=== PATIENT | female | born 1935 | race African-American/Black ===

== ENCOUNTER 2016-09-22 18:23 | Inpatient (IN) | payer MEDICARE, OTHER ==
[~2016-09-22] VITALS: Ht 165.1 cm; Wt 104.8 kg
[~2016-09-22 18:23] MED LIST: ADVAIR 500-501 EACH INH; ALLOPURINOL100 M1 PO; AMLODIPINE BESY10 MG PO; AZELASTINE137 MCG/0. INH; BYSTOLIC20 MG PO; DIGOXIN125 MCG PO; DIOVAN320 MG PO; FUROSEMIDE20 M1 PO; LETAIRIS5 MG PO; MONTELUKAST SOD10 MG PO; OXYBUTYNIN CHLOR5 M2 PO; PRADAXA150 MG PO; SILDENAFIL20 MG PO; TRAMADOL HCL50 MG ORAL; VENTOLIN HFA18 GM PO; VITAMIN D35000 UNI2 PO
[2016-09-22 18:40] VITALS: BP 151/57
[2016-09-22] MEDS ORDERED: Ipratropium 0.02% Inh Soln 2.5ml UD HHN ONE (19:00)
[2016-09-22] MEDS ORDERED: Albuterol ud Inhalation HHN ONE (19:00)
--- NOTE | 2016-09-22 19:49 | Emergency Room Report ---
History of Present Illness General Chief Complaint: Dyspnea/Respdistress Source: Patient, Medical Record Present Illness HPI 81-year-old female presents ED for evaluation. States that her last several month she's been feeling short of breath with persistent coughing and wheezing. O2 saturation 86% percent on room air in triage. Denies any chest pain. Denies any fevers or chills. Notes productive cough. Notes history of asthma. No other aggravating or relieving factors. Denies any other associated symptoms Allergies: Coded Allergies: PENICILLINS (Verified Allergy, Mild, 10/05/09) Cashew (Verified Allergy, 12/25/13) Dust (Verified Allergy, 12/25/13) FISH CONTAINING PRODUCTS (Verified Allergy, 12/25/13) seafood TOMATO (Verified Allergy, 12/25/13) Patient History Past Medical History: HTN, AFib, asthma, CVA/TIA Past Surgical History: none Pertinent Family History: none Social History: Denies: alcohol use, drug use, smoking Now: No Immunizations: UTD Reviewed Nursing Documentation: PMH: Agreed, PSxH: Agreed Nursing Documentation-PMH Past Medical History: No History, Except For Hx Cardiac Problems: Yes - ATRIAL FIB Hx Hypertension: Yes Hx Asthma: Yes Hx Cancer: No - HISTORY OF COLON TUMOR Hx Gastrointestinal Problems: Yes Hx Neurological Problems: Yes Hx Transient Ischemic Attacks: Yes Review of Systems All Other Systems: negative except mentioned in HPI Physical Exam Vital Signs Date Time Temp Pulse Resp B/P Pulse Ox O2 Delivery O2 Flow Rate FiO2 09/22/16 18:35 98.1 70 18 151/57 86 Room Air 09/22/16 19:18 97 Sp02 EP Interpretation: reviewed, normal General Appearance: no apparent distress, alert, GCS 15, non-toxic Head: normocephalic Eyes: bilateral eye PERRL, bilateral eye normal inspection ENT: normal ENT inspection Neck: normal inspection Respiratory: decreased breath sounds, crackles Cardiovascular #1: regular rate, rhythm, no edema Gastrointestinal: normal inspection Rectal: deferred Genitourinary: no CVA tenderness Musculoskeletal: normal inspection Neurologic: alert, oriented x3, responsive, motor strength/tone normal, sensory intact, speech normal Psychiatric: judgement/insight normal Skin: normal inspection Lymphatic: normal inspection Medical Decision Making Diagnostic Impression: Primary Impression: CHF exacerbation Qualified Codes: I50.9 - Heart failure, unspecified Additional Impressions: Hypoxia Dyspnea Qualified Codes: R06.00 - Dyspnea, unspecified ER Course Hospital Course 81-year-old female presents ED complaining of shortness of breath, productive cough, leg swelling, hypoxic on room air Differential diagnoses include: KS/unstable angina, contusion, muscle strain, PTX, rib fracture Clinical course Patient placed on stretcher. on rehabilitation manager. After initial history and physical I ordered nebs, labs, EKG, chest x-ray labs reviewed- no leukocytosis, hemoglobin/hematocrit stable, electrolytes ok, troponins negative, BNP elevated Chest x-ray- pulmonary congestion, bibasilar atelectasis O2 saturation improved on nasal cannula. Antibiotics given. Lasix given. Case discussed with Dr. Pace and he agreed to accept the patient to his service for further care and support I. I feel this is a highly complex case requiring extensive working including EKG/Rhythm strip, Xray/CT/US, Blood/urine lab work, repeat exams while in ED, and administration of strong opiates/narcotics for pain control, admission to hospital or close patient follow up. Diagnosis - CHF exacerbation, hypoxia, dyspnea admitted to telemetry in serious condition Labs Test 09/22/16 19:56 09/22/16 21:30 White Blood Count 5.4 K/UL (4.8-10.8) Red Blood Count 4.10 M/UL (4.20-5.40) Hemoglobin 12.2 G/DL (12.0-16.0) Hematocrit 42.1 % (37.0-47.0) Mean Corpuscular Volume 103 FL (80-99) Mean Corpuscular Hemoglobin 29.8 PG (27.0-31.0) Mean Corpuscular Hemoglobin Concent 29.0 G/DL (32.0-36.0) Red Cell Distribution Width 14.6 % (11.6-14.8) Platelet Count 147 K/UL (150-450) Mean Platelet Volume 7.0 FL (6.5-10.1) Neutrophils (%) (Auto) 56.5 % (45.0-75.0) Lymphocytes (%) (Auto) 32.9 % (20.0-45.0) Monocytes (%) (Auto) 7.6 % (1.0-10.0) Eosinophils (%) (Auto) 1.1 % (0.0-3.0) Basophils (%) (Auto) 2.0 % (0.0-2.0) Sodium Level 144 mEQ/L (135-145) Potassium Level 5.4 mEQ/L (3.4-4.9) 4.4 mEQ/L (3.4-4.9) Chloride Level 99 mEQ/L (98-107) Carbon Dioxide Level 36 mEQ/L (20-30) Anion Gap 9 (5-15) Blood Urea Nitrogen 16 mg/dL (7-23) Creatinine 0.6 mg/dL (0.5-0.9) Estimat Glomerular Filtration Rate mL/min (>60) Glucose Level 108 mg/dL (74-106) Lactic Acid Level 0.90 mmol/L (0.66-2.22) Calcium Level 9.1 mg/dL (8.6-10.2) Total Bilirubin 0.3 mg/dL (0.0-1.2) Aspartate Amino Transf (AST/SGOT) 32 U/L (5-40) Alanine Aminotransferase (ALT/SGPT) 24 U/L (3-33) Alkaline Phosphatase 63 U/L (35-104) Total Creatine Kinase 246 U/L (26-140) Creatine Kinase MB 4.0 ng/mL (< 3.8) Creatine Kinase MB Relative Index 1.6 Troponin I < 0.30 ng/mL (<=0.30) Pro-B-Type Natriuretic Peptide 986 pg/mL (0-450) Total Protein 7.4 g/dL (6.6-8.7) Albumin 3.6 g/dL (3.5-5.2) Globulin 3.8 g/dL Albumin/Globulin Ratio 0.9 (1.0-2.7) EKG Diagnostic Results Rate: normal Rhythm: other - afib ST Segments: no acute changes ASA given to the pt in ED: No Rhythm Strip Diag. Results EP Interpretation: yes Rhythm: no PVC's, no ectopy Chest X-Ray Diagnostic Results EP Interpretation: Yes Findings: no pneumothorax, no acute cardiopulmonary disease, other - bilateral atelectasis Number of Views: 1 Last Vital Signs Date Time Temp Pulse Resp B/P Pulse Ox O2 Delivery O2 Flow Rate FiO2 09/22/16 19:18 74 23 97 Room Air 97 1/13/17 18:35 98.1 151/57 Status: improved Disposition: ADMITTED INPATIENT Condition: Serious Referrals: ISAIAS PACE (PCP) JACKIE DENISE M.D. Sep 22, 2016 19:49
[2016-09-22 20:10] VITALS: BP 156/71
[2016-09-22] MEDS ORDERED: BYSTOLIC10 MG ORAL (20:33)
[2016-09-22] MEDS ORDERED: LINZESS145 MCG PO (20:33)
[2016-09-22 20:41] LABS: ALANINE AMINOTRANSFERASE 24 U/L (3-33); ALBUMIN/GLOBULIN RATIO 0.9 (1.0-2.7); ANION GAP 9 (5-15); ASPARTATE AMINO TRANSFERASE 32 U/L (5-40); CALCIUM 9.1 mg/dL (8.6-10.2); CARBON DIOXIDE 36 mEQ/L (20-30); CHLORIDE 99 mEQ/L (98-107); CREATININE 0.6 mg/dL (0.5-0.9); HEMOLYSIS 158; POTASSIUM 5.4 mEQ/L (3.4-4.9); SODIUM 144 mEQ/L (135-145); TOTAL PROTEIN 7.4 g/dL (6.6-8.7)
[2016-09-22 20:54] LABS: EOSINOPHILS % (AUTO) 1.1 % (0.0-3.0); LYMPHOCYTES % (AUTO) 32.9 % (20.0-45.0); MEAN CORPUSCULAR HEMOGLOBIN 29.8 PG (27.0-31.0); MEAN CORPUSCULAR VOLUME 103 FL (80-99); MONOCYTES % (AUTO) 7.6 % (1.0-10.0); NEUTROPHILS % (AUTO) 56.5 % (45.0-75.0); PLATELET COUNT 147 K/UL (150-450); RED CELL DISTRIBUTION WIDTH 14.6 % (11.6-14.8); WHITE BLOOD COUNT 5.4 K/UL (4.8-10.8)
[2016-09-22 21:22] LABS: TROPONIN I < 0.30 ng/mL (<=0.30)
[2016-09-22 22:28] VITALS: BP 127/65
[2016-09-22] MEDS ORDERED: Albuterol ud Inhalation HHN PRN (22:30)
[2016-09-22 22:33] LABS: APPEARANCE,URINE CLEAR; KETONES,URINE NEGATIVE (NEGATIVE); LEUKOCYTE ESTERASE ,URINE 1+ (NEGATIVE); NITRITE,URINE NEGATIVE (NEGATIVE); PH,URINE 6 (4.5-8.0); PROTEIN,URINE 2+ (NEGATIVE); UROBILINOGEN,URINE NORMAL MG/DL (0.0-1.0)
[2016-09-22 23:02] LABS: BACTERIA,URINE OCCASIONAL /HPF; SQUAMOUS EPITHELIAL CELL,UR FEW /LPF (NONE/OCC)
[2016-09-22] MEDS ORDERED: traMADol 50mg tab ORAL PRN (23:45)
[2016-09-23] VITALS: BP 139/71
[2016-09-23] MEDS: Solu-MEDROL 125mg Inj IVP SCH ×3 (00:34→21:56)
[2016-09-23] MEDS: Albuterol ud Inhalation HHN SCH ×3 (02:28→22:35)
[2016-09-23 04:00] VITALS: BP 131/72
[2016-09-23 07:42] VITALS: BP 133/81
[2016-09-23 08:39] LABS: CALCIUM 8.9 mg/dL (8.6-10.2); CHLORIDE 99 mEQ/L (98-107); CREATININE 0.6 mg/dL (0.5-0.9); HEMOLYSIS 2; POTASSIUM 4.7 mEQ/L (3.4-4.9); SODIUM 145 mEQ/L (135-145)
[2016-09-23] MEDS: Allopurinol 100mg Tab ORAL SCH ×2 (08:44→18:14)
[2016-09-23] MEDS: Irbesartan 150mg tablet ORAL SCH (08:44)
[2016-09-23 08:45] LABS: BASOPHILS % (AUTO) 0.5 % (0.0-2.0); MEAN CORPUSCULAR HEMOGLOBIN 30.3 PG (27.0-31.0); MEAN CORPUSCULAR HGB CONC 29.8 G/DL (32.0-36.0); MEAN CORPUSCULAR VOLUME 102 FL (80-99); MEAN PLATELET VOLUME 8.1 FL (6.5-10.1); MONOCYTES % (AUTO) 1.2 % (1.0-10.0); NEUTROPHILS % (AUTO) 79.3 % (45.0-75.0); PLATELET COUNT 144 K/UL (150-450); RED BLOOD COUNT 3.81 M/UL (4.20-5.40); RED CELL DISTRIBUTION WIDTH 14.2 % (11.6-14.8)
[2016-09-23] MEDS: Vitamin D 1000 IU Tab ORAL SCH (08:45)
[2016-09-23 08:56] LABS: ANION GAP 6 (5-15); CARBON DIOXIDE 40 mEQ/L (20-30)
[2016-09-23] MEDS: Revatio 20mg tab ORAL SCH ×3 (08:59→18:14)
[2016-09-23] MEDS ORDERED: Dabigatran 150mg cap ORAL SCH (09:00)
[2016-09-23] MEDS ORDERED: Digoxin 0.125mg tab ORAL SCH (09:00)
[2016-09-23] MEDS ORDERED: Heparin 5000 units/ml inj SUBQ SCH (09:00)
[2016-09-23] MEDS ORDERED: Montelukast 10mg tablet ORAL SCH (09:00)
[2016-09-23 11:36] VITALS: BP 148/68
--- NOTE | 2016-09-23 11:54 | Diagnostic Imaging Report ---
Indications: Shortness of breath Technique: Portable AP chest Findings: Comparison: 01/09/2014 Linear densities persist in both lung bases, decreased. Retro-pulmonary vasculature remains prominent. Heart size, referral pulmonary vasculature remain within normal limits. No pleural abnormalities demonstrated. Calcified granuloma right upper lobe, calcification and elongation of thoracic aorta unchanged. IMPRESSION: No current evidence of acute cardiopulmonary disease Persistent subsegmental atelectasis in both lung bases, decreased Other stable chronic changes as described
[2016-09-23] MEDS: cefTRIAXone 1 GM in D5W 55 ML IVPB SCH (14:23)
[2016-09-23] MEDS: Digoxin 0.125mg tab ORAL SCH (14:25)
[2016-09-23 16:00] VITALS: BP 139/63
[2016-09-23 20:00] VITALS: BP 135/87
--- NOTE | 2016-09-23 20:57 | Consultation ---
DATE OF CONSULTATION: PULMONARY CONSULTATION CONSULTING PHYSICIAN: Stevan Pace M.D. REASON FOR CONSULTATION: Shortness of breath and respiratory insufficiency. HISTORY OF PRESENT ILLNESS: The patient is an 81-year-old female known to me. The patient is noted to have increased shortness of breath, increase in cough, wheezing, and worsening hypoxemia. The patient does have home oxygen. The patient has had prior history of respiratory failure. The patient also has multiple medical problems including atrial fibrillation. The patient is now admitted for further care and management and further intervention and further optimization. The patient admits to some cough and congestion. The patient has noted worsening symptoms over the past 3 to 4 days. Care was discussed and reviewed in detail with the patient as well as with the emergency room physician. PAST MEDICAL HISTORY: The patient's past medical history is notable for hypertension, atrial fibrillation, asthma, CVA, transient ischemic attack, respiratory failure, and chronic hypoxemia. MEDICATIONS: Reviewed. ALLERGIES: Reviewed. SOCIAL HISTORY: Nonsmoker and nondrinker. The patient is still ambulatory using a walker. REVIEW OF SYSTEMS: Otherwise negative with the exception of the above. The patient, however, does have history of colon cancer and paroxysmal atrial fibrillation as well as prior history of transient ischemic attack and neurological issues. PHYSICAL EXAMINATION: GENERAL: This is a well-developed female. She is comfortable, but in mild distress, coughing and wheezing. VITAL SIGNS: Blood pressure 133/81, pulse 71, respiratory rate 22, oxygen saturation 95% on two liters, and temperature 97.7 degrees. HEENT: Overall negative. Extraocular movements are grossly intact. The oropharynx is injected. NECK: Supple. LUNGS: With scattered wheezes and rhonchi with decreased air entry. CARDIAC: Normal S1 and S2. Irregularly irregular without murmurs, rubs, or gallops. ABDOMEN: Overall soft, nontender, obese. EXTREMITIES: No cyanosis, no clubbing. Mild edema. NEUROLOGICAL: Grossly nonfocal, but weak. LABORATORY DATA: Reviewed. Other laboratory data, white count is 5, hematocrit is 38.7, and platelets of 144,000. Chemistry, sodium 145, potassium 4.7, BUN 14, and creatinine 0.6. The BNP is 986. DIAGNOSTIC DATA: Chest x-ray with atelectasis only. IMPRESSION: Respiratory insufficiency, asthma exacerbation, resting hypoxemia, history of atrial fibrillation, paroxysmal, hypertension, pulmonary edema, and hypertensive heart disease. RECOMMENDATIONS: Resume medications from home. The patient is on anticoagulation, intravenous antibiotics empirically, intravenous steroids, respiratory care, monitor rhythm, monitor oxygen needs, stabilize, and proceed with discharge planning once improved. Stevan Pace M.D. DR: BRIANA JOB#: [id number] CC:
[2016-09-23] MEDS: Oxybutynin 5mg tab ORAL SCH (21:56)
--- NOTE | 2016-09-23 22:47 | History and Physical Report ---
DATE OF ADMISSION: 09/22/2016 CHIEF COMPLAINT: Chronic obstructive pulmonary disease exacerbation and pneumonia. HISTORY OF PRESENT ILLNESS: The patient is a very pleasant female. She has a history of chronic lung disease and hypertension. She has a history of a single kidney. She presented from home with complaints of progressive shortness of breath. According to the patient, she has chronic shortness of breath for the last week. She has had worsening congestion and dyspnea on exertion. On evaluation in the emergency room, the patient was diagnosed with pneumonia. She has been started on broad-spectrum IV antibiotics and is now admitted for further evaluation and care. PAST MEDICAL HISTORY: Significant for history of hypertension, hypertensive heart disease, history of kidney stones, single kidney. CURRENT MEDICATIONS: Reconciled and reviewed. ALLERGIES: Include fish, penicillin, and tomatoes. SOCIAL HISTORY: Negative for tobacco, ethanol, or drugs. REVIEW OF SYSTEMS: General: Positive malaise and weakness. HEENT: No headaches or visual changes. Cardiopulmonary: No chest pain. Positive shortness of breath. Gastrointestinal: No nausea or vomiting. Genitourinary: No urgency or frequency. Musculoskeletal: No dependent swelling. Neurologic: No history of seizures. PHYSICAL EXAMINATION: VITAL SIGNS: Temperature 98 degrees, blood pressure 133/81, pulse 71, and respirations 22. GENERAL: The patient is a well-developed female, in no apparent distress. She is able to speak in full sentences. HEENT: Her pupils are equal, round, and reactive to light. Sclerae are anicteric . Oropharynx is clear. NECK: Supple. LUNGS: Significant for scattered rhonchi and wheezes. ABDOMEN: Soft, nontender, and nondistended. EXTREMITIES: Without clubbing, cyanosis, or edema. LABORATORY AND DIAGNOSTIC DATA: Chest x-ray showed pneumonia. White count 4, hemoglobin 12, hematocrit 42, and platelets 147,000. Sodium 144 and potassium 5.4. UA was clear. ASSESSMENT: This is a pleasant female with a history of asthma/chronic obstructive pulmonary disease, hypertension, admitted with positive pneumonia, asthma/chronic obstructive pulmonary disease exacerbation. PLAN: IV antibiotics, respiratory treatments, and steroids, supplemental oxygen as needed. DVT and stress ulcer prophylaxis. Olivier Blanco M.D. DR: HERMAN JOB#: [id number] CC:
[2016-09-24 00:13] VITALS: BP 137/68
[2016-09-24] MEDS: Albuterol ud Inhalation HHN SCH ×6 (03:04→22:38)
[2016-09-24 04:22] VITALS: BP 133/61
[2016-09-24] MEDS: Oxybutynin 5mg tab ORAL SCH ×3 (06:02→22:23)
[2016-09-24 07:54] VITALS: BP 128/68
--- NOTE | 2016-09-24 08:38 | General Progress Note ---
Assessment/Plan Problem List: (1) Respiratory distress ICD Codes: R06.00 - Dyspnea, unspecified SNOMED: 132182742 (2) Hypoxia ICD Codes: R09.02 - Hypoxemia SNOMED: 828305003, 21906998 (3) CHF exacerbation ICD Codes: I50.9 - Heart failure, unspecified SNOMED: 01339508, [id number] Qualifiers: Qualified Codes: I50.9 - Heart failure, unspecified (4) Dyspnea ICD Codes: R06.00 - Dyspnea, unspecified SNOMED: 728567039 Qualifiers: Qualified Codes: R06.00 - Dyspnea, unspecified Status: stable, progressing Assessment/Plan iv steroids iv abx resp rx monitor cxr follow up cultures po lasix monitor cxr dvt/stress ulcer prophyalxis Subjective ROS Limited/Unobtainable: No Constitutional: Reports: malaise, weakness HEENT: Reports: no symptoms Cardiovascular: Reports: edema Respiratory: Reports: cough, shortness of breath Gastrointestinal/Abdominal: Reports: no symptoms Genitourinary: Reports: no symptoms Neurologic/Psychiatric: Reports: no symptoms Endocrine: Reports: no symptoms Allergies: Coded Allergies: PENICILLINS (Verified Allergy, Mild, 10/05/09) Cashew (Verified Allergy, 12/25/13) Dust (Verified Allergy, 12/25/13) FISH CONTAINING PRODUCTS (Verified Allergy, 12/25/13) seafood TOMATO (Verified Allergy, 12/25/13) All Systems: reviewed and negative except above Subjective no events. less sob and congested. denies chest pain no fever or chills. No headahes. on IV abx and o2/resp rx Objective Last 24 Hour Vital Signs Date Time Temp Pulse Resp B/P Pulse Ox O2 Delivery O2 Flow Rate FiO2 09/24/16 07:54 97.0 78 20 128/68 95 Nasal Cannula 2.0 09/24/16 06:42 66 16 99 Nasal Cannula 2.0 28 09/24/16 06:42 28 09/24/16 06:42 66 18 99 Nasal Cannula 2.0 28 09/24/16 05:01 67 09/24/16 04:22 97.5 77 20 133/61 99 Room Air 09/24/16 03:12 67 18 99 Nasal Cannula 2.0 28 09/24/16 03:04 28 09/24/16 03:04 66 16 96 Nasal Cannula 2.0 28 09/24/16 00:13 97.5 65 20 137/68 Room Air 09/24/16 00:00 59 09/23/16 22:43 68 18 99 Nasal Cannula 2.0 28 09/23/16 22:35 28 09/23/16 22:35 65 16 95 Nasal Cannula 2.0 28 09/23/16 20:00 65 09/23/16 20:00 98.2 90 18 135/87 95 Nasal Cannula 2.0 09/23/16 19:43 65 18 98 Nasal Cannula 2.0 28 09/23/16 19:35 62 18 95 Nasal Cannula 2.0 28 09/23/16 19:35 28 09/23/16 16:00 97.9 67 19 139/63 94 Room Air 09/23/16 16:00 73 09/23/16 14:51 71 18 97 Nasal Cannula 2.0 28 09/23/16 14:41 73 18 94 Nasal Cannula 2.0 28 09/23/16 14:41 28 09/23/16 14:25 77 09/23/16 11:36 97.0 77 20 148/68 95 Nasal Cannula 2.0 09/23/16 10:43 70 17 97 Nasal Cannula 2.0 28 09/23/16 10:43 70 17 93 Nasal Cannula 2.0 28 09/23/16 08:45 71 133/81 09/23/16 08:44 133/81 Intake and Output 09/23/16 09/24/16 19:00 07:00 Intake Total 360 ml 300 ml Balance 360 ml 300 ml Intake Oral 360 ml 300 ml # Voids 4 3 Laboratory Tests 09/24/16 06:10: Digoxin Level 0.7 Height (Feet): 5 Height (Inches): 5.00 Weight (Pounds): 231 General Appearance: WD/WN, alert Neck: supple, normal inspection Cardiovascular: normal rate, regular rhythm Respiratory/Chest: rhonchi - bilaterally Abdomen: normal bowel sounds, non tender, soft Extremities: non-tender Edema: mild edema Neurologic: track announcer II-XII grossly normal, no motor/sensory deficits, abnormal gait , alert SONNY GREER Sep 24, 2016 08:38
--- NOTE | 2016-09-24 08:43 | Pulmonology Progress Note ---
Assessment/Plan Assessment/Plan IMPRESSION: Respiratory insufficiency, asthma exacerbation, resting hypoxemia, history of atrial fibrillation, paroxysmal, hypertension, pulmonary edema, and hypertensive heart disease. PLAN care noted no change monitor fluid status maintain steroids respiratory care oxygen has chronic hypoxemia PT evaluation impression, plan, and exam edited and reviewed in detail care discussed with RN Subjective Allergies: Coded Allergies: PENICILLINS (Verified Allergy, Mild, 10/05/09) Cashew (Verified Allergy, 12/25/13) Dust (Verified Allergy, 12/25/13) FISH CONTAINING PRODUCTS (Verified Allergy, 12/25/13) seafood TOMATO (Verified Allergy, 12/25/13) Subjective slightly improved minimal congestion no pain Objective Last 24 Hour Vital Signs Date Time Temp Pulse Resp B/P Pulse Ox O2 Delivery O2 Flow Rate FiO2 09/24/16 07:54 97.0 78 20 128/68 95 Nasal Cannula 2.0 09/24/16 06:42 66 16 99 Nasal Cannula 2.0 28 09/24/16 06:42 28 09/24/16 06:42 66 18 99 Nasal Cannula 2.0 28 09/24/16 05:01 67 09/24/16 04:22 97.5 77 20 133/61 99 Room Air 09/24/16 03:12 67 18 99 Nasal Cannula 2.0 28 09/24/16 03:04 28 09/24/16 03:04 66 16 96 Nasal Cannula 2.0 28 09/24/16 00:13 97.5 65 20 137/68 Room Air 09/24/16 00:00 59 09/23/16 22:43 68 18 99 Nasal Cannula 2.0 28 09/23/16 22:35 28 09/23/16 22:35 65 16 95 Nasal Cannula 2.0 28 09/23/16 20:00 65 09/23/16 20:00 98.2 90 18 135/87 95 Nasal Cannula 2.0 09/23/16 19:43 65 18 98 Nasal Cannula 2.0 28 09/23/16 19:35 62 18 95 Nasal Cannula 2.0 28 09/23/16 19:35 28 09/23/16 16:00 97.9 67 19 139/63 94 Room Air 09/23/16 16:00 73 09/23/16 14:51 71 18 97 Nasal Cannula 2.0 28 09/23/16 14:41 73 18 94 Nasal Cannula 2.0 28 09/23/16 14:41 28 09/23/16 14:25 77 09/23/16 11:36 97.0 77 20 148/68 95 Nasal Cannula 2.0 09/23/16 10:43 70 17 97 Nasal Cannula 2.0 28 09/23/16 10:43 70 17 93 Nasal Cannula 2.0 28 09/23/16 08:45 71 133/81 09/23/16 08:44 133/81 Intake and Output 09/23/16 09/24/16 19:00 07:00 Intake Total 360 ml 300 ml Balance 360 ml 300 ml Intake Oral 360 ml 300 ml # Voids 4 3 Objective GENERAL: This is a well-developed female. remains comfortable, HEENT: Overall negative. Extraocular movements are grossly intact. The oropharynx is injected. NECK: Supple. LUNGS: scattered wheezes and rhonchi with decreased air entry. slightly improved CARDIAC: Normal S1 and S2. Irregularly irregular without murmurs, rubs, or gallops. ABDOMEN: Overall soft, nontender, obese. EXTREMITIES: No cyanosis, no clubbing. Mild edema. NEUROLOGICAL: Grossly nonfocal, but weak. Microbiology Date/Time Source Procedure Growth Status 09/22/16 19:30 Blood Blood Culture - Preliminary NO GROWTH AFTER 24 HOURS Resulted 09/22/16 19:30 Blood Blood Culture - Preliminary NO GROWTH AFTER 24 HOURS Resulted 09/22/16 19:58 Nasal Nares Influenza Types A,B Antigen (JIM) - Final Complete Laboratory Tests 09/24/16 06:10: Digoxin Level 0.7 Current Medications Medications (Trade) Dose Ordered Sig/Rocío Route PRN Reason Start Time Stop Time Status Last Admin Dose Admin Albuterol Sulfate (Proventil) 2.5 mg Q4H PRN HHN Shortness of Breath 09/22/16 22:30 09/27/16 22:29 Albuterol Sulfate (Proventil) 2.5 mg Q4HRT HHN 09/23/16 23:00 09/28/16 22:59 09/24/16 06:44 Allopurinol (Zyloprim) 100 mg BID ORAL 09/23/16 09:00 10/23/16 08:59 09/23/16 18:14 Amlodipine Besylate (Norvasc) 10 mg DAILY ORAL 09/23/16 09:00 10/23/16 08:59 09/23/16 08:45 Budesonide/ Formoterol Fumarate (Symbicort 160/ 4.5) 2 puff TWICE A DAY INH 09/23/16 18:00 10/23/16 17:59 09/23/16 19:37 Ceftriaxone Sodium/Dextrose (Rocephin/D5W 50ml) 55 ml @ 110 mls/hr Q24H IVPB 09/23/16 14:00 09/30/16 13:59 09/23/16 14:23 Dabigatran (Pradaxa) 150 mg EVERY 12 HOURS ORAL 09/23/16 10:00 10/23/16 09:59 09/23/16 18:14 Digoxin (Lanoxin) 0.125 mg DAILY ORAL 09/23/16 14:00 10/23/16 13:59 09/23/16 14:25 Furosemide (Lasix) 20 mg DAILY ORAL 09/23/16 09:00 10/23/16 08:59 09/23/16 08:43 Irbesartan (Avapro) 300 mg DAILY ORAL 09/23/16 09:00 10/23/16 08:59 09/23/16 08:44 Methylprednisolone Sodium Succinate 60 mg 60 mg EVERY 12 HOURS IVP 09/23/16 00:00 10/23/16 00:00 09/23/16 21:56 Nebivolol (Bystolic) 10 mg DAILY ORAL 09/23/16 10:00 10/23/16 09:59 09/23/16 10:19 Non-Formulary Medication (Non-Formulary Med) 1 ea DAILY ORAL 09/23/16 09:00 10/23/16 08:59 UNV Non-Formulary Medication (Non-Formulary Med) 1 ea DAILY ORAL 09/23/16 09:00 10/23/16 08:59 UNV Oxybutynin Chloride (Ditropan) 5 mg Q8HR ORAL 09/23/16 22:00 10/23/16 21:59 09/24/16 06:02 Patient Own Medication (Patient's Own Med) 1 ea DAILY ORAL 09/24/16 09:00 10/24/16 08:59 Sildenafil Citrate (Revatio) 20 mg TID ORAL 09/23/16 09:00 10/23/16 08:59 09/23/16 18:14 Tramadol HCl (Ultram) 50 mg Q6H PRN ORAL For Pain 09/22/16 23:45 09/29/16 23:44 Vitamin D (Vitamin D) 5,000 intlu DAILY ORAL 09/23/16 09:00 10/23/16 08:59 09/23/16 08:45 ISAIAS BECKFORD Sep 24, 2016 08:43
[2016-09-24] MEDS: Solu-MEDROL 125mg Inj IVP SCH (09:01)
[2016-09-24] MEDS: Allopurinol 100mg Tab ORAL SCH ×2 (09:02→21:01)
[2016-09-24] MEDS: Vitamin D 1000 IU Tab ORAL SCH (09:02)
[2016-09-24] MEDS: Digoxin 0.125mg tab ORAL SCH (09:03)
[2016-09-24] MEDS: Irbesartan 150mg tablet ORAL SCH (09:05)
[2016-09-24] MEDS: Revatio 20mg tab ORAL SCH ×3 (09:05→21:01)
[2016-09-24 12:18] VITALS: BP 121/50
[2016-09-24] MEDS: cefTRIAXone 1 GM in D5W 55 ML IVPB SCH (13:35)
[2016-09-24 16:00] VITALS: BP 142/62
[2016-09-24 20:00] VITALS: BP 126/53
[2016-09-25] VITALS: BP 130/75
[2016-09-25] MEDS: Solu-MEDROL 125mg Inj IVP SCH ×3 (01:47→21:16)
[2016-09-25] MEDS: Albuterol ud Inhalation HHN SCH ×6 (03:29→23:00)
[2016-09-25 04:16] VITALS: BP 135/58
--- NOTE | 2016-09-25 05:47 | Progress Note ---
DATE: 09/24/2016 CARDIOLOGY PROGRESS NOTE: SUBJECTIVE: The patient has congestion and shortness of breath. She remains hypoxic. She is slightly better from yesterday. Sinus arrhythmia with frequent atrial ectopics. OBJECTIVE: VITAL SIGNS: Blood pressure is 128/68, pulse 78, and respiratory rate 20. She is afebrile. CHEST: Breath sounds are diminished air, expiratory wheezes, and few rhonchi. HEART: Regular rhythm and rate with frequent ectopic beats. No new murmur. ABDOMEN: Soft and nontender. EXTREMITIES: Trace edema. LABORATORY DATA: White count is 5 and hemoglobin 11.5. Potassium is 4.7, BUN 14, and creatinine 0.6. IMPRESSION: 1. Chronic obstructive pulmonary disease exacerbation. 2. Chronic diastolic congestive heart failure. 3. Hypoxia. 4. Paroxysmal atrial fibrillation. 5. Premature atrial contractions. 6. Sinus arrhythmia. 7. Hypertensive heart disease. PLAN: 1. Taper steroids when condition improves and continue inhaled bronchodilators. 2. Maintain anti-arrhythmic regimen with cautious use of beta-millicent. 3. Maintenance diuretic dosing. 4. Deep venous thrombosis prophylaxis. Gerardo Calix M.D. DR: He JOB#: [id number] CC:
[2016-09-25] MEDS: Oxybutynin 5mg tab ORAL SCH ×3 (06:26→21:42)
--- NOTE | 2016-09-25 06:28 | Consultation ---
DATE OF CONSULTATION: 09/23/2016 CARDIOLOGY CONSULTATION CONSULTING PHYSICIAN: Gerardo Calix M.D. REQUESTING PHYSICIAN: Olivier Blanco M.D. REASON FOR CONSULTATION: Shortness of breath in the setting of elevated natriuretic peptide assay and atrial arrhythmia. HISTORY OF PRESENT ILLNESS: This is an 81-year-old female, who has been increasingly short of breath. She notes cough and congestion. She has been wheezing. She was noted to have hypoxia in the emergency room and is on home O2. The patient does have a prior history of respiratory failure with ventilator dependency. Of concern is the elevated natriuretic peptide assay and abnormal EKG, prompting this cardiac consultation. PAST MEDICAL HISTORY: 1. Hypertension. 2. Paroxysmal atrial fibrillation. 3. History of cerebrovascular accident. 4. COPD. 5. History of respiratory failure. 6. Chronic hypoxia. 7. History of colon cancer. MEDICATIONS: Reviewed and reconciled. ALLERGIES: Include penicillin, fish, and tomato as well as cashew. SOCIAL HISTORY: Nonsmoker. Ambulates with a walker. No alcohol use. REVIEW OF SYSTEMS: No fevers. No history of blood clotting. No complaints of chest pain. No history of heart attack. She has not had palpitations. There is no history of seizures. She has not had any change in bowel habits. There is no history of recurrent colon cancer. PHYSICAL EXAMINATION: VITAL SIGNS: Afebrile, blood pressure is 133/81, pulse 71, and respirations 22. GENERAL: No acute respiratory distress. HEENT: Oropharynx is clear. NECK: Supple. Jugular venous pressure is normal. No accessory muscle use. LUNGS: Scattered rhonchi and expiratory wheezes. CARDIAC: Regular rhythm and rate. Normal S1 and S2 with frequent ectopic beats. ABDOMEN: Soft. EXTREMITIES: With no edema. DIAGNOSTIC AND LABORATORY DATA: Chest x-ray reveals atelectasis. Pro-natriuretic peptide is 986. BUN is 14 and creatinine 0.6. White count is 5 and hematocrit 38.7. EKG, sinus arrhythmia with PACs. No acute abnormality. IMPRESSION: 1. Acute respiratory insufficiency. 2. Acute bronchospasm. 3. Hypoxia. 4. Chronic obstructive pulmonary disease exacerbation. 5. Paroxysmal atrial ectopy. 6. Paroxysmal atrial fibrillation. 7. Hypertensive heart disease. 8. Chronic diastolic congestive heart failure with no signs of acute component clinically at this time. PLAN: 1. Intravenous steroids. 2. Empiric antibiotics. 3. Inhaled bronchodilators. 4. Oxygen supplementation. 5. No role for diuresis presently. 6. Cardiac monitoring. 7. Continue digoxin and cautious use of beta-millicent therapy in this clinical setting. Gerardo Calix M.D. DR: He JOB#: [id number] CC:
[2016-09-25 08:00] VITALS: BP 123/98
[2016-09-25] MEDS: Digoxin 0.125mg tab ORAL SCH (08:30)
[2016-09-25] MEDS: Vitamin D 1000 IU Tab ORAL SCH (08:32)
[2016-09-25] MEDS: Allopurinol 100mg Tab ORAL SCH ×2 (08:33→18:16)
[2016-09-25] MEDS: Revatio 20mg tab ORAL SCH ×3 (08:34→18:16)
[2016-09-25] MEDS: Irbesartan 150mg tablet ORAL SCH (08:34)
--- NOTE | 2016-09-25 08:55 | Pulmonology Progress Note ---
Assessment/Plan Assessment/Plan IMPRESSION: Respiratory insufficiency, asthma exacerbation, resting hypoxemia, history of atrial fibrillation, paroxysmal, hypertension, pulmonary edema, and hypertensive heart disease. PLAN care noted no change monitor fluid status for change maintain steroids and taper respiratory care oxygen has chronic hypoxemia at home and has home oxygen PT evaluation ordered impression, plan, and exam edited and reviewed in detail care discussed with RN Subjective Allergies: Coded Allergies: PENICILLINS (Verified Allergy, Mild, 10/05/09) Cashew (Verified Allergy, 12/25/13) Dust (Verified Allergy, 12/25/13) FISH CONTAINING PRODUCTS (Verified Allergy, 12/25/13) seafood TOMATO (Verified Allergy, 12/25/13) Subjective slowly improving minimal congestion no pain Objective Last 24 Hour Vital Signs Date Time Temp Pulse Resp B/P Pulse Ox O2 Delivery O2 Flow Rate FiO2 09/25/16 08:34 128/68 09/25/16 08:30 74 09/25/16 08:30 74 128/68 09/25/16 04:16 97.0 65 20 135/58 94 Room Air 09/25/16 04:00 70 09/25/16 03:43 67 18 100 Nasal Cannula 2.0 28 09/25/16 03:29 28 09/25/16 03:29 64 16 94 Nasal Cannula 2.0 28 09/25/16 00:00 74 09/25/16 00:00 97.0 69 20 130/75 94 Nasal Cannula 2.0 09/24/16 22:43 89 18 100 Nasal Cannula 2.0 28 09/24/16 22:38 65 16 100 Nasal Cannula 2.0 28 09/24/16 22:38 28 09/24/16 20:16 85 18 100 Nasal Cannula 2.0 28 09/24/16 20:05 87 16 99 Nasal Cannula 2.0 28 09/24/16 20:05 28 09/24/16 20:00 98.1 64 18 126/53 Nasal Cannula 2.0 93 09/24/16 20:00 69 09/24/16 16:00 69 09/24/16 16:00 97.2 65 18 142/62 97 Room Air 09/24/16 15:29 28 09/24/16 15:29 70 16 84 Nasal Cannula 2.0 28 09/24/16 15:29 74 18 98 Nasal Cannula 2.0 28 09/24/16 12:18 98.1 78 20 121/50 95 Nasal Cannula 2.0 09/24/16 12:00 96 09/24/16 10:41 76 18 97 Nasal Cannula 2.0 28 09/24/16 10:40 28 09/24/16 10:39 83 16 88 Nasal Cannula 2.0 28 09/24/16 09:05 128/68 09/24/16 09:05 78 128/68 09/24/16 09:03 78 Intake and Output 09/24/16 09/25/16 19:00 07:00 Intake Total 1235 ml 240 ml Balance 1235 ml 240 ml Intake Oral 1180 ml 240 ml IV Total 55 ml # Voids 3 5 Objective GENERAL: This is a well-developed female. remains comfortable, HEENT: Overall negative. Extraocular movements are grossly intact. The oropharynx is injected. NECK: Supple. LUNGS: some persistent wheezes and rhonchi with decreased air entry. slightly improved CARDIAC: Normal S1 and S2. Irregularly irregular without murmurs, rubs, or gallops. ABDOMEN: Overall soft, nontender, obese. EXTREMITIES: No cyanosis, no clubbing. Mild edema. NEUROLOGICAL: Grossly nonfocal, but weak. Microbiology Date/Time Source Procedure Growth Status 09/22/16 19:30 Blood Blood Culture - Preliminary NO GROWTH AFTER 48 HOURS Resulted 09/22/16 19:30 Blood Blood Culture - Preliminary NO GROWTH AFTER 48 HOURS Resulted 09/22/16 19:58 Nasal Nares Influenza Types A,B Antigen (JIM) - Final Complete Current Medications Medications (Trade) Dose Ordered Sig/Rocío Route PRN Reason Start Time Stop Time Status Last Admin Dose Admin Albuterol Sulfate (Proventil) 2.5 mg Q4H PRN HHN Shortness of Breath 09/22/16 22:30 09/27/16 22:29 Albuterol Sulfate (Proventil) 2.5 mg Q4HRT HHN 09/23/16 23:00 09/28/16 22:59 09/25/16 03:29 Allopurinol (Zyloprim) 100 mg BID ORAL 09/23/16 09:00 10/23/16 08:59 09/25/16 08:33 Amlodipine Besylate (Norvasc) 10 mg DAILY ORAL 09/23/16 09:00 10/23/16 08:59 09/25/16 08:30 Budesonide/ Formoterol Fumarate (Symbicort 160/ 4.5) 2 puff TWICE A DAY INH 09/23/16 18:00 10/23/16 17:59 09/24/16 18:00 Ceftriaxone Sodium/Dextrose (Rocephin/D5W 50ml) 55 ml @ 110 mls/hr Q24H IVPB 09/23/16 14:00 09/30/16 13:59 09/24/16 13:35 Dabigatran (Pradaxa) 150 mg EVERY 12 HOURS ORAL 09/23/16 10:00 10/23/16 09:59 09/25/16 08:32 Digoxin (Lanoxin) 0.125 mg DAILY ORAL 09/23/16 14:00 10/23/16 13:59 09/25/16 08:30 Furosemide (Lasix) 20 mg DAILY ORAL 09/23/16 09:00 10/23/16 08:59 09/25/16 08:30 Irbesartan (Avapro) 300 mg DAILY ORAL 09/23/16 09:00 10/23/16 08:59 09/24/16 09:05 Methylprednisolone Sodium Succinate 60 mg 60 mg EVERY 12 HOURS IVP 09/23/16 00:00 10/23/16 00:00 09/25/16 08:29 Nebivolol (Bystolic) 10 mg DAILY ORAL 09/23/16 10:00 10/23/16 09:59 09/25/16 08:29 Non-Formulary Medication (Non-Formulary Med) 1 ea DAILY ORAL 09/23/16 09:00 10/23/16 08:59 UNV Non-Formulary Medication (Non-Formulary Med) 1 ea DAILY ORAL 09/23/16 09:00 10/23/16 08:59 UNV Oxybutynin Chloride (Ditropan) 5 mg Q8HR ORAL 09/23/16 22:00 10/23/16 21:59 09/25/16 06:26 Patient Own Medication (Patient's Own Med) 1 ea DAILY ORAL 09/24/16 09:00 10/24/16 08:59 09/24/16 09:03 Sildenafil Citrate (Revatio) 20 mg TID ORAL 09/23/16 09:00 10/23/16 08:59 09/25/16 08:34 Tramadol HCl (Ultram) 50 mg Q6H PRN ORAL For Pain 09/22/16 23:45 09/29/16 23:44 Vitamin D (Vitamin D) 5,000 intlu DAILY ORAL 09/23/16 09:00 10/23/16 08:59 09/25/16 08:32 ISAIAS BECKFORD Sep 25, 2016 08:55
[2016-09-25 12:00] VITALS: BP 127/52
--- NOTE | 2016-09-25 12:12 | General Progress Note ---
Assessment/Plan Problem List: (1) Respiratory distress ICD Codes: R06.00 - Dyspnea, unspecified SNOMED: 367980834 (2) Hypoxia ICD Codes: R09.02 - Hypoxemia SNOMED: 032825906, 72905824 (3) CHF exacerbation ICD Codes: I50.9 - Heart failure, unspecified SNOMED: 31287007, 75284796 Qualifiers: Qualified Codes: I50.9 - Heart failure, unspecified (4) Dyspnea ICD Codes: R06.00 - Dyspnea, unspecified SNOMED: 971027231 Qualifiers: Qualified Codes: R06.00 - Dyspnea, unspecified Status: stable, progressing Assessment/Plan iv steroids iv abx resp rx monitor cxr follow up cultures po lasix monitor cxr dvt/stress ulcer prophyalxis pulm and cards follow up ?dc planning tomorrow Subjective ROS Limited/Unobtainable: No Constitutional: Reports: malaise, weakness HEENT: Reports: no symptoms Cardiovascular: Reports: no symptoms Respiratory: Reports: cough, shortness of breath, wheezing Gastrointestinal/Abdominal: Reports: no symptoms Genitourinary: Reports: no symptoms Neurologic/Psychiatric: Reports: no symptoms Endocrine: Reports: no symptoms Hematologic/Lymphatic: Reports: no symptoms Allergies: Coded Allergies: PENICILLINS (Verified Allergy, Mild, 10/05/09) Cashew (Verified Allergy, 12/25/13) Dust (Verified Allergy, 12/25/13) FISH CONTAINING PRODUCTS (Verified Allergy, 12/25/13) seafood TOMATO (Verified Allergy, 12/25/13) All Systems: reviewed and negative except above Subjective no events. less sob and congested. denies chest pain overall feeling better Objective Last 24 Hour Vital Signs Date Time Temp Pulse Resp B/P Pulse Ox O2 Delivery O2 Flow Rate FiO2 09/25/16 08:34 128/68 09/25/16 08:30 74 09/25/16 08:30 74 128/68 09/25/16 08:00 97.7 74 17 123/98 95 Room Air 09/25/16 08:00 69 09/25/16 07:13 67 16 97 Nasal Cannula 2.0 28 09/25/16 04:16 97.0 65 20 135/58 94 Room Air 09/25/16 04:00 70 09/25/16 03:43 67 18 100 Nasal Cannula 2.0 28 09/25/16 03:29 28 09/25/16 03:29 64 16 94 Nasal Cannula 2.0 28 09/25/16 00:00 74 09/25/16 00:00 97.0 69 20 130/75 94 Nasal Cannula 2.0 09/24/16 22:43 89 18 100 Nasal Cannula 2.0 28 09/24/16 22:38 65 16 100 Nasal Cannula 2.0 28 09/24/16 22:38 28 09/24/16 20:16 85 18 100 Nasal Cannula 2.0 28 09/24/16 20:05 87 16 99 Nasal Cannula 2.0 28 09/24/16 20:05 28 09/24/16 20:00 98.1 64 18 126/53 Nasal Cannula 2.0 93 09/24/16 20:00 69 09/24/16 16:00 69 09/24/16 16:00 97.2 65 18 142/62 97 Room Air 09/24/16 15:29 28 09/24/16 15:29 70 16 84 Nasal Cannula 2.0 28 09/24/16 15:29 74 18 98 Nasal Cannula 2.0 28 09/24/16 12:18 98.1 78 20 121/50 95 Nasal Cannula 2.0 Intake and Output 09/24/16 09/25/16 19:00 07:00 Intake Total 1235 ml 240 ml Balance 1235 ml 240 ml Intake Oral 1180 ml 240 ml IV Total 55 ml # Voids 3 5 Height (Feet): 5 Height (Inches): 5.00 Weight (Pounds): 231 Objective General Appearance: WD/WN, alert Neck: supple, normal inspection Cardiovascular: normal rate, regular rhythm Respiratory/Chest: rhonchi - bilaterally Abdomen: normal bowel sounds, non tender, soft Extremities: non-tender Edema: mild edema Neurologic: skirt trimmer II-XII grossly normal, no motor/sensory deficits, abnormal gait , alert SONNY GREER Sep 25, 2016 12:12
[2016-09-25] MEDS: cefTRIAXone 1 GM in D5W 55 ML IVPB SCH (14:15)
[2016-09-25 16:00] VITALS: BP 120/70
[2016-09-25 20:00] VITALS: BP 152/54
[2016-09-26] VITALS: BP 145/83
--- NOTE | 2016-09-26 00:37 | Progress Note ---
DATE: 09/25/2016 CARDIOLOGY PROGRESS NOTE: SUBJECTIVE: The patient remains on IV steroids, antibiotics, and maintenance diuretics. OBJECTIVE: VITAL SIGNS: Blood pressure 128/68, pulse 74, respiratory rate 17, and monitored rhythm sinus. LUNGS: Bilateral breath sounds. No wheezing. A few rhonchi. HEART: Regular rhythm and rate. Normal S1, S2 with a fourth heart sound. ABDOMEN: Soft. EXTREMITIES: With trace dependent edema. LABORATORY DATA: Cultures are negative. IMPRESSION: 1. Hypertension. 2. Paroxysmal atrial fibrillation. 3. Chronic obstructive pulmonary disease exacerbation. 4. Hypoxia. 5. Premature atrial contraction. 6. Hypertensive heart disease. 7. Chronic diastolic congestive heart failure. PLAN: Steroid taper. Continue antibiotics per primary care physician. P.r.n. bronchodilators by inhalation. Likely need to oxygen chronically and continue digoxin and beta-millicent therapy without change. eGrardo Calix M.D. DR: Rachael JOB#: [id number] CC:
[2016-09-26] MEDS: Albuterol ud Inhalation HHN SCH ×3 (03:09→11:14)
[2016-09-26 04:00] VITALS: BP 141/78
[2016-09-26] MEDS: Oxybutynin 5mg tab ORAL SCH (05:58)
[2016-09-26 08:00] VITALS: BP 137/76
[2016-09-26] MEDS: Revatio 20mg tab ORAL SCH (08:44)
[2016-09-26] MEDS: Solu-MEDROL 125mg Inj IVP SCH (08:44)
[2016-09-26] MEDS: Irbesartan 150mg tablet ORAL SCH (08:45)
[2016-09-26] MEDS: Digoxin 0.125mg tab ORAL SCH (08:46)
[2016-09-26 08:47] VITALS: BP 137/76
[2016-09-26] MEDS: Allopurinol 100mg Tab ORAL SCH (08:47)
[2016-09-26] MEDS: Vitamin D 1000 IU Tab ORAL SCH (08:47)
--- NOTE | 2016-09-26 08:52 | Pulmonology Progress Note ---
Assessment/Plan Assessment/Plan IMPRESSION: Respiratory insufficiency, asthma exacerbation, resting hypoxemia, history of atrial fibrillation, paroxysmal, hypertension, pulmonary edema, and hypertensive heart disease. PLAN dc home medrol rylee oxygen resume meds home health monitor clinically impression, plan, and exam edited and reviewed in detail care discussed with RN Subjective Allergies: Coded Allergies: PENICILLINS (Verified Allergy, Mild, 10/05/09) Cashew (Verified Allergy, 12/25/13) Dust (Verified Allergy, 12/25/13) FISH CONTAINING PRODUCTS (Verified Allergy, 12/25/13) seafood TOMATO (Verified Allergy, 12/25/13) Subjective doing better anxious to go home d/w daughter Objective Last 24 Hour Vital Signs Date Time Temp Pulse Resp B/P Pulse Ox O2 Delivery O2 Flow Rate FiO2 09/26/16 08:47 63 137/76 09/26/16 08:46 63 09/26/16 08:45 137/76 09/26/16 08:00 96.7 63 17 137/76 94 Nasal Cannula 2.0 09/26/16 07:58 Nasal Cannula 2.0 28 09/26/16 07:57 63 20 99 Nasal Cannula 2.0 28 09/26/16 07:45 59 20 94 Nasal Cannula 2.0 28 09/26/16 07:43 94 Nasal Cannula 2.0 28 09/26/16 04:48 79 09/26/16 04:00 97.3 58 20 141/78 93 Room Air 09/26/16 03:10 66 20 99 Nasal Cannula 2.0 28 09/26/16 03:00 63 20 93 Nasal Cannula 2.0 28 09/26/16 00:12 Nasal Cannula 2.0 28 09/26/16 00:12 Nasal Cannula 2.0 28 09/26/16 00:00 97.9 56 16 145/83 93 Room Air 09/25/16 23:37 71 09/25/16 20:00 68 09/25/16 20:00 98.1 56 21 152/54 98 Nasal Cannula 2.0 09/25/16 19:41 Nasal Cannula 2.0 28 09/25/16 19:40 94 Nasal Cannula 2.0 28 09/25/16 19:39 60 16 98 Nasal Cannula 2.0 28 09/25/16 19:30 57 16 94 Nasal Cannula 2.0 28 1/16/17 16:00 80 09/25/16 16:00 97.4 60 20 120/70 94 Nasal Cannula 2.0 09/25/16 15:42 63 16 100 Nasal Cannula 2.0 28 09/25/16 15:34 28 09/25/16 15:34 59 16 95 Nasal Cannula 2.0 28 09/25/16 12:00 97.5 61 17 127/52 97 Room Air 09/25/16 12:00 82 09/25/16 11:25 64 18 97 Nasal Cannula 2.0 28 Intake and Output 09/25/16 09/26/16 19:00 07:00 Intake Total 775 ml 240 ml Balance 775 ml 240 ml Intake Oral 720 ml 240 ml IV Total 55 ml # Voids 3 2 Objective GENERAL: This is a well-developed female. NAD HEENT: Overall negative. Extraocular movements are grossly intact. The oropharynx is injected. NECK: Supple. LUNGS: resolved wheezes and rhonchi with decreased air entry. back to baseline CARDIAC: Normal S1 and S2. Irregularly irregular without murmurs, rubs, or gallops. ABDOMEN: Overall soft, nontender, obese.no HSM EXTREMITIES: No cyanosis, no clubbing. Mild edema. NEUROLOGICAL: Grossly nonfocal, but weak. Current Medications Medications (Trade) Dose Ordered Sig/Rocío Route PRN Reason Start Time Stop Time Status Last Admin Dose Admin Albuterol Sulfate (Proventil) 2.5 mg Q4H PRN HHN Shortness of Breath 09/22/16 22:30 09/27/16 22:29 Albuterol Sulfate (Proventil) 2.5 mg Q4HRT HHN 09/23/16 23:00 09/28/16 22:59 09/26/16 08:27 Allopurinol (Zyloprim) 100 mg BID ORAL 09/23/16 09:00 10/23/16 08:59 09/26/16 08:47 Amlodipine Besylate (Norvasc) 10 mg DAILY ORAL 09/23/16 09:00 10/23/16 08:59 09/26/16 08:47 Budesonide/ Formoterol Fumarate (Symbicort 160/ 4.5) 2 puff TWICE A DAY INH 09/23/16 18:00 10/23/16 17:59 09/26/16 08:26 Ceftriaxone Sodium/Dextrose (Rocephin/D5W 50ml) 55 ml @ 110 mls/hr Q24H IVPB 09/23/16 14:00 09/30/16 13:59 09/25/16 14:15 Dabigatran (Pradaxa) 150 mg EVERY 12 HOURS ORAL 09/23/16 10:00 10/23/16 09:59 09/26/16 08:45 Digoxin (Lanoxin) 0.125 mg DAILY ORAL 09/23/16 14:00 10/23/16 13:59 09/26/16 08:46 Furosemide (Lasix) 20 mg DAILY ORAL 09/23/16 09:00 10/23/16 08:59 09/26/16 08:46 Irbesartan (Avapro) 300 mg DAILY ORAL 09/23/16 09:00 10/23/16 08:59 09/26/16 08:45 Methylprednisolone Sodium Succinate 60 mg 60 mg EVERY 12 HOURS IVP 09/23/16 00:00 10/23/16 00:00 09/26/16 08:44 Nebivolol (Bystolic) 10 mg DAILY ORAL 09/23/16 10:00 10/23/16 09:59 09/26/16 08:46 Oxybutynin Chloride (Ditropan) 5 mg Q8HR ORAL 09/23/16 22:00 10/23/16 21:59 09/26/16 05:58 Patient Own Medication (Patient's Own Med) 1 ea DAILY ORAL 09/24/16 09:00 10/24/16 08:59 09/26/16 08:45 Sildenafil Citrate (Revatio) 20 mg TID ORAL 09/23/16 09:00 10/23/16 08:59 09/26/16 08:44 Tramadol HCl (Ultram) 50 mg Q6H PRN ORAL For Pain 09/22/16 23:45 09/29/16 23:44 Vitamin D (Vitamin D) 5,000 intlu DAILY ORAL 09/23/16 09:00 10/23/16 08:59 09/26/16 08:47 ISAIAS BECKFORD Sep 26, 2016 08:52
[2016-09-26] MEDS ORDERED: Tubing IV Secondary IV ONE (11:49)
[2016-09-26] MEDS ORDERED: NS 275ml ONE (11:49)
--- NOTE | 2016-09-26 15:50 | Diagnostic Imaging Report ---
Indications: DYSPNEA Technique: Portable AP chest Findings: Comparison: 09/22/16 Cardiomegaly, bilateral interstitial prominence, bibasal subsegmental atelectasis unchanged. Right lung apex calcified granuloma, aortic arch calcification and elongation, bilateral glenohumeral degenerative arthropathy again noted. No new abnormality demonstrated. IMPRESSION: No change from one day prior
--- NOTE | 2016-09-26 15:53 | Cardiology Report ---
APPROVED REPORT EKG Measurement Heart [id number] W[place] [id number] Sinus rhythm with premature supraventricular complexes Septal infarct, age undetermined Abnormal ECG
--- NOTE | 2016-09-26 16:28 | General Progress Note ---
Assessment/Plan Problem List: (1) Respiratory distress ICD Codes: R06.00 - Dyspnea, unspecified SNOMED: 046008021 (2) Hypoxia ICD Codes: R09.02 - Hypoxemia SNOMED: 219943163, 27854368 (3) CHF exacerbation ICD Codes: I50.9 - Heart failure, unspecified SNOMED: 61864568, 06310007 Qualifiers: Qualified Codes: I50.9 - Heart failure, unspecified (4) Dyspnea ICD Codes: R06.00 - Dyspnea, unspecified SNOMED: 035498145 Qualifiers: Qualified Codes: R06.00 - Dyspnea, unspecified Assessment/Plan steroids iv abx resp rx monitor cxr follow up cultures po lasix monitor cxr dvt/stress ulcer prophyalxis dc planning Subjective Time patient seen: 05:59 ROS Limited/Unobtainable: No Constitutional: Reports: no symptoms HEENT: Reports: no symptoms Cardiovascular: Reports: no symptoms Respiratory: Reports: cough, shortness of breath, wheezing Gastrointestinal/Abdominal: Reports: no symptoms Genitourinary: Reports: no symptoms Neurologic/Psychiatric: Reports: no symptoms Endocrine: Reports: no symptoms Hematologic/Lymphatic: Reports: no symptoms Allergies: Coded Allergies: PENICILLINS (Verified Allergy, Mild, 10/05/09) Cashew (Verified Allergy, 12/25/13) Dust (Verified Allergy, 12/25/13) FISH CONTAINING PRODUCTS (Verified Allergy, 12/25/13) seafood TOMATO (Verified Allergy, 12/25/13) All Systems: reviewed and negative except above Subjective no events. much less sob. denies chest pain overall feeling better Objective Last 24 Hour Vital Signs Date Time Temp Pulse Resp B/P Pulse Ox O2 Delivery O2 Flow Rate FiO2 09/26/16 11:23 60 18 99 Nasal Cannula 2.0 28 09/26/16 11:08 60 18 Nasal Cannula 2.0 28 09/26/16 08:47 63 137/76 09/26/16 08:46 63 09/26/16 08:45 137/76 09/26/16 08:00 96.7 63 17 137/76 94 Nasal Cannula 2.0 09/26/16 08:00 74 09/26/16 07:58 Nasal Cannula 2.0 28 09/26/16 07:57 63 20 99 Nasal Cannula 2.0 28 09/26/16 07:45 59 20 94 Nasal Cannula 2.0 28 09/26/16 07:43 94 Nasal Cannula 2.0 28 09/26/16 04:48 79 09/26/16 04:00 97.3 58 20 141/78 93 Room Air 09/26/16 03:10 66 20 99 Nasal Cannula 2.0 28 09/26/16 03:00 63 20 93 Nasal Cannula 2.0 28 09/26/16 00:12 Nasal Cannula 2.0 28 09/26/16 00:12 Nasal Cannula 2.0 28 09/26/16 00:00 97.9 56 16 145/83 93 Room Air 09/25/16 23:37 71 09/25/16 20:00 68 09/25/16 20:00 98.1 56 21 152/54 98 Nasal Cannula 2.0 09/25/16 19:41 Nasal Cannula 2.0 28 09/25/16 19:40 94 Nasal Cannula 2.0 28 09/25/16 19:39 60 16 98 Nasal Cannula 2.0 28 09/25/16 19:30 57 16 94 Nasal Cannula 2.0 Intake and Output 09/25/16 09/26/16 19:00 07:00 Intake Total 775 ml 240 ml Balance 775 ml 240 ml Intake Oral 720 ml 240 ml IV Total 55 ml # Voids 3 2 Height (Feet): 5 Height (Inches): 5.00 Weight (Pounds): 231 Objective General Appearance: WD/WN, alert Neck: supple, normal inspection Cardiovascular: normal rate, regular rhythm Respiratory/Chest: rhonchi - bilaterally Abdomen: normal bowel sounds, non tender, soft Extremities: non-tender Edema: mild edema Neurologic: family engagement specialist II-XII grossly normal, no motor/sensory deficits, abnormal gait , alert SONNY GREER Sep 26, 2016 16:28
--- NOTE | 2016-09-27 01:57 | Progress Note ---
DATE: 09/26/2016 CARDIOLOGY PROGRESS NOTE: SUBJECTIVE: The patient has much improvement in her shortness of breath. She is ambulatory without distress. OBJECTIVE: VITAL SIGNS: Afebrile, blood pressure 137/76, pulse 63, respiratory rate 18, and oxygen saturation 94% to 99% on two liters nasal cannula. NECK: Supple. LUNGS: With coarse breath sounds. No wheezing. CARDIAC: Regular rhythm and rate. Normal S1, S2. ABDOMEN: Soft. EXTREMITIES: No edema. LABORATORY DATA: Noted from yesterday. IMPRESSION: 1. Chronic obstructive pulmonary disease exacerbation with resolved bronchospasm and improved clinical parameters. 2. Paroxysmal atrial fibrillation remaining in sinus rhythm. 3. Hypertensive heart disease with controlled blood pressure. 4. Hypoxia on supplemental oxygen. 5. Atrial ectopics of no clinical significance at this time. 6. Diastolic dysfunction with no signs of acute congestive heart failure. PLAN: Complete antibiotics and steroid taper at home. O2 at home. Reassess continue digitalis therapy once pulmonary parameters are recovered to baseline. Gerardo Calix M.D. DR: Rachael JOB#: [id number] CC:
[2016-09-27] MEDS ORDERED: MEDROL4 MG ORAL (10:22)
[2016-09-27] MEDS ORDERED: LEVAQUIN500 MG ORAL (10:24)
--- NOTE | 2016-09-27 10:25 | Discharge Summary ---
Discharge Summary Hospital Course Date of Admission Sep 22, 2016 at 19:26 Date of Discharge Sep 26, 2016 at 11:50 Admitting Diagnosis SOB HPI Johnna Courtney is a 81 year old female who was admitted on Sep 22, 2016 at 19: 26 for Shortness Of Breath Hospital Course dc summary dictated # [id number] Discharge Medications New Medications: Levofloxacin* (Levaquin*) 500 Mg Tablet 500 MG ORAL DAILY, #3 TAB Methylprednisolone* (Medrol*) 4 Mg Tablet 4 MG ORAL DAILY, #10 TAB 0 Refills Continued Medications: Albuterol Sulfate (Ventolin Hfa) 18 Gm Hfa.aer.ad Unknown Dose PO, #18 Allopurinol* (Allopurinol*) 100 Mg Tablet 100 MG PO BID Ambrisentan (Letairis) 5 Mg Tablet 5 MG PO DAILY, TAB Amlodipine Besylate* (Amlodipine Besylate*) 10 Mg Tablet 10 MG PO DAILY Azelastine Hcl (Azelastine Hcl) 137 Mcg/0.137 Ml [place].pump 2 PUFFS INH DAILY Cholecalciferol (Vitamin D3) (Vitamin D3) 5,000 Unit Tablet 5000 UNIT PO DAILY Dabigatran Etexilate Mesylate* (Pradaxa*) 150 Mg Capsule 150 MG PO BID Digoxin* (Digoxin*) 125 Mcg Tablet 0.25 MG PO, #30 Fluticasone/Salmeterol (Advair 500-50 Diskus) 1 Each Disk.w.dev Unknown Dose INH, #60 Furosemide* (Lasix*) 20 Mg Tablet 20 MG PO DAILY Linaclotide (Linzess) 145 Mcg Capsule 145 MCG PO, CAP Montelukast Sodium* (Montelukast Sodium*) 10 Mg Tablet 10 MG PO, #30 Nebivolol Hcl (Bystolic) 20 Mg Tablet 20 MG PO DAILY Nebivolol Hcl (Bystolic*) 10 Mg Tablet 10 MG ORAL DAILY, TAB Oxybutynin Chloride (Oxybutynin Chloride Er) 5 Mg Tab.er.24 5 MG PO DAILY Sildenafil Citrate (Sildenafil) 20 Mg Tablet 20 MG PO TID Tramadol Hcl* (Ultram*) 50 Mg Tablet 50 MG ORAL Q6H PRN for For Pain, TAB 0 Refills Valsartan (Diovan) 320 Mg Tablet 320 MG PO DAILY Discharge Condition Upon Discharge: improving, stable Discharge Disposition Patient was discharged to Home with Home Health Discharge Diagnoses: Discharge Instructions Discharge Instructions Special Instructions I have been assigned to complete a D/C Summary on this account. I was not involved in the patient management Paulina Frias NP (Vanchtein) Sep 27, 2016 10:25
--- NOTE | 2016-09-28 01:07 | Discharge Summary 2 SIG ---
DATE OF ADMISSION: 09/22/2016 DATE OF DISCHARGE: 09/26/2016 The patient was admitted under Dr. Pace. REASON FOR ADMISSION: 81-year-old female, presented with increased shortness of breath, increased cough, wheezing, and worsening hypoxemia. The patient is chronically oxygen dependent and has oxygen at home. She had a prior history of respiratory failure as well as multiple other chronic medical problems including paroxysmal atrial fibrillation, hypertension, and hypertensive heart disease. The patient noted worsening symptoms over the past three to four days and came to ED for evaluation. The patient admitted to telemetry floor for further management. ADMITTING DIAGNOSES: 1. Acute asthma exacerbation. 2. Resting hypoxemia. 3. Paroxysmal atrial fibrillation. 4. Hypertension. 5. Hypertensive heart disease. 6. Congestive heart failure. 7. Respiratory insufficiency. 8. Chronic diastolic heart failure. HOSPITAL STAY: Supplemental oxygen and pulmonary toilet provided as needed. The patient started on IV steroids, which were gradually tapered and changed to oral Medrol Dosepak upon discharge. Empiric antibiotic provided, antitussive given as needed. Blood culture were negative. Influenza screen test was negative. Chest x-ray revealed no evidence of acute cardiopulmonary disease. The patient has oxygen at home and will be continued on oral Dosepak and empiric antibiotics for a few days. Again, to reiterate chest x-ray initial and followup revealed no evidence of acute cardiopulmonary disease. Education Counselor followed the patient. Troponin was negative. ProBNP 986. No evidence of CHF acute exacerbation. Patient was on digoxin and diuretic ( digoxin level stable). Renal parameters, I&O and electrolytes were closely monitored and were stable. Blood pressure was managed with the current regimen of ARB blockers, beta millicent and calcium channel millicent, and was stable. Sinus rhythm on telemetry, no evidence of atrial fibrillation at this time. On Pradaxa for anticoagulation due to PAF Echocardiogram done as outpatient . The patient has evidence of severe pulmonary hypertension. At home, on Revatio and Letairis, continue. The patient was cleared for discharge home with home health with close monitor of cardiopulmonary status. The patient declined SNF placement. The patient has at home oxygen. DISCHARGE DIAGNOSES: : 1. Acute asthma exacerbation. 2. Resting hypoxemia. 3. Pulmonary hypertension. 4. Chronic diastolic congestive heart failure. 5. Hypertensive heart disease. 6. Paroxysmal atrial fibrillation. 7. Hypertension. DISCHARGE MEDICATIONS: See medication reconciliation list. POST DISCHARGE INSTRUCTIONS: The patient to follow up with the primary medical doctor and firebreak cutter as outpatient. The patient will have home health for close monitoring of her cardiopulmonary status. Continue all current medications as outlined in medication reconciliation . Stevan Pace M.D. I have been assigned to dictate discharge summary on this account and I was not involved in the patient's management. Paulina Frias (Vanchtein) N.PLashawn DR: LOLA JOB#: [id number] CC: [email or web address]
== END 2016-09-26 11:50 | disposition home health service (06) | DRG 202 ==
LOC: EMR 19:02 → 2E 19:26 → EDBEDREQ 20:15 → 2E 21:29
DX: J45.901 Unspecified asthma with (acute) exacerbation (principal); I50.32 Chronic diastolic (congestive) heart failure; R06.00 Dyspnea, unspecified; I11.0 Hypertensive heart disease with heart failure; J44.1 Chronic obstructive pulmonary disease with (acute) exacerbation; R09.02 Hypoxemia; I48.0 Paroxysmal atrial fibrillation; Z88.0 Allergy status to penicillin; Z86.73 Personal history of transient ischemic attack (TIA), and cerebral infarction without residual deficits; Z85.038 Personal history of other malignant neoplasm of large intestine
CPT/HCPCS: 36415; 71010; 80048; 80053; 80162; 81003; 82550; 82553; 82962; 83605; 83880; 84132; 84484; 85025; 86710; 87040; 93005; 94640; 94664; 94760

== ENCOUNTER 2016-12-09 17:21 | Inpatient (IN) | payer MEDICARE, OTHER ==
[~2016-12-09] VITALS: Ht 177.8 cm; Wt 97.5 kg
[~2016-12-09 17:21] MED LIST changes: +BYSTOLIC10 MG ORAL; +LEVAQUIN500 MG ORAL; +LINZESS145 MCG PO; +MEDROL4 MG ORAL
[2016-12-09] MEDS ORDERED: Ipratropium 0.02% Inh Soln 2.5ml UD HHN ONE (18:00)
[2016-12-09] MEDS ORDERED: Albuterol ud Inhalation HHN ONE (18:00)
[2016-12-09] MEDS ORDERED: Aspirin Baby 81mg ORAL ONE (18:00)
--- NOTE | 2016-12-09 18:30 | Emergency Room Report ---
History of Present Illness General Chief Complaint: Dyspnea/Respdistress Source: Patient Present Illness HPI Patient is 81-year-old female who presented after increased difficulty breathing the patient was noted to have a gradual onset of symptoms. Patient had prior history of COPD. The patient was noted to have markedly increased shortness of breath. Patient noted have increased leg swelling. Patient states that she normally uses oxygen at night. She had nonproductive cough. Patient had no recent fever. Patient prior history of congestive heart failure as well. Allergies: Coded Allergies: PENICILLINS (Verified Allergy, Mild, 10/05/09) Cashew (Verified Allergy, 12/25/13) Dust (Verified Allergy, 12/25/13) FISH CONTAINING PRODUCTS (Verified Allergy, 12/25/13) seafood TOMATO (Verified Allergy, 12/25/13) Patient History Past Medical History: see triage record, CHF, COPD Now: No Reviewed Nursing Documentation: PMH: Agreed, PSxH: Agreed Nursing Documentation-PMH Past Medical History: No History, Except For Hx Cardiac Problems: Yes - ATRIAL FIB, CHF, R nephronectomy Hx Hypertension: Yes Hx Asthma: Yes Hx Cancer: No - HISTORY OF COLON TUMOR Hx Gastrointestinal Problems: Yes Hx Neurological Problems: Yes Hx Transient Ischemic Attacks: Yes Review of Systems All Other Systems: negative except mentioned in HPI Physical Exam Vital Signs Date Time Temp Pulse Resp B/P Pulse Ox O2 Delivery O2 Flow Rate FiO2 12/09/16 17:39 99.0 128/56 12/09/16 18:07 75 18 94 Nasal Cannula 2.0 28 General Appearance: alert, GCS 15, moderate distress ENT: hearing grossly normal, normal pharynx, no angioedema Neck: supple Respiratory: no accessory muscle use, crackles, rales Cardiovascular #1: edema - 3+ Gastrointestinal: normal bowel sounds, non tender, soft Musculoskeletal: normal inspection, normal range of motion Neurologic: normal inspection, alert, oriented x3, visual c developer III-XII nml as tested, motor strength/tone normal Skin: normal inspection Medical Decision Making Diagnostic Impression: Primary Impression: Congestive heart failure ER Course Patient presented for shortness of breath. Differential included but was not limited to anemia, pneumonia, pneumothorax, myocardial infarction, pericardial effusion, congestive heart failure, acidosis. Because of complexity of patient' s case laboratory testing and imaging studies were ordered. The patient was noted to be short of breath. This is consistent with congestive heart failure. Patient started on IV Lasix.The patient started on supplemental oxygen. She was given breathing treatments. Dr. Isaias Pace was contacted for inpatient management. Labs Test 12/09/16 18:20 12/09/16 19:50 White Blood Count 5.5 K/UL (4.8-10.8) Red Blood Count 4.06 M/UL (4.20-5.40) Hemoglobin 11.5 G/DL (12.0-16.0) Hematocrit 40.0 % (37.0-47.0) Mean Corpuscular Volume 98 FL (80-99) Mean Corpuscular Hemoglobin 28.3 PG (27.0-31.0) Mean Corpuscular Hemoglobin Concent 28.7 G/DL (32.0-36.0) Red Cell Distribution Width 15.3 % (11.6-14.8) Platelet Count 139 K/UL (150-450) Mean Platelet Volume 7.3 FL (6.5-10.1) Neutrophils (%) (Auto) 54.4 % (45.0-75.0) Lymphocytes (%) (Auto) 32.3 % (20.0-45.0) Monocytes (%) (Auto) 10.9 % (1.0-10.0) Eosinophils (%) (Auto) 0.8 % (0.0-3.0) Basophils (%) (Auto) 1.6 % (0.0-2.0) Troponin I < 0.30 ng/mL (<=0.30) Anion Gap 11 (5-15) Total Creatine Kinase 96 U/L (26-140) Creatine Kinase MB 2.9 ng/mL (< 3.8) Creatine Kinase MB Relative Index 3.0 Pro-B-Type Natriuretic Peptide 1262 pg/mL (0-450) Albumin/Globulin Ratio 1.0 (1.0-2.7) EKG Diagnostic Results Rate: normal Rhythm: NSR ST Segments: no acute changes Rhythm Strip Diag. Results EP Interpretation: yes Rhythm: NSR, no PVC's, other - occ pacs Chest X-Ray Diagnostic Results EP Interpretation: Yes Findings: no effusion, no pneumothorax, no acute cardiopulmonary disease, other - cardiomegaly Number of Views: 1 Last Vital Signs Date Time Temp Pulse Resp B/P Pulse Ox O2 Delivery O2 Flow Rate FiO2 12/09/16 18:07 28 12/09/16 18:07 92 18 Nasal Cannula 2.0 12/09/16 18:07 94 12/09/16 17:39 99.0 128/56 Status: unchanged Disposition: ADMITTED INPATIENT Condition: Serious Referrals: ISAIAS PACE (PCP) Jonathon Romero Dec 09, 2016 18:30
[2016-12-09 18:40] VITALS: BP 128/56
[2016-12-09 18:40] LABS: BASOPHILS % (AUTO) 1.6 % (0.0-2.0); EOSINOPHILS % (AUTO) 0.8 % (0.0-3.0); LYMPHOCYTES % (AUTO) 32.3 % (20.0-45.0); MEAN CORPUSCULAR HEMOGLOBIN 28.3 PG (27.0-31.0); MEAN CORPUSCULAR HGB CONC 28.7 G/DL (32.0-36.0); MEAN CORPUSCULAR VOLUME 98 FL (80-99); MEAN PLATELET VOLUME 7.3 FL (6.5-10.1); MONOCYTES % (AUTO) 10.9 % (1.0-10.0); NEUTROPHILS % (AUTO) 54.4 % (45.0-75.0); PLATELET COUNT 139 K/UL (150-450); RED BLOOD COUNT 4.06 M/UL (4.20-5.40); RED CELL DISTRIBUTION WIDTH 15.3 % (11.6-14.8); WHITE BLOOD COUNT 5.5 K/UL (4.8-10.8)
[2016-12-09 19:01] LABS: TROPONIN I < 0.30 ng/mL (<=0.30)
[2016-12-09 19:02] VITALS: BP 147/69
[2016-12-09 20:00] VITALS: BP 137/71
[2016-12-09 20:19] LABS: ALANINE AMINOTRANSFERASE 23 U/L (3-33); ANION GAP 11 (5-15); ASPARTATE AMINO TRANSFERASE 20 U/L (5-40); CALCIUM 9.1 mg/dL (8.6-10.2); CARBON DIOXIDE 37 mEQ/L (20-30); CHLORIDE 94 mEQ/L (98-107); CREATININE 0.7 mg/dL (0.5-0.9); HEMOLYSIS 3; POTASSIUM 4.2 mEQ/L (3.4-4.9); SODIUM 142 mEQ/L (135-145); TOTAL PROTEIN 7.1 g/dL (6.6-8.7)
[2016-12-09 20:29] LABS: CKMB 2.9 ng/mL (< 3.8)
[2016-12-09 20:59] VITALS: BP 145/64
[2016-12-10] VITALS: BP 155/78
[2016-12-10] MEDS ORDERED: Albuterol ud Inhalation HHN PRN (02:15)
[2016-12-10] MEDS: Albuterol ud Inhalation HHN SCH ×6 (02:44→22:51)
[2016-12-10] MEDS ORDERED: traMADol 50mg tab ORAL PRN (02:45)
[2016-12-10 04:00] VITALS: BP 145/73
[2016-12-10 05:45] LABS: BASOPHILS % (AUTO) 0.8 % (0.0-2.0); EOSINOPHILS % (AUTO) 1.3 % (0.0-3.0); LYMPHOCYTES % (AUTO) 32.6 % (20.0-45.0); MEAN CORPUSCULAR HEMOGLOBIN 28.1 PG (27.0-31.0); MEAN CORPUSCULAR HGB CONC 28.3 G/DL (32.0-36.0); MEAN CORPUSCULAR VOLUME 99 FL (80-99); MEAN PLATELET VOLUME 6.2 FL (6.5-10.1); NEUTROPHILS % (AUTO) 54.4 % (45.0-75.0); PLATELET COUNT 133 K/UL (150-450); RED BLOOD COUNT 3.95 M/UL (4.20-5.40); RED CELL DISTRIBUTION WIDTH 15.7 % (11.6-14.8); WHITE BLOOD COUNT 4.6 K/UL (4.8-10.8)
[2016-12-10 06:00] LABS: CALCIUM 8.8 mg/dL (8.6-10.2); CHLORIDE 99 mEQ/L (98-107); CREATININE 0.6 mg/dL (0.5-0.9); HEMOLYSIS 5; POTASSIUM 4.1 mEQ/L (3.4-4.9); SODIUM 146 mEQ/L (135-145)
[2016-12-10 06:11] LABS: ANION GAP 7 (5-15); CARBON DIOXIDE 40 mEQ/L (20-30)
[2016-12-10 08:00] VITALS: BP 143/87
[2016-12-10] MEDS: Vitamin D 1000 IU Tab ORAL SCH (08:49)
[2016-12-10] MEDS: Allopurinol 100mg Tab ORAL SCH ×2 (08:49→17:51)
[2016-12-10] MEDS: Revatio 20mg tab ORAL SCH ×3 (08:49→17:51)
[2016-12-10] MEDS: Oxybutynin 5mg tab ORAL SCH (08:49)
[2016-12-10] MEDS: Dabigatran 150mg cap ORAL SCH ×2 (08:49→20:11)
--- NOTE | 2016-12-10 10:21 | Diagnostic Imaging Report ---
Clinical history: Shortness of breath Technique: Portable AP chest radiograph was obtained. Comparison: 12/09/16. Findings: Increasing linear and patchy densities in the mid and lower lungs, right greater than left, are suspicious for worsening pulmonary edema or multifocal pneumonia. There is otherwise no significant interval change in the interval, allowing for differences in technique and positioning. Impression: Cardiomegaly with suspected moderate pulmonary edema or multifocal pneumonia and trace effusions. Overall pulmonary aeration appears slightly worse.
--- NOTE | 2016-12-10 11:06 | Consultation ---
Consult Note Consult Note 81-year-old female who presented with increased shortness of breath over the past 2 weeks with increasing distress per discussion with the daughter. Patient had prior history of COPD. The patient was noted to have markedly increased shortness of breath and noted to have pulmonary edema on chest XR. Patient noted have increased leg edema. Patient states that she normally uses oxygen at night. She had nonproductive cough. Patient had no recent fever. Patient prior history of congestive heart failure and COPD Allergies: PENICILLINS (Verified Allergy, Mild, 10/05/09) Cashew (Verified Allergy, 12/25/13) Dust (Verified Allergy, 12/25/13) FISH CONTAINING PRODUCTS (Verified Allergy, 12/25/13) seafood TOMATO (Verified Allergy, 12/25/13) Past Medical History: sleep apnea, atrial fib, right nephrectomy, CHF, COPD, hypertension, colon cancer, TIA, prior respiratory failure MEDS: noted ALLERGIES: Noted SOCIAL HISTORY; lives with daughter; on oxygen; does not smoke or drink ROS: weakness, uses walker, chronically dyspneic, no gi symptoms, maintaining weight PHYSICAL EXAM WDWN NAD reduced breath sounds bilaterally with some crackles and reduced at bases [id number] without MRG NABS nontender no HSM no CC; noted edema nonfocal Labs Test 12/09/16 18:20 12/09/16 19:50 12/10/16 05:25 White Blood Count 5.5 K/UL (4.8-10.8) 4.6 K/UL (4.8-10.8) Red Blood Count 4.06 M/UL (4.20-5.40) 3.95 M/UL (4.20-5.40) Hemoglobin 11.5 G/DL (12.0-16.0) 11.1 G/DL (12.0-16.0) Hematocrit 40.0 % (37.0-47.0) 39.1 % (37.0-47.0) Mean Corpuscular Volume 98 FL (80-99) 99 FL (80-99) Mean Corpuscular Hemoglobin 28.3 PG (27.0-31.0) 28.1 PG (27.0-31.0) Mean Corpuscular Hemoglobin Concent 28.7 G/DL (32.0-36.0) 28.3 G/DL (32.0-36.0) Red Cell Distribution Width 15.3 % (11.6-14.8) 15.7 % (11.6-14.8) Platelet Count 139 K/UL (150-450) 133 K/UL (150-450) Mean Platelet Volume 7.3 FL (6.5-10.1) 6.2 FL (6.5-10.1) Neutrophils (%) (Auto) 54.4 % (45.0-75.0) 54.4 % (45.0-75.0) Lymphocytes (%) (Auto) 32.3 % (20.0-45.0) 32.6 % (20.0-45.0) Monocytes (%) (Auto) 10.9 % (1.0-10.0) 11.0 % (1.0-10.0) Eosinophils (%) (Auto) 0.8 % (0.0-3.0) 1.3 % (0.0-3.0) Basophils (%) (Auto) 1.6 % (0.0-2.0) 0.8 % (0.0-2.0) Troponin I < 0.30 ng/mL (<=0.30) Sodium Level 142 mEQ/L (135-145) 146 mEQ/L (135-145) Potassium Level 4.2 mEQ/L (3.4-4.9) 4.1 mEQ/L (3.4-4.9) Chloride Level 94 mEQ/L (98-107) 99 mEQ/L (98-107) Carbon Dioxide Level 37 mEQ/L (20-30) 40 mEQ/L (20-30) Anion Gap 11 (5-15) 7 (5-15) Blood Urea Nitrogen 18 mg/dL (7-23) 14 mg/dL (7-23) Creatinine 0.7 mg/dL (0.5-0.9) 0.6 mg/dL (0.5-0.9) Estimat Glomerular Filtration Rate mL/min (>60) mL/min (>60) Glucose Level 118 mg/dL (74-106) 109 mg/dL (74-106) Calcium Level 9.1 mg/dL (8.6-10.2) 8.8 mg/dL (8.6-10.2) Total Bilirubin 0.2 mg/dL (0.0-1.2) Aspartate Amino Transf (AST/SGOT) 20 U/L (5-40) Alanine Aminotransferase (ALT/SGPT) 23 U/L (3-33) Alkaline Phosphatase 79 U/L (35-104) Total Creatine Kinase 96 U/L (26-140) Creatine Kinase MB 2.9 ng/mL (< 3.8) Creatine Kinase MB Relative Index 3.0 Pro-B-Type Natriuretic Peptide 1262 pg/mL (0-450) 1182 pg/mL (0-450) Total Protein 7.1 g/dL (6.6-8.7) Albumin 3.6 g/dL (3.5-5.2) Globulin 3.5 g/dL Albumin/Globulin Ratio 1.0 (1.0-2.7) IMPRESSION CHF shortness of breath Asthma hypoxemia weakness leg edema hypertension PLAN respiratory care diurese oxygen BIPAP if needed monitor labs home meds neb therapy impression, plan, and exam edited and reviewed in detail care discussed with ISAIAS DSOUZA Dec 10, 2016 11:06
[2016-12-10 12:00] VITALS: BP 113/58
[2016-12-10] MEDS: Digoxin 0.125mg tab ORAL SCH (14:00)
[2016-12-10 16:00] VITALS: BP 123/59
[2016-12-10] MEDS: Montelukast 10mg tablet ORAL SCH (17:51)
[2016-12-10 20:00] VITALS: BP 126/58
--- NOTE | 2016-12-10 20:59 | History and Physical Report ---
DATE OF ADMISSION: 12/09/2016 CHIEF COMPLAINT: Shortness of breath, CHF and COPD exacerbation. HISTORY OF PRESENT ILLNESS: The patient is a very pleasant 81-year-old female. She has a history of hypertension, hypertensive heart disease, kidney stones, single kidney, COPD/asthma and she has a history of congestive heart failure. She presented from home with complaints of one month of shortness of breath. According to the patient, she was well until this last week when she developed some type of cold. She had worsening shortness of breath. Her symptoms did not improve and she therefore came to the emergency room for further evaluation. On evaluation there, the patient was noted to be congested, but she had no wheezing. She had diminished breath sounds. She had x-ray evidence of congestive heart failure as well as elevated PA. She has been started on IV diuretic therapy and is admitted to a monitored bed. PAST MEDICAL HISTORY: As above. PAST SURGICAL HISTORY: Some type of bladder surgery. MEDICATIONS: Current medications reconciled and reviewed. ALLERGIES: Cashew, fish, penicillin, and tomato. SOCIAL HISTORY: The patient denies any tobacco, ethanol, or drugs. FAMILY HISTORY: Noncontributory. REVIEW OF SYSTEMS: General: No fever or chills. HEENT: No headaches or visual changes. Cardiopulmonary: Positive shortness of breath. No chest pain. Gastrointestinal: No nausea or vomiting. Genitourinary: No urgency or frequency. Musculoskeletal: No joint pain or swelling. Neurologic: No evidence of seizures. PHYSICAL EXAMINATION: GENERAL: The patient is no apparent distress. VITAL SIGNS: Temperature 98 degrees, blood pressure 143/87, pulse of 91, and respirations 20. HEART: Regular rate and rhythm. LUNGS: Diminished breath sounds with rales, but no wheezes. ABDOMEN: Soft, nontender, and nondistended. EXTREMITIES: Without clubbing or cyanosis. LABORATORY AND DIAGNOSTIC DATA: White count 5, hemoglobin 11, hematocrit 40 and platelets of 139,000. Sodium is 142 and creatinine was 0.7. Natriuretic peptide level was 1200. Chest x-ray showed CHF. ASSESSMENT: This is a pleasant female admitted with shortness of breath secondary to congestive heart failure exacerbation. 1. Congestive heart failure exacerbation. 2. Chronic obstructive pulmonary disease. 3. Hypertension. 4. History of single kidney. PLAN: IV diuretic therapy. Supplemental oxygen. Monitor electrolytes and volume status closely. Continue Pradaxa. Cardiology and Pulmonary consultations. PRN respiratory treatments. Monitor chest x-ray and a BNP level. Olivier Blanco M.D. DR: GRETCHEN JOB#: [id number] CC:
[2016-12-11] VITALS: BP 138/63
[2016-12-11] MEDS: Albuterol ud Inhalation HHN SCH ×6 (02:36→23:34)
[2016-12-11 04:00] VITALS: BP 147/72
[2016-12-11 08:00] VITALS: BP 144/67
--- NOTE | 2016-12-11 08:42 | Diagnostic Imaging Report ---
Clinical history: Shortness of breath Technique: Portable AP chest radiograph was obtained. Comparison: 09/23/16. Findings: There is cardiomegaly with mild interstitial edema. There is otherwise no significant interval change in the interval, allowing for differences in technique and positioning. Impression: Cardiomegaly with mild interstitial edema and scattered changes of chronic lung disease. Atherosclerotic vascular disease with probable age-related elongation of the thoracic aorta.
[2016-12-11] MEDS: Allopurinol 100mg Tab ORAL SCH ×3 (09:01→18:00)
[2016-12-11] MEDS: Irbesartan 150mg tablet ORAL SCH (09:02)
[2016-12-11] MEDS: Oxybutynin 5mg tab ORAL SCH (09:02)
[2016-12-11] MEDS: Revatio 20mg tab ORAL SCH ×4 (09:02→18:00)
[2016-12-11] MEDS: Dabigatran 150mg cap ORAL SCH ×2 (09:02→20:29)
[2016-12-11] MEDS: Digoxin 0.125mg tab ORAL SCH (09:02)
[2016-12-11] MEDS: Vitamin D 1000 IU Tab ORAL SCH (09:03)
--- NOTE | 2016-12-11 09:08 | Pulmonology Progress Note ---
Assessment/Plan Assessment/Plan IMPRESSION CHF shortness of breath Asthma hypoxemia weakness leg edema hypertension possible pneumonia PLAN respiratory care diurese oxygen add antibiotics BIPAP if needed monitor labs follow up BNP cards evaluation home meds neb therapy impression, plan, and exam edited and reviewed in detail care discussed with RN Subjective Allergies: Coded Allergies: PENICILLINS (Verified Allergy, Mild, 10/05/09) Cashew (Verified Allergy, 12/25/13) Dust (Verified Allergy, 12/25/13) FISH CONTAINING PRODUCTS (Verified Allergy, 12/25/13) seafood TOMATO (Verified Allergy, 12/25/13) Subjective care d/w daughter now more alert less sob Objective Last 24 Hour Vital Signs Date Time Temp Pulse Resp B/P Pulse Ox O2 Delivery O2 Flow Rate FiO2 12/11/16 09:02 144/12/11/16 09:02 73 12/11/16 09:01 73 14412/11/16 08:00 97.5 74 20 144/67 96 Nasal Cannula 4.0 12/11/16 06:35 96 Nasal Cannula 4.0 36 12/11/16 06:35 76 18 Nasal Cannula 4.0 36 12/11/16 06:35 36 12/11/16 06:35 Nasal Cannula 4.0 36 12/11/16 06:35 79 18 97 Nasal Cannula 4.0 36 12/11/16 06:35 76 18 96 Nasal Cannula 3.0 12/11/16 04:00 68 12/11/16 04:00 97.7 75 20 147/72 90 Nasal Cannula 3.5 12/11/16 02:37 Nasal Cannula 3.0 12/11/16 02:37 68 18 94 Nasal Cannula 3.0 12/11/16 00:00 71 12/11/16 00:00 98.1 76 18 138/63 90 Nasal Cannula 3.5 12/10/16 22:58 67 18 97 Nasal Cannula 4.0 36 12/10/16 22:53 36 12/10/16 22:50 71 18 95 Nasal Cannula 4.0 36 12/10/16 20:00 70 12/10/16 20:00 97.9 70 18 126/58 93 Nasal Cannula 4.0 12/10/16 19:15 36 12/10/16 19:15 65 18 97 Nasal Cannula 4.0 36 12/10/16 19:04 65 18 90 Nasal Cannula 4.0 36 12/10/16 19:04 Nasal Cannula 4.0 36 12/10/16 19:04 90 Nasal Cannula 4.0 36 12/10/16 19:03 69 18 Nasal Cannula 4.0 36 12/10/16 16:00 66 12/10/16 16:00 97.0 66 20 123/59 93 Nasal Cannula 2.0 12/10/16 15:04 66 18 96 Nasal Cannula 2.0 28 12/10/16 14:54 28 12/10/16 14:54 65 18 92 Nasal Cannula 2.0 28 12/10/16 14:00 58 12/10/16 12:00 58 12/10/16 12:00 96.1 62 20 113/58 90 Nasal Cannula 2.0 12/10/16 11:17 63 18 93 Nasal Cannula 2.0 28 12/10/16 11:09 62 16 86 Nasal Cannula 2.0 28 12/10/16 11:09 28 Intake and Output 12/10/16 12/11/16 19:00 07:00 Intake Total 600 ml Output Total 1400 ml 875 ml Balance -800 ml -875 ml Intake Oral 600 ml Output Urine Total 1400 ml 875 ml Objective WDWN female NAD reduced breath sounds bilaterally without rhonchi or wheeze [id number] without MRG NABS nontender no HSM no CC; some edema nonfocal; more alert Current Medications Medications (Trade) Dose Ordered Sig/Rocío Route PRN Reason Start Time Stop Time Status Last Admin Dose Admin Acetaminophen (Tylenol) 650 mg Q6H PRN ORAL Mild Pain/Temp > 100.5 12/10/16 02:45 01/09/17 02:44 Albuterol Sulfate (Proventil) 2.5 mg Q4HRT HHN 12/10/16 03:00 12/15/16 02:59 12/11/16 06:59 Albuterol Sulfate (Proventil) 2.5 mg Q4HRT PRN HHN Shortness of breath 12/10/16 02:15 12/15/16 02:14 Allopurinol (Zyloprim) 100 mg BID ORAL 12/10/16 09:00 01/09/17 08:59 12/11/16 09:01 Amlodipine Besylate (Norvasc) 10 mg DAILY ORAL 12/10/16 09:00 01/09/17 08:59 12/11/16 09:01 Budesonide/ Formoterol Fumarate (Symbicort 160/ 4.5) 2 puff TWICE A DAY INH 12/10/16 18:00 01/09/17 17:59 12/10/16 19:01 Dabigatran (Pradaxa) 150 mg EVERY 12 HOURS ORAL 12/10/16 09:00 01/09/17 08:59 12/11/16 09:02 Dextrose (Dextrose 50%) STAT PRN IV Hypoglycemia 12/10/16 02:15 01/09/17 02:14 Digoxin (Lanoxin) 0.125 mg DAILY ORAL 12/10/16 14:00 01/09/17 13:59 12/11/16 09:02 Furosemide (Lasix) 40 mg DAILY IV 12/10/16 09:00 01/09/17 08:59 12/11/16 09:01 Irbesartan (Avapro) 300 mg DAILY ORAL 12/11/16 09:00 01/10/17 08:59 12/11/16 09:02 Montelukast Sodium (Singulair) 10 mg QPM ORAL 12/10/16 16:30 01/09/17 16:29 12/10/16 17:51 Nebivolol (Bystolic) 20 mg DAILY ORAL 12/10/16 09:00 01/09/17 08:59 12/11/16 09:02 Non-Formulary Medication (Non-Formulary Med) 1 ea DAILY ORAL 12/10/16 09:00 01/09/17 08:59 UNV Non-Formulary Medication (Non-Formulary Med) 1 ea DAILY ORAL 12/10/16 09:00 01/09/17 08:59 UNV Non-Formulary Medication (Non-Formulary Med) 1 ea DAILY ORAL 12/10/16 09:00 01/09/17 08:59 UNV Oxybutynin Chloride (Ditropan) 5 mg DAILY ORAL 12/10/16 09:00 01/09/17 08:59 12/11/16 09:02 Sildenafil Citrate (Revatio) 20 mg THREE TIMES A DAY ORAL 12/10/16 09:00 01/09/17 08:59 12/11/16 09:02 Tramadol HCl (Ultram) 50 mg Q6H PRN ORAL For Pain 12/10/16 02:45 12/17/16 02:44 Vitamin D (Vitamin D) 5,000 intlu DAILY ORAL 12/10/16 09:00 01/09/17 08:59 12/11/16 09:03 ISAIAS BECKFORD Dec 11, 2016 09:08
[2016-12-11 09:34] LABS: ALANINE AMINOTRANSFERASE 18 U/L (3-33); ALBUMIN/GLOBULIN RATIO 1.1 (1.0-2.7); ASPARTATE AMINO TRANSFERASE 15 U/L (5-40); CALCIUM 8.9 mg/dL (8.6-10.2); CHLORIDE 97 mEQ/L (98-107); CREATININE 0.7 mg/dL (0.5-0.9); HEMOLYSIS 1; POTASSIUM 4.2 mEQ/L (3.4-4.9); SODIUM 145 mEQ/L (135-145); TOTAL PROTEIN 6.1 g/dL (6.6-8.7)
[2016-12-11 09:53] LABS: ANION GAP 4 (5-15)
[2016-12-11 09:54] LABS: CARBON DIOXIDE 44 mEQ/L (20-30)
[2016-12-11 11:56] VITALS: BP 121/72
[2016-12-11] MEDS ORDERED: cefTRIAXone 1gm/D5W 55ml IVPB SCH ×2 (13:00)
--- NOTE | 2016-12-11 13:14 | Diagnostic Imaging Report ---
Indication: COUGH Technique: One view of the chest Comparison: 12/10/2016 Findings: Cardiomegaly, bilateral mixed mostly interstitial parenchymal disease, probable small right pleural effusion persists, unchanged. Degenerative changes of both shoulders persists Impression: Unchanged, over one day, findings as above.
[2016-12-11] MEDS: Diltiazem CD 180mg cap ORAL SCH (13:20)
[2016-12-11] MEDS: cefTRIAXone 1 GM in NS 55 ML IVPB SCH (13:25)
--- NOTE | 2016-12-11 14:05 | General Progress Note ---
Assessment/Plan Problem List: (1) Atrial fibrillation with RVR ICD Codes: I48.91 - Unspecified atrial fibrillation SNOMED: 437890496638026 (2) Dyspnea ICD Codes: R06.00 - Dyspnea, unspecified SNOMED: 896838098 (3) Respiratory distress ICD Codes: R06.00 - Dyspnea, unspecified SNOMED: 579468257 (4) Congestive heart failure ICD Codes: I50.9 - Heart failure, unspecified SNOMED: 38925240 Status: stable Assessment/Plan resp rx diuresis rate control with cardizem o2 monitor lytes check tfts Subjective ROS Limited/Unobtainable: No Constitutional: Reports: malaise, weakness HEENT: Reports: no symptoms Cardiovascular: Reports: no symptoms Respiratory: Reports: cough Gastrointestinal/Abdominal: Reports: no symptoms Genitourinary: Reports: no symptoms Neurologic/Psychiatric: Reports: no symptoms Endocrine: Reports: no symptoms Hematologic/Lymphatic: Reports: no symptoms Allergies: Coded Allergies: PENICILLINS (Verified Allergy, Mild, 10/05/09) Cashew (Verified Allergy, 12/25/13) Dust (Verified Allergy, 12/25/13) FISH CONTAINING PRODUCTS (Verified Allergy, 12/25/13) seafood TOMATO (Verified Allergy, 12/25/13) All Systems: reviewed and negative except above Subjective still with sob. afib with rvr. no chest pain. Objective Last 24 Hour Vital Signs Date Time Temp Pulse Resp B/P Pulse Ox O2 Delivery O2 Flow Rate FiO2 12/11/16 13:20 114 121/72 12/11/16 11:56 97.3 65 19 121/72 94 Nasal Cannula 4.0 12/11/16 11:20 76 18 96 Nasal Cannula 3.0 12/11/16 11:20 78 18 97 Nasal Cannula 4.0 36 12/11/16 11:20 36 12/11/16 09:02 144/12/11/16 09:02 73 12/11/16 09:01 73 14412/11/16 08:02 75 12/11/16 08:00 97.5 74 20 144/ 96 Nasal Cannula 4.0 12/11/16 06:35 96 Nasal Cannula 4.0 36 12/11/16 06:35 76 18 Nasal Cannula 4.0 36 12/11/16 06:35 36 12/11/16 06:35 Nasal Cannula 4.0 36 12/11/16 06:35 79 18 97 Nasal Cannula 4.0 36 12/11/16 06:35 76 18 96 Nasal Cannula 3.0 12/11/16 04:00 68 12/11/16 04:00 97.7 75 20 147/72 90 Nasal Cannula 3.5 12/11/16 02:37 Nasal Cannula 3.0 12/11/16 02:37 68 18 94 Nasal Cannula 3.0 12/11/16 00:00 71 12/11/16 00:00 98.1 76 18 138/63 90 Nasal Cannula 3.5 12/10/16 22:58 67 18 97 Nasal Cannula 4.0 36 12/10/16 22:53 36 12/10/16 22:50 71 18 95 Nasal Cannula 4.0 36 12/10/16 20:00 70 12/10/16 20:00 97.9 70 18 126/58 93 Nasal Cannula 4.0 12/10/16 19:15 36 12/10/16 19:15 65 18 97 Nasal Cannula 4.0 36 12/10/16 19:04 65 18 90 Nasal Cannula 4.0 36 12/10/16 19:04 Nasal Cannula 4.0 36 12/10/16 19:04 90 Nasal Cannula 4.0 36 12/10/16 19:03 69 18 Nasal Cannula 4.0 36 12/10/16 16:00 66 12/10/16 16:00 97.0 66 20 123/59 93 Nasal Cannula 2.0 12/10/16 15:04 66 18 96 Nasal Cannula 2.0 28 12/10/16 14:54 28 12/10/16 14:54 65 18 92 Nasal Cannula 2.0 28 12/10/16 14:00 58 Intake and Output 12/10/16 12/11/16 19:00 07:00 Intake Total 600 ml Output Total 1400 ml 875 ml Balance -800 ml -875 ml Intake Oral 600 ml Output Urine Total 1400 ml 875 ml Laboratory Tests 12/11/16 08:40: Sodium Level 145, Potassium Level 4.2, Chloride Level 97L, Carbon Dioxide Level 44*H, Anion Gap 4L, Blood Urea Nitrogen 13, Creatinine 0.7, Estimat Glomerular Filtration Rate , Glucose Level 108H, Calcium Level 8.9, Total Bilirubin 0.2, Aspartate Amino Transf (AST/SGOT) 15, Alanine Aminotransferase (ALT/SGPT) 18, Alkaline Phosphatase 59, Pro-B-Type Natriuretic Peptide 816H, Total Protein 6.1L , Albumin 3.3L, Globulin 2.8, Albumin/Globulin Ratio 1.1, Digoxin Level < 0.3L Height (Feet): 5 Height (Inches): 10.00 Weight (Pounds): 224 General Appearance: WD/WN, alert Neck: supple Cardiovascular: irregularly irregular Respiratory/Chest: crackles/rales, rhonchi - bilaterally Abdomen: normal bowel sounds, non tender, soft, no organomegaly Edema: trace edema Neurologic: lead loader II-XII grossly normal, alert, oriented x 3, responsive Lymphatic: normal anterior cervical (L), normal anterior cervical (R), normal axillary (L), normal axillary (R), normal inguinal (L), normal inguinal (R), normal other, normal posterior cervical (L), normal posterior cervical (R), normal submandibular (L), normal submandibular (R), normal supraclavicular (L), normal supraclavicular (R) SONNY GREER Dec 11, 2016 14:05
[2016-12-11 16:00] VITALS: BP 110/70
[2016-12-11] MEDS: Montelukast 10mg tablet ORAL SCH ×2 (16:30→16:58)
[2016-12-11 20:00] VITALS: BP 121/70
--- NOTE | 2016-12-11 20:48 | Progress Note ---
DATE: 12/11/2016 CARDIOLOGY PROGRESS NOTE SUBJECTIVE: The patient has less shortness of breath but it is still swollen and not at her usual level of function. She feels congested. She did note some palpitations earlier. The monitoring specialist has been reviewed. She has had rare episodes of rapid SVT and atrial fibrillation that have been self limited. OBJECTIVE: VITAL SIGNS: Blood pressure 144/67, pulse 73, respirations 18, and afebrile. NECK: Supple. LUNGS: With coarse breath sounds. Few rhonchi. CARDIAC: Irregularly irregular. Normal S1 and S2. A 1/6 systolic murmur at apex. ABDOMEN: Soft and nontender. EXTREMITIES: With 1+ bilateral pretibial pitting edema. LABORATORY DATA: Sodium 145, potassium 4.2, bicarbonate 44, BUN 13, and creatinine 0.7. Albumin is 3.3. Pro-natriuretic peptide is decreased to 816. IMPRESSION: 1. Acute on chronic diastolic congestive heart failure. 2. Mild protein-calorie malnutrition. 3. Compensatory metabolic alkalosis. 4. Paroxysmal atrial fibrillation. 5. Paroxysmal supraventricular tachycardia. 6. Paroxysmal atrial ectopy. 7. Pulmonary hypertension. 8. Chronic obstructive pulmonary disease exacerbation. PLAN: 1. Discontinue amlodipine and replace with diltiazem for better arrhythmia suppression. 2. Add Diamox to help to correct alkalosis. 3. Continue cardioembolic prophylaxis with Pradaxa. 4. Reassess continued use of beta-millicent therapy. 5. Echocardiogram to evaluate pulmonary artery systolic pressure. Gerardo Calix M.D. DR: SAFIA JOB#: [id number] CC:
--- NOTE | 2016-12-12 00:05 | Cardiology Report ---
APPROVED REPORT EKG Measurement Heart [id number] [place] 158P68 [id number] Sinus rhythm with premature supraventricular complexes Otherwise normal ECG
[2016-12-12] MEDS: Albuterol ud Inhalation HHN SCH ×6 (03:28→23:00)
[2016-12-12 04:13] VITALS: BP 143/73
[2016-12-12 08:15] VITALS: BP 122/67
--- NOTE | 2016-12-12 08:20 | Consultation ---
DATE OF CONSULTATION: 12/10/2016 CARDIOLOGY CONSULTATION CONSULTING PHYSICIAN: Gerardo Calix M.D. REFERRING PHYSICIAN: Olivier Blanco M.D. REASON FOR CONSULTATION: Acute congestive heart failure. HISTORY OF PRESENT ILLNESS: This is an 81-year-old female with a longstanding history of hypertensive cardiomyopathy, paroxysmal atrial arrhythmias, and COPD. She presented to the emergency room yesterday evening with increasing shortness of breath over the past few weeks. She noted this initially started following a cold, where developed worsening shortness of breath followed by cough, congestion and leg swelling. She has been compliant with medications and dietary restrictions at home. PAST MEDICAL HISTORY: COPD, hypertensive heart disease, congestive heart failure, nephrolithiasis, single kidney, history of bladder surgery, sleep apnea and history of colon cancer. MEDICATIONS: Medications prior to admission, reviewed and reconciled. ALLERGIES: Include penicillin. SOCIAL HISTORY: No current history of smoking or alcohol use. She is on home oxygen. FAMILY HISTORY: Noncontributory. REVIEW OF SYSTEMS: She is on home oxygen. She uses a walker for mobility. There is no prior history of stroke. There is no history of thyroid disorder. She does have a history of atrial arrhythmias. She has not had any melena or bright red blood per rectum. She does not have dysuria or frequency. PHYSICAL EXAMINATION: VITAL SIGNS: Blood pressure 126/58, pulse 70, pulse 18, afebrile, and oxygen saturation 93% on four liters. HEENT: Conjunctivae are pink. Sclerae are anicteric. Arcus senilis. Oropharynx clear. Mucous membranes moist. NECK: Supple. Jugular venous pressure elevated. Accessory muscle use is noted. LUNGS: With coarse breath sounds. Rhonchi diminished at the bases. CARDIAC: Regular rhythm and rate. Normal S1 and S2 with a fourth heart sound and a 1/6 systolic murmur at apex. ABDOMEN: Soft and nontender. EXTREMITIES: Good pulses and 1+ bilateral pretibial edema. LABORATORY AND DIAGNOSTIC DATA: EKG sinus rhythm with premature supraventricular complexes. White count 4.6 and hemoglobin 11.1. Sodium 146, potassium 4.1, bicarbonate 40, BUN 14, and creatinine 0.6. Pro-natriuretic peptide 1182. Chest x-ray reveals cardiomegaly with pulmonary edema and possible pneumonia. IMPRESSION: 1. Community-acquired pneumonia. 2. Chronic obstructive pulmonary disease exacerbation. 3. Acute on chronic diastolic congestive heart failure failure. 4. Paroxysmally atrial fibrillation. 5. Paroxysmal supraventricular tachycardia. 6. Premature atrial contractions. 7. Chronic hypoxia. 8. 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 9. Hypertensive cardiomyopathy. PLAN: Diuresis. Reassess beta-millicent therapy. Oxygen replacement. Antimicrobials. Inhaled bronchodilators. Cardioembolic prophylaxis with Pradaxa. We will follow and may need to add acetazolamide in view of compensatory metabolic alkalosis. Gerardo Calix M.D. DR: Shanae JOB#: [id number] CC:
[2016-12-12] MEDS: Vitamin D 1000 IU Tab ORAL SCH (08:30)
[2016-12-12] MEDS: Digoxin 0.125mg tab ORAL SCH (08:31)
[2016-12-12] MEDS: Dabigatran 150mg cap ORAL SCH ×2 (08:32→21:00)
[2016-12-12] MEDS: Revatio 20mg tab ORAL SCH ×3 (08:32→18:00)
[2016-12-12] MEDS: Irbesartan 150mg tablet ORAL SCH (08:32)
[2016-12-12] MEDS: Oxybutynin 5mg tab ORAL SCH (08:32)
[2016-12-12] MEDS: Diltiazem CD 180mg cap ORAL SCH ×3 (08:32→21:16)
[2016-12-12] MEDS: Allopurinol 100mg Tab ORAL SCH ×3 (08:32→18:51)
--- NOTE | 2016-12-12 08:54 | General Progress Note ---
Assessment/Plan Problem List: (1) Atrial fibrillation with RVR ICD Codes: I48.91 - Unspecified atrial fibrillation SNOMED: 465501780344417 (2) Dyspnea ICD Codes: R06.00 - Dyspnea, unspecified SNOMED: 030771427 (3) Respiratory distress ICD Codes: R06.00 - Dyspnea, unspecified SNOMED: 362932657 (4) Congestive heart failure ICD Codes: I50.9 - Heart failure, unspecified SNOMED: 17733282 (5) Toxic metabolic encephalopathy ICD Codes: G92 - Toxic encephalopathy SNOMED: 566976589 Status: stable, progressing Assessment/Plan resp rx diuresis rate control with cardizem o2 monitor lytes check tfts check urine studies check abg. consider head ct anxiolytics Subjective ROS Limited/Unobtainable: No Constitutional: Reports: malaise, weakness HEENT: Reports: no symptoms Cardiovascular: Reports: no symptoms Respiratory: Reports: cough, shortness of breath Gastrointestinal/Abdominal: Reports: no symptoms Genitourinary: Reports: no symptoms Neurologic/Psychiatric: Reports: anxiety Endocrine: Reports: no symptoms Hematologic/Lymphatic: Reports: no symptoms Allergies: Coded Allergies: PENICILLINS (Verified Allergy, Mild, 10/05/09) Cashew (Verified Allergy, 12/25/13) Dust (Verified Allergy, 12/25/13) FISH CONTAINING PRODUCTS (Verified Allergy, 12/25/13) seafood TOMATO (Verified Allergy, 12/25/13) All Systems: reviewed and negative except above Subjective still with sob. afib- rate controlled. agitated and uncooperative. family at the bedside. Objective Last 24 Hour Vital Signs Date Time Temp Pulse Resp B/P Pulse Ox O2 Delivery O2 Flow Rate FiO2 12/12/16 08:32 109 122/67 12/12/16 08:32 122/67 12/12/16 08:31 109 12/12/16 08:15 98.2 106 20 122/67 93 Nasal Cannula 4.0 12/12/16 07:10 107 20 95 Nasal Cannula 3.0 32 12/12/16 07:00 94 Nasal Cannula 3.0 32 12/12/16 07:00 Nasal Cannula 3.0 32 12/12/16 07:00 101 18 Nasal Cannula 3.0 32 12/12/16 07:00 104 18 97 Nasal Cannula 3.0 32 12/12/16 04:13 97.7 100 20 143/73 94 Nasal Cannula 2.0 12/12/16 04:00 104 12/12/16 03:29 113 18 95 Nasal Cannula 4.0 36 12/12/16 03:29 106 18 93 Nasal Cannula 4.0 12/12/16 00:09 97.0 100 20 95 Nasal Cannula 2.0 12/12/16 00:00 106 12/11/16 23:38 112 18 96 Nasal Cannula 4.0 36 12/11/16 23:37 102 18 94 Nasal Cannula 4.0 12/11/16 20:00 98 12/11/16 20:00 97.7 104 21 121/70 99 12/11/16 19:07 78 18 97 Non-Rebreather 12/11/16 19:07 102 18 96 Non-Rebreather 100 12/11/16 19:06 Non-Rebreather 100 12/11/16 19:06 96 Non-Rebreather 100 12/11/16 19:04 101 18 Non-Rebreather 100 12/11/16 16:00 97.9 103 20 110/70 90 Nasal Cannula 3.0 12/11/16 16:00 109 12/11/16 14:30 80 18 97 Nasal Cannula 4.0 36 12/11/16 14:30 36 12/11/16 14:30 77 18 96 Nasal Cannula 3.0 12/11/16 13:20 114 121/72 12/11/16 12:10 75 12/11/16 11:56 97.3 65 19 121/72 94 Nasal Cannula 4.0 12/11/16 11:20 76 18 96 Nasal Cannula 3.0 12/11/16 11:20 78 18 97 Nasal Cannula 4.0 36 12/11/16 11:20 36 12/11/16 09:02 144/67 12/11/16 09:02 73 12/11/16 09:01 73 144/67 Intake and Output 12/11/16 12/12/16 19:00 07:00 Intake Total 395 ml Output Total 2200 ml 650 ml Balance -1805 ml -650 ml Intake Oral 340 ml IV Total 55 ml Output Urine Total 2200 ml 650 ml Height (Feet): 5 Height (Inches): 10.00 Weight (Pounds): 219 General Appearance: WD/WN, alert, confused Neck: supple Cardiovascular: irregularly irregular Respiratory/Chest: rhonchi - bilaterally Abdomen: normal bowel sounds, non tender, soft, no organomegaly Edema: moderate edema Neurologic: start up specialist II-XII grossly normal, alert, responsive, disoriented SONNY GREER Dec 12, 2016 08:54
[2016-12-12] MEDS ORDERED: Haloperidol 5mg/ml Inj IM PRN (09:00)
[2016-12-12 09:10] LABS: BASOPHILS % (AUTO) 0.7 % (0.0-2.0); EOSINOPHILS % (AUTO) 1.3 % (0.0-3.0); MEAN CORPUSCULAR HEMOGLOBIN 27.7 PG (27.0-31.0); MEAN CORPUSCULAR HGB CONC 28.3 G/DL (32.0-36.0); MEAN CORPUSCULAR VOLUME 98 FL (80-99); MEAN PLATELET VOLUME 6.5 FL (6.5-10.1); MONOCYTES % (AUTO) 10.3 % (1.0-10.0); NEUTROPHILS % (AUTO) 63.8 % (45.0-75.0); PLATELET COUNT 153 K/UL (150-450); RED BLOOD COUNT 4.16 M/UL (4.20-5.40); RED CELL DISTRIBUTION WIDTH 15.5 % (11.6-14.8)
[2016-12-12 09:25] LABS: ALANINE AMINOTRANSFERASE 14 U/L (3-33); ALBUMIN/GLOBULIN RATIO 0.9 (1.0-2.7); ASPARTATE AMINO TRANSFERASE 15 U/L (5-40); CALCIUM 9.2 mg/dL (8.6-10.2); CHLORIDE 95 mEQ/L (98-107); CREATININE 0.7 mg/dL (0.5-0.9); HEMOLYSIS 0; MAGNESIUM 1.7 mg/dL (1.7-2.5); POTASSIUM 3.8 mEQ/L (3.4-4.9); SODIUM 144 mEQ/L (135-145); TOTAL PROTEIN 6.5 g/dL (6.6-8.7)
[2016-12-12 09:41] LABS: ANION GAP 4 (5-15)
[2016-12-12 09:44] LABS: CARBON DIOXIDE 45 mEQ/L (20-30)
[2016-12-12 10:03] LABS: APPEARANCE,URINE CLOUDY; KETONES,URINE NEGATIVE (NEGATIVE); LEUKOCYTE ESTERASE ,URINE 2+ (NEGATIVE); NITRITE,URINE NEGATIVE (NEGATIVE); PH,URINE 6.5 (4.5-8.0); PROTEIN,URINE 4+ (NEGATIVE); UROBILINOGEN,URINE 4 MG/DL (0.0-1.0)
[2016-12-12 10:05] LABS: BACTERIA,URINE FEW /HPF; RBC,URINE TNTC /HPF (0 - 2); SQUAMOUS EPITHELIAL CELL,UR FEW /LPF (NONE/OCC)
[2016-12-12] MEDS: Furosemide 40mg tab ORAL SCH ×2 (10:07→21:00)
[2016-12-12 10:29] LABS: ABG ALLEN TEST POSITIVE; ABG BASE EXCESS 23.4
[2016-12-12 11:18] VITALS: BP 109/67
--- NOTE | 2016-12-12 11:38 | Cardiology Report ---
APPROVED REPORT EXAM: Two-dimensional and M-mode echocardiogram with Doppler and color Doppler. INDICATION Arrhythmia M-Mode DIMENSIONS IVSd1.6 (0.7-1.1cm)Left Atrium (MM)5.2 (1.6-4.0cm) LVDd4.2 (3.5-5.6cm)Aortic Root3.0 (2.0-3.7cm) PWd1.8 (0.7-1.1cm)Aortic Cusp Exc.2.0 (1.5-2.0cm) LVDs2.4 (2.5-4.0cm) PWs2.4 cm Normal left ventricular chamber size, systolic function and wall motion. Left ventricular ejection fraction estimated to be 55-60 %. Mild left ventricular hypertrophy. No evidence of pericardial fat or effusion. Mild bi-atrial enlargement. Mild right ventricular enlargement. Mild focal aortic valve sclerosis with adequate cusp excursion. Mildly thickened mitral valve leaflets with normal excursion. Mild mitral annulus and aortic root calcification. Pulmonic valve not well visualized. Normal tricuspid valve structure. IVC dilated at 3.0 cm with minimal physiologic collapse, estiamted RAP is 20 mmHg. A color flow and spectral Doppler study was performed and revealed: No aortic regurgitation. Mild mitral regurgitation. Left Ventricular diastolic fuction cannot be determined due to A-Fib. Moderate tricuspid regurgitation. Tricuspid systolic velocities suggests peak right ventricular systolic pressure of 59 mmHg, consistent with moderate pulmonary hypertension.
--- NOTE | 2016-12-12 11:45 | Pulmonology Progress Note ---
Assessment/Plan Assessment/Plan IMPRESSION CHF shortness of breath Asthma hypoxemia weakness leg edema hypertension possible pneumonia acute encephalopathy Delirium acute on chronic co2 retention chronic respiratory failure PLAN respiratory care diurese oxygen add antibiotics BIPAP if needed monitor labs follow up BNP cards evaluation home meds neb therapy head ct antipsychotics with caution trial of diamox dc planning impression, plan, and exam edited and reviewed in detail care discussed with RN Subjective Allergies: Coded Allergies: PENICILLINS (Verified Allergy, Mild, 10/05/09) Cashew (Verified Allergy, 12/25/13) Dust (Verified Allergy, 12/25/13) FISH CONTAINING PRODUCTS (Verified Allergy, 12/25/13) seafood TOMATO (Verified Allergy, 12/25/13) Subjective care d/w daughter still confused fluid status better Objective Last 24 Hour Vital Signs Date Time Temp Pulse Resp B/P Pulse Ox O2 Delivery O2 Flow Rate FiO2 12/12/16 11:18 97.7 81 19 109/67 97 Nasal Cannula 2.0 12/12/16 10:55 107 20 95 Nasal Cannula 3.0 32 12/12/16 10:45 104 18 97 Nasal Cannula 3.0 32 12/12/16 08:32 109 122/67 12/12/16 08:32 122/67 12/12/16 08:31 109 12/12/16 08:15 98.2 106 20 122/67 93 Nasal Cannula 4.0 12/12/16 07:10 107 20 95 Nasal Cannula 3.0 32 12/12/16 07:00 94 Nasal Cannula 3.0 32 12/12/16 07:00 Nasal Cannula 3.0 32 12/12/16 07:00 101 18 Nasal Cannula 3.0 32 12/12/16 07:00 104 18 97 Nasal Cannula 3.0 32 12/12/16 04:13 97.7 100 20 143/73 94 Nasal Cannula 2.0 12/12/16 04:00 104 12/12/16 03:29 113 18 95 Nasal Cannula 4.0 36 12/12/16 03:29 106 18 93 Nasal Cannula 4.0 12/12/16 00:09 97.0 100 20 95 Nasal Cannula 2.0 12/12/16 00:00 106 12/11/16 23:38 112 18 96 Nasal Cannula 4.0 36 12/11/16 23:37 102 18 94 Nasal Cannula 4.0 12/11/16 20:00 98 12/11/16 20:00 97.7 104 21 121/70 99 12/11/16 19:07 78 18 97 Non-Rebreather 12/11/16 19:07 102 18 96 Non-Rebreather 100 12/11/16 19:06 Non-Rebreather 100 12/11/16 19:06 96 Non-Rebreather 100 12/11/16 19:04 101 18 Non-Rebreather 100 12/11/16 16:00 97.9 103 20 110/70 90 Nasal Cannula 3.0 12/11/16 16:00 109 12/11/16 14:30 80 18 97 Nasal Cannula 4.0 36 12/11/16 14:30 36 12/11/16 14:30 77 18 96 Nasal Cannula 3.0 12/11/16 13:20 114 121/72 12/11/16 12:10 75 12/11/16 11:56 97.3 65 19 121/72 94 Nasal Cannula 4.0 Intake and Output 12/11/16 12/12/16 19:00 07:00 Intake Total 395 ml Output Total 2200 ml 650 ml Balance -1805 ml -650 ml Intake Oral 340 ml IV Total 55 ml Output Urine Total 2200 ml 650 ml Objective WDWN female NAD reduced breath sounds bilaterally without rhonchi or wheeze S1S2 iRRR without MRG NABS nontender no HSM no CC; some edema better nonfocal; confused ?delirium Laboratory Tests 12/12/16 08:35: White Blood Count 5.0, Red Blood Count 4.16L, Hemoglobin 11.5L, Hematocrit 40.7 , Mean Corpuscular Volume 98, Mean Corpuscular Hemoglobin 27.7, Mean Corpuscular Hemoglobin Concent 28.3L, Red Cell Distribution Width 15.5H, Platelet Count 153, Mean Platelet Volume 6.5, Neutrophils (%) (Auto) 63.8, Lymphocytes (%) (Auto) 24.0, Monocytes (%) (Auto) 10.3H, Eosinophils (%) (Auto) 1.3, Basophils (%) (Auto) 0.7, Sodium Level 144, Potassium Level 3.8, Chloride Level 95L, Carbon Dioxide Level 45*H, Anion Gap 4L, Blood Urea Nitrogen 14, Creatinine 0.7, Estimat Glomerular Filtration Rate , Glucose Level 145H, Calcium Level 9.2, Magnesium Level 1.7, Total Bilirubin 0.3, Aspartate Amino Transf (AST/SGOT) 15, Alanine Aminotransferase (ALT/SGPT) 14, Alkaline Phosphatase 53, Total Protein 6.5L, Albumin 3.2L, Globulin 3.3, Albumin/ Globulin Ratio 0.9L, Thyroid Stimulating Hormone (TSH) 1.060 12/12/16 09:30: Urine Color Red, Urine Appearance Cloudy, Urine pH 6.5, Urine Specific [place] 1.010, Urine Protein 4+H, Urine Glucose (UA) Negative, Urine Ketones Negative, Urine Occult Blood 5+H, Urine Nitrite Negative, Urine Bilirubin Negative, Urine Urobilinogen 4H, Urine Leukocyte Esterase 2+H, Urine RBC TntcH, Urine WBC 5-10H , Urine Squamous Epithelial Cells Few, Urine Bacteria Few 12/12/16 10:14: Arterial Blood pH 7.400, Arterial Blood Partial Pressure CO2 87.0*H, Arterial Blood Partial Pressure O2 67.0L, Arterial Blood HCO3 52.8H, Arterial Blood Oxygen Saturation 92.0, Arterial Blood Base Excess 23.4, Roger Test Positive Current Medications Medications (Trade) Dose Ordered Sig/Rocío Route PRN Reason Start Time Stop Time Status Last Admin Dose Admin Acetaminophen (Tylenol) 650 mg Q6H PRN ORAL Mild Pain/Temp > 100.5 12/10/16 02:45 01/09/17 02:44 Acetazolamide (Diamox) 500 mg BID ORAL 12/12/16 12:00 01/11/17 11:59 Albuterol Sulfate (Proventil) 2.5 mg Q4HRT HHN 12/10/16 03:00 12/15/16 02:59 12/12/16 10:45 Albuterol Sulfate (Proventil) 2.5 mg Q4HRT PRN HHN Shortness of breath 12/10/16 02:15 12/15/16 02:14 Allopurinol (Zyloprim) 100 mg BID ORAL 12/10/16 09:00 01/09/17 08:59 12/12/16 08:32 Budesonide/ Formoterol Fumarate (Symbicort 160/ 4.5) 2 puff TWICE A DAY INH 12/10/16 18:00 01/09/17 17:59 12/11/16 09:00 Ceftriaxone Sodium/Sodium Chloride (Rocephin/Sodium Chloride) 55 ml @ 110 mls/hr Q24H IVPB 12/11/16 13:00 12/18/16 12:59 12/11/16 13:25 Dabigatran (Pradaxa) 150 mg EVERY 12 HOURS ORAL 12/10/16 09:00 01/09/17 08:59 12/12/16 08:32 Dextrose (Dextrose 50%) STAT PRN IV Hypoglycemia 12/10/16 02:15 01/09/17 02:14 Digoxin (Lanoxin) 0.125 mg DAILY ORAL 12/10/16 14:00 01/09/17 13:59 12/12/16 08:31 Diltiazem HCl (Cardizem CD) 180 mg BID ORAL 12/11/16 14:00 01/10/17 13:59 12/12/16 08:32 Furosemide (Lasix) 40 mg DAILY IV 12/10/16 09:00 01/09/17 08:59 12/11/16 09:01 Furosemide (Lasix) 40 mg EVERY 12 HOURS ORAL 12/12/16 10:00 01/11/17 09:59 12/12/16 10:07 Haloperidol Lactate (Haldol) 1 mg Q6H PRN IM Agitation 12/12/16 09:00 01/11/17 08:59 12/12/16 10:07 Irbesartan 300 mg 300 mg DAILY ORAL 12/11/16 09:00 01/10/17 08:59 12/12/16 08:32 Levofloxacin (Levaquin) 500 mg Q24H ORAL 12/12/16 13:00 12/19/16 12:59 Montelukast Sodium (Singulair) 10 mg QPM ORAL 12/10/16 16:30 01/09/17 16:29 12/10/16 17:51 Nebivolol (Bystolic) 20 mg DAILY ORAL 12/10/16 09:00 01/09/17 08:59 12/12/16 08:31 Non-Formulary Medication (Non-Formulary Med) 1 ea DAILY ORAL 12/10/16 09:00 01/09/17 08:59 UNV Non-Formulary Medication (Non-Formulary Med) 1 ea DAILY ORAL 12/10/16 09:00 01/09/17 08:59 UNV Non-Formulary Medication (Non-Formulary Med) 1 ea DAILY ORAL 12/10/16 09:00 01/09/17 08:59 UNV Oxybutynin Chloride (Ditropan) 5 mg DAILY ORAL 12/10/16 09:00 01/09/17 08:59 12/12/16 08:32 Quetiapine Fumarate (SEROquel) 50 mg Q12HR ORAL 12/12/16 10:00 01/11/17 09:59 12/12/16 10:07 Sildenafil Citrate (Revatio) 20 mg THREE TIMES A DAY ORAL 12/10/16 09:00 01/09/17 08:59 12/12/16 08:32 Tramadol HCl (Ultram) 50 mg Q6H PRN ORAL For Pain 12/10/16 02:45 12/17/16 02:44 Vitamin D (Vitamin D) 5,000 intlu DAILY ORAL 12/10/16 09:00 01/09/17 08:59 12/12/16 08:30 ISAIAS BECKFORD Dec 12, 2016 11:45
--- NOTE | 2016-12-12 11:58 | Diagnostic Imaging Report ---
Indication: SOB Technique: One view of the chest Comparison: 12/11/2016 Findings: There are degenerative changes of both shoulders. The heart is borderline enlarged. There is interim slight improvement of previously demonstrated interstitial and alveolar parenchymal disease, although disease persists. Band of atelectasis is left lateral lung base. Impression: Improved but persistent bilateral interstitial and alveolar infiltrates versus edema Other stable findings as noted
[2016-12-12] MEDS: cefTRIAXone 1 GM in NS 55 ML IVPB SCH (12:22)
[2016-12-12] MEDS ORDERED: Levofloxacin 500mg tab ORAL SCH (13:00)
--- NOTE | 2016-12-12 14:39 | Diagnostic Imaging Report ---
Indication: Altered level of consciousness Technique: spiral acquisitions obtained through the brain. Angled axial and coronal 5 x 5 mm slices were reconstructed. No IV contrast utilized. Radiation dose was minimized using automated exposure control Total dose length product 1291 mGycm. CTDIvol(s) 70 mGy Comparison: none FINDINGS: No acute hemorrhage or edema. No mass effect or midline shift. There is age-related enlargement of the ventricles and extra axial CSF spaces. There is periventricular deep white matter ischemic change. Normal bryant-white differentiation. Visualized orbits are unremarkable. Visualized sinuses are unremarkable. Intact calvarium. There is patent cavum septum pellucidum-normal anatomic variant. There is sinus disease. Mastoids are clear. The included orbits are unremarkable IMPRESSION: Chronic and age-related changes. Negative for acute intracranial bleed or mass effect Incidental finding of sinus disease The CT scanner at [facility] is accredited by the [employer] and the scans are performed using protocols designed to limit radiation exposure to as low as reasonably achievable to attain images of sufficient resolution adequate for diagnostic evaluation
[2016-12-12 16:00] VITALS: BP 120/78
[2016-12-12] MEDS: Montelukast 10mg tablet ORAL SCH (16:40)
[2016-12-12 18:49] VITALS: BP 115/86
[2016-12-12 20:00] VITALS: BP 129/76
[2016-12-13 00:01] VITALS: BP 110/53
--- NOTE | 2016-12-13 01:48 | Progress Note ---
DATE: 12/12/2016 CARDIOLOGY PROGRESS NOTE SUBJECTIVE: The patient is increasingly confused and agitated. She still has shortness of breath. Monitored rhythm revealed sinus with episodes of atrial fibrillation, rate controlled. OBJECTIVE: VITAL SIGNS: Blood pressure 122/67, pulse 106, respirations 20, and afebrile. LUNGS: Coarse rhonchi. Few expiratory wheezes. HEART: Irregularly irregular rhythm. Normal S1 and S2. A 1/6 early systolic apical murmur. ABDOMEN: Soft and nontender. EXTREMITIES: With 1+ to 2+ bilateral pitting edema. LABORATORY DATA: White count 5 and hemoglobin 11. Sodium 144, potassium 3.8, bicarb 45, BUN 14, creatinine 0.7, and glucose 145. Albumin 3.2. TSH 1.06. ABG, pH 7.40, pCO2 87, and pO2 67. IMPRESSION: 1. Pneumonia. 2. Sepsis. 3. Atrial fibrillation, paroxysmal. 4. Chronic respiratory acidosis with hypercarbia. 5. Compensatory metabolic alkalosis. 6. Cerebrovascular disease with dementia. 7. Acute on chronic diastolic congestive heart failure. PLAN: 1. Diuresis. 2. Respiratory therapy. 3. Antimicrobials. 4. Full anticoagulation. 5. Continue anti-failure regimen. 6. Continue Diamox for correction of metabolic alkalosis. Gerardo Calix M.D. DR: ERNIE JOB#: [id number] CC:
[2016-12-13] MEDS: Albuterol ud Inhalation HHN SCH ×2 (02:58→07:35)
[2016-12-13 04:03] VITALS: BP 104/53
--- NOTE | 2016-12-13 04:38 | Consultation ---
DATE OF CONSULTATION: 12/12/2016 CARDIOLOGY PROGRESS NOTE REQUESTING PHYSICIAN: Olivier Blanco M.D. HISTORY OF PRESENT ILLNESS: This is an 81-year-old female with a longstanding history of hypertensive heart disease and congestive heart failure. She has had a one month history of progressive shortness of breath. She had cough and congestion several days ago and did not improve. She noted associated wheezing. She was seen in the emergency room and admitted for further evaluation. Today, the patient has less congestion and less shortness of breath. Dictation abruptly ended. Gerardo Calix M.D. DR: SAFIA JOB#: [id number] CC:
[2016-12-13 08:00] VITALS: BP 129/59
--- NOTE | 2016-12-13 11:34 | Pulmonology Progress Note ---
Assessment/Plan Assessment/Plan IMPRESSION Chronic respiratory failure with COPD CHF shortness of breath hypoxemia weakness leg edema hypertension possible pneumonia acute encephalopathy Delirium acute on chronic co2 retention PLAN respiratory care at home diurese to continue by po oxygen add antibiotics considered BIPAP but will order trilogy for AVAPS and mouth piece ventilation support monitor labs follow up BNP after dc cards evaluation noted home meds to resume neb therapy trial of diamox ? at home; will discuss dc today seen earlier impression, plan, and exam edited and reviewed in detail care discussed with RN Subjective Allergies: Coded Allergies: PENICILLINS (Verified Allergy, Mild, 10/05/09) Cashew (Verified Allergy, 12/25/13) Dust (Verified Allergy, 12/25/13) FISH CONTAINING PRODUCTS (Verified Allergy, 12/25/13) seafood TOMATO (Verified Allergy, 12/25/13) Subjective care d/w daughter less confused fluid status better wants to go home Objective Last 24 Hour Vital Signs Date Time Temp Pulse Resp B/P Pulse Ox O2 Delivery O2 Flow Rate FiO2 12/13/16 08:00 97.9 73 16 129/59 94 Nasal Cannula 4.0 12/13/16 07:40 93 18 96 Nasal Cannula 4.0 12/13/16 07:36 95 Nasal Cannula 3.0 12/13/16 07:35 87 18 95 Nasal Cannula 3.0 12/13/16 07:35 Nasal Cannula 3.0 12/13/16 04:03 97.0 65 20 104/53 95 Nasal Cannula 2.0 12/13/16 04:00 75 12/13/16 02:58 Nasal Cannula 4.0 36 12/13/16 02:58 Nasal Cannula 4.0 36 12/13/16 00:01 97.0 65 20 110/53 94 Nasal Cannula 2.0 12/13/16 00:00 75 12/12/16 22:57 Nasal Cannula 4.0 36 12/12/16 22:57 Nasal Cannula 4.0 36 12/12/16 20:00 97.0 73 20 129/76 12/12/16 20:00 86 12/12/16 19:40 102 20 95 Nasal Cannula 3.0 32 12/12/16 19:35 94 Nasal Cannula 3.0 32 12/12/16 19:35 82 18 94 Nasal Cannula 3.0 32 12/12/16 19:35 Nasal Cannula 3.0 32 12/12/16 18:50 93 115/86 12/12/16 18:49 93 20 115/86 12/12/16 16:00 98.2 78 18 120/78 94 Nasal Cannula 3.0 12/12/16 16:00 88 12/12/16 15:00 107 20 95 Nasal Cannula 3.0 32 12/12/16 14:50 104 18 97 Nasal Cannula 3.0 32 12/12/16 11:49 81 Intake and Output 12/12/16 12/13/16 19:00 07:00 Intake Total 200 ml 200 ml Output Total 400 ml 1400 ml Balance -200 ml -1200 ml Intake Oral 200 ml 200 ml Output Urine Total 400 ml 1400 ml Objective WDWN female NAD reduced breath sounds bilaterally without rhonchi or wheeze S1S2 iRRR without MRG NABS nontender no HSM no CC; some edema better nonfocal; confusion improved on oxygen Microbiology Date/Time Source Procedure Growth Status 12/12/16 09:30 Indwelling Cath Urine Culture - Preliminary NO GROWTH Resulted Labs Test 12/11/16 08:40 12/12/16 08:35 12/12/16 09:30 12/12/16 10:14 Sodium Level 145 mEQ/L (135-145) 144 mEQ/L (135-145) Potassium Level 4.2 mEQ/L (3.4-4.9) 3.8 mEQ/L (3.4-4.9) Chloride Level 97 mEQ/L (98-107) 95 mEQ/L (98-107) Carbon Dioxide Level 44 mEQ/L (20-30) 45 mEQ/L (20-30) Anion Gap 4 (5-15) 4 (5-15) Blood Urea Nitrogen 13 mg/dL (7-23) 14 mg/dL (7-23) Creatinine 0.7 mg/dL (0.5-0.9) 0.7 mg/dL (0.5-0.9) Estimat Glomerular Filtration Rate mL/min (>60) mL/min (>60) Glucose Level 108 mg/dL (74-106) 145 mg/dL (74-106) Calcium Level 8.9 mg/dL (8.6-10.2) 9.2 mg/dL (8.6-10.2) Total Bilirubin 0.2 mg/dL (0.0-1.2) 0.3 mg/dL (0.0-1.2) Aspartate Amino Transf (AST/SGOT) 15 U/L (5-40) 15 U/L (5-40) Alanine Aminotransferase (ALT/SGPT) 18 U/L (3-33) 14 U/L (3-33) Alkaline Phosphatase 59 U/L (35-104) 53 U/L (35-104) Pro-B-Type Natriuretic Peptide 816 pg/mL (0-450) Total Protein 6.1 g/dL (6.6-8.7) 6.5 g/dL (6.6-8.7) Albumin 3.3 g/dL (3.5-5.2) 3.2 g/dL (3.5-5.2) Globulin 2.8 g/dL 3.3 g/dL Albumin/Globulin Ratio 1.1 (1.0-2.7) 0.9 (1.0-2.7) Digoxin Level < 0.3 ng/mL (0.5-2.0) White Blood Count 5.0 K/UL (4.8-10.8) Red Blood Count 4.16 M/UL (4.20-5.40) Hemoglobin 11.5 G/DL (12.0-16.0) Hematocrit 40.7 % (37.0-47.0) Mean Corpuscular Volume 98 FL (80-99) Mean Corpuscular Hemoglobin 27.7 PG (27.0-31.0) Mean Corpuscular Hemoglobin Concent 28.3 G/DL (32.0-36.0) Red Cell Distribution Width 15.5 % (11.6-14.8) Platelet Count 153 K/UL (150-450) Mean Platelet Volume 6.5 FL (6.5-10.1) Neutrophils (%) (Auto) 63.8 % (45.0-75.0) Lymphocytes (%) (Auto) 24.0 % (20.0-45.0) Monocytes (%) (Auto) 10.3 % (1.0-10.0) Eosinophils (%) (Auto) 1.3 % (0.0-3.0) Basophils (%) (Auto) 0.7 % (0.0-2.0) Magnesium Level 1.7 mg/dL (1.7-2.5) Thyroid Stimulating Hormone (TSH) 1.060 uIU/mL (0.300-4.500) Urine Color Red Urine Appearance Cloudy Urine pH 6.5 (4.5-8.0) Urine Specific [place] 1.010 (1.005-1.035) Urine Protein 4+ (NEGATIVE) Urine Glucose (UA) Negative (NEGATIVE) Urine Ketones Negative (NEGATIVE) Urine Occult Blood 5+ (NEGATIVE) Urine Nitrite Negative (NEGATIVE) Urine Bilirubin Negative (NEGATIVE) Urine Urobilinogen 4 MG/DL (0.0-1.0) Urine Leukocyte Esterase 2+ (NEGATIVE) Urine RBC Tntc /HPF (0 - 2) Urine WBC 5-10 /HPF (0 - 2) Urine Squamous Epithelial Cells Few /LPF (NONE/OCC) Urine Bacteria Few /HPF (NONE) Arterial Blood pH 7.400 (7.350-7.450) Arterial Blood Partial Pressure CO2 87.0 mmHg (35.0-45.0) Arterial Blood Partial Pressure O2 67.0 mmHg (75.0-100.0) Arterial Blood HCO3 52.8 mmol/L (22.0-26.0) Arterial Blood Oxygen Saturation 92.0 % (92.0-98.0) Arterial Blood Base Excess 23.4 Roger Test Positive Test 12/13/16 04:00 ISAIAS BECKFORD Dec 13, 2016 11:34
--- NOTE | 2016-12-14 00:57 | Progress Note ---
DATE: 12/13/2016 CARDIOLOGY PROGRESS NOTE SUBJECTIVE: The patient with less congestion and no shortness of breath. The patient has home oxygen and BiPAP support. Monitored rhythm sinus. Paroxysms of atrial fibrillation. OBJECTIVE: VITAL SIGNS: Blood pressure 129/59, heart rate 73, respiratory rate 16, and afebrile. LUNGS: Bilateral breath sounds. Scattered rhonchi. HEART: Irregularly irregular. Normal S1 and S2. ABDOMEN: Soft. EXTREMITIES: Trace edema. LABORATORY DATA: ABG was refused by patient. IMPRESSION: 1. Acute bronchospasm. 2. Chronic obstructive pulmonary disease exacerbation. 3. Chronic hypoxia. 4. Compensatory metabolic alkalosis. 5. Acute on chronic diastolic congestive heart failure. 6. Paroxysmal atrial fibrillation. 7. Pneumonia with sepsis, improving. PLAN: 1. Transition from IV to oral diuretics. 2. Continue full anticoagulation for cardioembolic prophylaxis. 3. Monitor acid-base parameters and chemistry panel as outpatient with titration of diuretic regimen including Diamox based on these findings and current cardiovascular regimen reviewed and renewed for discharge. Gerardo Calix M.D. DR: SAFIA JOB#: [id number] CC:
--- NOTE | 2016-12-14 13:44 | Discharge Summary ---
Discharge Summary Hospital Course Date of Admission Dec 09, 2016 at 19:04 Date of Discharge Dec 13, 2016 at 10:29 Admitting Diagnosis chf exacerbation HPI Johnna Courtney is a 81 year old female who was admitted on Dec 09, 2016 at 19: 04 for Congestive Heart Failure Exacerbation Hospital Course [id number] Discharge Discharge Disposition Patient was discharged to Home with Home Health(06) Discharge Diagnoses: Shy Bhatti NP Dec 14, 2016 13:44
--- NOTE | 2016-12-14 20:27 | Cardiology Report ---
APPROVED REPORT EKG Measurement Heart [id number] Atrial fibrillation Nonspecific T wave abnormality Abnormal ECG
--- NOTE | 2016-12-15 01:38 | Discharge Summary 2 SIG ---
DATE OF ADMISSION: 12/09/2016 DATE OF DISCHARGE: 12/13/2016 CONSULTANTS: 1. Olivier Blanco M.D. 2. Gerardo Calix M.D. BRIEF HOSPITAL COURSE: The patient is an 81-year-old female with history of hypertension, hypertensive heart disease, kidney stones, single kidney, COPD/asthma and congestive heart failure. She presented from home with complaints of shortness of breath. This has been ongoing for the past month. Shortness of breath has worsened after she developed cold. Symptoms did not improve and she came to emergency room for evaluation. At ED, the patient was noted to be congested but no wheezing. She had diminished breath sounds. X-ray showed evidence of congestive heart failure as well as elevated BNP of 1200. She was admitted for CHF exacerbation, COPD, and hypertension and was given IV diuretic therapy and supplemental O2 with BiPAP as needed. She was continued on cardioembolic prophylaxis with Pradaxa and acetazolamide was added in view of compensatory metabolic alkalosis. Echocardiogram was done showed normal left ventricular size, function, and wall motion with ejection fraction of 55% to 60% with moderate pulmonary hypertension, moderate tricuspid regurgitation and mild mitral regurgitation. Chest x-rays were done, which showed improved but persistent bilateral interstitial and alveolar infiltrates. She was given ceftriaxone. She was discharged home to continue respiratory care at home with a trial of Diamox. To follow BNP after DC. The patient was discharged home. FINAL DIAGNOSES: 1. Acute on chronic carbon dioxide retention with chronic obstructive pulmonary disease. 2. Chronic respiratory failure with chronic obstructive pulmonary disease. 3. Chronic obstructive pulmonary disease exacerbation. 4. Acute bronchospasms. 5. Acute on chronic diastolic congestive heart failure. 6. Compensatory metabolic alkalosis. 7. Paroxysmal atrial fibrillation. 8. Pneumonia with sepsis improving. 9. Delirium. 10. Acute toxic metabolic encephalopathy. 11. Possible pneumonia. 12. Hypertension. Stevan Pace M.D. I have been assigned to dictate discharge summary on this account and I was not involved in the patient's management. Shy Bhatti N.P. DR: GENE JOB#: [id number] CC:
== END 2016-12-13 10:29 | disposition home health service (06) | DRG 291 ==
LOC: ENRESERVDT → ENRESERVTM → EMR 17:50 → 2E 19:04 → EDBEDREQ 20:29 → 2E 21:54
DX: I13.0 Hypertensive heart and chronic kidney disease with heart failure and stage 1 through stage 4 chronic kidney disease, or unspecified chronic kidney disease (principal); J18.9 Pneumonia, unspecified organism; G93.49 Other encephalopathy; G92 Toxic encephalopathy; J96.11 Chronic respiratory failure with hypoxia; E87.2 Acidosis; J44.1 Chronic obstructive pulmonary disease with (acute) exacerbation; I48.0 Paroxysmal atrial fibrillation; I47.1 Supraventricular tachycardia; I50.33 Acute on chronic diastolic (congestive) heart failure; E44.1 Mild protein-calorie malnutrition; J45.909 Unspecified asthma, uncomplicated; I10 Essential (primary) hypertension; R09.02 Hypoxemia; N18.9 Chronic kidney disease, unspecified; I49.1 Atrial premature depolarization; R41.0 Disorientation, unspecified; Z88.0 Allergy status to penicillin; G47.30 Sleep apnea, unspecified; Z90.5 Acquired absence of kidney; Z85.038 Personal history of other malignant neoplasm of large intestine; Z86.73 Personal history of transient ischemic attack (TIA), and cerebral infarction without residual deficits; I08.1 Rheumatic disorders of both mitral and tricuspid valves
CPT/HCPCS: 36415; 36600; 70450; 71010; 71020; 80048; 80053; 80162; 81003; 82550; 82553; 82803; 83735; 83880; 84443; 84484; 85025; 87086; 93005; 93306; 94640; 94664; 94760

== ENCOUNTER 2017-01-18 10:51 | Inpatient (IN) | payer MEDICARE, OTHER ==
[~2017-01-18] VITALS: Ht 172.7 cm; Wt 97.5 kg
[2017-01-18 11:13] VITALS: BP 146/79
[2017-01-18 12:05] LABS: BASOPHILS % (AUTO) 0.5 % (0.0-2.0); EOSINOPHILS % (AUTO) 0.9 % (0.0-3.0); LYMPHOCYTES % (AUTO) 23.8 % (20.0-45.0); MEAN CORPUSCULAR HEMOGLOBIN 27.7 PG (27.0-31.0); MEAN CORPUSCULAR HGB CONC 28.7 G/DL (32.0-36.0); MEAN CORPUSCULAR VOLUME 97 FL (80-99); MEAN PLATELET VOLUME 7.8 FL (6.5-10.1); MONOCYTES % (AUTO) 7.6 % (1.0-10.0); NEUTROPHILS % (AUTO) 67.3 % (45.0-75.0); PLATELET COUNT 149 K/UL (150-450); RED BLOOD COUNT 3.89 M/UL (4.20-5.40); RED CELL DISTRIBUTION WIDTH 16.4 % (11.6-14.8); WHITE BLOOD COUNT 5.3 K/UL (4.8-10.8)
[2017-01-18 12:11] LABS: APPEARANCE,URINE CLEAR; KETONES,URINE NEGATIVE (NEGATIVE); LEUKOCYTE ESTERASE ,URINE 1+ (NEGATIVE); NITRITE,URINE NEGATIVE (NEGATIVE); PH,URINE 6 (4.5-8.0); PROTEIN,URINE 3+ (NEGATIVE); UROBILINOGEN,URINE NORMAL MG/DL (0.0-1.0)
[2017-01-18 12:18] LABS: INR 1.1 (0.9-1.1); PROTHROMBIN TIME 11.5 SEC (9.30-11.50)
[2017-01-18 12:20] LABS: AMORPHOUS SEDIMENT,UR FEW /LPF; BACTERIA,URINE FEW /HPF; RBC,URINE 0-2 /HPF (0 - 2); SQUAMOUS EPITHELIAL CELL,UR FEW /LPF (NONE/OCC); WBC,URINE 0-2 /HPF (0 - 2)
[2017-01-18 12:23] LABS: ALANINE AMINOTRANSFERASE 31 U/L (3-33); ALBUMIN/GLOBULIN RATIO 0.9 (1.0-2.7); ANION GAP 5 (5-15); ASPARTATE AMINO TRANSFERASE 28 U/L (5-40); CALCIUM 9.1 mg/dL (8.6-10.2); CARBON DIOXIDE 39 mEQ/L (20-30); CHLORIDE 97 mEQ/L (98-107); CREATININE 0.7 mg/dL (0.5-0.9); HEMOLYSIS 0; POTASSIUM 4.7 mEQ/L (3.4-4.9); SODIUM 141 mEQ/L (135-145); TOTAL PROTEIN 6.9 g/dL (6.6-8.7); TROPONIN I < 0.30 ng/mL (<=0.30)
--- NOTE | 2017-01-18 12:37 | Emergency Room Report ---
History of Present Illness General Chief Complaint: Dyspnea/Respdistress Source: Patient Present Illness HPI Patient has a history of COPD and congestive heart failure. She states that she has had shortness of breath and decreased oxygen saturations in the morning. She went and saw her primary care physician and he sent her here for a low oxygen saturation. She denies fever or chills. She states that she has a chronic cough her daughter is also concerned because she has had rapid weight gain in the past month. She denies chest pain. She denies abdominal pain. She has no other complaints. Allergies: Coded Allergies: PENICILLINS (Verified Allergy, Mild, 10/05/09) Cashew (Verified Allergy, 12/25/13) Dust (Verified Allergy, 12/25/13) FISH CONTAINING PRODUCTS (Verified Allergy, 12/25/13) seafood TOMATO (Verified Allergy, 12/25/13) Patient History Past Medical History: see triage record, HTN, DE, CAD, CHF, AFib, arrhyth, asthma, COPD, GERD, renal disease Past Surgical History: hysterectomy, other - nephrectomy, colectomy Social History: Denies: alcohol use, drug use, smoking Reviewed Nursing Documentation: PMH: Agreed, PSxH: Agreed Nursing Documentation-PMH Past Medical History: No History, Except For Hx Cardiac Problems: Yes - A-fib, DE Hx Hypertension: Yes Hx Asthma: Yes Hx COPD: Yes Hx Diabetes: No Hx Cancer: Yes - HISTORY OF COLON TUMOR Hx Gastrointestinal Problems: No Hx Neurological Problems: Yes Hx Transient Ischemic Attacks: Yes Review of Systems All Other Systems: negative except mentioned in HPI Physical Exam Vital Signs Date Time Temp Pulse Resp B/P Pulse Ox O2 Delivery O2 Flow Rate FiO2 01/18/17 10:58 97.3 95 20 128/76 66 Nasal Cannula 2.0 Sp02 EP Interpretation: reviewed, abnormal General Appearance: no apparent distress, alert, GCS 15, non-toxic Head: normocephalic, atraumatic Eyes: bilateral eye PERRL, bilateral eye normal inspection ENT: hearing grossly normal, normal pharynx, no angioedema, normal voice Neck: full range of motion, supple/symm/no masses Respiratory: chest non-tender, no respiratory distress, no retraction, no accessory muscle use, rales, speaking full sentences Cardiovascular #1: no edema, irregularly irregular Gastrointestinal: normal bowel sounds, non tender, soft, non-distended, no guarding, no rebound Rectal: deferred Musculoskeletal: back normal, gait/station normal, normal range of motion, non- tender Neurologic: alert, oriented x3, responsive, motor strength/tone normal, sensory intact, speech normal Psychiatric: judgement/insight normal, memory normal, mood/affect normal, no suicidal/homicidal ideation Skin: normal color, no rash, warm/dry, well hydrated Medical Decision Making Diagnostic Impression: Primary Impression: CHF exacerbation ER Course This patient presents a CHF exacerbation. She has low SpO2 and is requiring additional oxygen. Likely this is the etiology of the patient's weight gain and she has fluid retention. Patient was given nitroglycerin chest wall and Lasix IV. She will be admitted for further diuresis, further evaluation and treatment. Labs Test 01/18/17 11:47 01/18/17 11:55 Urine Color Pale yellow Urine Appearance Clear Urine pH 6 (4.5-8.0) Urine Specific [place] 1.020 (1.005-1.035) Urine Protein 3+ (NEGATIVE) Urine Glucose (UA) Negative (NEGATIVE) Urine Ketones Negative (NEGATIVE) Urine Occult Blood Negative (NEGATIVE) Urine Nitrite Negative (NEGATIVE) Urine Bilirubin Negative (NEGATIVE) Urine Urobilinogen Normal MG/DL (0.0-1.0) Urine Leukocyte Esterase 1+ (NEGATIVE) Urine RBC 0-2 /HPF (0 - 2) Urine WBC 0-2 /HPF (0 - 2) Urine Squamous Epithelial Cells Few /LPF (NONE/OCC) Urine Amorphous Sediment Few /LPF (NONE) Urine Bacteria Few /HPF (NONE) White Blood Count 5.3 K/UL (4.8-10.8) Red Blood Count 3.89 M/UL (4.20-5.40) Hemoglobin 10.8 G/DL (12.0-16.0) Hematocrit 37.6 % (37.0-47.0) Mean Corpuscular Volume 97 FL (80-99) Mean Corpuscular Hemoglobin 27.7 PG (27.0-31.0) Mean Corpuscular Hemoglobin Concent 28.7 G/DL (32.0-36.0) Red Cell Distribution Width 16.4 % (11.6-14.8) Platelet Count 149 K/UL (150-450) Mean Platelet Volume 7.8 FL (6.5-10.1) Neutrophils (%) (Auto) 67.3 % (45.0-75.0) Lymphocytes (%) (Auto) 23.8 % (20.0-45.0) Monocytes (%) (Auto) 7.6 % (1.0-10.0) Eosinophils (%) (Auto) 0.9 % (0.0-3.0) Basophils (%) (Auto) 0.5 % (0.0-2.0) Prothrombin Time 11.5 SEC (9.30-11.50) Prothromb Time International Ratio 1.1 (0.9-1.1) Activated Partial Thromboplast Time 30 SEC (23-33) Sodium Level 141 mEQ/L (135-145) Potassium Level 4.7 mEQ/L (3.4-4.9) Chloride Level 97 mEQ/L (98-107) Carbon Dioxide Level 39 mEQ/L (20-30) Anion Gap 5 (5-15) Blood Urea Nitrogen 16 mg/dL (7-23) Creatinine 0.7 mg/dL (0.5-0.9) Estimat Glomerular Filtration Rate mL/min (>60) Glucose Level 101 mg/dL (74-106) Calcium Level 9.1 mg/dL (8.6-10.2) Total Bilirubin 0.4 mg/dL (0.0-1.2) Aspartate Amino Transf (AST/SGOT) 28 U/L (5-40) Alanine Aminotransferase (ALT/SGPT) 31 U/L (3-33) Alkaline Phosphatase 71 U/L (35-104) Total Creatine Kinase 65 U/L (26-140) Troponin I < 0.30 ng/mL (<=0.30) Total Protein 6.9 g/dL (6.6-8.7) Albumin 3.4 g/dL (3.5-5.2) Globulin 3.5 g/dL Albumin/Globulin Ratio 0.9 (1.0-2.7) EKG Diagnostic Results Rate: normal Rhythm: other ST Segments: no acute changes Other Impression A.fib. NSST findings. Rhythm Strip Diag. Results EP Interpretation: yes Rate: 90's Rhythm: no PVC's, no ectopy Other Impression Irregular. Chest X-Ray Diagnostic Results EP Interpretation: Yes Findings: no effusion, no pneumothorax Number of Views: 1 Other Impression Diffuse patchy opacities bilateral lung louie. Last Vital Signs Date Time Temp Pulse Resp B/P Pulse Ox O2 Delivery O2 Flow Rate FiO2 01/18/17 12:05 99 20 Nasal Cannula 3.0 01/18/17 11:13 97.3 146/79 93 Disposition: ADMITTED INPATIENT Condition: Serious Referrals: ISAIAS BECKFORD (PCP) TYRONE THACKER D.O. January 18, 2017 12:37
[2017-01-18] MEDS ORDERED: Nitroglycerin 2% oint pkt TOPIC ONE (12:45)
[2017-01-18 12:50] VITALS: BP 146/70
[2017-01-18 14:05] VITALS: BP 123/70
--- NOTE | 2017-01-18 15:15 | Diagnostic Imaging Report ---
Indication: Dyspnea Comparison: 12/12/16 A single view chest radiograph was obtained. Findings: Worsening pulmonary edema demonstrated, currently mild to moderate with interstitial edema noted. Cardiomegaly again demonstrated. Impression: Mild to moderate CHF
[2017-01-18 16:00] VITALS: BP 140/78
[2017-01-18 17:05] LABS: ABG ALLEN TEST POSITIVE; ABG BASE EXCESS 14.2
--- NOTE | 2017-01-18 17:12 | Consultation ---
Consult Note Consult Note Vital Signs -Extended Height: 66 inches Weight: 233.5 pounds Temperature: 98.6 degrees F (oral) Pulse rate: 99 /min Pulse rhythm: regular Respirations: 12 /min O2 Sat: 61% Blood Pressure: 134/75 mm Hg Calculations Body Mass Index: 37.82 Body Surface Area (m2): 2.14 History of Present Illness Hx. Source: patient Primary complaint: FOLLOW UP Duration: several days Trend of sx: worsening Fever: none Treatment: see med list Trend of Tx: worsens Additional HPI: 81 year old female patient presents today for follow up appointment for her COPD. Patient reports that her oxygen level was at 51%. and her daughters are afraid her Co2 levels have gone up due to her hallucinating. She also reports a significant amount of weight gain, with a loss of appetite. She also has edema of both of her ankles. Patient is taking her prescribed medications as directed and is compliant. daughter notes she is using the trilogy nightly. patient is on oxygen continously. she is using sleep aid to be able to maintain sleep with Remeron. Active Medications (reviewed today): REMERON 15 MG TAB (MIRTAZAPINE) 1 by mouth nightly at bedtime NAMENDA XR TITRATION PACK 7 & 14 & 21 &28 MG [id number] (MEMANTINE HCL) DIRECTED LINZESS 290 MCG ORAL CAPS (LINACLOTIDE) 1 PO DAILY MONTELUKAST SODIUM 10 MG ORAL TABS (MONTELUKAST SODIUM) Take 1 tablet by mouth daily OXYBUTYNIN CHLORIDE 5 MG ORAL TABS (OXYBUTYNIN CHLORIDE) Take 1 tablet daily by mouth prn AZELASTINE HCL 0.1 % NASAL SOLN (AZELASTINE HCL) Instill 2 sprays into each nostril once daily BYSTOLIC 10 MG TABS (NEBIVOLOL HCL) 1 tab bid LETAIRIS 5 MG TABS (AMBRISENTAN) Take 1 Tablet by mouth once a day IPRATROPIUM BROMIDE 0.02 % INH SOLN (IPRATROPIUM BROMIDE) inhaile via hhn bid DIOVAN 320 MG TABS (VALSARTAN) 1 tab qd ALLOPURINOL 100 MG TABS (ALLOPURINOL) 1 tab bid ADVAIR DISKUS 500-50 MCG/DOSE MISC (FLUTICASONE-SALMETEROL) 1 PUFF BID ALBUTEROL SULFATE 0.083 % NEBU (ALBUTEROL SULFATE) 1 vial in HHN every 4 hours as needed DIGOXIN 0.125 MG TABS (DIGOXIN) 1 by mouth every day VENTOLIN HFA 108 (90 BASE) MCG/ACT AERS (ALBUTEROL SULFATE) 2puff q4hr prn LOTRISONE 0.05-1 % CREAM (CLOTRIMAZOLE-BETAMETHASONE) apply to affected area twice a day PRADAXA 150 MG CAPS (DABIGATRAN ETEXILATE MESYLATE) 1 tab bid VITAMIN D3 5000 UNIT TABS (CHOLECALCIFEROL) 1 TAB QD AMLODIPINE BESYLATE 10 MG TABS (AMLODIPINE BESYLATE) 1 tab qd LASIX 20 MG TABS (FUROSEMIDE) 1 by mouth every other day Current Allergies (reviewed today): * SEAFOOD (Critical) PENICILLIN (PENICILLIN V POTASSIUM) (Moderate) * DUST (Moderate) * TOMATOES (Moderate) * CASHEWS (Moderate) * HAZELNUTS (Moderate) Past History Past Medical History (reviewed - no changes required): Patient indicates medical history of colon tumor, hypertension, endocrine disease, kidney disease , asthma, respiratory disease, arthritis. Atrial fibrillation, shoulder pain, Arthritis, 2012 hospitalized-pulmonary hypertension,TIA- was on life support. Back pain, 12/2013 ER; CHF, GOUT 09/2016 ER- fall 12/2016 Hospital admit CHF and COPD, respiratory failure Surgical History (reviewed - no changes required): Patient reports surgical history to include: both eyes cataract surgery, eye surgery, hysterectomy- complete-no cancer, right kidney removal Family History (reviewed - no changes required): Father is . He of natural causes at the age of 79. Mother is . She of natural causes. The patient indicates family history of colon cancer (mother), heart disease (father), stroke (father). Other family history includes: uterine cancer. Social History (reviewed - no changes required): MARCK is a retired person. MARCK lives with her daughter. She lives at home in [place]. She is with 4 children. MARCK's advent is Buddhist. Risk Factors: Smoked Tobacco Use: Never smoker Passive smoke exposure: no Drug use: no HIV high-risk behavior: no Caffeine use: <1 drinks per day Alcohol use: yes Type: supriya once a year Drinks per day: <1 Seatbelt use: 100 % Sun Exposure: occasionally Review of Systems General: reduced appetite Ear/Nose/Throat: rhinitis;nasal congestion reduced hearing Cardiovascular: hypertension leg swelling-waxes and wanes Respiratory: cough-comes and goes Shortness of breath- on oxygen wheezing asthma Gastrointestinal: constipation Genitourinary: reduced urine output Musculoskeletal: back pain; difficulty walking; ambulates with walker or cane- not walking as much; chronic swelling of lower legs; left shoulder pain Skin: denies rash, itching, dryness, suspicious lesions Neurologic: memory loss and confusion, hallucinations Physical Exam General Appearance: well nourished, well hydrated, no acute distress Respiratory Respiratory Effort: no intercostal retractions or use of accessory muscles Percussion: no dullness Palpation: normal fremitus Auscultation: no rales, rhonchi; some wheezes; reduced air entry as prior Cardiovascular Peripheral Circulation: 2+ edema ankles bilaterally same Musculoskeletal Gait and Station: Uses Walker some confusion [Lab Results Review] Assessment Status of Existing Problems: Assessed COPD as comment only - Merced Barragan Assessed Leg edema, bilateral as comment only - Merced Barragan Assessed CHF as comment only - Merced Barragan Assessed ALLERGIC RHINITIS as comment only - Merced Barragan Assessed OBSTRUCTIVE SLEEP APNEA as comment only - Merced Barragan New Problems: Dx of Hallucinations (ICD-780.1) Onset: 01/18/2017 Plan New medications: LINZESS 290 MCG ORAL CAPS -- 1 PO DAILY Start date: 01/10/2016 Additional Plan Comments: ADMIT CHECK LABS AND BNP AND ABG; ASSESS NEED FOR INCREASE IN LASIX TRILOGY NIGHTLY AND DURING THE DAY PRN OR BIPAP CONTINUE WITH INHALERS IS COMPLIANCE URGED FOLLOW UP CARE IS WILL MONITOR FOR CHANGE MONITOR ACID BASE EXCHANGE RESUME INHALERS LONG D/W ISAIAS SHAY January 18, 2017 17:12
[2017-01-18] MEDS: Dabigatran 150mg cap ORAL SCH (18:43)
[2017-01-18] MEDS: Allopurinol 100mg Tab ORAL SCH (18:43)
[2017-01-18] MEDS: Albuterol ud Inhalation HHN SCH ×2 (19:37→23:26)
[2017-01-18 20:05] VITALS: BP 126/79
[2017-01-18] MEDS ORDERED: DIGOXIN0.125 MG/2 ORAL (20:44)
[2017-01-18] MEDS ORDERED: VITAMIN D400 INTLU ORAL (20:44)
[2017-01-18] MEDS ORDERED: AZELASTINE137 MCG/0. NS (20:44)
[2017-01-18] MEDS ORDERED: VITAMIN C500 M1 ORAL (20:44)
[2017-01-18] MEDS ORDERED: MIRTAZAPINE15 M1 ORAL (20:44)
[2017-01-18] MEDS ORDERED: VENTOLIN HFA18 GM INH (20:44)
[2017-01-18] MEDS ORDERED: BYSTOLIC5 MG ORAL (20:44)
[2017-01-18] MEDS ORDERED: ADVAIR 500-501 EACH INH (20:44)
[2017-01-18] MEDS ORDERED: NAMENDA 14 MG ORAL ONE (23:30)
[2017-01-18 23:49] VITALS: BP 111/62
[2017-01-19] MEDS: Albuterol ud Inhalation HHN SCH ×6 (03:35→23:08)
[2017-01-19 03:47] VITALS: BP 132/89
[2017-01-19 08:00] VITALS: BP 125/68
--- NOTE | 2017-01-19 08:14 | Pulmonology Progress Note ---
Assessment/Plan Assessment/Plan Assessment Status of Existing Problems: COPD CHF RESPIRATORY FAILURE LULÚ HYPERTENSION HYPOXEMIA HYPERCAPNIA Plan ADMIT FOLLOW UP LABS AND BNP AND ABG; IV LASIX TRILOGY NIGHTLY AND DURING THE DAY PRN OR BIPAP CONTINUE WITH INHALERS IS COMPLIANCE URGED FOLLOW UP CARE IS WILL MONITOR FOR CHANGE MONITOR ACID BASE EXCHANGE OPTIMIZE AND DC HOME Subjective ROS Limited/Unobtainable: Yes Allergies: Coded Allergies: PENICILLINS (Verified Allergy, Mild, 10/05/09) Cashew (Verified Allergy, 12/25/13) Dust (Verified Allergy, 12/25/13) FISH CONTAINING PRODUCTS (Verified Allergy, 12/25/13) seafood TOMATO (Verified Allergy, 12/25/13) Subjective overall better Objective Last 24 Hour Vital Signs Date Time Temp Pulse Resp B/P Pulse Ox O2 Delivery O2 Flow Rate FiO2 01/19/17 05:24 71 14 94 Facial 50 01/19/17 04:00 75 01/19/17 03:47 98.3 86 19 132/89 93 Bi-pap 01/19/17 03:44 71 14 95 Bi-pap 50 01/19/17 03:37 50 01/19/17 03:37 77 15 93 Bi-pap 50 01/19/17 03:25 77 15 93 Facial 50 01/19/17 01:27 76 14 93 Facial 50 01/19/17 00:00 75 01/18/17 23:49 98.6 70 18 111/62 98 Bi-pap 01/18/17 23:32 74 14 96 Bi-pap 50 01/18/17 23:26 50 01/18/17 23:25 72 16 94 Bi-pap 50 01/18/17 23:24 72 16 94 Facial 50 01/18/17 20:48 88 16 98 Facial 50 01/18/17 20:05 98.1 73 19 126/79 100 Bi-pap 01/18/17 20:00 85 01/18/17 19:50 88 16 99 Bi-pap 50 01/18/17 19:41 86 15 Bi-pap 50 01/18/17 19:36 50 01/18/17 19:36 86 15 97 Bi-pap 50 01/18/17 19:34 86 15 97 Facial 50 01/18/17 16:00 96.9 63 18 140/78 94 Bi-pap 15.8 01/18/17 16:00 91 01/18/17 14:59 97.3 86 21 123/70 92 Nasal Cannula 3.0 01/18/17 14:05 97.3 86 21 123/70 92 Nasal Cannula 3.0 01/18/17 12:50 97.3 93 21 146/70 92 Nasal Cannula 3.0 01/18/17 12:46 146/70 01/18/17 12:05 99 20 Nasal Cannula 3.0 01/18/17 11:13 97.3 99 20 146/79 93 Nasal Cannula 3.0 01/18/17 10:58 97.3 95 20 128/76 66 Nasal Cannula 2.0 Objective WDWN NAD reduced breath sounds bilaterally with some basilar crackles S1S2 iRRR without MRG NABS nontender no HSM no CC noted edema nonfocal Laboratory Tests 01/18/17 11:47: Urine Color Pale yellow, Urine Appearance Clear, Urine pH 6, Urine Specific [place] 1.020, Urine Protein 3+H, Urine Glucose (UA) Negative, Urine Ketones Negative, Urine Occult Blood Negative, Urine Nitrite Negative, Urine Bilirubin Negative, Urine Urobilinogen Normal, Urine Leukocyte Esterase 1+H, Urine RBC 0-2 , Urine WBC 0-2, Urine Squamous Epithelial Cells Few, Urine Amorphous Sediment FewH, Urine Bacteria Few 01/18/17 11:55: White Blood Count 5.3, Red Blood Count 3.89L, Hemoglobin 10.8L, Hematocrit 37.6 , Mean Corpuscular Volume 97, Mean Corpuscular Hemoglobin 27.7, Mean Corpuscular Hemoglobin Concent 28.7L, Red Cell Distribution Width 16.4H, Platelet Count 149L, Mean Platelet Volume 7.8, Neutrophils (%) (Auto) 67.3, Lymphocytes (%) (Auto) 23.8, Monocytes (%) (Auto) 7.6, Eosinophils (%) (Auto) 0.9, Basophils (%) (Auto) 0.5, Prothrombin Time 11.5, Prothromb Time International Ratio 1.1, Activated Partial Thromboplast Time 30, Sodium Level 141, Potassium Level 4.7, Chloride Level 97L, Carbon Dioxide Level 39H, Anion Gap 5, Blood Urea Nitrogen 16, Creatinine 0.7, Estimat Glomerular Filtration Rate , Glucose Level 101, Calcium Level 9.1, Total Bilirubin 0.4, Aspartate Amino Transf (AST/SGOT) 28, Alanine Aminotransferase (ALT/SGPT) 31, Alkaline Phosphatase 71, Total Creatine Kinase 65, Creatine Kinase MB 2.0, Creatine Kinase MB Relative Index 3.0, Troponin I < 0.30, Pro-B-Type Natriuretic Peptide 2519H, Total Protein 6.9, Albumin 3.4L, Globulin 3.5, Albumin/Globulin Ratio 0.9L 01/18/17 16:49: Arterial Blood pH 7.330L, Arterial Blood Partial Pressure CO2 84.0*H, Arterial Blood Partial Pressure O2 61.0L, Arterial Blood HCO3 43.5H, Arterial Blood Oxygen Saturation 87.0L, Arterial Blood Base Excess 14.2, Roger Test Positive 01/19/17 06:25: Digoxin Level 0.4L Current Medications Medications (Trade) Dose Ordered Sig/Rocío Route PRN Reason Start Time Stop Time Status Last Admin Dose Admin Albuterol Sulfate (Proventil) 2.5 mg Q4HRT HHN 01/18/17 15:00 01/23/17 14:59 01/19/17 08:07 Allopurinol (Zyloprim) 100 mg BID ORAL 01/18/17 18:00 02/17/17 17:59 01/18/17 18:43 Amlodipine Besylate (Norvasc) 10 mg DAILY ORAL 01/19/17 09:00 02/18/17 08:59 Ascorbic Acid (Vitamin C) 500 mg TWICE A DAY ORAL 01/19/17 09:00 02/18/17 08:59 Budesonide/ Formoterol Fumarate (Symbicort 160/ 4.5) 2 puff TWICE A DAY INH 01/19/17 09:00 02/18/17 08:59 Dabigatran (Pradaxa) 150 mg BID ORAL 01/18/17 18:00 02/17/17 17:59 01/18/17 18:43 Digoxin (Lanoxin) 0.125 mg DAILY ORAL 01/19/17 09:00 02/18/17 08:59 Furosemide (Lasix) 40 mg DAILY IV 01/19/17 09:00 02/18/17 08:59 Irbesartan (Avapro) 300 mg DAILY ORAL 01/19/17 09:00 02/18/17 08:59 Mirtazapine (Remeron) 15 mg BEDTIME ORAL 01/18/17 23:00 02/17/17 22:59 01/18/17 23:06 Montelukast Sodium (Singulair) 10 mg QHS ORAL 01/19/17 21:00 02/18/17 20:59 Nebivolol (Bystolic) 10 mg BID ORAL 01/19/17 09:00 02/18/17 08:59 Nebivolol (Bystolic) 10 mg DAILY ORAL 01/19/17 09:00 02/18/17 08:59 Patient Own Medication (Patient's Own Med) 1 ea DAILY ORAL 01/19/17 09:00 02/18/17 08:59 UNV Patient Own Medication (Patient's Own Med) 1 ea DAILY ORAL 01/19/17 10:00 02/18/17 09:59 Patient Own Medication (Patient's Own Med) 1 ea QHS ORAL 01/19/17 21:00 01/25/17 21:01 Patient Own Medication (Patient's Own Med) 1 ea QHS ORAL 01/26/17 21:00 02/01/17 21:01 Vitamin D (Vitamin D) 6,000 intlu DAILY ORAL 01/19/17 09:00 02/18/17 08:59 ISAIAS BECKFORD January 19, 2017 08:14
[2017-01-19] MEDS: Dabigatran 150mg cap ORAL SCH ×2 (08:48→17:27)
[2017-01-19] MEDS: Allopurinol 100mg Tab ORAL SCH ×2 (08:48→17:27)
[2017-01-19] MEDS: Irbesartan 150mg tablet ORAL SCH (08:49)
[2017-01-19] MEDS: Ascorbic Acid 500mg tab ORAL SCH ×2 (08:49→17:27)
[2017-01-19] MEDS: Vitamin D 1000 IU Tab ORAL SCH (08:50)
[2017-01-19] MEDS: Digoxin Elixir 0.125mg ORAL SCH (08:51)
[2017-01-19 08:55] LABS: ABG ALLEN TEST POSITIVE; ABG BASE EXCESS 16.4; ABG PCO2 75.8 mmHg (35.0-45.0)
[2017-01-19] MEDS ORDERED: Albuterol 90mcg Inhaler 8gm INH SCH (09:00)
[2017-01-19] MEDS ORDERED: Bystolic 2.5mg Tab ORAL SCH (09:00)
[2017-01-19 12:08] VITALS: BP 126/76
[2017-01-19 16:00] VITALS: BP 125/75
[2017-01-19 20:00] VITALS: BP 104/59
[2017-01-19] MEDS: Montelukast 10mg tablet ORAL SCH (21:15)
[2017-01-19] MEDS: NAMENDA 21 MG ORAL SCH (21:15)
[2017-01-20] VITALS: BP 104/72
[2017-01-20] MEDS: Albuterol ud Inhalation HHN SCH ×6 (03:05→22:59)
[2017-01-20 04:00] VITALS: BP 130/61
[2017-01-20 08:00] VITALS: BP 103/53
[2017-01-20] MEDS: Ascorbic Acid 500mg tab ORAL SCH ×2 (08:50→17:56)
[2017-01-20] MEDS: Vitamin D 1000 IU Tab ORAL SCH (08:50)
[2017-01-20] MEDS: Dabigatran 150mg cap ORAL SCH ×2 (08:50→17:56)
[2017-01-20] MEDS: Digoxin Elixir 0.125mg ORAL SCH (08:50)
[2017-01-20] MEDS: Allopurinol 100mg Tab ORAL SCH ×2 (08:51→17:57)
[2017-01-20] MEDS: Irbesartan 150mg tablet ORAL SCH (08:51)
--- NOTE | 2017-01-20 11:45 | Pulmonology Progress Note ---
Assessment/Plan Assessment/Plan Assessment Status of Existing Problems: COPD CHF RESPIRATORY FAILURE LULÚ HYPERTENSION HYPOXEMIA HYPERCAPNIA Plan ADMIT FOLLOW UP FOR CHANGE IV LASIX TRILOGY NIGHTLY AND DURING THE DAY PRN OR BIPAP CONTINUE WITH INHALERS IS COMPLIANCE URGED FOLLOW UP CARE IS WILL MONITOR FOR CHANGE MONITOR ACID BASE EXCHANGE OPTIMIZE AND DC HOME BY 01/22 Subjective Allergies: Coded Allergies: PENICILLINS (Verified Allergy, Mild, 10/05/09) Cashew (Verified Allergy, 12/25/13) Dust (Verified Allergy, 12/25/13) FISH CONTAINING PRODUCTS (Verified Allergy, 12/25/13) seafood TOMATO (Verified Allergy, 12/25/13) Subjective improving Objective Last 24 Hour Vital Signs Date Time Temp Pulse Resp B/P Pulse Ox O2 Delivery O2 Flow Rate FiO2 01/20/17 09:27 67 17 99 Nasal 50 01/20/17 08:51 103/53 01/20/17 08:51 63 103/53 01/20/17 08:50 63 01/20/17 08:00 96.5 63 19 103/53 99 Bi-pap 50 01/20/17 08:00 50.0 01/20/17 08:00 72 01/20/17 07:22 76 14 100 Facial 50 01/20/17 05:08 76 16 98 Facial 50 01/20/17 04:00 50.0 01/20/17 04:00 70 01/20/17 04:00 97.0 83 20 130/61 100 Bi-pap 50 01/20/17 03:30 74 15 99 Bi-pap 50 01/20/17 03:05 74 15 98 Bi-pap 50 01/20/17 03:04 74 15 98 Facial 50 01/20/17 01:00 77 16 98 Facial 50 01/20/17 00:00 74 01/20/17 00:00 97.3 81 20 104/72 100 Bi-pap 50 01/20/17 00:00 50.0 01/19/17 23:30 78 20 99 Bi-pap 50 01/19/17 23:09 78 24 98 Facial 50 01/19/17 23:09 78 24 98 Bi-pap 50 01/19/17 21:33 77 20 98 Nasal 50 01/19/17 20:00 50.0 01/19/17 20:00 73 01/19/17 20:00 97.9 83 20 104/59 99 Bi-pap 50 01/19/17 19:07 77 18 99 Bi-pap 50 01/19/17 18:56 74 18 98 Bi-pap 50 01/19/17 18:55 74 18 98 Nasal 50 01/19/17 17:00 76 16 99 Facial 50 01/19/17 16:00 97.1 83 20 125/75 99 Room Air 01/19/17 16:00 72 01/19/17 14:54 76 15 99 Bi-pap 50 01/19/17 14:52 78 15 98 Bi-pap 50 01/19/17 14:50 77 15 99 Facial 50 01/19/17 13:00 78 15 99 Facial 50 01/19/17 12:08 97.3 86 20 126/76 99 Room Air 01/19/17 12:00 80 Intake and Output 01/19/17 01/20/17 19:00 07:00 Intake Total 360 ml Balance 360 ml Intake Oral 360 ml # Voids 5 Objective WDWN NAD improved breath sounds bilaterally with some basilar crackles S1S2 iRRR without MRG NABS nontender no HSM no CC noted edema; improved nonfocal Current Medications Medications (Trade) Dose Ordered Sig/Rocío Route PRN Reason Start Time Stop Time Status Last Admin Dose Admin Albuterol Sulfate (Proventil) 2.5 mg Q4HRT HHN 01/18/17 15:00 01/23/17 14:59 01/20/17 08:11 Allopurinol (Zyloprim) 100 mg BID ORAL 01/18/17 18:00 02/17/17 17:59 01/20/17 08:51 Amlodipine Besylate (Norvasc) 10 mg DAILY ORAL 01/19/17 09:00 02/18/17 08:59 01/20/17 08:51 Ascorbic Acid (Vitamin C) 500 mg TWICE A DAY ORAL 01/19/17 09:00 02/18/17 08:59 01/20/17 08:50 Budesonide/ Formoterol Fumarate (Symbicort 160/ 4.5) 2 puff TWICE A DAY INH 01/19/17 09:00 02/18/17 08:59 01/20/17 09:50 Dabigatran (Pradaxa) 150 mg BID ORAL 01/18/17 18:00 02/17/17 17:59 01/20/17 08:50 Digoxin (Lanoxin) 0.125 mg DAILY ORAL 01/19/17 09:00 02/18/17 08:59 01/20/17 08:50 Furosemide (Lasix) 40 mg DAILY IV 01/19/17 09:00 02/18/17 08:59 01/20/17 08:52 Irbesartan (Avapro) 300 mg DAILY ORAL 01/19/17 09:00 02/18/17 08:59 01/20/17 08:51 Mirtazapine (Remeron) 15 mg BEDTIME ORAL 01/18/17 23:00 02/17/17 22:59 01/19/17 21:15 Montelukast Sodium (Singulair) 10 mg QHS ORAL 01/19/17 21:00 02/18/17 20:59 01/19/17 21:15 Nebivolol (Bystolic) 10 mg BID ORAL 01/19/17 18:00 02/18/17 08:59 01/20/17 08:50 Patient Own Medication (Patient's Own Med) 1 ea DAILY ORAL 01/19/17 10:00 02/18/17 09:59 01/20/17 08:49 Patient Own Medication (Patient's Own Med) 1 ea QHS ORAL 01/19/17 21:00 01/25/17 21:01 01/19/17 21:15 Patient Own Medication (Patient's Own Med) 1 ea QHS ORAL 01/26/17 21:00 02/01/17 21:01 Vitamin D (Vitamin D) 6,000 intlu DAILY ORAL 01/19/17 09:00 02/18/17 08:59 01/20/17 08:50 ISAIAS BECKFORD January 20, 2017 11:45
[2017-01-20 12:00] VITALS: BP 106/55
[2017-01-20 16:00] VITALS: BP 120/60
[2017-01-20 20:00] VITALS: BP 126/71
[2017-01-20] MEDS: Montelukast 10mg tablet ORAL SCH (20:36)
[2017-01-20] MEDS: NAMENDA 21 MG ORAL SCH (20:36)
[2017-01-21] VITALS: BP 109/63
[2017-01-21] MEDS: Albuterol ud Inhalation HHN SCH ×6 (02:59→22:38)
[2017-01-21 04:00] VITALS: BP 122/74
[2017-01-21 08:00] VITALS: BP 126/76
[2017-01-21] MEDS: Dabigatran 150mg cap ORAL SCH ×2 (08:23→17:06)
[2017-01-21] MEDS: Digoxin Elixir 0.125mg ORAL SCH (08:23)
[2017-01-21] MEDS: Vitamin D 1000 IU Tab ORAL SCH (08:24)
[2017-01-21] MEDS: Irbesartan 150mg tablet ORAL SCH (08:24)
[2017-01-21] MEDS: Ascorbic Acid 500mg tab ORAL SCH ×2 (08:24→17:06)
[2017-01-21] MEDS: Allopurinol 100mg Tab ORAL SCH ×2 (08:24→17:06)
[2017-01-21 08:25] LABS: CALCIUM 9.1 mg/dL (8.6-10.2); CHLORIDE 96 mEQ/L (98-107); CREATININE 0.6 mg/dL (0.5-0.9); HEMOLYSIS 1; POTASSIUM 4.2 mEQ/L (3.4-4.9); SODIUM 144 mEQ/L (135-145)
--- NOTE | 2017-01-21 08:33 | Pulmonology Progress Note ---
Assessment/Plan Assessment/Plan Assessment Status of Existing Problems: COPD CHF RESPIRATORY FAILURE LULÚ HYPERTENSION HYPOXEMIA HYPERCAPNIA Plan ADMIT FOLLOW UP LABS FOR CHANGE IV LASIX TRILOGY NIGHTLY AND DURING THE DAY PRN OR BIPAP CONTINUE WITH INHALERS IS COMPLIANCE URGED FOLLOW UP CARE IS WILL MONITOR FOR CHANGE MONITOR ACID BASE EXCHANGE ABG IN AM AND MONITOR FOR CO2 RETENTION OPTIMIZE AND DC HOME BY 01/22 Subjective Allergies: Coded Allergies: PENICILLINS (Verified Allergy, Mild, 10/05/09) Cashew (Verified Allergy, 12/25/13) Dust (Verified Allergy, 12/25/13) FISH CONTAINING PRODUCTS (Verified Allergy, 12/25/13) seafood TOMATO (Verified Allergy, 12/25/13) Subjective improving but still with sob Objective Last 24 Hour Vital Signs Date Time Temp Pulse Resp B/P Pulse Ox O2 Delivery O2 Flow Rate FiO2 01/21/17 08:25 90 124/76 01/21/17 08:24 124/76 01/21/17 08:23 90 01/21/17 08:00 97.7 99 18 126/76 Nasal Cannula 2.0 90 01/21/17 07:59 4.0 36 01/21/17 07:28 80 18 94 Nasal Cannula 4.0 36 01/21/17 07:19 80 16 91 Nasal Cannula 50 01/21/17 05:19 95 01/21/17 04:00 97.3 77 20 122/74 96 Bi-pap 2.0 01/21/17 04:00 87 01/21/17 03:07 82 20 97 Nasal Cannula 4.0 36 01/21/17 02:59 82 18 90 Nasal Cannula 50 01/21/17 00:00 97.2 79 20 109/63 99 Bi-pap 2.0 01/21/17 00:00 50.0 01/21/17 00:00 84 01/20/17 23:20 78 22 97 Bi-pap 50 01/20/17 23:19 77 24 97 Facial 50 01/20/17 22:59 78 24 96 Bi-pap 50 01/20/17 21:24 78 24 96 Facial 50 01/20/17 20:00 97.8 87 21 126/71 94 Room Air 01/20/17 20:00 50.0 01/20/17 20:00 81 01/20/17 19:35 82 20 Nasal Cannula 4.0 36 01/20/17 19:34 82 20 97 Nasal Cannula 4.0 36 01/20/17 19:24 82 20 97 Nasal Cannula 4.0 01/20/17 19:16 85 20 94 Nasal Cannula 4.0 01/20/17 16:00 97.0 92 18 120/60 97 Room Air 01/20/17 16:00 86 01/20/17 15:30 72 18 100 Nasal Cannula 4.0 01/20/17 15:30 56 18 96 Nasal Cannula 4.0 01/20/17 12:26 76 15 99 Bi-pap 50 01/20/17 12:18 75 18 100 Bi-pap 50 01/20/17 12:00 95.9 77 18 106/55 96 Bi-pap 50 01/20/17 12:00 75 01/20/17 09:27 67 17 99 Nasal 50 01/20/17 08:51 103/53 01/20/17 08:51 63 103/53 01/20/17 08:50 63 Intake and Output 01/20/17 01/21/17 19:00 07:00 Intake Total 740 ml Balance 740 ml Intake Oral 740 ml # Voids 5 2 # Bowel Movements 1 Objective WDWN NAD stable breath sounds bilaterally with some residual basilar crackles S1S2 iRRR without MRG NABS nontender no HSM no CC noted edema; mild nonfocal Laboratory Tests 01/21/17 06:46: Sodium Level [Pending], Potassium Level [Pending], Chloride Level [Pending], Carbon Dioxide Level [Pending], Blood Urea Nitrogen [Pending], Creatinine [ Pending], Estimat Glomerular Filtration Rate [Pending], Glucose Level [Pending] , Calcium Level [Pending], Pro-B-Type Natriuretic Peptide [Pending] Current Medications Medications (Trade) Dose Ordered Sig/Rocío Route PRN Reason Start Time Stop Time Status Last Admin Dose Admin Albuterol Sulfate (Proventil) 2.5 mg Q4HRT HHN 01/18/17 15:00 01/23/17 14:59 01/21/17 07:17 Allopurinol (Zyloprim) 100 mg BID ORAL 01/18/17 18:00 02/17/17 17:59 01/21/17 08:24 Amlodipine Besylate (Norvasc) 10 mg DAILY ORAL 01/19/17 09:00 02/18/17 08:59 01/21/17 08:25 Ascorbic Acid (Vitamin C) 500 mg TWICE A DAY ORAL 01/19/17 09:00 02/18/17 08:59 01/21/17 08:24 Budesonide/ Formoterol Fumarate (Symbicort 160/ 4.5) 2 puff TWICE A DAY INH 01/19/17 09:00 02/18/17 08:59 01/20/17 19:30 Dabigatran (Pradaxa) 150 mg BID ORAL 01/18/17 18:00 02/17/17 17:59 01/21/17 08:23 Digoxin (Lanoxin) 0.125 mg DAILY ORAL 01/19/17 09:00 02/18/17 08:59 01/21/17 08:23 Furosemide (Lasix) 40 mg DAILY IV 01/19/17 09:00 02/18/17 08:59 01/21/17 08:25 Irbesartan (Avapro) 300 mg DAILY ORAL 01/19/17 09:00 02/18/17 08:59 01/21/17 08:24 Mirtazapine (Remeron) 15 mg BEDTIME ORAL 01/18/17 23:00 02/17/17 22:59 01/20/17 20:36 Montelukast Sodium (Singulair) 10 mg QHS ORAL 01/19/17 21:00 02/18/17 20:59 01/20/17 20:36 Nebivolol (Bystolic) 10 mg BID ORAL 01/19/17 18:00 02/18/17 08:59 01/21/17 08:24 Patient Own Medication (Patient's Own Med) 1 ea DAILY ORAL 01/19/17 10:00 02/18/17 09:59 01/21/17 08:20 Patient Own Medication (Patient's Own Med) 1 ea QHS ORAL 01/19/17 21:00 01/25/17 21:01 01/20/17 20:36 Patient Own Medication (Patient's Own Med) 1 ea QHS ORAL 01/26/17 21:00 02/01/17 21:01 Vitamin D (Vitamin D) 6,000 intlu DAILY ORAL 01/19/17 09:00 02/18/17 08:59 01/21/17 08:24 ISAIAS BECKFORD January 21, 2017 08:33
[2017-01-21 08:41] LABS: ANION GAP 5 (5-15)
[2017-01-21 08:50] LABS: CARBON DIOXIDE 43 mEQ/L (20-30)
--- NOTE | 2017-01-21 09:07 | General Progress Note ---
Assessment/Plan Problem List: (1) Dyspnea ICD Codes: R06.00 - Dyspnea, unspecified SNOMED: 357307806 (2) Respiratory distress ICD Codes: R06.00 - Dyspnea, unspecified SNOMED: 064310493 (3) Atrial fibrillation with RVR ICD Codes: I48.91 - Unspecified atrial fibrillation SNOMED: 260394472931953 (4) Toxic metabolic encephalopathy ICD Codes: G92 - Toxic encephalopathy SNOMED: 914170973 (5) CHF exacerbation ICD Codes: I50.9 - Heart failure, unspecified SNOMED: 47534124 Status: stable, progressing Assessment/Plan steroids resp rx diuresis abx monitor labs Subjective ROS Limited/Unobtainable: No Constitutional: Reports: no symptoms HEENT: Reports: no symptoms Cardiovascular: Reports: no symptoms Respiratory: Reports: cough, shortness of breath, wheezing Gastrointestinal/Abdominal: Reports: no symptoms Genitourinary: Reports: no symptoms Neurologic/Psychiatric: Reports: pre-existing deficit Endocrine: Reports: no symptoms Hematologic/Lymphatic: Reports: no symptoms Allergies: Coded Allergies: PENICILLINS (Verified Allergy, Mild, 10/05/09) Cashew (Verified Allergy, 12/25/13) Dust (Verified Allergy, 12/25/13) FISH CONTAINING PRODUCTS (Verified Allergy, 12/25/13) seafood TOMATO (Verified Allergy, 12/25/13) Subjective better today. less sob. no chest pain off bipap currently. on bipap over night. Objective Last 24 Hour Vital Signs Date Time Temp Pulse Resp B/P Pulse Ox O2 Delivery O2 Flow Rate FiO2 01/21/17 08:25 90 124/76 01/21/17 08:24 124/76 01/21/17 08:23 90 01/21/17 08:00 97.7 99 18 126/76 Nasal Cannula 2.0 90 01/21/17 07:59 4.0 36 01/21/17 07:28 80 18 94 Nasal Cannula 4.0 36 01/21/17 07:19 80 16 91 Nasal Cannula 50 01/21/17 05:19 95 01/21/17 04:00 97.3 77 20 122/74 96 Bi-pap 2.0 01/21/17 04:00 87 01/21/17 03:07 82 20 97 Nasal Cannula 4.0 36 01/21/17 02:59 82 18 90 Nasal Cannula 50 01/21/17 00:00 97.2 79 20 109/63 99 Bi-pap 2.0 01/21/17 00:00 50.0 01/21/17 00:00 84 01/20/17 23:20 78 22 97 Bi-pap 50 01/20/17 23:19 77 24 97 Facial 50 01/20/17 22:59 78 24 96 Bi-pap 50 01/20/17 21:24 78 24 96 Facial 50 01/20/17 20:00 97.8 87 21 126/71 94 Room Air 01/20/17 20:00 50.0 01/20/17 20:00 81 01/20/17 19:35 82 20 Nasal Cannula 4.0 36 01/20/17 19:34 82 20 97 Nasal Cannula 4.0 36 01/20/17 19:24 82 20 97 Nasal Cannula 4.0 01/20/17 19:16 85 20 94 Nasal Cannula 4.0 01/20/17 16:00 97.0 92 18 120/60 97 Room Air 01/20/17 16:00 86 01/20/17 15:30 72 18 100 Nasal Cannula 4.0 01/20/17 15:30 56 18 96 Nasal Cannula 4.0 01/20/17 12:26 76 15 99 Bi-pap 50 01/20/17 12:18 75 18 100 Bi-pap 50 01/20/17 12:00 95.9 77 18 106/55 96 Bi-pap 50 01/20/17 12:00 75 01/20/17 09:27 67 17 99 Nasal 50 Intake and Output 01/20/17 01/21/17 19:00 07:00 Intake Total 740 ml Balance 740 ml Intake Oral 740 ml # Voids 5 2 # Bowel Movements 1 Laboratory Tests 01/21/17 06:46: Sodium Level 144, Potassium Level 4.2, Chloride Level 96L, Carbon Dioxide Level 43*H, Anion Gap 5, Blood Urea Nitrogen 14, Creatinine 0.6, Estimat Glomerular Filtration Rate , Glucose Level 90, Calcium Level 9.1, Pro-B-Type Natriuretic Peptide 1167H Height (Feet): 5 Height (Inches): 8.00 Weight (Pounds): 215 General Appearance: WD/WN, alert Neck: supple Cardiovascular: normal rate Respiratory/Chest: crackles/rales, expiratory wheezing Abdomen: normal bowel sounds, non tender, soft, no organomegaly 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
[2017-01-21 12:00] VITALS: BP 132/69
[2017-01-21 16:00] VITALS: BP 130/74
[2017-01-21 20:00] VITALS: BP 115/54
--- NOTE | 2017-01-21 20:17 | Cardiology Report ---
APPROVED REPORT EKG Measurement Heart [id number] Atrial fibrillation Nonspecific T wave abnormality Abnormal ECG
[2017-01-21] MEDS: NAMENDA 21 MG ORAL SCH (20:49)
[2017-01-21] MEDS: Montelukast 10mg tablet ORAL SCH (20:49)
[2017-01-22] VITALS: BP 134/66
[2017-01-22] MEDS: Albuterol ud Inhalation HHN SCH ×2 (03:00→07:23)
[2017-01-22 04:00] VITALS: BP 112/69
[2017-01-22 07:34] LABS: ALANINE AMINOTRANSFERASE 17 U/L (3-33); ANION GAP 14 (5-15); ASPARTATE AMINO TRANSFERASE 18 U/L (5-40); CALCIUM 8.8 mg/dL (8.6-10.2); CARBON DIOXIDE 36 mEQ/L (20-30); CHLORIDE 94 mEQ/L (98-107); CREATININE 0.6 mg/dL (0.5-0.9); HEMOLYSIS 45; POTASSIUM 4.7 mEQ/L (3.4-4.9); SODIUM 144 mEQ/L (135-145)
[2017-01-22 08:00] VITALS: BP 124/66
--- NOTE | 2017-01-22 08:09 | General Progress Note ---
Assessment/Plan Problem List: (1) Dyspnea ICD Codes: R06.00 - Dyspnea, unspecified SNOMED: 281574549 (2) Respiratory distress ICD Codes: R06.00 - Dyspnea, unspecified SNOMED: 990328561 (3) Atrial fibrillation with RVR ICD Codes: I48.91 - Unspecified atrial fibrillation SNOMED: 358022538969580 (4) Toxic metabolic encephalopathy ICD Codes: G92 - Toxic encephalopathy SNOMED: 744079190 (5) CHF exacerbation ICD Codes: I50.9 - Heart failure, unspecified SNOMED: 11931263 Status: stable Assessment/Plan steroids- wean resp rx diuresis abx monitor labs follow up abg. pt/ot Subjective ROS Limited/Unobtainable: No Constitutional: Reports: malaise, weakness HEENT: Reports: no symptoms Cardiovascular: Reports: no symptoms Respiratory: Reports: cough, shortness of breath Gastrointestinal/Abdominal: Reports: no symptoms Neurologic/Psychiatric: Reports: anxiety Endocrine: Reports: no symptoms Hematologic/Lymphatic: Reports: no symptoms Allergies: Coded Allergies: PENICILLINS (Verified Allergy, Mild, 10/05/09) Cashew (Verified Allergy, 12/25/13) Dust (Verified Allergy, 12/25/13) FISH CONTAINING PRODUCTS (Verified Allergy, 12/25/13) seafood TOMATO (Verified Allergy, 12/25/13) All Systems: reviewed and negative except above Subjective no complaints. confused. did not use bipap last night. Objective Last 24 Hour Vital Signs Date Time Temp Pulse Resp B/P Pulse Ox O2 Delivery O2 Flow Rate FiO2 01/22/17 07:29 79 16 96 Nasal Cannula 3.0 32 01/22/17 07:23 78 14 96 Nasal Cannula 3.0 32 01/22/17 04:00 97.3 85 18 112/69 95 Nasal Cannula 2.0 28 01/22/17 04:00 77 01/22/17 03:39 Nasal Cannula 01/22/17 00:00 88 01/22/17 00:00 97.3 88 18 134/66 95 Nasal Cannula 2.0 28 01/21/17 22:46 80 20 95 Nasal Cannula 2.0 28 01/21/17 22:38 83 18 96 Nasal Cannula 2.0 28 01/21/17 20:00 97.0 20 115/54 94 Nasal Cannula 4.0 36 01/21/17 20:00 84 5/14/17 19:59 82 20 96 Nasal Cannula 4.0 36 01/21/17 19:49 82 18 98 Nasal Cannula 4.0 36 01/21/17 19:49 80 20 98 Nasal Cannula 4.0 36 01/21/17 19:45 82 18 98 Nasal Cannula 4.0 36 01/21/17 16:00 97.0 80 18 130/74 94 Nasal Cannula 2.0 01/21/17 16:00 99 01/21/17 15:00 80 17 93 Nasal Cannula 4.0 36 01/21/17 14:48 80 16 90 Nasal Cannula 50 01/21/17 12:00 88 01/21/17 12:00 96.0 79 18 132/69 Nasal Cannula 2.0 99 01/21/17 11:56 82 16 92 Nasal Cannula 4.0 36 01/21/17 11:48 84 16 90 Nasal Cannula 50 01/21/17 10:34 79 20 98 Nasal Cannula 4.0 36 01/21/17 08:25 90 124/76 01/21/17 08:24 124/76 01/21/17 08:23 90 Intake and Output 01/21/17 01/22/17 19:00 07:00 Output Total 800 ml Balance -800 ml Output Urine Total 800 ml Laboratory Tests 01/22/17 06:15: Sodium Level 144, Potassium Level 4.7, Chloride Level 94L, Carbon Dioxide Level 36H, Anion Gap 14, Blood Urea Nitrogen 14, Creatinine 0.6, Estimat Glomerular Filtration Rate , Glucose Level 96, Calcium Level 8.8, Total Bilirubin 0.3, Aspartate Amino Transf (AST/SGOT) 18, Alanine Aminotransferase (ALT/SGPT) 17, Alkaline Phosphatase 56, Total Protein 6.0L, Albumin 3.1L, Globulin 2.9, Albumin /Globulin Ratio 1.0 Height (Feet): 5 Height (Inches): 8.00 Weight (Pounds): 215 Objective General Appearance: WD/WN, alert Neck: supple Cardiovascular: normal rate Respiratory/Chest: crackles/rales, expiratory wheezing Abdomen: normal bowel sounds, non tender, soft, no organomegaly 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
[2017-01-22] MEDS: Dabigatran 150mg cap ORAL SCH (08:33)
[2017-01-22] MEDS: Allopurinol 100mg Tab ORAL SCH (08:33)
[2017-01-22] MEDS: Ascorbic Acid 500mg tab ORAL SCH (08:33)
[2017-01-22 08:34] VITALS: BP 124/66
[2017-01-22] MEDS: Vitamin D 1000 IU Tab ORAL SCH (08:34)
[2017-01-22] MEDS: Irbesartan 150mg tablet ORAL SCH (08:34)
[2017-01-22] MEDS: Digoxin Elixir 0.125mg ORAL SCH (08:34)
--- NOTE | 2017-01-22 08:49 | History and Physical Report ---
DATE OF ADMISSION: 01/18/2017 CHIEF COMPLAINT: COPD exacerbation. HISTORY OF PRESENT ILLNESS: The patient is a very pleasant 81-year-old female. She has a history of COPD. She presented to her floral associate's office, was noted to be severely hypoxic. The patient had been more confused and forgetful. She admits to having worsening shortness of breath for the last several days. She has had a productive cough, but no fevers or chills. Her floral associate recommended admission because of the patient's significant hypoxemia and altered mentation. She is now admitted for further evaluation and care. She has been on BiPAP all night. She seemed less confused. PAST MEDICAL HISTORY: As above. She has a history of hypertensive heart disease, congestive heart failure, and paroxysmal atrial fibrillation. PAST SURGICAL HISTORY: None. CURRENT MEDICATIONS: Reconciled and reviewed. ALLERGIES: Include seafood, penicillin, dust, tomato, cashews, and giovanny nuts. FAMILY HISTORY: Noncontributory. SOCIAL HISTORY: The patient is a prior smoker. No alcohol. No drugs. REVIEW OF SYSTEMS: General: No fever or chills, but positive malaise and weakness. HEENT: No headaches or visual changes. Cardiopulmonary: Positive shortness of breath, but no chest pain. Gastrointestinal: No nausea or vomiting. Genitourinary: No urgency or frequency. Musculoskeletal: No joint pain or swelling. Neurologic: No evidence of seizures. PHYSICAL EXAMINATION: GENERAL: The patient is in no apparent distress. VITAL SIGNS: Temperature 98 degrees, blood pressure 146/72, pulse of 80, respirations 20. HEART: Regular rate and rhythm. LUNGS: Diminished breath sounds with wheezes, right greater than left. ABDOMEN: Soft, nontender, and nondistended. EXTREMITIES: Without clubbing, cyanosis, or edema. LABORATORY DATA: White count was 5, hemoglobin 10, hematocrit 37, platelets of 149. ABG showed pH of 7.33, pCO2 of 84, pO2 61, bicarbonate 45, O2 saturation of 87%. Urine was clear. Chest x-ray showed [id number] CHF. ASSESSMENT: This is a pleasant female with a history of chronic obstructive pulmonary disease, congestive heart failure, paroxysmal atrial fibrillation, admitted with complaints of hypercapnic respiratory failure secondary to chronic obstructive pulmonary disease exacerbation, cannot rule out underlying pneumonia, cannot rule out congestive heart failure. PLAN: Intravenous steroids, respiratory treatments, BiPAP, empiric antibiotic therapy. Consider diuresis trial. Monitor chest x-ray. Check an . Monitor blood gases. Plan of care was discussed with the patient's consulting floral associate. Olivier Blanco M.D. DR: Karie JOB#: [id number] CC:
--- NOTE | 2017-01-22 08:58 | Pulmonology Progress Note ---
Assessment/Plan Assessment/Plan Assessment Status of Existing Problems: COPD CHF RESPIRATORY FAILURE LULÚ HYPERTENSION HYPOXEMIA HYPERCAPNIA Plan ADMIT LABS NOTED IV LASIX TRILOGY NIGHTLY AND DURING THE DAY PRN OR BIPAP CONTINUE WITH INHALERS IS COMPLIANCE URGED FOLLOW UP CARE IS WILL MONITOR FOR CHANGE MONITOR ACID BASE EXCHANGE ABG PENDING DC HOME TODAY WITH HH Subjective Allergies: Coded Allergies: PENICILLINS (Verified Allergy, Mild, 10/05/09) Cashew (Verified Allergy, 12/25/13) Dust (Verified Allergy, 12/25/13) FISH CONTAINING PRODUCTS (Verified Allergy, 12/25/13) seafood TOMATO (Verified Allergy, 12/25/13) Subjective improving and back to baseline alert without sob Objective Last 24 Hour Vital Signs Date Time Temp Pulse Resp B/P Pulse Ox O2 Delivery O2 Flow Rate FiO2 01/22/17 08:34 124/66 01/22/17 08:34 91 01/22/17 08:33 91 124/66 01/22/17 07:29 79 16 96 Nasal Cannula 3.0 32 01/22/17 07:23 78 14 96 Nasal Cannula 3.0 32 01/22/17 04:00 97.3 85 18 112/69 95 Nasal Cannula 2.0 28 01/22/17 04:00 77 01/22/17 03:39 Nasal Cannula 01/22/17 00:00 88 01/22/17 00:00 97.3 88 18 134/66 95 Nasal Cannula 2.0 28 01/21/17 22:46 80 20 95 Nasal Cannula 2.0 28 01/21/17 22:38 83 18 96 Nasal Cannula 2.0 28 01/21/17 20:00 97.0 20 115/54 94 Nasal Cannula 4.0 36 01/21/17 20:00 84 01/21/17 19:59 82 20 96 Nasal Cannula 4.0 36 01/21/17 19:49 82 18 98 Nasal Cannula 4.0 36 01/21/17 19:49 80 20 98 Nasal Cannula 4.0 36 01/21/17 19:45 82 18 98 Nasal Cannula 4.0 36 01/21/17 16:00 97.0 80 18 130/74 94 Nasal Cannula 2.0 01/21/17 16:00 99 01/21/17 15:00 80 17 93 Nasal Cannula 4.0 36 5/14/17 14:48 80 16 90 Nasal Cannula 50 01/21/17 12:00 88 01/21/17 12:00 96.0 79 18 132/69 Nasal Cannula 2.0 99 01/21/17 11:56 82 16 92 Nasal Cannula 4.0 36 01/21/17 11:48 84 16 90 Nasal Cannula 50 01/21/17 10:34 79 20 98 Nasal Cannula 4.0 36 Intake and Output 01/21/17 01/22/17 19:00 07:00 Output Total 800 ml Balance -800 ml Output Urine Total 800 ml Objective WDWN NAD stable breath sounds bilaterally with minimal basilar crackles S1S2 iRRR without MRG NABS nontender no HSM no CC noted edema; mild nonfocal Laboratory Tests 01/22/17 06:15: Sodium Level 144, Potassium Level 4.7, Chloride Level 94L, Carbon Dioxide Level 36H, Anion Gap 14, Blood Urea Nitrogen 14, Creatinine 0.6, Estimat Glomerular Filtration Rate , Glucose Level 96, Calcium Level 8.8, Total Bilirubin 0.3, Aspartate Amino Transf (AST/SGOT) 18, Alanine Aminotransferase (ALT/SGPT) 17, Alkaline Phosphatase 56, Total Protein 6.0L, Albumin 3.1L, Globulin 2.9, Albumin /Globulin Ratio 1.0 Current Medications Medications (Trade) Dose Ordered Sig/Rocío Route PRN Reason Start Time Stop Time Status Last Admin Dose Admin Albuterol Sulfate (Proventil) 2.5 mg Q4HRT HHN 01/18/17 15:00 01/23/17 14:59 01/22/17 07:23 Allopurinol (Zyloprim) 100 mg BID ORAL 01/18/17 18:00 02/17/17 17:59 01/22/17 08:33 Amlodipine Besylate (Norvasc) 10 mg DAILY ORAL 01/19/17 09:00 02/18/17 08:59 01/22/17 08:33 Ascorbic Acid (Vitamin C) 500 mg TWICE A DAY ORAL 01/19/17 09:00 02/18/17 08:59 01/22/17 08:33 Budesonide/ Formoterol Fumarate (Symbicort 160/ 4.5) 2 puff TWICE A DAY INH 01/19/17 09:00 02/18/17 08:59 01/21/17 10:34 Dabigatran (Pradaxa) 150 mg BID ORAL 01/18/17 18:00 02/17/17 17:59 01/22/17 08:33 Digoxin (Lanoxin) 0.125 mg DAILY ORAL 01/19/17 09:00 02/18/17 08:59 01/22/17 08:34 Furosemide (Lasix) 40 mg DAILY IV 01/19/17 09:00 02/18/17 08:59 01/22/17 08:33 Irbesartan (Avapro) 300 mg DAILY ORAL 01/19/17 09:00 02/18/17 08:59 01/22/17 08:34 Mirtazapine (Remeron) 15 mg BEDTIME ORAL 01/18/17 23:00 02/17/17 22:59 01/21/17 20:49 Montelukast Sodium (Singulair) 10 mg QHS ORAL 01/19/17 21:00 02/18/17 20:59 01/21/17 20:49 Nebivolol (Bystolic) 10 mg BID ORAL 01/19/17 18:00 02/18/17 08:59 01/22/17 08:34 Patient Own Medication (Patient's Own Med) 1 ea DAILY ORAL 01/19/17 10:00 02/18/17 09:59 01/22/17 08:36 Patient Own Medication (Patient's Own Med) 1 ea QHS ORAL 01/19/17 21:00 01/25/17 21:01 01/21/17 20:49 Patient Own Medication (Patient's Own Med) 1 ea QHS ORAL 01/26/17 21:00 02/01/17 21:01 Vitamin D (Vitamin D) 6,000 intlu DAILY ORAL 01/19/17 09:00 02/18/17 08:59 01/22/17 08:34 ISAIAS BECKFORD January 22, 2017 08:58
[2017-01-22 09:15] LABS: ABG ALLEN TEST POSITIVE; ABG BASE EXCESS 18.5; ABG PCO2 70.2 mmHg (35.0-45.0)
--- NOTE | 2017-01-23 09:44 | Discharge Summary ---
Discharge Summary Hospital Course Date of Admission January 18, 2017 at 13:02 Date of Discharge January 22, 2017 at 12:07 Admitting Diagnosis CHF EXACEBRATION HPI Johnna Courtney is a 81 year old female who was admitted on January 18, 2017 at 13: 02 for [facility] dc summary # [id number] Discharge Medications Continued Medications: Albuterol Sulfate (Ventolin Hfa) 18 Gm Hfa.aer.ad 2 PUFFS INH EVERY 6 HOURS PRN for Shortness of Breath, #18 GM 0 Refills Allopurinol* (Allopurinol*) 100 Mg Tablet 100 MG PO BID Ambrisentan (Letairis) 5 Mg Tablet 5 MG PO DAILY, TAB Amlodipine Besylate* (Amlodipine Besylate*) 10 Mg Tablet 10 MG PO DAILY Ascorbic Acid* (Vitamin C*) 500 Mg Tablet 500 MG ORAL TWICE A DAY, TAB Azelastine Hcl (Azelastine Hcl) 137 Mcg/0.137 Ml [place].pump 2 PUFFS INH DAILY Cholecalciferol (Vitamin D3) (Vitamin D3) 5,000 Unit Tablet 5000 UNIT PO DAILY Dabigatran Etexilate Mesylate* (Pradaxa*) 150 Mg Capsule 150 MG PO BID Digoxin* (Digoxin*) 0.125 Mg/2.5 Ml Solution 0.125 MG ORAL DAILY, ML 0 Refills Fluticasone/Salmeterol (Advair 500-50 Diskus) 1 Each Blst.w.dev 1 PUFF INH EVERY 12 HOURS, EA Furosemide* (Lasix*) 20 Mg Tablet 20 MG PO DAILY Levofloxacin* (Levaquin*) 500 Mg Tablet 500 MG ORAL DAILY, #3 TAB Linaclotide (Linzess) 145 Mcg Capsule 145 MCG PO, CAP Methylprednisolone* (Medrol*) 4 Mg Tablet 4 MG ORAL DAILY, #10 TAB 0 Refills Mirtazapine (Mirtazapine) 15 Mg Tab.rapdis 15 MG ORAL BEDTIME, TAB Montelukast Sodium* (Montelukast Sodium*) 10 Mg Tablet 10 MG PO, #30 Nebivolol Hcl (Bystolic) 5 Mg Tablet 10 MG ORAL BID, TAB Oxybutynin Chloride (Oxybutynin Chloride Er) 5 Mg Tab.er.24 5 MG PO DAILY Sildenafil Citrate (Sildenafil) 20 Mg Tablet 20 MG PO TID Tramadol Hcl* (Ultram*) 50 Mg Tablet 50 MG ORAL Q6H PRN for For Pain, TAB 0 Refills Valsartan (Diovan) 320 Mg Tablet 320 MG PO DAILY Vitamin D (Vitamin D3) 400 Unit Tablet 6000 UNITS ORAL DAILY, TAB Discontinued Medications: Albuterol Sulfate (Ventolin Hfa) 18 Gm Hfa.aer.ad Unknown Dose PO, #18 Azelastine Hcl (Azelastine Hcl) 137 Mcg/0.137 Ml [place].pump 137 MCG NS DAILY Digoxin* (Digoxin*) 125 Mcg Tablet 0.25 MG PO, #30 Fluticasone/Salmeterol (Advair 500-50 Diskus) 1 Each Disk.w.dev Unknown Dose INH, #60 Nebivolol Hcl (Bystolic) 20 Mg Tablet 20 MG PO DAILY Nebivolol Hcl (Bystolic*) 10 Mg Tablet 10 MG ORAL DAILY, TAB Discharge Condition Upon Discharge: stable Discharge Disposition Patient was discharged to Home (01) Discharge Diagnoses: Discharge Instructions Discharge Instructions Special Instructions I have been assigned to complete a D/C Summary on this account. I was not involved in the patient management Paulina Frias NP (Vanchtein) January 23, 2017 09:44
--- NOTE | 2017-01-24 05:21 | Discharge Summary 2 SIG ---
DATE OF ADMISSION: 01/18/2017 DATE OF DISCHARGE: 01/22/2017 REASON FOR ADMISSION: 81 years old female presented to emergency room with shortness of breath, hypoxia. The patient with underlying history of COPD and congestive heart failure. She denied fever and chills. She has a chronic cough as well as evidence of obstructive sleep apnea, using CPAP at home at night. She denied chest pain. Denied abdominal pain. She saw her primary care physician, who sent her to ED for evaluation for hypoxemia. Workup in the emergency room revealed no fever. The patient placed on supplemental oxygen. Pulse oximetry on two liters was only 66%. The patient required placement on the BiPAP. The patient noted to have swollen legs. A chest x-ray with evidence of [id number] congestive heart failure and cardiomegaly. The patient was diuresed with Lasix intravenously. Urinalysis was negative. No leukocytosis. CO2 - 39 and pro BNP - 2519. Mild anemia. Hemoglobin- 10.8 and hematocrit -37.6. Electrolytes stable. Troponin negative. EKG revealed atrial fibrillation, no acute changes. The patient admitted for further management. ADMITTING DIAGNOSES: 1. Acute hypercapnic respiratory failure secondary to acute chronic obstructive pulmonary disease and congestive heart failure exacerbation. 2. Chronic obstructive pulmonary disease exacerbation. 3. Congestive heart failure exacerbation. 4. Paroxysmal atrial fibrillation. HOSPITAL COURSE: The patient admitted to telemetry floor. The patient was initially on the BiPAP. Pulmonary toilet provided. The patient started on the IV steroids, which were tapered as permitted. The patient started on empiric antibiotics. Diuresis initiated. Fluid volume and cardiorenal parameters were closely monitored. Intake and output were monitored. Renal parameters remained stable. ProBNP trending down. The patient was working with physical and occupational therapists. One episode of atrial fibrillation with rapid ventricular response. Rate controlled with digoxin and beta-millicent. Anticoagulation continued. Blood pressure was managed with beta-millicent and ARB and was stable. The patient was able to be weaned from the BiPAP to nasal cannula initially, four liters and then prior to discharge, two liters on nasal cannula. Pulse oximetry was stable. Leg edema decreased. ProBNP trending down. Respiratory status improved. The patient was stable for discharge. DISCHARGE DIAGNOSES: I 1. Acute hypercapnic respiratory failure secondary to acute chronic obstructive pulmonary disease and congestive heart failure exacerbation. 2. Congestive heart failure exacerbation. 3. Chronic obstructive pulmonary disease exacerbation. 4. Paroxysmal atrial fibrillation. 5. Atrial fibrillation with rapid ventricular response. 6. Toxic metabolic encephalopathy likely related to disease process,- resolved. 7. Obstructive sleep apnea. 8. Hypertension. DISCHARGE MEDICATIONS: See medication reconciliation list. Continue Medrol pack as directed. DISCHARGE INSTRUCTIONS: The patient discharged home with home health services. FOLLOWUP: Follow up with the primary medical doctor. Stevan Pace M.D. I have been assigned to dictate discharge summary on this account and I was not involved in the patient's management. Paulina MarieCatskill [facility] Medical CenterLaurel N[facility] DR: Bobo JOB#: [id number] CC: [email or web address]
== END 2017-01-22 12:07 | disposition home or self-care (01) | DRG 189 ==
LOC: EMR 11:46 → EDBEDREQ 12:44 → 2E 13:02 → EDBEDREQ 13:42 → 2E 16:48
PROC: 5A0945Z Assistance with Respiratory Ventilation, 24-96 Consecutive Hours (ICD-10-PCS; principal; 2017-01-18)
DX: J96.01 Acute respiratory failure with hypoxia (principal); G92 Toxic encephalopathy; J44.1 Chronic obstructive pulmonary disease with (acute) exacerbation; I50.9 Heart failure, unspecified; I48.0 Paroxysmal atrial fibrillation; J96.02 Acute respiratory failure with hypercapnia; G47.33 Obstructive sleep apnea (adult) (pediatric); I10 Essential (primary) hypertension; Z88.0 Allergy status to penicillin
CPT/HCPCS: 36415; 36600; 71010; 80048; 80053; 80162; 81003; 82550; 82553; 82803; 83880; 84484; 85025; 85610; 85730; 93005; 94640; 94660; 94664

== ENCOUNTER 2017-04-03 09:16 | Outpatient (CLI) | payer MEDICARE, OTHER ==
[~2017-04-03 09:16] MED LIST changes: +AZELASTINE137 MCG/0. NS; +BYSTOLIC5 MG ORAL; +DIGOXIN0.125 MG/2 ORAL; +MIRTAZAPINE15 M1 ORAL; +VENTOLIN HFA18 GM INH; +VITAMIN C500 M1 ORAL; +VITAMIN D400 INTLU ORAL
[2017-04-03 09:34] VITALS: BP 120/64
--- NOTE | 2017-04-03 11:04 | GI Initial Consult Note ---
History of Present Illness General Date patient seen: Apr 03, 2017 Time patient seen: 10:58 Referring physician: SHAKEEL Reason for Consultation: ANEMIA Present Illness HPI 81 year old female patient referred by Dr. Pace for evaluation of anemia. Last colonoscopy per patient "long ago." She presents today with hx of constipation in which she takes Linzess 290mcg. Noted patient is on [place] 4L O2. Denies any unintentional weight loss or changes in dietary habits at this time. Home Meds Active Scripts Levofloxacin* (LEVAQUIN*) 500 Mg Tablet, 500 MG ORAL DAILY, #3 TAB Prov:Rodriguez (Fritz)Paulina [employer] FINISHER 09/27/16 Methylprednisolone* (MEDROL*) 4 Mg Tablet, 4 MG ORAL DAILY, #10 TAB 0 Refills Prov:Rodriguez (Vanchtein)Paulina [employer] FIN[employer]ER 09/27/16 Reported Medications Albuterol Sulfate (VENTOLIN HFA) 18 Gm Hfa.aer.ad, 2 PUFFS INH EVERY 6 HOURS Y for Shortness of Breath, #18 GM 0 Refills 01/18/17 Fluticasone/Salmeterol (Advair 500-50 Diskus) 1 Each Blst.w.dev, 1 PUFF INH EVERY 12 HOURS, EA 01/18/17 Digoxin* (DIGOXIN*) 0.125 Mg/2.5 Ml Solution, 0.125 MG ORAL DAILY, ML 0 Refills 01/18/17 Nebivolol Hcl (BYSTOLIC) 5 Mg Tablet, 10 MG ORAL BID, TAB 01/18/17 Mirtazapine (MIRTAZAPINE) 15 Mg Tab.rapdis, 15 MG ORAL BEDTIME, TAB 01/18/17 Vitamin D (Vitamin D3) 400 Unit Tablet, 6000 UNITS ORAL DAILY, TAB 01/18/17 Ascorbic Acid* (VITAMIN C*) 500 Mg Tablet, 500 MG ORAL TWICE A DAY, TAB 01/18/17 Linaclotide (LINZESS) 145 Mcg Capsule, 145 MCG PO, CAP 09/22/16 Tramadol Hcl* (ULTRAM*) 50 Mg Tablet, 50 MG ORAL Q6H Y for For Pain, TAB 0 Refills 12/25/13 Ambrisentan (LETAIRIS) 5 Mg Tablet, 5 MG PO DAILY, TAB 12/25/13 Montelukast Sodium* (MONTELUKAST SODIUM*) 10 Mg Tablet, 10 MG PO, #30 12/25/13 Valsartan (DIOVAN) 320 Mg Tablet, 320 MG PO DAILY 12/25/13 Allopurinol* (ALLOPURINOL*) 100 Mg Tablet, 100 MG PO BID 12/25/13 Sildenafil Citrate (SILDENAFIL) 20 Mg Tablet, 20 MG PO TID 12/25/13 Azelastine Hcl (AZELASTINE HCL) 137 Mcg/0.[address]pump, 2 PUFFS INH DAILY 12/25/13 Furosemide* (LASIX*) 20 Mg Tablet, 20 MG PO DAILY 12/25/13 Amlodipine Besylate* (AMLODIPINE BESYLATE*) 10 Mg Tablet, 10 MG PO DAILY 12/25/13 Oxybutynin Chloride (OXYBUTYNIN CHLORIDE ER) 5 Mg Tab.er.24, 5 MG PO DAILY 12/25/13 Cholecalciferol (Vitamin D3) (VITAMIN D3) 5,000 Unit Tablet, 5000 UNIT PO DAILY 12/25/13 Dabigatran Etexilate Mesylate* (PRADAXA*) 150 Mg Capsule, 150 MG PO BID 12/25/13 Med list reviewed/reconciled: Yes Allergies: Coded Allergies: PENICILLINS (Verified Allergy, Mild, 10/05/09) Cashew (Verified Allergy, 12/25/13) Dust (Verified Allergy, 12/25/13) FISH CONTAINING PRODUCTS (Verified Allergy, 12/25/13) seafood TOMATO (Verified Allergy, 12/25/13) Patient History History Provided By: Patient, Medical Record 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 PAST SURGICAL HISTORY: Cataract Rt Kidney removed partial colectomy appendectomy cholecystectomy Social History: Reports: alcohol use - rare, once a year Review of Systems All Other Systems: limited Physical Exam Vital Signs Date Time Temp Pulse Resp B/P Pulse Ox O2 Delivery O2 Flow Rate FiO2 04/03/17 09:34 97.7 95 18 120/64 Sp02 EP Interpretation: reviewed General Appearance: well appearing, no apparent distress, alert Head: normocephalic EENT: PERRL/EOMI, normal ENT inspection Neck: full range of motion, supple Respiratory: normal inspection, chest non-tender, lungs clear, normal breath sounds, no rhonchi, no respiratory distress Cardiovascular: normal rate Gastrointestinal: normal inspection, non tender, soft, normal bowel sounds Rectal: deferred Neurologic: normal inspection, alert, oriented x3, responsive Psychiatric: normal inspection, judgement/insight normal, memory normal Skin: normal inspection, normal color, no rash, warm/dry Lymphatic: normal inspection, no adenopathy GI: Plan Problems: (1) Anemia (2) Constipated (3) Supplemental oxygen dependent Plan anemia work up labs to be drawn via [facility]; CBC, CMP, Iron Panel, Stool OB, B12, Folic Acid, Retic Count, CEA, CA19-9 RTC after labs have resulted, will contact patient. will consider colonoscopy then Seen with Dr. Sam. Thank you for referring this patient. Davida Pryor N.P. Apr 03, 2017 11:04
[2017-04-03] MEDS ORDERED: ENSURE LIQUID237 ML PO (14:20)
[2017-04-03] MEDS ORDERED: LINZESS290 MCG PO (14:20)
[2017-04-03] MEDS ORDERED: NAMENDA XR PO (14:20)
[2017-04-03] MEDS ORDERED: MEGACE ES625 MG/5 M PO (14:20)
== END 2017-04-03 10:15 | disposition home or self-care (01) ==
LOC: PAN 09:16
DX: D64.9 Anemia, unspecified (principal); K59.00 Constipation, unspecified; Z99.81 Dependence on supplemental oxygen; Z88.0 Allergy status to penicillin; Z91.018 Allergy to other foods; Z91.013 Allergy to seafood; Z87.442 Personal history of urinary calculi; Z90.5 Acquired absence of kidney; Z90.89 Acquired absence of other organs; Z90.49 Acquired absence of other specified parts of digestive tract; I11.0 Hypertensive heart disease with heart failure; I50.9 Heart failure, unspecified; J44.9 Chronic obstructive pulmonary disease, unspecified
CPT/HCPCS: 99202

== ENCOUNTER 2017-04-07 21:51 | Emergency (ER) | payer MEDICARE, OTHER ==
[~2017-04-07] VITALS: Ht 165.1 cm; Wt 100.2 kg
[~2017-04-07 21:51] MED LIST changes: +ENSURE LIQUID237 ML PO; +LINZESS290 MCG PO; +MEGACE ES625 MG/5 M PO; +NAMENDA XR PO
--- NOTE | 2017-04-07 22:22 | Emergency Room Report ---
History of Present Illness General Chief Complaint: Lower Extremity Injury Source: Patient Present Illness HPI This is an 81-year-old female with multiple medical problem. She has a history of asthma/COPD. She slipped and fell last night and hurt her right ankle. Able to walk on it. Pain with movement. Denies any hip pain or back pain. No nausea no vomiting. He was mechanical fall. Pain is a 7/10. Does not want any medication. No loss of consciousness. No head injury. Is taking Pradaxa. Allergies: Coded Allergies: PENICILLINS (Verified Allergy, Mild, 10/05/09) Cashew (Verified Allergy, 12/25/13) Dust (Verified Allergy, 12/25/13) FISH CONTAINING PRODUCTS (Verified Allergy, 12/25/13) seafood TOMATO (Verified Allergy, 12/25/13) Patient History Past Medical History: see triage record, old chart reviewed, HTN, CAD, CHF, COPD Past Surgical History: other Pertinent Family History: none Social History: Denies: smoking Last Menstrual Period: N/A Now: No Immunizations: other Reviewed Nursing Documentation: PMH: Agreed, PSxH: Agreed Nursing Documentation-PMH Hx Cardiac Problems: Yes Hx Hypertension: Yes Hx Asthma: Yes Hx COPD: Yes - require Oxygen and CPAP Hx Diabetes: No Hx Cancer: No Hx Gastrointestinal Problems: Yes Hx Neurological Problems: Yes Hx Transient Ischemic Attacks: Yes Review of Systems Eye: Denies: blurred vision, eye pain ENT: Denies: ear pain, nose congestion, throat swelling Respiratory: Denies: cough, shortness of breath Cardiovascular: Denies: chest pain, palpitations Gastrointestinal: Denies: abdominal pain, diarrhea, nausea, vomiting Musculoskeletal: Reports: joint pain, Denies: back pain Skin: Denies: rash Neurological: Denies: headache, numbness Endocrine: Denies: increased thirst, increased urine Hematologic/Lymphatic: Denies: easy bruising All Other Systems: negative except mentioned in HPI Physical Exam Vital Signs Date Time Temp Pulse Resp B/P Pulse Ox O2 Delivery O2 Flow Rate FiO2 04/07/17 22:13 98.2 84 25 114/70 6 Nasal Cannula 5.0 Sp02 EP Interpretation: reviewed, normal General Appearance: obese Head: normocephalic, atraumatic Eyes: bilateral eye EOMI, bilateral eye PERRL ENT: hearing grossly normal, normal pharynx Neck: full range of motion, supple, no meningismus Respiratory: chest non-tender, normal breath sounds, decreased breath sounds, other - On oxygen Cardiovascular #1: regular rate, rhythm, no murmur Gastrointestinal: normal bowel sounds, non tender, no mass, no organomegaly, no bruit, non-distended Musculoskeletal: back normal, normal range of motion, other - Tenderness to the lateral malleolus. Full range of motion. Dorsalis pedis pulse 2+. Psychiatric: mood/affect normal Skin: warm/dry Procedures Splinting Splinting : Consent: Verbal Location: Right ankle Pre-Made Type: DENNIS wrap Pre-Proc Neuro Vasc Exam: normal Post-Proc Neuro Vasc Exam: normal Patient Tolerated: Well Complications: None Medical Decision Making Diagnostic Impression: Primary Impression: Right ankle sprain Qualified Codes: S93.401A - Sprain of unspecified ligament of right ankle, initial encounter ER Course Patient was with a right ankle sprain. Ambulating without any difficulty at her baseline. Will discharge home. Other X-Ray Diagnostic Results Other X-Ray Diagnostic Results : X-Ray ordered: Right ankle # of Views/Limited Vs Complete: 3 View Indication: Pain EP Interpretation: Yes Interpretation: no dislocation, no soft tissue swelling, no fractures Impression: No acute disease Interpreting ER Provider: Electronically signed by Gian Pryor MD Last Vital Signs Date Time Temp Pulse Resp B/P Pulse Ox O2 Delivery O2 Flow Rate FiO2 04/07/17 22:13 98.2 84 25 114/70 6 Nasal Cannula 5.0 Status: improved Disposition: HOME, SELF-CARE Condition: Stable Patient Instructions: Ankle Sprain Additional Instructions: Elevate leg. Ice pack to the area. Return if symptom worsen. Followup your in 7 days. GIAN PRYOR M.D. Apr 07, 2017 22:22
[2017-04-07 23:45] VITALS: BP 112/66
== END 2017-04-07 23:45 | disposition home or self-care (01) ==
LOC: EMR 22:50
DX: S93.401A Sprain of unspecified ligament of right ankle, initial encounter (principal); I10 Essential (primary) hypertension; J45.909 Unspecified asthma, uncomplicated; J44.9 Chronic obstructive pulmonary disease, unspecified; Z86.73 Personal history of transient ischemic attack (TIA), and cerebral infarction without residual deficits; Z99.81 Dependence on supplemental oxygen; I25.10 Atherosclerotic heart disease of native coronary artery without angina pectoris; I50.9 Heart failure, unspecified; Z88.0 Allergy status to penicillin; Z91.013 Allergy to seafood; Z91.018 Allergy to other foods; Z91.048 Other nonmedicinal substance allergy status; W18.30XA Fall on same level, unspecified, initial encounter; Y92.002 Bathroom of unspecified non-institutional (private) residence as the place of occurrence of the external cause
CPT/HCPCS: 29540; 99283

== ENCOUNTER 2017-05-14 07:14 | Emergency (ER) | payer MEDICARE, OTHER ==
[~2017-05-14] VITALS: Ht 167.6 cm; Wt 99.8 kg
[2017-05-14 07:31] VITALS: BP 107/44
--- NOTE | 2017-05-14 07:39 | Emergency Room Report ---
History of Present Illness General Chief Complaint: Multiple Trauma/Fall Source: Patient, Medical Record Present Illness HPI 81YOF walk-in with left ankle swelling s/p accidental "fall out" from moving from bedside commode to bed last night Denies any focal pain. Just states that left ankle looks swollen Denies twist of ankle Denies hitting head, other trauma Previous visits for ankle twist/fall as well On AC Allergies: Coded Allergies: PENICILLINS (Verified Allergy, Mild, 10/05/09) Cashew (Verified Allergy, 12/25/13) Dust (Verified Allergy, 12/25/13) FISH CONTAINING PRODUCTS (Verified Allergy, 12/25/13) seafood TOMATO (Verified Allergy, 12/25/13) Patient History Past Medical History: COPD Past Surgical History: none Pertinent Family History: none Social History: Denies: smoking, alcohol use, drug use Now: No Immunizations: UTD Reviewed Nursing Documentation: PMH: Agreed, PSxH: Agreed Nursing Documentation-PMH Past Medical History: No History, Except For Hx Cardiac Problems: Yes Hx Hypertension: Yes Hx Asthma: Yes Hx COPD: Yes - require Oxygen and CPAP Hx Diabetes: No Hx Cancer: No Hx Gastrointestinal Problems: Yes Hx Neurological Problems: Yes Hx Transient Ischemic Attacks: Yes Review of Systems All Other Systems: negative except mentioned in HPI Physical Exam Vital Signs Date Time Temp Pulse Resp B/P (MAP) Pulse Ox O2 Delivery O2 Flow Rate FiO2 05/14/17 07:18 97.7 99 28 107/44 94 Nasal Cannula 3.0 Sp02 EP Interpretation: reviewed, normal General Appearance: normal inspection, well appearing, no apparent distress, alert, other - On home o2 Head: normocephalic, atraumatic Eyes: bilateral eye PERRL, bilateral eye EOMI ENT: normal ENT inspection, hearing grossly normal, normal voice Neck: normal inspection, full range of motion, supple, no bony tend Respiratory: normal inspection, lungs clear, normal breath sounds, no respiratory distress, no retraction, no wheezing Cardiovascular #1: regular rate, rhythm, no edema Gastrointestinal: normal inspection, normal bowel sounds, non tender, soft, no guarding, no hernia Genitourinary: no CVA tenderness Musculoskeletal: other - Bilateral lower extremities: 1+ pitting edema, chronic venous stasis dermatitis. No obvious focal swelling or trauma to left ankle. No deformity Neurologic: normal inspection, alert, oriented x3, responsive, remote mortgage underwriter III-XII nml as tested, motor strength/tone normal, speech normal Psychiatric: normal inspection, judgement/insight normal, mood/affect normal Medical Decision Making Diagnostic Impression: Primary Impression: Left ankle sprain Qualified Codes: S93.402A - Sprain of unspecified ligament of left ankle, initial encounter Additional Impression: Fall Qualified Codes: W19.XXXA - Unspecified fall, initial encounter ER Course Left ankle ED review 3views No acute fx or dislocation. + soft tissue swelling significant bone disease Dr Brent Nash MD Left tib-fib ED review 2 views No acute fx, dislocation, soft tissue swelling Dr Brent Nash MD DENNIS wrap, ice applied to left ankle Adivsed RICE PMD followup as needed Non-weight bearing in the meantime DC home Last Vital Signs Date Time Temp Pulse Resp B/P (MAP) Pulse Ox O2 Delivery O2 Flow Rate FiO2 05/14/17 07:18 97.7 99 28 107/44 94 Nasal Cannula 3.0 Status: improved Disposition: HOME, SELF-CARE BRENT NASH M.D. May 14, 2017 07:39
[2017-05-14] MEDS ORDERED: VITAMIN B122500 MCG PO (07:56)
[2017-05-14] MEDS ORDERED: MIRTAZAPINE15 M3 ORAL (07:56)
[2017-05-14] MEDS ORDERED: VITAMIN C500 M1 ORAL (07:56)
[2017-05-14 08:31] VITALS: BP 110/59
[2017-05-14 08:47] VITALS: BP 110/59
--- NOTE | 2017-05-14 09:30 | Diagnostic Imaging Report ---
Indication: PAIN Technique: 3 views of the left ankle Comparison: none Findings: Bones are osteoporotic. There is soft tissue swelling medially and laterally. No acute fracture. No dislocation. There is severe degenerative narrowing of the ankle joint. There is a plantar spur. There is is planus deformity. There are arterial calcifications Impression: No acute bony trauma Soft tissue swelling Osteoporosis Severe degenerative changes, as described
--- NOTE | 2017-05-14 09:31 | Diagnostic Imaging Report ---
Indication: PAIN Technique: 2 views of the left tibia and fibula Comparison: none Findings: There are degenerative changes of the ankle and knee joints. No acute fractures. No dislocations. There are vascular calcifications. No radiopaque foreign body. The bones are demineralized Impression: Osteoporosis and degenerative changes as described No acute bony trauma
== END 2017-05-14 09:06 | disposition home or self-care (01) ==
LOC: EMR 07:29
DX: S93.402A Sprain of unspecified ligament of left ankle, initial encounter (principal); W19.XXXA Unspecified fall, initial encounter; Y93.9 Activity, unspecified; Y92.9 Unspecified place or not applicable; Z88.0 Allergy status to penicillin; Z91.018 Allergy to other foods; Z91.013 Allergy to seafood; Z91.048 Other nonmedicinal substance allergy status; I10 Essential (primary) hypertension; J44.9 Chronic obstructive pulmonary disease, unspecified; Z99.81 Dependence on supplemental oxygen; Z86.73 Personal history of transient ischemic attack (TIA), and cerebral infarction without residual deficits; M81.0 Age-related osteoporosis without current pathological fracture; M77.9 Enthesopathy, unspecified
CPT/HCPCS: 99284

== ENCOUNTER 2017-10-18 13:21 | Outpatient (CLI) | payer MEDICARE, OTHER ==
[~2017-10-18 13:21] MED LIST changes: +MIRTAZAPINE15 M3 ORAL; +VITAMIN B122500 MCG PO
[2017-10-18 13:38] VITALS: BP 142/69
--- NOTE | 2017-10-18 13:54 | GI Progress Note ---
Assessment/Plan Problems: (1) CHF (congestive heart failure) ICD Codes: I50.9 - Heart failure, unspecified SNOMED: 00245262 (2) Supplemental oxygen dependent ICD Codes: Z99.81 - Dependence on supplemental oxygen SNOMED: 655467827026 (3) Constipated ICD Codes: K59.00 - Constipation, unspecified SNOMED: 81627563 (4) Anemia ICD Codes: D64.9 - Anemia, unspecified SNOMED: 295799322 Status: stable Status Narrative Seen with Dr. Sam. Assessment/Plan given history of COPD/home oxygen, will hold off any GI procedures unless emergent ordered [place] CT labs ordered >> CBC, BMP, Iron panel, B12/folate, CEA, CA19-9 rx Linzess 145mcg RTC after imaging studies/lab draws Subjective Subjective anemia constipation, uses MOM prn weight loss last visit was 03/2017 recent hospitalization at [facility] for CHF. Objective Last 24 Hour Vital Signs Date Time Temp Pulse Resp B/P (MAP) Pulse Ox O2 Delivery O2 Flow Rate FiO2 10/18/17 13:38 97.9 77 18 142/69 93 General Appearance: WD/WN, no apparent distress, alert Cardiovascular: normal rate Respiratory/Chest: no respiratory distress, other - CPAP/CPOD intubation in may Abdominal Exam: normal bowel sounds, non tender, soft Extremities: normal range of motion, non-tender Davida Pryor N.P. Oct 18, 2017 13:54
== END 2017-10-18 13:55 | disposition home or self-care (01) ==
LOC: PAN 13:21
DX: K59.00 Constipation, unspecified (principal); D64.9 Anemia, unspecified; Z99.81 Dependence on supplemental oxygen; I50.9 Heart failure, unspecified; R63.4 Abnormal weight loss
CPT/HCPCS: 99212

== ENCOUNTER → 2017-11-05 | Outpatient (CLI) | payer MEDICARE, OTHER ==
--- NOTE | 2017-11-05 11:15 | Diagnostic Imaging Report ---
Indication: Chest pain Technique: Continuous helical transaxial imaging of the chest was obtained from the thoracic inlet to the upper abdomen after intravenous nonionic contrast administration. Coronal 2-D reformats were also obtained. Automatic Exposure Control was utilized. Total Dose length Product (DLP): 1885.[address] Dose Index Volume (CTDIvol): 21.04,18.6 21.04, 154.11, 8.11 mGy Comparison: none Findings: CT CHEST: Calcified granuloma noted within the right lung. Heart is enlarged. Pulmonary artery is prominent in size. The aorta is moderately calcified and there are coronary calcifications as well. There is no consolidation within the lungs identified. No pleural effusion, lymphadenopathy identified. There are mild groundglass opacities and linear opacities at both lung bases probably atelectasis or scarring. CT abdomen and pelvis: The right kidney is absent. The left kidney shows dilatation of the renal pelvis without hydroureter. The ureter is not seen well but is not not likely dilated. There is a cystic focus lateral to the left kidney probably an exophytic cyst measuring about 4 cm. The spleen is unremarkable. The liver is unremarkable. There is some image degradation due to body habitus issues. The gallbladder shows stones within the lumen. There is feces distending the rectum and colon portions of the colon. There is a suture line in the low sigmoid region indicative of previous partial resection. The appendix is not definitely seen but there are no secondary signs of appendicitis. Uterus is not seen. The bladder is nondistended. There is no bowel obstruction or free air or free fluid seen. Moderate narrowing of both hip joints and osteophyte formation demonstrated. The bones are slightly osteopenic. IMPRESSION: No evidence of malignancy on the basis of this examination. Calcified granuloma right lung base. Enlarged pulmonary artery. Pulmonary artery hypertension not excluded. Please correlate clinically. Basilar atelectasis and/or scarring. Absent right kidney Prominence of the left renal pelvis probably a normal variant. 4 cm left renal cyst Cholelithiasis. Partial low sigmoid resection. Status post hysterectomy. Moderate arthrosis of both hips Generalized osteopenia. Atherosclerotic vascular disease Some limitation on this examination due to body habitus The CT scanner at [facility] is accredited by the [employer] and the scans are performed using dose optimization techniques as appropriate to a performed exam including Automatic Exposure control.
== END | disposition home or self-care (01) ==
LOC: CAT 07:22
DX: R63.4 Abnormal weight loss (principal); J98.11 Atelectasis; R07.9 Chest pain, unspecified; I51.7 Cardiomegaly; I25.10 Atherosclerotic heart disease of native coronary artery without angina pectoris; M85.88 Other specified disorders of bone density and structure, other site; Z90.710 Acquired absence of both cervix and uterus; M16.0 Bilateral primary osteoarthritis of hip; K80.20 Calculus of gallbladder without cholecystitis without obstruction; N20.0 Calculus of kidney; Z90.5 Acquired absence of kidney; I27.21 Secondary pulmonary arterial hypertension
CPT/HCPCS: 71260; 74177; Q9967

== ENCOUNTER 2017-12-04 09:25 | Outpatient (CLI) | payer MEDICARE, OTHER ==
[2017-12-04 09:45] VITALS: BP 144/79
--- NOTE | 2017-12-04 10:24 | GI Progress Note ---
Assessment/Plan Problems: (1) Weight loss ICD Codes: R63.4 - Abnormal weight loss SNOMED: 45557432, 143070111 (2) Anemia ICD Codes: D64.9 - Anemia, unspecified SNOMED: 941320526 (3) Constipated ICD Codes: K59.00 - Constipation, unspecified SNOMED: 81443451 Status: stable Status Narrative Discussed with Dr. Sam. Assessment/Plan weight loss, now with 11 lbs weight gain anemia pt on oxygen, not stable for anesthesia partial colectomy greater than 20 years ago plan for virtual colonoscopy will consider capsule endoscopy RTC after study Subjective Gastrointestinal/Abdominal: Reports: no symptoms Subjective weight loss >> but has had 11 lbs weight gain in the past month Objective Last 24 Hour Vital Signs Date Time Temp Pulse Resp B/P (MAP) Pulse Ox O2 Delivery O2 Flow Rate FiO2 12/04/17 09:45 97.8 87 20 144/79 92 97.8 General Appearance: WD/WN, no apparent distress, alert Cardiovascular: normal rate Respiratory/Chest: normal breath sounds, no respiratory distress Abdominal Exam: normal bowel sounds, non tender, soft Extremities: normal range of motion, non-tender Davida Pryor N.P. Dec 04, 2017 10:24
== END 2017-12-04 10:00 | disposition home or self-care (01) ==
LOC: PAN 09:25
DX: R63.4 Abnormal weight loss (principal); D64.9 Anemia, unspecified; K59.00 Constipation, unspecified
CPT/HCPCS: 99212

== ENCOUNTER 2018-07-09 20:40 | Emergency (ER) | payer MEDICARE, OTHER ==
[~2018-07-09] VITALS: Ht 172.7 cm; Wt 99.8 kg
[2018-07-09 20:53] VITALS: BP 134/75
--- NOTE | 2018-07-09 21:03 | Emergency Room Report ---
History of Present Illness General Chief Complaint: General Complaint Source: Patient, Family Member, Medical Record Present Illness HPI Patient presents with complaints of pain to the left lower leg after a fall on Sunday patient reports that she tripped using her walker and hit the left lower leg to the walker Also reports hitting the left side of her head Denies any lapse of consciousness however she's had off-and-on headache some nausea Denies any chest pain or shortness of breath Patient was getting IV diuretics secondary to CHF Denies any lapse of consciousness denies any lightheadedness or dizziness pain is localized mainly to the left lower leg distal tibial region laterally Allergies: Coded Allergies: PENICILLINS (Verified Allergy, Mild, 07/09/18) Cashew (Verified Allergy, Unknown, 07/09/18) Dust (Verified Allergy, Unknown, 07/09/18) FISH CONTAINING PRODUCTS (Verified Allergy, Unknown, 07/09/18) seafood TOMATO (Verified Allergy, Unknown, 07/09/18) Patient History Past Medical History: see triage record Pertinent Family History: none Reviewed Nursing Documentation: PMH: Agreed; PSxH: Agreed Nursing Documentation-PMH Past Medical History: No History, Except For Hx Cardiac Problems: Yes - CHF Hx Hypertension: Yes Hx Asthma: Yes Hx COPD: Yes - require Oxygen and CPAP Hx Diabetes: No Hx Cancer: No Hx Gastrointestinal Problems: Yes Hx Neurological Problems: Yes Hx Transient Ischemic Attacks: Yes Review of Systems All Other Systems: negative except mentioned in HPI Physical Exam Vital Signs Date Time Temp Pulse Resp B/P (MAP) Pulse Ox O2 Delivery O2 Flow Rate FiO2 07/09/18 20:46 97.9 80 16 133/79 94 Nasal Cannula 3.0 Sp02 EP Interpretation: reviewed, normal General Appearance: well appearing, no apparent distress Head: normocephalic, atraumatic Eyes: bilateral eye PERRL, bilateral eye EOMI ENT: hearing grossly normal, normal pharynx Neck: full range of motion, supple Respiratory: lungs clear Cardiovascular #1: regular rate, rhythm Gastrointestinal: non tender, soft Musculoskeletal: other - Dependent edema is noted bilaterally however there is , a new left lower leg hematoma, there is also some redness to the ankle and the foot itself, pulses are intact distally, sensory is intact Neurologic: alert, oriented x3, responsive Skin: other - As above Lymphatic: no adenopathy Medical Decision Making Diagnostic Impression: Primary Impression: Contusion Additional Impression: Hematoma ER Course Given the patient's presentation and history presents to be essentially mechanical injury and fall Patient had CT head obtained did not show any acute pathology X-ray imaging of the lower extremity is somewhat limited as I am not able to review this on the PACS, however reviewing it on the x-ray machine I do not see any obvious acute fractures And the patient will have close outpatient follow-up, Patient already uses a walker And will have decreased weight-bearing on that side until follow-up Other X-Ray Diagnostic Results Other X-Ray Diagnostic Results #1: X-Ray ordered: Left tib-fib # of Views/Limited Vs Complete: 2 View Indication: Pain EP Interpretation: Yes Interpretation: no dislocation, no fractures, other - Soft tissue swelling Impression: Other - Soft tissue swelling Electronically Signed by: Mary Reed DO Other X-Ray Diagnostic Results #2: X-Ray ordered: Left ankle # of Views/Limited Vs Complete: 4 View Indication: Pain EP Interpretation: Yes Interpretation: no dislocation, no fractures, other - Soft tissue swelling Impression: Other - Soft tissue swelling Electronically Signed by: Mary Reed DO CT/MRI/US Diagnostic Results CT/MRI/US Diagnostic Results : Impression CT head no acute disease Last Vital Signs Date Time Temp Pulse Resp B/P (MAP) Pulse Ox O2 Delivery O2 Flow Rate FiO2 07/09/18 20:46 97.9 80 16 133/79 94 Nasal Cannula 3.0 Status: improved Disposition: HOME, SELF-CARE Condition: Improved Additional Instructions: Patient is provided with the discharge instructions notified to follow up with primary doctor in the next 2-3 days otherwise return to the er with any worsening symptoms. Please note that this report is being documented using [employer] technology. This can lead to erroneous entry secondary to incorrect interpretation by the dictating instrument. Mary Reed DO Jul 09, 2018 21:03
[2018-07-09 22:20] VITALS: BP 134/75
--- NOTE | 2018-07-10 10:03 | Diagnostic Imaging Report ---
Indications: Head trauma, status post trip and fall Technique: Spiral acquisitions obtained through the brain. Angled axial and coronal 5 x 5 mm slices were reconstructed. Total dose length product 1274.04 mGycm. CTDI vol(s) 70.38 mGy. Dose reduction achieved using automated exposure control Comparison: 12/12/2016 Findings: Again demonstrated is age-related enlargement of the ventricles and extra-axial CSF spaces. Vela-white differentiation is normal. No acute intercranial hemorrhage nor edema. No mass effect nor midline shift. There is patent cavum septum pellucidum and cavum vergae. The sinuses demonstrate minimal mucosal thickening. Possible empty sella noted. On the lowest cuts, there is suggestion of a hyperattenuating mass in the left parotid gland, in retrospect evident previously, size comparison impossible given incomplete inclusion in the imaging volume. No significant interim change otherwise Impression: Negative for acute intracranial bleed or mass effect Chronic and age-related changes, as described Possible left parotid mass. Further evaluation with ultrasound or neck CT should be considered This agrees with the preliminary interpretation provided overnight by [facility] service. The CT scanner at [facility] is accredited by the [employer] and the scans are performed using protocols designed to limit radiation exposure to as low as reasonably achievable to attain images of sufficient resolution adequate for diagnostic evaluation.
--- NOTE | 2018-07-11 16:25 | Diagnostic Imaging Report ---
Indication: Trauma, pain Technique: 2 views of the left tibia and fibula Comparison: none Findings: No acute fractures. No dislocations. There are extensive degenerative changes of the knee joint. There are also extensive degenerative changes of the ankle joint. Bones are osteoporotic. There is pes planus deformity. There is a plantar spur. Impression: No acute process Degenerative changes, as described
== END 2018-07-09 22:20 | disposition home or self-care (01) ==
LOC: EMR 20:54
DX: S80.12XA Contusion of left lower leg, initial encounter (principal); S09.90XA Unspecified injury of head, initial encounter; W01.0XXA Fall on same level from slipping, tripping and stumbling without subsequent striking against object, initial encounter; Y92.9 Unspecified place or not applicable; Z88.0 Allergy status to penicillin; Z91.018 Allergy to other foods; I11.0 Hypertensive heart disease with heart failure; I50.9 Heart failure, unspecified; Z86.73 Personal history of transient ischemic attack (TIA), and cerebral infarction without residual deficits
CPT/HCPCS: 70450; 99284

== ENCOUNTER 2018-08-16 20:37 | Inpatient (IN) | payer MEDICARE, OTHER ==
[~2018-08-16] VITALS: Ht 165.1 cm; Wt 106.1 kg
[2018-08-16] MEDS ORDERED: Cefepime HCl 1 GM in D5W 55 ML IVPB ONE (21:15)
[2018-08-16] MEDS ORDERED: Tetanus/Diptheria/Pertussis Vaccine 0.5ml Syr IM ONE (21:15)
--- NOTE | 2018-08-16 21:20 | Emergency Room Report ---
History of Present Illness General Chief Complaint: Edema Source: Patient, Family Member Present Illness HPI The patient fell of 4 weeks ago and hit the left side of her lower leg. Apparently x-rays were done that were negative at that time. For several days she's had heat in the leg and also swelling in the lateral side. She denies fevers or chills. The pain is 5/10 when somebody pushes on it but routinely there is no pain there. She's on Pradaxa. She has a history of congestive heart failure and A fib. There is usually edema in the legs. She also complains about pain in her left shoulder. This is more chronic. It' s when she moves about. She's been taking pain medication for that. The pain medication has been causing constipation. She's been treating that with applesauce and apple juice. The daughter reports that prune juice doesn't help. She denies chest pain, abdominal pain, dysuria. There is no hemoptysis or pleuritic chest pain or dyspnea. The daughter is uncertain when her last tetanus shot was. Allergies: Coded Allergies: PENICILLINS (Verified Allergy, Mild, 07/09/18) Cashew (Verified Allergy, Unknown, 07/09/18) Dust (Verified Allergy, Unknown, 07/09/18) FISH CONTAINING PRODUCTS (Verified Allergy, Unknown, 07/09/18) seafood TOMATO (Verified Allergy, Unknown, 07/09/18) Patient History Past Medical History: see triage record Social History: Denies: smoking, alcohol use, drug use Social History Narrative with daughter Last Menstrual Period: 4 decades Now: No Reviewed Nursing Documentation: PMH: Agreed; PSxH: Agreed Nursing Documentation-PMH Hx Cardiac Problems: Yes - CHF Hx Hypertension: Yes Hx Asthma: Yes Hx COPD: Yes - require Oxygen and CPAP Hx Diabetes: No Hx Cancer: No Hx Gastrointestinal Problems: Yes Hx Neurological Problems: Yes Hx Transient Ischemic Attacks: Yes Review of Systems All Other Systems: negative except mentioned in HPI Physical Exam Vital Signs Date Time Temp Pulse Resp B/P (MAP) Pulse Ox O2 Delivery O2 Flow Rate FiO2 08/16/18 20:46 98.1 85 16 143/76 91 Nasal Cannula 3.0 Sp02 EP Interpretation: reviewed, normal General Appearance: well appearing, no apparent distress, GCS 15 Head: normocephalic Eyes: bilateral eye normal inspection, bilateral eye PERRL ENT: moist mucus membranes Neck: supple Respiratory: lungs clear, normal breath sounds Cardiovascular #1: regular rate, rhythm, edema - 2-3+ bilat LE Cardiovascular #2: 2+ radial (R) Gastrointestinal: normal inspection, normal bowel sounds, non tender, no mass, non-distended, overweight Genitourinary: no CVA tenderness Musculoskeletal: back normal, normal range of motion, no calf tenderness, pelvis stable, Ni's Sign negative, swelling - laterally L side of lower leg, other - clubbing Neurologic: alert, oriented x3, grossly normal Psychiatric: mood/affect normal Skin: warm/dry, other - erythema L lower leg laterally. Chronic venous stasis disease Medical Decision Making Diagnostic Impression: Primary Impression: Cellulitis Qualified Codes: L03.116 - Cellulitis of left lower limb Additional Impressions: Hematoma CHF (congestive heart failure) Qualified Codes: I50.9 - Heart failure, unspecified ER Course Patient presents with left lower leg swelling and pain after trauma 4 weeks ago. I differential includes hematoma, abscess, cellulitis, unrecognized fracture amongst others. He is there warmth in the area infection is highly suspected. Blood cultures, EKG, chest x-ray, x-ray of the area and labs will be performed. In addition the patient will receive antibiotics. Suspicion for DVT is low because the patient's on anticoagulation and based on physical exam. The patient declines pain medication at this time. EKG with a fib. CXR with CHF. Labs with normal WBC and low H/H. INR slightly prolonged (not sure why). CO2 increased. Antibiotics begun. Clinically, looks like a hematoma with overlying cellulitis. Other possibility is underlying abscess, however, clinically more like hematoma. May need CT or MRI. Patient improved with treatment. Admit med Dr. Pace. Laboratory Tests Test 08/16/18 21:50 White Blood Count 6.4 K/UL (4.8-10.8) Red Blood Count 3.79 M/UL (4.20-5.40) L Hemoglobin 10.8 G/DL (12.0-16.0) L Hematocrit 35.4 % (37.0-47.0) L Mean Corpuscular Volume 94 FL (80-99) Mean Corpuscular Hemoglobin 28.6 PG (27.0-31.0) Mean Corpuscular Hemoglobin Concent 30.6 G/DL (32.0-36.0) L Red Cell Distribution Width 12.8 % (11.6-14.8) Platelet Count 160 K/UL (150-450) Mean Platelet Volume 7.3 FL (6.5-10.1) Neutrophils (%) (Auto) 65.1 % (45.0-75.0) Lymphocytes (%) (Auto) 24.9 % (20.0-45.0) Monocytes (%) (Auto) 6.9 % (1.0-10.0) Eosinophils (%) (Auto) 1.8 % (0.0-3.0) Basophils (%) (Auto) 1.3 % (0.0-2.0) Prothrombin Time 12.5 SEC (9.30-11.50) H Prothrombin Time INR 1.2 (0.9-1.1) H PTT 32 SEC (23-33) Sodium Level 141 MMOL/L (136-145) Potassium Level 5.2 MMOL/L (3.5-5.1) H Chloride Level 102 MMOL/L (98-107) Carbon Dioxide Level 38 MMOL/L (21-32) H Anion Gap 1 mmol/L (5-15) L Blood Urea Nitrogen 17 mg/dL (7-18) Creatinine 1.1 MG/DL (0.55-1.30) Estimate Glomerular Filtration Rate mL/min (>60) Glucose Level 100 MG/DL (74-106) Lactic Acid Level 1.60 mmol/L (0.4-2.0) Calcium Level 9.1 MG/DL (8.5-10.1) Magnesium Level 1.9 MG/DL (1.8-2.4) Total Bilirubin 0.3 MG/DL (0.2-1.0) Aspartate Amino Transferase (AST) 35 U/L (15-37) Alanine Aminotransferase (ALT) 21 U/L (12-78) Alkaline Phosphatase 88 U/L (46-116) Total Creatine Kinase 191 U/L (26-308) Troponin I 0.000 ng/mL (0.000-0.056) Pro-B-Type Natriuretic Peptide 2882 pg/mL (0-125) H Total Protein 9.5 G/DL (6.4-8.2) H Albumin 3.3 G/DL (3.4-5.0) L Globulin 6.2 g/dL Albumin/Globulin Ratio 0.5 (1.0-2.7) L EKG Diagnostic Results Rate: normal Rhythm: other - a fib ST Segments: no acute changes - NSSTTW changes Rhythm Strip Diag. Results EP Interpretation: yes Rhythm: no PVC's, no ectopy, other - a fib Chest X-Ray Diagnostic Results Chest X-Ray Diagnostic Results : Chest X-Ray Ordered: Yes # of Views/Limited/Complete: 1 View Indication: Other EP Interpretation: Yes Interpretation: no effusion, no pneumothorax, other - chf Impression: Other Electronically Signed by: Gerardo Akers MD Other X-Ray Diagnostic Results Other X-Ray Diagnostic Results : X-Ray ordered: L tib fib # of Views/Limited Vs Complete: 4 View Indication: Other EP Interpretation: Yes Interpretation: no dislocation, no fractures, other - STS laterally Impression: Other Electronically Signed by: Gerardo Akers MD Last Vital Signs Date Time Temp Pulse Resp B/P (MAP) Pulse Ox O2 Delivery O2 Flow Rate FiO2 08/17/18 04:42 97.9 81 20 140/76 (97) 96 08/17/18 01:42 Nasal Cannula 3.0 Status: improved Disposition: ADMITTED INPATIENT Condition: Serious Gerardo Akers MD Aug 16, 2018 21:20
--- NOTE | 2018-08-16 21:50 | Diagnostic Imaging Report ---
EXAM: XR Chest, 1 View CLINICAL HISTORY: PAIN TECHNIQUE: Frontal view of the chest. COMPARISON: No relevant prior studies available. FINDINGS: Lungs: No consolidation. Pleural space: Unremarkable. No pneumothorax. Heart: Large cardiomediastinal silhouette and vascular congestion. Mediastinum: Fullness of the brenna Bones/joints: Degenerative changes of the shoulders. IMPRESSION: Large cardiomediastinal silhouette and vascular congestion.
--- NOTE | 2018-08-16 21:51 | Diagnostic Imaging Report ---
EXAM: XR Left Tibia and Fibula, 2 Views CLINICAL HISTORY: PAIN TECHNIQUE: Frontal and lateral views of the left tibia and fibula. COMPARISON: No relevant prior studies available. FINDINGS: Bones/joints: Plantar calcaneal spur. Degenerative changes of the knee and ankle. Soft tissues: Soft tissue swelling. IMPRESSION: No acute fracture.
[2018-08-16 22:00] VITALS: BP 136/81
[2018-08-16 22:28] LABS: BASOPHILS % (AUTO) 1.3 % (0.0-2.0); EOSINOPHILS % (AUTO) 1.8 % (0.0-3.0); HEMATOCRIT 35.4 % (37.0-47.0); HEMOGLOBIN 10.8 G/DL (12.0-16.0); LYMPHOCYTES % (AUTO) 24.9 % (20.0-45.0); MEAN CORPUSCULAR VOLUME 94 FL (80-99); MONOCYTES % (AUTO) 6.9 % (1.0-10.0); NEUTROPHILS % (AUTO) 65.1 % (45.0-75.0); PLATELET COUNT 160 K/UL (150-450); RED BLOOD COUNT 3.79 M/UL (4.20-5.40); RED CELL DISTRIBUTION WIDTH 12.8 % (11.6-14.8); WHITE BLOOD COUNT 6.4 K/UL (4.8-10.8)
[2018-08-16 22:38] LABS: INR 1.2 (0.9-1.1)
[2018-08-16 22:39] LABS: ANION GAP 1 mmol/L (5-15); BLOOD UREA NITROGEN 17 mg/dL (7-18); CALCIUM 9.1 MG/DL (8.5-10.1); CARBON DIOXIDE 38 MMOL/L (21-32); CHLORIDE 102 MMOL/L (98-107); CREATININE 1.1 MG/DL (0.55-1.30); POTASSIUM 5.2 MMOL/L (3.5-5.1); SODIUM 141 MMOL/L (136-145)
[2018-08-16 22:51] LABS: ALANINE AMINOTRANSFERASE 21 U/L (12-78); ALBUMIN 3.3 G/DL (3.4-5.0); ALBUMIN/GLOBULIN RATIO 0.5 (1.0-2.7); ALKALINE PHOSPHATASE 88 U/L (46-116); ASPARTATE AMINO TRANSFERASE 35 U/L (15-37); BILIRUBIN,TOTAL 0.3 MG/DL (0.2-1.0); CREATINE KINASE 191 U/L (26-308)
[2018-08-16] MEDS ORDERED: Cefepime 1gm vial ONE (23:54)
[2018-08-17] VITALS (7 sets, daily range): BP systolic 105–160; BP diastolic 67–90
[2018-08-17] MEDS ORDERED: Digoxin Elixir 0.125mg ORAL SCH (09:00)
[2018-08-17] MEDS ORDERED: Montelukast 10mg tablet ORAL SCH (09:00)
[2018-08-17] MEDS ORDERED: Albuterol/Ipratropium 3ml neb ONE (09:34)
[2018-08-17] MEDS ORDERED: Albuterol/Ipratropium 3ml neb HHN SCH ×2 (10:00→11:00)
--- NOTE | 2018-08-17 10:45 | History and Physical Report ---
DATE OF ADMISSION: 08/16/2018 REASON FOR ADMISSION: Cellulitis. HISTORY OF PRESENT ILLNESS: This is an 83-year-old female, well known to me. The patient fell approximately 4 weeks ago and injured the left side of her left lower leg. The patient had x-rays done and were negative. The patient has been using local care without improvement. She denies fevers or chills. The patient has pain with walking. She does have chronic leg edema, but not worse. She is on Pradaxa on a regular basis. The patient's care discussed and reviewed. The patient is otherwise alert and awake. She is taking all of her medication. The patient has noted mild fluid overload in the past and had been given some IV Lasix with significant improvement. The patient's care discussed and reviewed. The patient without any hemoptysis, chest pain, or dyspnea. She is chronically taking anticoagulation. PAST MEDICAL HISTORY: Notable for chronic atrial fibrillation, COPD, CHF, chronic lower extremity edema, sleep apnea, debility, chronic hypoxemia. The patient has history of hypertension, history of TIAs, history of respiratory failure in the past. MEDICATIONS: Reviewed. ALLERGIES: Reviewed. SOCIAL HISTORY: She lives with her daughter who is her primary caregiver. Full Code. PHYSICAL EXAMINATION: GENERAL: A well-developed female, chronically ill. VITAL SIGNS: Blood pressure 105/68, pulse 72, respiratory rate 18, saturations 100%, temperature 97.7. HEENT: Negative. NECK: Supple. EXTREMITIES: Grossly intact. LUNGS: With moderate air entry. Some crackles. CARDIAC: S1, S2. Somewhat regular. Systolic murmur noted. No gallops or rubs. ABDOMEN: Soft, nontender. EXTREMITIES: No significant edema. Some possibility of left-sided hematoma noted on examination of the left leg. LABORATORY AND DIAGNOSTIC DATA: Otherwise reviewed. Chest x-ray with widened cardiac silhouette. Hemoglobin 10.8, hematocrit 35. Chemistries noted. Potassium 5.2. BNP 282. Albumin 3.3. INR 1.2. IMPRESSION: Evidence of left lower extremity cellulitis, consider hematoma, history of CHF, history of COPD, history of fluid overload, history of chronic lower extremity edema. RECOMMENDATION: IV Ancef for now. We will obtain venous ultrasound of the lower extremities to confirm that there is no hematoma. Consider CT if needed. X-ray noted and reviewed. Resume home medications and monitor need for further diuresis. We will follow clinically for further changes in intervention and discharge once improved. Provide BiPAP for nighttime use for history of obstructive sleep apnea. Stevan Pace M.D. DR: Kolton JOB#: [id number] CC: JEREMIAH
[2018-08-17] MEDS ORDERED: Furosemide 40mg tab ORAL SCH (11:00)
[2018-08-17] MEDS ORDERED: Allopurinol 100mg Tab ORAL SCH (11:00)
[2018-08-17] MEDS ORDERED: Vitamin B-12 500mcg tab ORAL SCH (11:00)
[2018-08-17] MEDS ORDERED: Dabigatran 150mg cap ORAL SCH (11:00)
[2018-08-17] MEDS ORDERED: Vitamin D 1000 IU Tab ORAL SCH (11:00)
[2018-08-17] MEDS: Ascorbic Acid 500mg tab ORAL SCH (11:18)
[2018-08-17] MEDS: ceFAZolin sod 1 GM in D5W 55 ML IVPB SCH ×2 (11:29→17:49)
[2018-08-17] MEDS ORDERED: Digoxin 0.125mg tab ORAL SCH (11:30)
[2018-08-17 13:07] LABS: APPEARANCE,URINE CLEAR; BILIRUBIN, URINE NEGATIVE (NEGATIVE); COLOR,URINE PALE YELLOW; GLUCOSE, URINE (UA) NEGATIVE (NEGATIVE); KETONES,URINE NEGATIVE (NEGATIVE); LEUKOCYTE ESTERASE ,URINE NEGATIVE (NEGATIVE); NITRITE,URINE NEGATIVE (NEGATIVE); PH,URINE 8 (4.5-8.0); PROTEIN,URINE NEGATIVE (NEGATIVE); UROBILINOGEN,URINE NORMAL MG/DL (0.0-1.0)
[2018-08-17] MEDS ORDERED: ceFAZolin 1gm/50ml Premix 50 ML IV ONE (14:00)
[2018-08-17] MEDS: Montelukast 10mg tablet ORAL SCH (17:01)
[2018-08-17] MEDS: Albuterol/Ipratropium 3ml neb HHN SCH ×3 (17:04→23:18)
[2018-08-17] MEDS ORDERED: NS 275ml ONE (17:34)
[2018-08-17] MEDS ORDERED: Tubing IV Secondary IV ONE (17:34)
[2018-08-17] MEDS: Dabigatran 150mg cap ORAL SCH (17:48)
[2018-08-17] MEDS: Allopurinol 100mg Tab ORAL SCH (17:49)
[2018-08-18] VITALS: BP 131/73
[2018-08-18] MEDS: ceFAZolin sod 1 GM in D5W 55 ML IVPB SCH ×3 (02:15→17:56)
[2018-08-18] MEDS: Albuterol/Ipratropium 3ml neb HHN SCH ×6 (03:13→22:55)
[2018-08-18 04:00] VITALS: BP 128/80
[2018-08-18 08:00] VITALS: BP 140/76
--- NOTE | 2018-08-18 08:43 | General Progress Note ---
Assessment/Plan Assessment/Plan IMPRESSION: Evidence of left lower extremity cellulitis, consider hematoma, history of CHF, history of COPD, history of fluid overload, history of chronic lower extremity edema. PLAN BIPAP at HS oxygen nebs maintain meds IV antibiotics dc once stable check venous US impression, plan, and exam edited and reviewed in detail care discussed with RN Subjective Allergies: Coded Allergies: PENICILLINS (Verified Allergy, Mild, 07/09/18) Cashew (Verified Allergy, Unknown, 07/09/18) Dust (Verified Allergy, Unknown, 07/09/18) FISH CONTAINING PRODUCTS (Verified Allergy, Unknown, 07/09/18) seafood TOMATO (Verified Allergy, Unknown, 07/09/18) Subjective comfortable care noted legs overall same NAD Objective Last 24 Hour Vital Signs Date Time Temp Pulse Resp B/P (MAP) Pulse Ox O2 Delivery O2 Flow Rate FiO2 08/18/18 08:00 98.2 66 19 140/76 (97) 100 08/18/18 07:53 64 18 97 Nasal Cannula 2.0 08/18/18 07:41 77 18 92 Nasal Cannula 2.0 08/18/18 05:12 64 24 97 Facial 30 08/18/18 04:00 98.6 72 18 128/80 (96) 97 08/18/18 03:22 69 24 97 Bi-pap 30 08/18/18 03:20 65 26 96 Facial 30 08/18/18 03:13 67 24 98 Bi-pap 30 08/18/18 01:00 67 24 97 Facial 30 08/18/18 00:00 98.5 68 18 131/73 (92) 97 08/17/18 23:38 80 22 98 Bi-pap 30 08/17/18 23:28 65 22 97 Bi-pap 30 08/17/18 23:19 65 23 97 Facial 30 08/17/18 21:00 Nasal Cannula 2.0 08/17/18 20:00 97.7 73 18 128/69 (88) 97 08/17/18 19:35 74 18 99 Nasal Cannula 2.0 28 08/17/18 19:21 75 20 Nasal Cannula 2.0 28 08/17/18 19:20 75 20 98 Nasal Cannula 2.0 28 08/17/18 17:13 72 20 99 Nasal Cannula 2.0 28 08/17/18 17:05 71 20 99 Nasal Cannula 2.0 28 08/17/18 16:47 97.6 73 18 132/67 (88) 97 08/17/18 12:15 73 20 99 Nasal Cannula 2.0 28 08/17/18 12:14 73 20 99 Nasal Cannula 2.0 28 08/17/18 12:06 97.9 69 20 148/78 (101) 100 08/17/18 11:19 72 08/17/18 11:01 72 105/68 08/17/18 09:00 Nasal Cannula 3.0 Intake and Output 08/17/18 08/18/18 19:00 07:00 Intake Total 1430 ml 120 ml Output Total 200 ml 600 ml Balance 1230 ml -480 ml Intake Oral 1320 ml 120 ml IV Total 110 ml Output Urine Total 200 ml 600 ml Laboratory Tests 08/17/18 08:57: Digoxin Level 0.4L 08/17/18 12:50: Urine Color Pale yellow, Urine Appearance Clear, Urine pH 8, Urine Specific [place] 1.010, Urine Protein Negative, Urine Glucose (UA) Negative, Urine Ketones Negative, Urine Blood Negative, Urine Nitrite Negative, Urine Bilirubin Negative, Urine Urobilinogen Normal, Urine Leukocyte Esterase Negative Height (Feet): 5 Height (Inches): 5.00 Weight (Pounds): 234 Objective GENERAL: A well-developed female, chronically ill. HEENT: Negative. NECK: Supple. EXTREMITIES: Grossly intact. EOMI LUNGS: With moderate air entry. Some crackles. no wheeze CARDIAC: S1, S2. Somewhat regular. Systolic murmur noted. No gallops or rubs. ABDOMEN: Soft, nontender. obese EXTREMITIES: noted edema. Some possibility of left-sided hematoma noted on examination of the left leg. nonfocal Stevan Pace MD Aug 18, 2018 08:43
[2018-08-18] MEDS: Vitamin B-12 500mcg tab ORAL SCH (08:55)
[2018-08-18] MEDS: Vitamin D 1000 IU Tab ORAL SCH (08:56)
[2018-08-18] MEDS: Dabigatran 150mg cap ORAL SCH ×2 (08:56→17:56)
[2018-08-18] MEDS: Digoxin 0.125mg tab ORAL SCH (08:57)
[2018-08-18] MEDS: Ascorbic Acid 500mg tab ORAL SCH (08:57)
[2018-08-18] MEDS: Allopurinol 100mg Tab ORAL SCH ×2 (08:58→17:56)
[2018-08-18] MEDS: Furosemide 40mg tab ORAL SCH (08:58)
[2018-08-18 12:00] VITALS: BP 129/69
[2018-08-18 16:00] VITALS: BP 117/63
[2018-08-18] MEDS: Montelukast 10mg tablet ORAL SCH (16:38)
[2018-08-18] MEDS ORDERED: Albuterol/Ipratropium 3ml neb ONE (19:21)
[2018-08-18 20:00] VITALS: BP 125/64
[2018-08-19] VITALS: BP 121/75
[2018-08-19] MEDS: ceFAZolin sod 1 GM in D5W 55 ML IVPB SCH ×2 (02:38→09:28)
[2018-08-19] MEDS: Albuterol/Ipratropium 3ml neb HHN SCH ×4 (03:13→15:15)
[2018-08-19 04:00] VITALS: BP 140/74
[2018-08-19 08:00] VITALS: BP 126/84
[2018-08-19] MEDS: Dabigatran 150mg cap ORAL SCH (08:32)
[2018-08-19] MEDS: Vitamin B-12 500mcg tab ORAL SCH (08:33)
[2018-08-19] MEDS: Vitamin D 1000 IU Tab ORAL SCH (08:34)
[2018-08-19] MEDS: Digoxin 0.125mg tab ORAL SCH (08:34)
[2018-08-19] MEDS: Furosemide 40mg tab ORAL SCH (08:34)
[2018-08-19] MEDS: Ascorbic Acid 500mg tab ORAL SCH (08:35)
[2018-08-19] MEDS: Allopurinol 100mg Tab ORAL SCH (08:35)
--- NOTE | 2018-08-19 08:35 | General Progress Note ---
Assessment/Plan Assessment/Plan IMPRESSION: Evidence of left lower extremity cellulitis, consider hematoma, history of CHF, history of COPD, history of fluid overload, history of chronic lower extremity edema. PLAN BIPAP at HS oxygen nebs maintain meds PO antibiotics dc once stable negative venous US impression, plan, and exam edited and reviewed in detail care discussed with RN Subjective Allergies: Coded Allergies: PENICILLINS (Verified Allergy, Mild, 07/09/18) Cashew (Verified Allergy, Unknown, 07/09/18) Dust (Verified Allergy, Unknown, 07/09/18) FISH CONTAINING PRODUCTS (Verified Allergy, Unknown, 07/09/18) seafood TOMATO (Verified Allergy, Unknown, 07/09/18) Subjective comfortable care noted NAD Objective Last 24 Hour Vital Signs Date Time Temp Pulse Resp B/P (MAP) Pulse Ox O2 Delivery O2 Flow Rate FiO2 08/19/18 08:04 Nasal Cannula 2.0 08/19/18 08:00 99.3 82 18 126/84 (98) 82 08/19/18 07:18 71 20 98 Nasal Cannula 2.0 28 08/19/18 07:07 Nasal Cannula 2.0 28 08/19/18 07:07 97 Nasal Cannula 2.0 28 08/19/18 07:07 69 18 97 Nasal Cannula 2.0 28 08/19/18 04:56 70 26 93 Facial 30 08/19/18 04:00 98.2 70 18 140/74 (96) 95 08/19/18 03:21 65 25 97 Bi-pap 30 08/19/18 03:13 72 23 94 Bi-pap 30 08/19/18 03:13 72 23 94 Facial 30 08/19/18 01:15 70 16 95 Facial 30 08/19/18 00:00 98.8 83 18 121/75 (90) 98 08/18/18 23:05 80 16 97 Nasal Cannula 2.0 28 08/18/18 23:05 75 25 94 Facial 30 08/18/18 22:55 75 18 95 Nasal Cannula 2.0 28 08/18/18 21:00 Nasal Cannula 2.0 08/18/18 20:00 98.6 75 20 125/64 (84) 98 08/18/18 19:48 75 16 98 Nasal Cannula 2.0 28 08/18/18 19:38 Nasal Cannula 2.0 28 08/18/18 19:38 92 Nasal Cannula 2.0 28 08/18/18 19:38 71 16 92 Nasal Cannula 2.0 28 08/18/18 16:00 98.2 75 16 117/63 (81) 95 08/18/18 15:45 74 18 97 Nasal Cannula 2.0 08/18/18 15:34 79 18 93 Nasal Cannula 2.0 28 08/18/18 12:00 98.3 65 17 129/69 (89) 96 08/18/18 11:52 67 18 97 Nasal Cannula 2.0 08/18/18 11:39 56 20 93 Nasal Cannula 2.0 28 08/18/18 09:00 Nasal Cannula 2.0 08/18/18 08:57 66 08/18/18 08:56 66 140/76 Intake and Output 08/18/18 08/19/18 19:00 07:00 Intake Total 1000 ml 295 ml Output Total 1600 ml 1000 ml Balance -600 ml -705 ml Intake Oral 1000 ml 240 ml IV Total 55 ml Output Urine Total 1600 ml 1000 ml Height (Feet): 5 Height (Inches): 5.00 Weight (Pounds): 234 Objective GENERAL: A well-developed female, chronically ill. HEENT: Negative. NECK: Supple. EXTREMITIES: Grossly intact. EOMI LUNGS: With moderate air entry. Some crackles. no wheeze CARDIAC: S1, S2. Somewhat regular. Systolic murmur noted. No gallops or rubs. ABDOMEN: Soft, nontender. obese EXTREMITIES: noted edema. Some possibility of left-sided hematoma noted on examination of the left leg. nonfocal Stevan Pace MD Aug 19, 2018 08:35
[2018-08-19 12:00] VITALS: BP 125/70
[2018-08-19 16:00] VITALS: BP 133/66
--- NOTE | 2018-08-20 10:39 | Discharge Summary ---
Discharge Summary Discharge Summary _ DATE OF ADMISSION: 08/16/2018 DATE OF DISCHARGE: 08/19/2018 REASON FOR ADMISSION: 83years old female with past medical history of chronic atrial fibrillation, COPD, congestive heart failure, chronic lower extremity edema, chronic hypoxemia , obstructive sleep apnea, hypertension, history of TIA, history of respiratory failure in the past, presented to emergency room for evaluation. Patient fell about 4 weeks ago and injured the left side of her left lower leg. At that time x-ray was done and was negative. Patient reported pain with walking. Patient has a chronic leg edema but is was getting worse. Patient used local wound care without any significant improvement. She denied fever and chills. Patient on anticoagulation/Pradaxa on a regular basis. Patient denied chest pain ,shortness of breath ,dyspnea ,cough, hemoptysis . Laboratory workup revealed no leukocytosis, stable hemoglobin hematocrit. Stable renal parameters . Lactic acid 1.6. Troponin negative. Pro BNP 282. Urinalysis no evidence of UTI. X ray of left tibia/fibula reveal no evidence of acute fracture. CXR revealed large cardiomediastinal silhouette and vascular congestion. Patient admitted with diagnoses of left lower extremity cellulitis , COPD ,CHF , chronic lower extremity edema, obstructive sleep apnea. HOSPITAL COURSE: Patient admitted to medical surgical floor and started on empiric IV Ancef. Blood cultures were negative. Venous duplex revealed no evidence of acute DVT. No evidence of hematoma. Home medications are resumed. Volumes were closely monitor . Maintenance dose of Lasix provided with close monitoring of cardiorenal parameters. BiPAP provided at nighttime due to history of obstructive sleep apnea. Supplemental oxygen provided as needed to keep pulse oximetry above 92%. Pulmonary toilet was on standby as needed. Symbicort inhaler and Singulair continued for routine maintenance of COPD. No evidence of COPD exacerbation. Fall precautions were maintained. Patient subsequently transitioned to oral antibiotics to complete the course upon discharge. Patient stabilized and was ready for discharge home with home health services to follow. FINAL DIAGNOSES: Left lower extremity cellulitis COPD CHF Chronic lower extremity edema Obstructive sleep apnea DISCHARGE MEDICATIONS: See Medication Reconciliation list. DISCHARGE INSTRUCTIONS: Patient was discharged home with home health services. Follow up with primary care provider in one week. I have been assigned to dictate discharge summary for this account. I was not involved in the patient's management. Paulina Frias NP Aug 20, 2018 10:38
== END 2018-08-19 16:34 | disposition home health service (06) | DRG 603 ==
LOC: EMR 21:11 → 3E 22:05 → EDBEDREQ 22:18
PROC: 5A09457 Assistance with Respiratory Ventilation, 24-96 Consecutive Hours, Continuous Positive Airway Pressure (ICD-10-PCS; principal; 2018-08-17)
DX: L03.116 Cellulitis of left lower limb (principal); J44.9 Chronic obstructive pulmonary disease, unspecified; I11.0 Hypertensive heart disease with heart failure; I50.9 Heart failure, unspecified; R60.0 Localized edema; G47.33 Obstructive sleep apnea (adult) (pediatric); Z91.018 Allergy to other foods; Z88.0 Allergy status to penicillin; Z91.81 History of falling; I48.2 Chronic atrial fibrillation; Z79.01 Long term (current) use of anticoagulants; Z86.73 Personal history of transient ischemic attack (TIA), and cerebral infarction without residual deficits
CPT/HCPCS: 36415; 71045; 80053; 80162; 81003; 82550; 83605; 83735; 83880; 84484; 85025; 85610; 85730; 87040; 90471; 90715; 93005; 93970; 94640; 94660; 94664; 94760; 96365; 96367; 99285; J7620

== ENCOUNTER 2018-10-07 20:45 | Inpatient (IN) | payer MEDICARE, OTHER ==
[~2018-10-07] VITALS: Ht 172.7 cm; Wt 109.9 kg
[2018-10-07 22:30] VITALS: BP 141/69
--- NOTE | 2018-10-07 22:30 | NUR ---
ER Nurse Note: Pt came from home c/o cellulitis in the left leg and lower extrmity edema due to PMH of CHF. Pt stated it made it hard for her to breath. Pt on NC 3L.; O2 99%. Pt a&ox4, VSS, no signs of distress. Cellulitis in left leg has gauze over; dressing clean dry intact. ERMD at pt side; will continue to montior.
[2018-10-07 22:40] LABS: APPEARANCE,URINE CLEAR; BILIRUBIN, URINE NEGATIVE (NEGATIVE); COLOR,URINE PALE YELLOW; GLUCOSE, URINE (UA) NEGATIVE (NEGATIVE); KETONES,URINE NEGATIVE (NEGATIVE); LEUKOCYTE ESTERASE ,URINE 1+ (NEGATIVE); NITRITE,URINE NEGATIVE (NEGATIVE); PH,URINE 7 (4.5-8.0); PROTEIN,URINE 1+ (NEGATIVE); UROBILINOGEN,URINE NORMAL MG/DL (0.0-1.0)
[2018-10-07 23:15] LABS: BASOPHILS % (AUTO) 1.6 % (0.0-2.0); HEMATOCRIT 30.6 % (37.0-47.0); HEMOGLOBIN 9.4 G/DL (12.0-16.0); LYMPHOCYTES % (AUTO) 25.5 % (20.0-45.0); MEAN CORPUSCULAR VOLUME 99 FL (80-99); MONOCYTES % (AUTO) 6.9 % (1.0-10.0); NEUTROPHILS % (AUTO) 62.9 % (45.0-75.0); PLATELET COUNT 122 K/UL (150-450); WHITE BLOOD COUNT 6.8 K/UL (4.8-10.8)
--- NOTE | 2018-10-07 23:21 | NUR ---
ED Nurse Note: pt c/o sob, ermd notified, breathing tx order obtained, RT notified
[2018-10-07] MEDS ORDERED: Albuterol ud Inhalation HHN ONE (23:30)
[2018-10-07 23:48] LABS: INR 1.3 (0.9-1.1)
[2018-10-08 00:21] LABS: ANION GAP 5 mmol/L (5-15); BLOOD UREA NITROGEN 18 mg/dL (7-18); CALCIUM 9.2 MG/DL (8.5-10.1); CARBON DIOXIDE 34 MMOL/L (21-32); CHLORIDE 104 MMOL/L (98-107); CREATININE 0.8 MG/DL (0.55-1.30); POTASSIUM 4.4 MMOL/L (3.5-5.1); SODIUM 142 MMOL/L (136-145)
[2018-10-08 00:34] LABS: ALANINE AMINOTRANSFERASE 29 U/L (12-78); ALBUMIN 3.1 G/DL (3.4-5.0); ALBUMIN/GLOBULIN RATIO 0.8 (1.0-2.7); ALKALINE PHOSPHATASE 82 U/L (46-116); ASPARTATE AMINO TRANSFERASE 26 U/L (15-37); BILIRUBIN,TOTAL 0.2 MG/DL (0.2-1.0); CKMB 1.9 NG/ML (0.0-3.6); CREATINE KINASE 159 U/L (26-308)
--- NOTE | 2018-10-08 00:48 | Emergency Room Report ---
History of Present Illness General Chief Complaint: Dyspnea/Respdistress Source: Patient, Medical Record Present Illness HPI Is an 83-year-old female who has history of A. fib, CHF, oxygen dependent COPD. She presents with chief complaint of increasing swelling and drainage from her left leg. Also with increasing shortness of breath. Worse with exertion. Better with rest. Denies any chest pain. Denies any fever or chills. Allergies: Coded Allergies: PENICILLINS (Verified Allergy, Mild, 07/09/18) Cashew (Verified Allergy, Unknown, 07/09/18) Dust (Verified Allergy, Unknown, 07/09/18) FISH CONTAINING PRODUCTS (Verified Allergy, Unknown, 07/09/18) seafood TOMATO (Verified Allergy, Unknown, 07/09/18) Patient History Past Medical History: see triage record, old chart reviewed, HTN, CAD, CHF, AFib, COPD Past Surgical History: other Pertinent Family History: none Social History: Denies: smoking Last Menstrual Period: NA : 4 Para: 4 Immunizations: other Reviewed Nursing Documentation: PMH: Agreed; PSxH: Agreed Nursing Documentation-PMH Hx Cardiac Problems: Yes Hx Hypertension: Yes Hx Pacemaker: No Hx Asthma: Yes Hx COPD: Yes Hx Diabetes: No Hx Cancer: No Hx Gastrointestinal Problems: No Hx Dialysis: No Hx Neurological Problems: No Hx Cerebrovascular Accident: No Hx Transient Ischemic Attacks: Yes Hx Seizures: No Review of Systems Eye: Denies: eye pain, blurred vision ENT: Denies: ear pain, nose congestion, throat swelling Respiratory: Reports: shortness of breath; Denies: cough Cardiovascular: Denies: chest pain, palpitations Gastrointestinal: Denies: abdominal pain, diarrhea, nausea, vomiting Musculoskeletal: Reports: muscle pain; Denies: back pain, joint pain Skin: Denies: rash Neurological: Denies: headache, numbness Endocrine: Denies: increased thirst, increased urine Hematologic/Lymphatic: Denies: easy bruising All Other Systems: negative except mentioned in HPI Physical Exam Vital Signs Date Time Temp Pulse Resp B/P (MAP) Pulse Ox O2 Delivery O2 Flow Rate FiO2 10/07/18 20:59 84 16 141/69 82 Nasal Cannula 3.0 10/07/18 23:34 28 vitals with hypoxia Sp02 EP Interpretation: abnormal General Appearance: mild distress Head: normocephalic, atraumatic Eyes: bilateral eye PERRL, bilateral eye EOMI ENT: hearing grossly normal, normal pharynx Neck: full range of motion, supple, no meningismus Respiratory: chest non-tender, decreased breath sounds, rales Cardiovascular #1: regular rate, rhythm, no murmur Gastrointestinal: normal bowel sounds, non tender, no mass, no organomegaly, no bruit, non-distended Musculoskeletal: back normal, gait/station normal, normal range of motion, swelling - 2+ pitting edema. Mild erythema to the tibial area. Psychiatric: mood/affect normal Skin: warm/dry Medical Decision Making Diagnostic Impression: Primary Impression: Acute exacerbation of CHF (congestive heart failure) Qualified Codes: I50.9 - Heart failure, unspecified Additional Impressions: COPD with exacerbation Cellulitis of left anterior lower leg Anemia Qualified Codes: D64.9 - Anemia, unspecified ER Course Patient with COPD and CHF exacerbation. She diuresed well with Lasix. Denies any chest pain. First set of troponin negative. Her lower extremity edema secondary to her CHF. She may have underlying component of cellulitis from previous ulceration. Antibiotics given here. Because of her condition, will admit. I contacted Dr. Pace for admission. Lab Results Impression labs with elevated BNP EKG Diagnostic Results Rate: normal Rhythm: other - A. fib ST Segments: no acute changes Rhythm Strip Diag. Results Rhythm Strip Time: 00:50 EP Interpretation: yes Rate: 80 Rhythm: no PVC's, no ectopy, other - A. fib Chest X-Ray Diagnostic Results Chest X-Ray Diagnostic Results : Chest X-Ray Ordered: Yes # of Views/Limited/Complete: 1 View Indication: Shortness of Breath EP Interpretation: Yes Interpretation: no consolidation, no effusion, no pneumothorax, other - Cardiomegaly with vascucular congestion Impression: Other - CHF Electronically Signed by: Gian Pryor MD Last Vital Signs Date Time Temp Pulse Resp B/P (MAP) Pulse Ox O2 Delivery O2 Flow Rate FiO2 10/07/18 23:48 78 20 99 Nasal Cannula 2.0 28 10/07/18 20:59 141/69 Status: improved Disposition: ADMITTED INPATIENT Condition: Serious Gian Pryor MD Oct 08, 2018 00:48
[2018-10-08] MEDS ORDERED: cefTRIAXone 1 GM in NS 55 ML IVPB ONE (01:00)
[2018-10-08 02:20] VITALS: BP 118/68
--- NOTE | 2018-10-08 02:28 | NUR ---
ER Nurse Note: Pt lower extremities swelling decreasing from Lasix. Dressing clean, dry, intact. Pt asleep, VSS, no signs of distress. Lion inserted; pt tolerated well; no signs of infection. Urine output was over 1700ml,Will continue to montior.
[2018-10-08 03:30] VITALS: BP 112/63
--- NOTE | 2018-10-08 03:40 | NUR ---
ER Nurse Note: Report given to Molly. TONEY in tele for continuity of care. Pt a&ox4, VSS; no signs of distress. Pt O2 sat 99% on 2L NC. IV patent. All belongings take with pt.
[2018-10-08 04:00] VITALS: BP 140/80
--- NOTE | 2018-10-08 04:00 | NUR ---
NURSE NOTES: Bedside report received from DAWNA Lugo. Pt is AOx4, able to make needs known. air sampling and monitoring showing AFIB controlled. Pt is on 2L NC, sating in low 90's awaiting a call back from MD for orders. Lion was inserted down in ER for retention. Pt skin is intact, verbalizes she has left lower leg cellulitis from a previous fall that got infected. Dressing is dry and intact, no pain reported. RH 24g SL; asymtptomatic. Awaiting orders from MD. Will continue to monitor and follow plan of care.
--- NOTE | 2018-10-08 04:13 | NUR ---
NURSE NOTES: Paged Dr. Pace regarding admit orders. Awaiting a call back.
--- NOTE | 2018-10-08 05:01 | NUR ---
NURSE NOTES: Called and left message with Dr. Katelynn ervin. Awaiting a call back, will continue to monitor and follow plan of care.
[2018-10-08] MEDS ORDERED: Albuterol ud Inhalation HHN PRN (06:00)
[2018-10-08] MEDS ORDERED: Albuterol 90mcg Inhaler 8gm INH SCH (07:00)
--- NOTE | 2018-10-08 07:00 | History and Physical Report ---
DATE OF ADMISSION: 10/08/2018 CHIEF COMPLAINT: Shortness of breath and congestive heart failure exacerbation. HISTORY OF PRESENT ILLNESS: The patient is a pleasant 83-year-old female. She has a history of hypertension, asthma, and congestive heart failure, presented with complaints of several days of progressive worsening shortness of breath, orthopnea, and PND. According to the patient, she was well until several days prior to admission. She has noted increasing shortness of breath, dyspnea on exertion, and orthopnea. According to the patient, she has been compliant with her oral diuretic therapy and her low-salt diet. On evaluation in the emergency room, her vital signs were stable. She had elevated natriuretic peptide level of 4000 and x-ray evidence of congestive heart failure. She was given a breathing treatment, a dose of Lasix and is now admitted for further evaluation and care. PAST MEDICAL HISTORY: As above. PAST SURGICAL HISTORY: Includes hysterectomy. CURRENT MEDICATIONS: Reconciled and reviewed. ALLERGIES: Include cashews, penicillin, tomato, fish, and dust. FAMILY HISTORY: Noncontributory. SOCIAL HISTORY: Negative for tobacco, ethanol, or drugs. REVIEW OF SYSTEMS: GENERAL: No fevers or chills. HEENT: No headaches or visual changes. CARDIOPULMONARY: No chest pain. Positive shortness of breath. GASTROINTESTINAL: No nausea or vomiting. GENITOURINARY: No urgency or frequency. MUSCULOSKELETAL: Positive left lower extremity pain and swelling. No evidence of seizures. PHYSICAL EXAMINATION: VITAL SIGNS: Temperature is 98.6, pulse 70, respirations 19, and blood pressure 128/65. GENERAL: The patient is well developed, in no apparent distress. HEART: Regular rate and rhythm. LUNGS: Significantly diminished breath sounds. ABDOMEN: Soft, nontender, and nondistended. EXTREMITIES: Significant for 2+ pitting edema. There is a small abrasion on the left lima. LABORATORY DATA: Sodium 142, potassium 4.4, creatinine was 0.8, and glucose 128. Natriuretic peptide level was 4000. White count 6, hemoglobin 9, hematocrit 30, and platelets 122,000. Urine was clear. X-ray results are pending. ASSESSMENT: This is a pleasant female with complaints of shortness of breath secondary to congestive heart failure exacerbation. PROBLEM LISTS: 1. CHF exacerbation. 2. Possible asthma exacerbation. 3. Bronchitis versus pneumonia. 4. Venous insufficiency. 5. Possible lower extremity cellulitis. 6. History of hypertension and asthma. PLAN: 1. Supplemental oxygen. 2. Breathing treatments. 3. Intravenous Lasix. 4. Wound care. 5. DVT and stress ulcer prophylaxis. Olivier Blanco M.D. DR: BALAJI JOB#: [id number] CC:
[2018-10-08] MEDS: Albuterol/Ipratropium 3ml neb HHN SCH ×5 (07:05→22:58)
--- NOTE | 2018-10-08 07:10 | NUR ---
NURSE NOTES:RECEIVED REPORT FROM FROM [employer] VICE PRESIDENT OF NOC SHIFT.RECEIVED PT RESTING IN BED COMFORTABLY ,AWAKE AND ALERT ORIENTED X4,DENIES CP OR SOB AT THIS TIME.FULL BODY AM ASSESSMENT DONE.PT H.L ON RT HAND G# 20 PATENT AND INTACT.NO ACUTE DISTRESS NOTED AT THIS TIME.WILL CONT TO MONITOR.
--- NOTE | 2018-10-08 07:12 | NUR ---
NURSE NOTES: Report given to DAWNA MAIER. VSS, NO S/S OF DISTRESS.
[2018-10-08 08:00] VITALS: BP 116/67
--- NOTE | 2018-10-08 08:27 | Consultation ---
Consult Note Consult Note 83-year-old female who is well-known to me presents with worsening leg edema worsening shortness of breath. The patient has no known history of COPD and congestive heart failure as well as paroxysmal atrial fibrillation. The patient has been receiving IV Lasix at home without significant improvement the patient notes worsening shortness of breath dyspnea on exertion orthopnea. The patient is using oxygen at home. Patient was noted to have evidence of pulmonary edema by elevated natruretic peptide of over 4000. The patient x-ray as well suggested pulmonary edema. The patient was given Lasix in the emergency room also was felt to have COPD exacerbation. The patient notes worsening debility worsening shortness of breath worsening immobility. The patient care discussed and reviewed with a daughter over the past several days the patient has also had some blistering of the lower extremities. Patient without any recent fevers or chills or sputum production Past medical history notable for: Hypertension asthma congestive heart failure paroxysmal atrial fibrillation failure to thrive sleep apnea history cellulitis chronic constipation atrial fibrillation with rapid ventricular response history of cellulitis history of gout history of dementia Medications reviewed and reconciled Allergies reviewed and reconciled Review of systems All 10 points reviewed and are otherwise negative. The patient does use a walker for walking. She uses oxygen chronically. She has been less active and more edematous She has had some sundowning in the past Physical examination Well-developed female in no acute distress Vital signs 120/65 oxygen saturation 9 2 views Temperature 96 heart rate 70 respiratory rate 20 HDP negative except all extremities are grossly intact oropharynx is moist Neck is supple carotids are 2+ Lungs with reduced breath sounds bilaterally occasional rhonchi wheezes Cardiac exam normal S1-S2 with overall irregularly irregular rhythm but rate controlled No murmurs rubs gallops Abdomen is soft nontender nondistended Extremities with significant complete pitting edema with chronic changes and blistering of the lower extremities Neurologically grossly nonfocal slightly confused Labs Test 10/07/18 21:56 10/07/18 23:05 10/07/18 23:23 Urine Color Pale yellow Urine Appearance Clear Urine pH 7 (4.5-8.0) Urine Specific [place] 1.010 (1.005-1.035) Urine Protein 1+ (NEGATIVE) Urine Glucose (UA) Negative (NEGATIVE) Urine Ketones Negative (NEGATIVE) Urine Blood Negative (NEGATIVE) Urine Nitrite Negative (NEGATIVE) Urine Bilirubin Negative (NEGATIVE) Urine Urobilinogen Normal MG/DL (0.0-1.0) Urine Leukocyte Esterase 1+ (NEGATIVE) Urine RBC 0-2 /HPF (0 - 2) Urine WBC 0-2 /HPF (0 - 2) Urine Squamous Epithelial Cells Occasional /LPF Urine Bacteria None /HPF (NONE) White Blood Count 6.8 K/UL (4.8-10.8) Red Blood Count 3.10 M/UL (4.20-5.40) Hemoglobin 9.4 G/DL (12.0-16.0) Hematocrit 30.6 % (37.0-47.0) Mean Corpuscular Volume 99 FL (80-99) Mean Corpuscular Hemoglobin 30.3 PG (27.0-31.0) Mean Corpuscular Hemoglobin Concent 30.7 G/DL (32.0-36.0) Red Cell Distribution Width 15.0 % (11.6-14.8) Platelet Count 122 K/UL (150-450) Mean Platelet Volume 7.0 FL (6.5-10.1) Neutrophils (%) (Auto) 62.9 % (45.0-75.0) Lymphocytes (%) (Auto) 25.5 % (20.0-45.0) Monocytes (%) (Auto) 6.9 % (1.0-10.0) Eosinophils (%) (Auto) 3.0 % (0.0-3.0) Basophils (%) (Auto) 1.6 % (0.0-2.0) Troponin I 0.018 ng/mL (0.000-0.056) Prothrombin Time 13.8 SEC (9.30-11.50) Prothromb Time International Ratio 1.3 (0.9-1.1) Activated Partial Thromboplast Time 37 SEC (23-33) Sodium Level 142 MMOL/L (136-145) Potassium Level 4.4 MMOL/L (3.5-5.1) Chloride Level 104 MMOL/L (98-107) Carbon Dioxide Level 34 MMOL/L (21-32) Anion Gap 5 mmol/L (5-15) Blood Urea Nitrogen 18 mg/dL (7-18) Creatinine 0.8 MG/DL (0.55-1.30) Estimat Glomerular Filtration Rate mL/min (>60) Glucose Level 128 MG/DL (74-106) Calcium Level 9.2 MG/DL (8.5-10.1) Total Bilirubin 0.2 MG/DL (0.2-1.0) Aspartate Amino Transf (AST/SGOT) 26 U/L (15-37) Alanine Aminotransferase (ALT/SGPT) 29 U/L (12-78) Alkaline Phosphatase 82 U/L (46-116) Total Creatine Kinase 159 U/L (26-308) Creatine Kinase MB 1.9 NG/ML (0.0-3.6) Creatine Kinase MB Relative Index 1.1 Pro-B-Type Natriuretic Peptide 4041 pg/mL (0-125) Total Protein 7.1 G/DL (6.4-8.2) Albumin 3.1 G/DL (3.4-5.0) Globulin 4.0 g/dL Albumin/Globulin Ratio 0.8 (1.0-2.7) Impression CHF with acute exacerbation COPD with acute exacerbation Anemia Thrombocytopenia Atrial fibrillation Hyperglycemia Dementia Toxic metabolic encephalopathy Mild protein calorie malnutrition sleep apnea Plan IV Lasix IV Solu-Medrol Albuterol nebulized therapy Oxygen therapy BiPAP management at night for sleep apnea Resume home medication Monitor leg edema Cardiology evaluation Stabilizing discharge when patient improves Stevan Pace MD Oct 08, 2018 08:27
[2018-10-08] MEDS: Solu-MEDROL 40mg Inj IVP SCH ×2 (09:40→21:17)
[2018-10-08] MEDS: Digoxin 0.125mg tab ORAL SCH (09:41)
[2018-10-08] MEDS: Ascorbic Acid 500mg tab ORAL SCH (09:42)
[2018-10-08] MEDS: Vitamin B-12 500mcg tab ORAL SCH (09:42)
[2018-10-08] MEDS: Memantine 10mg tab ORAL SCH ×2 (09:43→21:18)
[2018-10-08] MEDS: Allopurinol 100mg Tab ORAL SCH ×2 (09:43→16:51)
[2018-10-08] MEDS: Dabigatran 150mg cap ORAL SCH ×2 (09:43→16:51)
--- NOTE | 2018-10-08 09:44 | Diagnostic Imaging Report ---
Indication: Shortness of breath Technique: One view of the chest Comparison: 08/16/2018 Findings: Mild generalized interstitial prominence is similar to the previous study. Pulmonary arterial enlargement is similar to the previous exam. There is some scarring or atelectasis at the left lung base. Atelectasis is seen in the right perihilar region. The heart is borderline enlarged. The pleural spaces are clear. Degenerative changes of both shoulders again noted Impression: Borderline cardiomegaly with mild interstitial congestion Other findings as noted
[2018-10-08] MEDS: Advair 250/50 Inhaler - 14 dose INH SCH ×2 (12:23→19:32)
[2018-10-08] MEDS: Oxybutynin 5mg tab ORAL SCH ×2 (13:58→16:51)
[2018-10-08 14:23] VITALS: BP 143/68
[2018-10-08] MEDS: Montelukast 10mg tablet ORAL SCH (16:52)
--- NOTE | 2018-10-08 19:11 | NUR ---
CASE MANAGEMENT: REVIEW 83/F BIBA FROM HOME CC: RESP DISTRESS SI: CHF EXACERBATION . LOWER EXTREMITY CELLULITIS T 98.6 HR 84 RR 16 BP 141/69 SAT 82% NC/3L CO2 34 PT 13.8 INR 1.3 PTT 37 IS: CEFTRIAXONE IV X1 ALBUTEROL HHN X1 LASIX IV X1 INTERQUAL CRITERIA MET: PATIENT ADMITTED TO STEP DOWN UNIT 10/08/2018' DCP: PATIENT IS FROM HOME
--- NOTE | 2018-10-08 19:27 | NUR ---
HAND-OFF: Report given to .YADI TONEY.
--- NOTE | 2018-10-08 19:28 | NUR ---
HAND-OFF: Report given to .YADI TONEY.
--- NOTE | 2018-10-08 20:23 | NUR ---
NURSE NOTES: Recvd pt. Pt is awake and AOX4, resting in bed comfortably. Pt is on NC @ 3L with no sign of resp distress or sob. Pt is Afib controlled on ekg monitor. Pt has vásquez cath draining to gravity, initially placed for urinary retention. Pt has right hand 24g saline locked. Pt has left leg cellulitis and swollen bilateral lower extremities, both extremities are raised on pillows. Pt is on fall precautions due to recent fall at home, bed alarm is on. Advised pt to call if she needs to have a bm, pt verbalized understanding. Bed in lowest position, will continue with plan of care.
[2018-10-08 20:57] VITALS: BP 117/65
[2018-10-09] VITALS: BP 130/63
[2018-10-09] MEDS: Albuterol/Ipratropium 3ml neb HHN SCH ×6 (02:54→23:05)
[2018-10-09] MEDS: Oxybutynin 5mg tab ORAL SCH ×3 (06:11→22:54)
[2018-10-09 06:32] LABS: ANION GAP 3 mmol/L (5-15); BLOOD UREA NITROGEN 19 mg/dL (7-18); CALCIUM 9.1 MG/DL (8.5-10.1); CARBON DIOXIDE 37 MMOL/L (21-32); CHLORIDE 102 MMOL/L (98-107); CREATININE 0.9 MG/DL (0.55-1.30); POTASSIUM 4.3 MMOL/L (3.5-5.1); SODIUM 141 MMOL/L (136-145)
[2018-10-09 06:37] LABS: BASOPHILS % (AUTO) 0.4 % (0.0-2.0); HEMATOCRIT 31.5 % (37.0-47.0); HEMOGLOBIN 9.4 G/DL (12.0-16.0); LYMPHOCYTES % (AUTO) 19.9 % (20.0-45.0); MEAN CORPUSCULAR VOLUME 97 FL (80-99); MONOCYTES % (AUTO) 1.7 % (1.0-10.0); PLATELET COUNT 124 K/UL (150-450); RED BLOOD COUNT 3.23 M/UL (4.20-5.40); RED CELL DISTRIBUTION WIDTH 14.8 % (11.6-14.8); WHITE BLOOD COUNT 4.6 K/UL (4.8-10.8)
--- NOTE | 2018-10-09 07:15 | NUR ---
NURSE NOTES: Report received from Marina Torres RN.Pt resting in bed awake,alert oriented in no resp dsitress denies any c/o chest pain or discomfort SR on the monitor.Skin warm and dry ,call [place] within reach at bedside, SR up x2 ,HOB elevated ,bed lock in lowest position ,will continue with plan of care.
[2018-10-09 08:00] VITALS: BP 104/71
--- NOTE | 2018-10-09 09:01 | General Progress Note ---
Assessment/Plan Problem List: (1) Dyspnea ICD Codes: R06.00 - Dyspnea, unspecified SNOMED: 874457570 (2) Respiratory distress ICD Codes: R06.00 - Dyspnea, unspecified SNOMED: 208783158 (3) Atrial fibrillation with RVR ICD Codes: I48.91 - Unspecified atrial fibrillation SNOMED: 860283570085050 (4) Toxic metabolic encephalopathy ICD Codes: G92 - Toxic encephalopathy SNOMED: 022710423 (5) Supplemental oxygen dependent ICD Codes: Z99.81 - Dependence on supplemental oxygen SNOMED: 918689172350 (6) Anemia ICD Codes: D64.9 - Anemia, unspecified SNOMED: 405503367 Qualifiers: Qualified Codes: D64.9 - Anemia, unspecified (7) Acute exacerbation of CHF (congestive heart failure) ICD Codes: I50.9 - Heart failure, unspecified SNOMED: 56509964 Qualifiers: Qualified Codes: I50.9 - Heart failure, unspecified (8) COPD with exacerbation ICD Codes: J44.1 - Chronic obstructive pulmonary disease with (acute) exacerbation SNOMED: 484923266 Status: stable, progressing Assessment/Plan bipap resp rx o2 steroids Subjective ROS Limited/Unobtainable: No Constitutional: Reports: malaise, weakness HEENT: Reports: no symptoms Cardiovascular: Reports: no symptoms Respiratory: Reports: cough, shortness of breath Gastrointestinal/Abdominal: Reports: no symptoms Genitourinary: Reports: no symptoms Neurologic/Psychiatric: Reports: no symptoms Endocrine: Reports: no symptoms Hematologic/Lymphatic: Reports: no symptoms Allergies: Coded Allergies: PENICILLINS (Verified Allergy, Mild, 07/09/18) Cashew (Verified Allergy, Unknown, 07/09/18) Dust (Verified Allergy, Unknown, 07/09/18) FISH CONTAINING PRODUCTS (Verified Allergy, Unknown, 07/09/18) seafood TOMATO (Verified Allergy, Unknown, 07/09/18) All Systems: reviewed and negative except above Subjective off bipap. eating breakfast. feels "better." no chest pain . Objective Last 24 Hour Vital Signs Date Time Temp Pulse Resp B/P (MAP) Pulse Ox O2 Delivery O2 Flow Rate FiO2 10/09/18 07:16 71 15 99 Nasal Cannula 2.0 28 10/09/18 07:04 70 14 96 Nasal Cannula 2.0 28 10/09/18 05:53 73 20 92 10/09/18 05:07 87 14 92 Facial 30 10/09/18 04:00 30.0 10/09/18 04:00 64 10/09/18 04:00 Nasal Cannula 2.0 10/09/18 03:08 75 14 97 Bi-pap 30 10/09/18 02:52 61 14 92 Bi-pap 30 10/09/18 02:51 69 15 92 Facial 30 10/09/18 01:01 30.0 10/09/18 00:59 64 14 93 Facial 30 10/09/18 00:00 Nasal Cannula 2.0 10/09/18 00:00 76 10/09/18 00:00 98.6 74 15 130/63 (85) 99 10/08/18 23:06 76 15 96 Bi-pap 30 10/08/18 22:57 81 15 92 Bi-pap 30 10/08/18 22:41 81 30 92 Facial 30 10/08/18 21:55 72 20 99 Nasal Cannula 3.0 32 10/08/18 21:00 3.0 10/08/18 20:57 98.4 75 24 117/65 (82) 99 10/08/18 20:00 Nasal Cannula 2.0 10/08/18 20:00 75 10/08/18 19:38 72 20 99 Nasal Cannula 2.0 10/08/18 19:37 77 20 95 Nasal Cannula 3.0 32 10/08/18 19:32 77 20 95 Nasal Cannula 2.0 28 10/08/18 16:00 3.0 10/08/18 16:00 Nasal Cannula 2.0 10/08/18 16:00 74 10/08/18 15:50 71 20 98 Nasal Cannula 2.0 28 10/08/18 15:41 70 20 94 Nasal Cannula 2.0 28 10/08/18 14:23 98.0 74 19 143/68 (93) 92 10/08/18 12:23 70 20 96 Nasal Cannula 32 10/08/18 12:23 73 20 98 Nasal Cannula 32 10/08/18 12:00 76 10/08/18 12:00 Nasal Cannula 2.0 10/08/18 12:00 3.0 10/08/18 11:17 79 20 98 Nasal Cannula 2.0 28 10/08/18 11:07 81 20 96 Nasal Cannula 2.0 28 10/08/18 09:44 77 116/67 10/08/18 09:41 77 Intake and Output 10/08/18 10/09/18 19:00 07:00 Intake Total 750 ml 400 ml Output Total 1750 ml 2000 ml Balance -1000 ml -1600 ml Intake Oral 750 ml 400 ml Output Urine Total 1750 ml 2000 ml Laboratory Tests 10/09/18 03:45: White Blood Count 4.6L, Red Blood Count 3.23L, Hemoglobin 9.4L, Hematocrit 31.5L , Mean Corpuscular Volume 97, Mean Corpuscular Hemoglobin 29.0, Mean Corpuscular Hemoglobin Concent 29.8L, Red Cell Distribution Width 14.8, Platelet Count 124L, Mean Platelet Volume 7.9, Neutrophils (%) (Auto) 78.0H, Lymphocytes (%) (Auto) 19.9L, Monocytes (%) (Auto) 1.7, Eosinophils (%) (Auto) 0.0, Basophils (%) (Auto) 0.4, Sodium Level 141, Potassium Level 4.3, Chloride Level 102, Carbon Dioxide Level 37H, Anion Gap 3L, Blood Urea Nitrogen 19H, Creatinine 0.9, Estimat Glomerular Filtration Rate , Glucose Level 137H, Calcium Level 9.1 10/09/18 05:26: Arterial Blood pH 7.438, Arterial Blood Partial Pressure CO2 61.7*H, Arterial Blood Partial Pressure O2 91.2, Arterial Blood HCO3 40.8*H, Arterial Blood Oxygen Saturation 96.5, Arterial Blood Base Excess 14.4*H, Roger Test Positive Height (Feet): 5 Height (Inches): 8.00 Weight (Pounds): 242 General Appearance: WD/WN, alert Neck: supple Cardiovascular: normal rate, regular rhythm Respiratory/Chest: chest wall non-tender, lungs clear, normal breath sounds Abdomen: normal bowel sounds, non tender, soft, no organomegaly Neurologic: mother superior II-XII grossly normal, alert, oriented x 3, responsive Olivier Blanco MD Oct 09, 2018 09:01
[2018-10-09] MEDS: Vitamin B-12 500mcg tab ORAL SCH (09:45)
[2018-10-09] MEDS: Digoxin 0.125mg tab ORAL SCH (09:45)
[2018-10-09] MEDS: Ascorbic Acid 500mg tab ORAL SCH (09:45)
[2018-10-09] MEDS: Dabigatran 150mg cap ORAL SCH ×2 (09:46→17:12)
[2018-10-09] MEDS: Allopurinol 100mg Tab ORAL SCH ×2 (09:46→17:12)
[2018-10-09] MEDS: Memantine 10mg tab ORAL SCH ×2 (09:46→20:33)
[2018-10-09] MEDS: Solu-MEDROL 40mg Inj IVP SCH ×2 (09:47→20:33)
[2018-10-09] MEDS: Advair 250/50 Inhaler - 14 dose INH SCH ×2 (09:49→22:40)
--- NOTE | 2018-10-09 11:36 | Pulmonology Progress Note ---
Assessment/Plan Assessment/Plan Pulmonary Progress Note HPI Patient is an 83-year-old female who presented with worsening leg edema worsening shortness of breath. The patient has no known history of COPD and congestive heart failure as well as paroxysmal atrial fibrillation. The patient has been receiving IV Lasix at home without significant improvement the patient notes worsening shortness of breath dyspnea on exertion orthopnea. The patient is using oxygen at home. Patient was noted to have evidence of pulmonary edema by elevated natruretic peptide of over 4000. The patient x-ray as well suggested pulmonary edema. The patient was given Lasix in the emergency room also was felt to have COPD exacerbation. The patient notes worsening debility worsening shortness of breath worsening immobility. The patient care discussed and reviewed with a daughter over the past several days the patient has also had some blistering of the lower extremities. Patient without any recent fevers or chills or sputum production Past medical history notable for: Hypertension asthma congestive heart failure paroxysmal atrial fibrillation failure to thrive sleep apnea history cellulitis chronic constipation atrial fibrillation with rapid ventricular response history of cellulitis history of gout history of dementia Medications reviewed and reconciled Allergies reviewed and reconciled Review of systems All 10 points reviewed and are otherwise negative. The patient does use a walker for walking. She uses oxygen chronically. She has been less active and more edematous She has had some sundowning in the past Objective Physical examination Well-developed female in no acute distress Vital signs noted HDP negative except all extremities are grossly intact oropharynx is moist Neck is supple carotids are 2+ Lungs with reduced breath sounds bilaterally occasional rhonchi wheezes Cardiac exam normal S1-S2 with overall irregularly irregular rhythm but rate controlled No murmurs rubs gallops Abdomen is soft nontender nondistended Extremities with significant complete pitting edema with chronic changes and blistering of the lower extremities Neurologically grossly nonfocal slightly confused Labs Test 10/07/18 21:56 10/07/18 23:05 10/07/18 23:23 Urine Color Pale yellow Urine Appearance Clear Urine pH 7 (4.5-8.0) Urine Specific [place] 1.010 (1.005-1.035) Urine Protein 1+ (NEGATIVE) Urine Glucose (UA) Negative (NEGATIVE) Urine Ketones Negative (NEGATIVE) Urine Blood Negative (NEGATIVE) Urine Nitrite Negative (NEGATIVE) Urine Bilirubin Negative (NEGATIVE) Urine Urobilinogen Normal MG/DL (0.0-1.0) Urine Leukocyte Esterase 1+ (NEGATIVE) Urine RBC 0-2 /HPF (0 - 2) Urine WBC 0-2 /HPF (0 - 2) Urine Squamous Epithelial Cells Occasional /LPF Urine Bacteria None /HPF (NONE) White Blood Count 6.8 K/UL (4.8-10.8) Red Blood Count 3.10 M/UL (4.20-5.40) Hemoglobin 9.4 G/DL (12.0-16.0) Hematocrit 30.6 % (37.0-47.0) Mean Corpuscular Volume 99 FL (80-99) Mean Corpuscular Hemoglobin 30.3 PG (27.0-31.0) Mean Corpuscular Hemoglobin Concent 30.7 G/DL (32.0-36.0) Red Cell Distribution Width 15.0 % (11.6-14.8) Platelet Count 122 K/UL (150-450) Mean Platelet Volume 7.0 FL (6.5-10.1) Neutrophils (%) (Auto) 62.9 % (45.0-75.0) Lymphocytes (%) (Auto) 25.5 % (20.0-45.0) Monocytes (%) (Auto) 6.9 % (1.0-10.0) Eosinophils (%) (Auto) 3.0 % (0.0-3.0) Basophils (%) (Auto) 1.6 % (0.0-2.0) Troponin I 0.018 ng/mL (0.000-0.056) Prothrombin Time 13.8 SEC (9.30-11.50) Prothromb Time International Ratio 1.3 (0.9-1.1) Activated Partial Thromboplast Time 37 SEC (23-33) Sodium Level 142 MMOL/L (136-145) Potassium Level 4.4 MMOL/L (3.5-5.1) Chloride Level 104 MMOL/L (98-107) Carbon Dioxide Level 34 MMOL/L (21-32) Anion Gap 5 mmol/L (5-15) Blood Urea Nitrogen 18 mg/dL (7-18) Creatinine 0.8 MG/DL (0.55-1.30) Estimat Glomerular Filtration Rate mL/min (>60) Glucose Level 128 MG/DL (74-106) Calcium Level 9.2 MG/DL (8.5-10.1) Total Bilirubin 0.2 MG/DL (0.2-1.0) Aspartate Amino Transf (AST/SGOT) 26 U/L (15-37) Alanine Aminotransferase (ALT/SGPT) 29 U/L (12-78) Alkaline Phosphatase 82 U/L (46-116) Total Creatine Kinase 159 U/L (26-308) Creatine Kinase MB 1.9 NG/ML (0.0-3.6) Creatine Kinase MB Relative Index 1.1 Pro-B-Type Natriuretic Peptide 4041 pg/mL (0-125) Total Protein 7.1 G/DL (6.4-8.2) Albumin 3.1 G/DL (3.4-5.0) Globulin 4.0 g/dL Albumin/Globulin Ratio 0.8 (1.0-2.7) Impression CHF with acute exacerbation COPD with acute exacerbation Anemia Thrombocytopenia Atrial fibrillation Hyperglycemia Dementia Toxic metabolic encephalopathy Mild protein calorie malnutrition sleep apnea Plan IV Lasix IV Solu-Medrol Albuterol nebulized therapy Oxygen therapy BiPAP management at night for sleep apnea Resume home medication Monitor leg edema Cardiology evaluation Stabilizing discharge when patient improves Subjective ROS Limited/Unobtainable: No Allergies: Coded Allergies: PENICILLINS (Verified Allergy, Mild, 07/09/18) Cashew (Verified Allergy, Unknown, 07/09/18) Dust (Verified Allergy, Unknown, 07/09/18) FISH CONTAINING PRODUCTS (Verified Allergy, Unknown, 07/09/18) seafood TOMATO (Verified Allergy, Unknown, 07/09/18) Objective Last 24 Hour Vital Signs Date Time Temp Pulse Resp B/P (MAP) Pulse Ox O2 Delivery O2 Flow Rate FiO2 10/09/18 11:28 63 18 94 Nasal Cannula 2.0 28 10/09/18 09:50 70 20 96 Nasal Cannula 2.0 28 10/09/18 09:49 69 19 96 Nasal Cannula 2.0 28 10/09/18 09:47 71 104/71 10/09/18 09:45 71 10/09/18 08:00 97.5 71 18 104/71 (82) 94 10/09/18 07:16 71 15 99 Nasal Cannula 2.0 28 10/09/18 07:04 70 14 96 Nasal Cannula 2.0 28 10/09/18 05:53 73 20 92 10/09/18 05:07 87 14 92 Facial 30 10/09/18 04:00 30.0 10/09/18 04:00 64 10/09/18 04:00 Nasal Cannula 2.0 10/09/18 03:08 75 14 97 Bi-pap 30 10/09/18 02:52 61 14 92 Bi-pap 30 10/09/18 02:51 69 15 92 Facial 30 10/09/18 01:01 30.0 10/09/18 00:59 64 14 93 Facial 30 10/09/18 00:00 Nasal Cannula 2.0 10/09/18 00:00 76 10/09/18 00:00 98.6 74 15 130/63 (85) 99 10/08/18 23:06 76 15 96 Bi-pap 30 10/08/18 22:57 81 15 92 Bi-pap 30 10/08/18 22:41 81 30 92 Facial 30 10/08/18 21:55 72 20 99 Nasal Cannula 3.0 32 10/08/18 21:00 3.0 10/08/18 20:57 98.4 75 24 117/65 (82) 99 10/08/18 20:00 Nasal Cannula 2.0 10/08/18 20:00 75 10/08/18 19:38 72 20 99 Nasal Cannula 2.0 28 10/08/18 19:37 77 20 95 Nasal Cannula 3.0 32 10/08/18 19:32 77 20 95 Nasal Cannula 2.0 28 10/08/18 16:00 3.0 10/08/18 16:00 Nasal Cannula 2.0 10/08/18 16:00 74 10/08/18 15:50 71 20 98 Nasal Cannula 2.0 28 10/08/18 15:41 70 20 94 Nasal Cannula 2.0 28 10/08/18 14:23 98.0 74 19 143/68 (93) 92 10/08/18 12:23 70 20 96 Nasal Cannula 32 10/08/18 12:23 73 20 98 Nasal Cannula 32 10/08/18 12:00 76 10/08/18 12:00 Nasal Cannula 2.0 10/08/18 12:00 3.0 Intake and Output 10/08/18 10/09/18 19:00 07:00 Intake Total 750 ml 400 ml Output Total 1750 ml 2000 ml Balance -1000 ml -1600 ml Intake Oral 750 ml 400 ml Output Urine Total 1750 ml 2000 ml Laboratory Tests 10/09/18 03:45: White Blood Count 4.6L, Red Blood Count 3.23L, Hemoglobin 9.4L, Hematocrit 31.5L , Mean Corpuscular Volume 97, Mean Corpuscular Hemoglobin 29.0, Mean Corpuscular Hemoglobin Concent 29.8L, Red Cell Distribution Width 14.8, Platelet Count 124L, Mean Platelet Volume 7.9, Neutrophils (%) (Auto) 78.0H, Lymphocytes (%) (Auto) 19.9L, Monocytes (%) (Auto) 1.7, Eosinophils (%) (Auto) 0.0, Basophils (%) (Auto) 0.4, Sodium Level 141, Potassium Level 4.3, Chloride Level 102, Carbon Dioxide Level 37H, Anion Gap 3L, Blood Urea Nitrogen 19H, Creatinine 0.9, Estimat Glomerular Filtration Rate , Glucose Level 137H, Calcium Level 9.1 10/09/18 05:26: Arterial Blood pH 7.438, Arterial Blood Partial Pressure CO2 61.7*H, Arterial Blood Partial Pressure O2 91.2, Arterial Blood HCO3 40.8*H, Arterial Blood Oxygen Saturation 96.5, Arterial Blood Base Excess 14.4*H, Roger Test Positive Current Medications Medications (Trade) Dose Ordered Sig/Rocío Route PRN Reason Start Time Stop Time Status Last Admin Dose Admin Albuterol Sulfate (Proventil) 2.5 mg Q4H PRN HHN Shortness of Breath 10/08/18 06:00 10/13/18 05:59 Albuterol/ Ipratropium (Albuterol/ Ipratropium) 3 ml Q4HRT HHN 10/08/18 07:00 10/13/18 06:59 10/09/18 11:27 Allopurinol (Zyloprim) 100 mg BID ORAL 10/08/18 09:00 11/07/18 08:59 10/09/18 09:46 Amlodipine Besylate (Norvasc) 10 mg DAILY ORAL 10/08/18 09:00 11/07/18 08:59 10/09/18 09:47 Ascorbic Acid (Vitamin C) 1,000 mg DAILY ORAL 10/08/18 09:00 11/07/18 08:59 10/09/18 09:45 Cyanocobalamin (Vitamin B-12) 1,000 mcg DAILY ORAL 10/08/18 09:00 11/07/18 08:59 10/09/18 09:45 Dabigatran (Pradaxa) 150 mg BID ORAL 10/08/18 09:00 11/07/18 08:59 10/09/18 09:46 Digoxin (Lanoxin) 0.125 mg DAILY ORAL 10/08/18 09:00 11/07/18 08:59 10/09/18 09:45 Furosemide (Lasix) 20 mg EVERY 12 HOURS IV 10/08/18 09:00 11/07/18 08:59 10/09/18 09:44 Memantine (Namenda) 10 mg Q12HR ORAL 10/08/18 09:00 11/07/18 08:59 10/09/18 09:46 Methylprednisolone Sodium Succinate (Solu-MEDROL) 40 mg EVERY 12 HOURS IVP 10/08/18 09:00 11/07/18 08:59 10/09/18 09:47 Mirtazapine (Remeron) 30 mg BEDTIME ORAL 10/08/18 21:00 11/07/18 20:59 10/08/18 21:18 Montelukast Sodium (Singulair) 10 mg QPM ORAL 10/08/18 16:30 11/07/18 16:29 10/08/18 16:52 Nebivolol (Bystolic) 10 mg BID ORAL 10/08/18 09:00 11/07/18 08:59 10/09/18 09:46 Oxybutynin Chloride (Ditropan) 5 mg Q8HR ORAL 10/08/18 14:00 11/07/18 13:59 10/09/18 06:11 Salmeterol Xinafoate/ Fluticasone (Advair 250/50 Diskus) 1 puffs BIDRT INH 10/08/18 10:00 11/07/18 09:59 10/09/18 09:49 Gerardo Rangel MD Oct 09, 2018 11:36
[2018-10-09 12:00] VITALS: BP 115/64
--- NOTE | 2018-10-09 13:00 | NUR ---
NURSE NOTES: Pt stable,no resp distress or discomfort presented,verbalized feeling better.
--- NOTE | 2018-10-09 16:20 | NUR ---
TRANSFER TO FLOOR: Patient transferred toTelemetry r00m 202-1 , per bed awake,alert oriented in no resp distress. Report given to Cory TONEY.
[2018-10-09] MEDS: Montelukast 10mg tablet ORAL SCH (16:27)
[2018-10-09 16:55] VITALS: BP 130/64
--- NOTE | 2018-10-09 18:33 | NUR ---
NURSE NOTES: pt awake alert, no distress, no sob. call light within reach. iv patent and intact vásquez patent and intact
--- NOTE | 2018-10-09 18:40 | Cardiology Report ---
APPROVED REPORT EKG Measurement Heart [id number] Atrial fibrillation Abnormal ECG
--- NOTE | 2018-10-09 19:17 | NUR ---
HAND-OFF: Report given to AUBREY TONEY.
[2018-10-09 20:00] VITALS: BP 113/60
--- NOTE | 2018-10-09 20:27 | NUR ---
NURSE NOTES: Recvd pt. Pt is awake and AOX4, resting in bed comfortably. Pt is on NC @ 3L with no sign of resp distress or sob. Pt is Afib controlled on cardiac care unit nurse. Pt has vásquez cath draining to gravity, initially placed for urinary retention. Pt has right hand 24g saline locked. Pt has left leg cellulitis and swollen bilateral lower extremities, both extremities are raised on pillows. Pt is on fall precautions due to recent fall at home, bed alarm is on. Advised pt to call if she needs to have a bm, pt verbalized understanding. Bed in lowest position, will continue with plan of care.
[2018-10-10] VITALS (7 sets, daily range): BP systolic 126–146; BP diastolic 69–82
[2018-10-10] MEDS: Albuterol/Ipratropium 3ml neb HHN SCH ×6 (03:30→23:58)
--- NOTE | 2018-10-10 04:00 | Progress Note ---
DATE: 10/09/2018 CARDIOLOGY PROGRESS NOTE SUBJECTIVE: The patient is still congested, but feels a bit better. She was able to come off BiPAP earlier today. Monitored rhythm, atrial fibrillation, rate controlled. OBJECTIVE: VITAL SIGNS: Blood pressure 130/63, pulse 74, and respirations 15. LUNGS: Coarse breath sounds. Expiratory wheezes. Scattered rhonchi. HEART: Irregularly irregular rhythm. Normal S1, S2. No new murmur. ABDOMEN: Soft. EXTREMITIES: Trace edema. LABORATORY DATA: White count 4.6 and hemoglobin 9.4. Sodium 141, potassium 4.3, BUN 19, creatinine 0.9, and bicarb 37. IMPRESSION: 1. Acute on chronic diastolic congestive heart failure. 2. Chronic obstructive pulmonary disease exacerbation. 3. Anemia, multifactorial. 4. Chronic atrial fibrillation. 5. Coagulopathy due to apixaban. 6. Cerebrovascular disease with dementia. 7. History of sleep apnea. 8. Acute on chronic respiratory acidosis. PLAN: 1. Steroids with taper. 2. Inhaled bronchodilators. 3. Cautious diuresis. 4. Titrate anti-failure and antihypertensive regimen. 5. Continue apixaban for cardioembolic prophylaxis. 6. Check echocardiogram to evaluate PA systolic pressure. Gerardo Calix M.D. DR: ERNIE JOB#: [id number] CC:
[2018-10-10] MEDS: Oxybutynin 5mg tab ORAL SCH ×3 (05:52→21:18)
--- NOTE | 2018-10-10 07:00 | NUR ---
pt recieved on 3L NC, no SOB or discomfort noted, pt is alert, no redness or skin tear noted, will continue to monitor the pt
[2018-10-10 07:03] LABS: BASOPHILS % (AUTO) 0.3 % (0.0-2.0); HEMATOCRIT 31.6 % (37.0-47.0); HEMOGLOBIN 9.6 G/DL (12.0-16.0); LYMPHOCYTES % (AUTO) 21.4 % (20.0-45.0); MEAN CORPUSCULAR VOLUME 96 FL (80-99); MONOCYTES % (AUTO) 2.3 % (1.0-10.0); PLATELET COUNT 140 K/UL (150-450); RED BLOOD COUNT 3.27 M/UL (4.20-5.40); RED CELL DISTRIBUTION WIDTH 14.8 % (11.6-14.8); WHITE BLOOD COUNT 5.8 K/UL (4.8-10.8)
--- NOTE | 2018-10-10 07:25 | NUR ---
NURSE NOTES: I received the patient awake and resting in bed. Patient alert and oriented x4. Bed in the lowest position and call light within reach. Patient does not display any signs of distress or SOB. I will continue to monitor the patient and implement care.
[2018-10-10 07:26] LABS: ALANINE AMINOTRANSFERASE 26 U/L (12-78); ALBUMIN/GLOBULIN RATIO 0.7 (1.0-2.7); ALKALINE PHOSPHATASE 59 U/L (46-116); ANION GAP 1 mmol/L (5-15); ASPARTATE AMINO TRANSFERASE 17 U/L (15-37); BILIRUBIN,TOTAL 0.2 MG/DL (0.2-1.0); BLOOD UREA NITROGEN 26 mg/dL (7-18); CALCIUM 9.1 MG/DL (8.5-10.1); CARBON DIOXIDE 39 MMOL/L (21-32); CHLORIDE 102 MMOL/L (98-107); CREATININE 1.1 MG/DL (0.55-1.30); POTASSIUM 4.6 MMOL/L (3.5-5.1); SODIUM 143 MMOL/L (136-145)
--- NOTE | 2018-10-10 07:51 | NUR ---
HAND-OFF: Report given to Chasidy TONEY .
--- NOTE | 2018-10-10 08:05 | General Progress Note ---
Assessment/Plan Problem List: (1) Dyspnea ICD Codes: R06.00 - Dyspnea, unspecified SNOMED: 282200404 (2) Respiratory distress ICD Codes: R06.00 - Dyspnea, unspecified SNOMED: 049862531 (3) Atrial fibrillation with RVR ICD Codes: I48.91 - Unspecified atrial fibrillation SNOMED: 682449500065676 (4) Toxic metabolic encephalopathy ICD Codes: G92 - Toxic encephalopathy SNOMED: 009619170 (5) Supplemental oxygen dependent ICD Codes: Z99.81 - Dependence on supplemental oxygen SNOMED: 483751443049 (6) Anemia ICD Codes: D64.9 - Anemia, unspecified SNOMED: 813792710 Qualifiers: Qualified Codes: D64.9 - Anemia, unspecified (7) Acute exacerbation of CHF (congestive heart failure) ICD Codes: I50.9 - Heart failure, unspecified SNOMED: 32178149 Qualifiers: Qualified Codes: I50.9 - Heart failure, unspecified (8) COPD with exacerbation ICD Codes: J44.1 - Chronic obstructive pulmonary disease with (acute) exacerbation SNOMED: 832005448 Status: stable, progressing Assessment/Plan bipap resp rx o2 steroids ?dc planning Subjective ROS Limited/Unobtainable: No Constitutional: Reports: malaise, weakness HEENT: Reports: no symptoms Cardiovascular: Reports: no symptoms Respiratory: Reports: cough, shortness of breath Gastrointestinal/Abdominal: Reports: no symptoms Genitourinary: Reports: no symptoms Neurologic/Psychiatric: Reports: no symptoms Endocrine: Reports: no symptoms Hematologic/Lymphatic: Reports: no symptoms Allergies: Coded Allergies: PENICILLINS (Verified Allergy, Mild, 07/09/18) Cashew (Verified Allergy, Unknown, 07/09/18) Dust (Verified Allergy, Unknown, 07/09/18) FISH CONTAINING PRODUCTS (Verified Allergy, Unknown, 07/09/18) seafood TOMATO (Verified Allergy, Unknown, 07/09/18) All Systems: reviewed and negative except above Subjective off bipap. eating breakfast. feels "better." no chest pain. close to baseline . Objective Last 24 Hour Vital Signs Date Time Temp Pulse Resp B/P (MAP) Pulse Ox O2 Delivery O2 Flow Rate FiO2 10/10/18 08:01 84 18 99 Nasal Cannula 2.0 28 10/10/18 07:49 68 18 99 Nasal Cannula 2.0 28 10/10/18 05:10 62 20 95 Facial 30 10/10/18 04:00 97.1 82 20 143/74 (97) 98 10/10/18 04:00 78 10/10/18 04:00 3.0 10/10/18 03:40 75 18 99 Bi-pap 30 10/10/18 03:30 75 18 96 Bi-pap 30 10/10/18 03:24 74 18 96 Facial 30 10/10/18 01:15 76 18 96 Facial 30 10/10/18 00:00 72 10/10/18 00:00 3.0 10/10/18 00:00 97.8 71 18 133/70 (91) 97 10/09/18 23:09 72 18 97 Facial 30 10/09/18 23:05 75 18 98 Bi-pap 30 10/09/18 23:05 72 18 97 Bi-pap 30 10/09/18 22:48 73 18 97 Nasal Cannula 2.0 28 10/09/18 22:40 72 18 97 Nasal Cannula 2.0 28 10/09/18 20:42 73 18 98 Nasal Cannula 2.0 28 10/09/18 20:42 62 18 98 Nasal Cannula 2.0 28 10/09/18 20:00 98.7 67 20 113/60 (77) 96 10/09/18 20:00 3.0 10/09/18 20:00 76 10/09/18 16:55 97.5 70 18 130/64 (86) 96 10/09/18 16:21 82 10/09/18 16:00 3.0 10/09/18 15:37 71 16 98 Nasal Cannula 2.0 28 10/09/18 15:24 72 15 95 Nasal Cannula 2.0 28 10/09/18 12:53 70 10/09/18 12:18 3.0 10/09/18 12:00 97.5 75 18 115/64 (81) 96 10/09/18 11:40 69 16 99 Nasal Cannula 2.0 28 10/09/18 11:28 63 18 94 Nasal Cannula 2.0 28 10/09/18 09:50 70 20 96 Nasal Cannula 2.0 28 10/09/18 09:49 69 19 96 Nasal Cannula 2.0 28 10/09/18 09:47 71 104/71 10/09/18 09:45 71 Intake and Output 10/09/18 10/10/18 19:00 07:00 Output Total 1200 ml 1600 ml Balance -1200 ml -1600 ml Output Urine Total 1200 ml 1600 ml Laboratory Tests 10/10/18 04:45: White Blood Count 5.8, Red Blood Count 3.27L, Hemoglobin 9.6L, Hematocrit 31.6L , Mean Corpuscular Volume 96, Mean Corpuscular Hemoglobin 29.4, Mean Corpuscular Hemoglobin Concent 30.5L, Red Cell Distribution Width 14.8, Platelet Count 140L, Mean Platelet Volume 7.4, Neutrophils (%) (Auto) 76.0H, Lymphocytes (%) (Auto) 21.4, Monocytes (%) (Auto) 2.3, Eosinophils (%) (Auto) 0.0, Basophils (%) (Auto) 0.3, Sodium Level 143, Potassium Level 4.6, Chloride Level 102, Carbon Dioxide Level 39H, Anion Gap 1L, Blood Urea Nitrogen 26H, Creatinine 1.1, Estimat Glomerular Filtration Rate , Glucose Level 138H, Calcium Level 9.1, Magnesium Level 2.2, Total Bilirubin 0.2, Aspartate Amino Transf (AST/SGOT) 17, Alanine Aminotransferase (ALT/SGPT) 26, Alkaline Phosphatase 59, Pro-B-Type Natriuretic Peptide 2701H, Total Protein 7.5, Albumin 3.0L, Globulin 4.5, Albumin/Globulin Ratio 0.7L, Thyroid Stimulating Hormone (TSH) 0.231L Height (Feet): 5 Height (Inches): 8.00 Weight (Pounds): 242 Objective General Appearance: WD/WN, alert Neck: supple Cardiovascular: normal rate, regular rhythm Respiratory/Chest: chest wall non-tender, lungs clear, normal breath sounds Abdomen: normal bowel sounds, non tender, soft, no organomegaly Neurologic: commissary officer II-XII grossly normal, alert, oriented x 3, responsive Olivier Blanco MD Oct 10, 2018 08:04
[2018-10-10] MEDS: Advair 250/50 Inhaler - 14 dose INH SCH ×2 (09:10→22:20)
[2018-10-10] MEDS: Vitamin B-12 500mcg tab ORAL SCH (09:20)
[2018-10-10] MEDS: Ascorbic Acid 500mg tab ORAL SCH (09:21)
[2018-10-10] MEDS: Dabigatran 150mg cap ORAL SCH ×2 (09:21→17:09)
[2018-10-10] MEDS: Allopurinol 100mg Tab ORAL SCH ×2 (09:21→17:09)
[2018-10-10] MEDS: Memantine 10mg tab ORAL SCH ×2 (09:22→21:18)
[2018-10-10] MEDS: Solu-MEDROL 40mg Inj IVP SCH (09:22)
[2018-10-10] MEDS: Digoxin 0.125mg tab ORAL SCH (09:22)
[2018-10-10] MEDS: Montelukast 10mg tablet ORAL SCH (17:09)
--- NOTE | 2018-10-10 19:10 | NUR ---
NURSE NOTES: Pt received from DAWNA Umaña alert and oriented x4 with no complaints or s/s of pain, SOB, or n/v. IV site asymptomatic and patent. Bed in lowest position, call light and belongings within reach. No acute distress at this time.
--- NOTE | 2018-10-10 19:25 | NUR ---
HAND-OFF: Report given to DAWNA Huang.
--- NOTE | 2018-10-10 20:00 | Pulmonology Progress Note ---
Assessment/Plan Assessment/Plan Impression CHF with acute exacerbation COPD with acute exacerbation Anemia Thrombocytopenia Atrial fibrillation Hyperglycemia Dementia Toxic metabolic encephalopathy Mild protein calorie malnutrition sleep apnea Plan IV Lasix IV Solu-Medrol- reduce dose Albuterol nebulized therapy Oxygen therapy BiPAP management at night for sleep apnea maintain home medication Monitor leg edema- better Cardiology evaluation noted discharge when patient improves Subjective Allergies: Coded Allergies: PENICILLINS (Verified Allergy, Mild, 07/09/18) Cashew (Verified Allergy, Unknown, 07/09/18) Dust (Verified Allergy, Unknown, 07/09/18) FISH CONTAINING PRODUCTS (Verified Allergy, Unknown, 07/09/18) seafood TOMATO (Verified Allergy, Unknown, 07/09/18) Subjective improved reduced edema care noted on oxygen Objective Last 24 Hour Vital Signs Date Time Temp Pulse Resp B/P (MAP) Pulse Ox O2 Delivery O2 Flow Rate FiO2 10/10/18 17:08 94 132/74 (93) 10/10/18 16:00 3.0 10/10/18 16:00 98.6 89 126/69 (88) 10/10/18 15:30 86 10/10/18 15:19 81 18 99 Nasal Cannula 2.0 28 10/10/18 15:12 74 18 98 Nasal Cannula 2.0 28 10/10/18 12:00 98.3 76 128/79 (95) 10/10/18 12:00 3.0 10/10/18 11:50 89 10/10/18 11:07 85 18 99 Nasal Cannula 2.0 28 10/10/18 11:00 72 18 98 Nasal Cannula 2.0 28 10/10/18 09:22 88 10/10/18 09:21 88 146/82 10/10/18 09:10 88 18 95 Nasal Cannula 2.0 28 10/10/18 09:10 88 18 95 Nasal Cannula 2.0 28 10/10/18 08:01 84 18 99 Nasal Cannula 2.0 28 10/10/18 08:00 3.0 10/10/18 08:00 98.5 72 146/82 (103) 10/10/18 08:00 Nasal Cannula 2.0 10/10/18 07:49 68 18 99 Nasal Cannula 2.0 28 10/10/18 07:47 77 10/10/18 05:10 62 20 95 Facial 30 10/10/18 04:00 97.1 82 20 143/74 (97) 98 10/10/18 04:00 78 10/10/18 04:00 3.0 10/10/18 03:40 75 18 99 Bi-pap 30 10/10/18 03:30 75 18 96 Bi-pap 30 10/10/18 03:24 74 18 96 Facial 30 10/10/18 01:15 76 18 96 Facial 30 10/10/18 00:00 72 10/10/18 00:00 3.0 10/10/18 00:00 97.8 71 18 133/70 (91) 97 10/09/18 23:09 72 18 97 Facial 30 10/09/18 23:05 75 18 98 Bi-pap 30 10/09/18 23:05 72 18 97 Bi-pap 30 10/09/18 22:48 73 18 97 Nasal Cannula 2.0 28 10/09/18 22:40 72 18 97 Nasal Cannula 2.0 28 10/09/18 20:42 73 18 98 Nasal Cannula 2.0 28 10/09/18 20:42 62 18 98 Nasal Cannula 2.0 28 10/09/18 20:00 98.7 67 20 113/60 (77) 96 10/09/18 20:00 3.0 10/09/18 20:00 76 Intake and Output 10/09/18 10/10/18 19:00 07:00 Output Total 1200 ml 1600 ml Balance -1200 ml -1600 ml Output Urine Total 1200 ml 1600 ml Objective WDWN NAD reduced breath sounds bilaterally without rhonchi or wheeze S1S2 iRRR without MRG NABS nontender no HSM no CC chronic edema with skin changes nonfocal Laboratory Tests 10/10/18 04:45: White Blood Count 5.8, Red Blood Count 3.27L, Hemoglobin 9.6L, Hematocrit 31.6L , Mean Corpuscular Volume 96, Mean Corpuscular Hemoglobin 29.4, Mean Corpuscular Hemoglobin Concent 30.5L, Red Cell Distribution Width 14.8, Platelet Count 140L, Mean Platelet Volume 7.4, Neutrophils (%) (Auto) 76.0H, Lymphocytes (%) (Auto) 21.4, Monocytes (%) (Auto) 2.3, Eosinophils (%) (Auto) 0.0, Basophils (%) (Auto) 0.3, Sodium Level 143, Potassium Level 4.6, Chloride Level 102, Carbon Dioxide Level 39H, Anion Gap 1L, Blood Urea Nitrogen 26H, Creatinine 1.1, Estimat Glomerular Filtration Rate , Glucose Level 138H, Calcium Level 9.1, Magnesium Level 2.2, Total Bilirubin 0.2, Aspartate Amino Transf (AST/SGOT) 17, Alanine Aminotransferase (ALT/SGPT) 26, Alkaline Phosphatase 59, Pro-B-Type Natriuretic Peptide 2701H, Total Protein 7.5, Albumin 3.0L, Globulin 4.5, Albumin/Globulin Ratio 0.7L, Thyroid Stimulating Hormone (TSH) 0.231L Current Medications Medications (Trade) Dose Ordered Sig/Rocío Route PRN Reason Start Time Stop Time Status Last Admin Dose Admin Albuterol Sulfate (Proventil) 2.5 mg Q4H PRN N Shortness of Breath 10/08/18 06:00 10/13/18 05:59 Albuterol/ Ipratropium (Albuterol/ Ipratropium) 3 ml Q4HRT N 10/08/18 07:00 10/13/18 06:59 10/10/18 15:12 Allopurinol (Zyloprim) 100 mg BID ORAL 10/08/18 09:00 11/07/18 08:59 10/10/18 17:09 Amlodipine Besylate (Norvasc) 10 mg DAILY ORAL 10/08/18 09:00 11/07/18 08:59 10/10/18 09:21 Ascorbic Acid (Vitamin C) 1,000 mg DAILY ORAL 10/08/18 09:00 11/07/18 08:59 10/10/18 09:21 Cyanocobalamin (Vitamin B-12) 1,000 mcg DAILY ORAL 10/08/18 09:00 11/07/18 08:59 10/10/18 09:20 Dabigatran (Pradaxa) 150 mg BID ORAL 10/08/18 09:00 11/07/18 08:59 10/10/18 17:09 Digoxin (Lanoxin) 0.125 mg DAILY ORAL 10/08/18 09:00 11/07/18 08:59 10/10/18 09:22 Furosemide (Lasix) 20 mg EVERY 12 HOURS IV 10/08/18 09:00 11/07/18 08:59 10/10/18 09:21 Memantine (Namenda) 10 mg Q12HR ORAL 10/08/18 09:00 11/07/18 08:59 10/10/18 09:22 Methylprednisolone Sodium Succinate (Solu-MEDROL) 40 mg EVERY 12 HOURS IVP 10/08/18 09:00 11/07/18 08:59 10/10/18 09:22 Mirtazapine (Remeron) 30 mg BEDTIME ORAL 10/08/18 21:00 11/07/18 20:59 10/09/18 20:33 Montelukast Sodium (Singulair) 10 mg QPM ORAL 10/08/18 16:30 11/07/18 16:29 10/10/18 17:09 Nebivolol (Bystolic) 10 mg BID ORAL 10/08/18 09:00 11/07/18 08:59 10/10/18 17:09 Oxybutynin Chloride (Ditropan) 5 mg Q8HR ORAL 10/08/18 14:00 11/07/18 13:59 10/10/18 14:17 Salmeterol Xinafoate/ Fluticasone (Advair 250/50 Diskus) 1 puffs BIDRT INH 10/08/18 10:00 11/07/18 09:59 10/10/18 09:10 Stevan Pace MD Oct 10, 2018 20:00
--- NOTE | 2018-10-10 23:45 | Progress Note ---
DATE: 10/10/2018 CARDIOLOGY PROGRESS NOTE SUBJECTIVE: The patient feels better, "I'm doing great from my age." Leg swelling is down. She has less shortness of breath. Echocardiogram reviewed notable for normal ejection fraction, mild mitral and aortic insufficiency, and significant pulmonary hypertension with PA systolic estimated over 80 mmHg. OBJECTIVE: VITAL SIGNS: Blood pressure 137/75, pulse 91, respirations 17, and afebrile. NECK: Supple. LUNGS: Clear with breath sounds. Few rhonchi. CARDIAC: Irregularly irregular rhythm. Normal S1 and S2. A 1/6 systolic apical murmur. ABDOMEN: Soft. EXTREMITIES: Trace to 1+ dependent edema. LABORATORY DATA: White count 5.8 and hemoglobin 9.6. Potassium 4.6, BUN 26, creatinine 1.1, and bicarbonate 39. Pro-natriuretic peptide 2700. IMPRESSION: 1. Acute on chronic diastolic congestive heart failure, improved. 2. Metabolic alkalosis is worsening. 3. Pulmonary hypertension. 4. Acute on chronic venous insufficiency. 5. Mild protein-calorie malnutrition. 6. Atrial fibrillation, rate controlled. PLAN: Consider acetazolamide. Transition to oral furosemide. Continue dabigatran for cardioembolic prophylaxis. Maintain current cardiovascular regimen otherwise without change. The patient is tolerating beta-millicent without bronchospasm. Gerardo Calix M.D. DR: FERNANDO JOB#: [id number] CC:
--- NOTE | 2018-10-10 23:45 | Consultation ---
DATE OF CONSULTATION: 10/08/2018 CONSULTING PHYSICIAN: eGrardo Calix M.D. REQUESTING PHYSICIAN: Olivier Blanco M.D. REASON FOR CONSULTATION: Congestive heart failure in the setting of COPD. HISTORY OF PRESENT ILLNESS: This is an 83-year-old female. She has a longstanding history of hypertensive heart disease, COPD, and diastolic dysfunction. She has had progressive shortness of breath, orthopnea, and PND as well as leg swelling for the past several days prior to admission despite increasing doses of her oral diuretic therapy. She has been compliant with her medications and dietary salt restrictions. She apparently had any cold for the past few days and she feels "may have started all this." PAST MEDICAL HISTORY: COPD, pulmonary hypertension, hypertensive heart disease, paroxysmal atrial fibrillation, sleep apnea, chronic venous insufficiency, and osteoarthritis. ALLERGIES: Include penicillin and fish. FAMILY HISTORY: Noncontributory. SOCIAL HISTORY: Distant smoker. REVIEW OF SYSTEMS: No fevers or chills. Some cough and sputum production. She has sleep apnea and uses a machine. There is no history of stroke. She does have glucose intolerance when she is on steroids. She is not on insulin. There is no history of melena or bright red blood per rectum. There is no history of kidney failure. Prior echocardiograms were reviewed and notable for normal ejection fraction. PHYSICAL EXAMINATION: VITAL SIGNS: Afebrile, blood pressure 128/65, pulse 72, and respiratory rate 19. HEENT: Conjunctivae are pink. Sclerae are anicteric. Oropharynx clear. NECK: Supple. Jugular venous pressure elevated. LUNGS: Diminished breath sounds. Few rhonchi. No wheezes. CARDIAC: Irregularly irregular. Normal S1, S2. A 1/6 systolic murmur at apex. ABDOMEN: Soft and nontender. No ascites. EXTREMITIES: 2+ pitting edema. NEUROLOGIC: Nonfocal. LABORATORY DATA: Pro-natriuretic peptide with over 4000. White count 6 and hemoglobin 9. Sodium 142, potassium 4.4, bicarbonate 34, BUN 18, and creatinine 0.8. Chest x-ray revealed cardiomegaly with interstitial congestion. IMPRESSION: 1. Acute on chronic diastolic congestive heart failure. 2. Chronic obstructive pulmonary disease with exacerbation. 3. Acute bronchitis. 4. History of pulmonary hypertension. 5. Hypertensive heart disease. 6. Paroxysmal atrial fibrillation, rate controlled. PLAN: 1. Diuresis with intravenous diuretics. 2. Replace potassium. 3. Consider acetazolamide if rising bicarb levels are noted. 4. Continue dabigatran for cardioembolic prophylaxis. 5. Steroids per truck sales manager. 6. Inhaled bronchodilators. 7. BiPAP as needed. 8. Cautious use of beta-millicent. 9. May consider tapering off insulin coverage by sliding scale while on high-dose steroids. Gerardo Calix M.D. DR: CARLOS JOB#: [id number] CC:
[2018-10-11] VITALS: BP 147/78
--- NOTE | 2018-10-11 01:08 | NUR ---
NURSE NOTES: RN entered pt's room and found IV sites lost and on the bed with scant amount of blood on the sheets. RN asked pt if she accidentally pulled her IV site. Pt stated, "Yes, because I need to go to the living room and get my things because the doctor is coming to see me so I need to go to the doctor's office." Pt was alert and oriented x2, VSS stable. RN reoriented pt to place, time, and purpose, pt nodded her head and stated, "Yeah, but I still need to go to see my doctor." Pt required frequent reorientation for safety.
[2018-10-11] MEDS: Albuterol/Ipratropium 3ml neb HHN SCH ×7 (03:00→23:00)
--- NOTE | 2018-10-11 03:35 | NUR ---
RESPIRATORY NOTE: Pt. refused breathing tx.(right after i scanned the medication.) Pt. was asked prior to scanning if she wants breathing tx, pt said yes.
--- NOTE | 2018-10-11 04:53 | NUR ---
NURSE NOTES: Pt began to use her Bedside Commode as a walker to attempt to leave the unit, stating that she has to go and see her doctor for an appointment. RN reoriented pt and attempted to escort her back to her room where pt began to get irate and started yelling. Security called, escorted pt back to room. Will continue to monitor for safety.
[2018-10-11] MEDS: Oxybutynin 5mg tab ORAL SCH ×4 (05:52→22:36)
--- NOTE | 2018-10-11 07:23 | General Progress Note ---
Assessment/Plan Problem List: (1) Dyspnea ICD Codes: R06.00 - Dyspnea, unspecified SNOMED: 167205781 (2) Respiratory distress ICD Codes: R06.00 - Dyspnea, unspecified SNOMED: 978939097 (3) Atrial fibrillation with RVR ICD Codes: I48.91 - Unspecified atrial fibrillation SNOMED: 166597980540480 (4) Toxic metabolic encephalopathy ICD Codes: G92 - Toxic encephalopathy SNOMED: 648879415 (5) Supplemental oxygen dependent ICD Codes: Z99.81 - Dependence on supplemental oxygen SNOMED: 124247489742 (6) Anemia ICD Codes: D64.9 - Anemia, unspecified SNOMED: 441354778 Qualifiers: Qualified Codes: D64.9 - Anemia, unspecified (7) Acute exacerbation of CHF (congestive heart failure) ICD Codes: I50.9 - Heart failure, unspecified SNOMED: 19091677 Qualifiers: Qualified Codes: I50.9 - Heart failure, unspecified (8) COPD with exacerbation ICD Codes: J44.1 - Chronic obstructive pulmonary disease with (acute) exacerbation SNOMED: 825093357 Status: stable, progressing Assessment/Plan bipap resp rx o2 steroids- weaning ?dc planning Subjective ROS Limited/Unobtainable: No Constitutional: Reports: malaise, weakness HEENT: Reports: no symptoms Cardiovascular: Reports: no symptoms Respiratory: Reports: cough Gastrointestinal/Abdominal: Reports: no symptoms Genitourinary: Reports: no symptoms Neurologic/Psychiatric: Reports: no symptoms Endocrine: Reports: no symptoms Hematologic/Lymphatic: Reports: no symptoms Allergies: Coded Allergies: PENICILLINS (Verified Allergy, Mild, 07/09/18) Cashew (Verified Allergy, Unknown, 07/09/18) Dust (Verified Allergy, Unknown, 07/09/18) FISH CONTAINING PRODUCTS (Verified Allergy, Unknown, 07/09/18) seafood TOMATO (Verified Allergy, Unknown, 07/09/18) All Systems: reviewed and negative except above Subjective off bipap. eating breakfast. feels "better." no chest pain. close to baseline. wants togo home . Objective Last 24 Hour Vital Signs Date Time Temp Pulse Resp B/P (MAP) Pulse Ox O2 Delivery O2 Flow Rate FiO2 10/11/18 04:00 90 10/11/18 04:00 3.0 10/11/18 03:29 Nasal Cannula 2.0 28 10/11/18 03:28 81 18 99 Bi-pap 30 10/11/18 00:23 69 23 97 10/11/18 00:15 87 18 100 Bi-pap 30 10/11/18 00:00 94 10/11/18 00:00 81 28 99 Facial 30 10/11/18 00:00 98.1 52 17 147/78 (101) 95 10/10/18 23:58 81 18 99 Bi-pap 30 10/10/18 22:32 84 21 94 Facial 30 10/10/18 22:23 84 18 94 Nasal Cannula 2.0 28 10/10/18 22:20 84 18 94 Nasal Cannula 2.0 28 10/10/18 20:40 76 18 97 Nasal Cannula 2.0 28 10/10/18 20:00 98.4 91 17 137/75 (95) 97 10/10/18 20:00 94 10/10/18 20:00 3.0 10/10/18 17:08 94 132/74 (93) 10/10/18 16:00 3.0 10/10/18 16:00 98.6 89 126/69 (88) 10/10/18 15:30 86 10/10/18 15:19 81 18 99 Nasal Cannula 2.0 28 10/10/18 15:12 74 18 98 Nasal Cannula 2.0 28 10/10/18 12:00 98.3 76 128/79 (95) 10/10/18 12:00 3.0 10/10/18 11:50 89 10/10/18 11:07 85 18 99 Nasal Cannula 2.0 28 10/10/18 11:00 72 18 98 Nasal Cannula 2.0 28 10/10/18 09:22 88 10/10/18 09:21 88 146/82 10/10/18 09:10 88 18 95 Nasal Cannula 2.0 28 10/10/18 09:10 88 18 95 Nasal Cannula 2.0 28 10/10/18 08:01 84 18 99 Nasal Cannula 2.0 28 10/10/18 08:00 3.0 10/10/18 08:00 98.5 72 146/82 (103) 10/10/18 08:00 Nasal Cannula 2.0 10/10/18 07:49 68 18 99 Nasal Cannula 2.0 28 10/10/18 07:47 77 Intake and Output 10/10/18 10/11/18 18:59 06:59 Intake Total 150 ml Output Total 650 ml Balance -500 ml Intake Oral 150 ml Output Urine Total 650 ml # Voids 3 3 Height (Feet): 5 Height (Inches): 8.00 Weight (Pounds): 242 Objective General Appearance: WD/WN, alert Neck: supple Cardiovascular: normal rate, regular rhythm Respiratory/Chest: chest wall non-tender, lungs clear, normal breath sounds Abdomen: normal bowel sounds, non tender, soft, no organomegaly Neurologic: president and ceo II-XII grossly normal, alert, oriented x 3, responsive Olivier Blanco MD Oct 11, 2018 07:23
--- NOTE | 2018-10-11 07:40 | NUR ---
NURSE NOTES: Received report from Sal TONEY. Pt is awake, alert, oriented x2, with moments of confusion, forgets she is at the hospital, stating "I am at home", and searches for her granddaughter in her room. Pt was reoriented, and assisted with breakfast tray. Denies pain. On 3L of oxygen via nasal cannula. Skin has no open wounds, bilateral lower extremity edema present. Bed side commode setup, pt is able to use the commode with one person assist. Pt pulled out her IV access and the tele monitor off her chest during the previous shift, will replace as soon as possible. Call light is placed within easy reach, bed in lowest position, two side rails up, brakes engaged, alarm on. Will continue to monitor pt and follow plan of care per MD orders and protocol. Addendum: 10/11/18 at 1227 by VALERY SONG RN New IV access #[id number] started on right hand, saline lock, patent/intact. Tele monitor placed back on pt.
--- NOTE | 2018-10-11 07:42 | NUR ---
HAND-OFF: Report given to DAWNA Willoughby.
[2018-10-11 08:00] VITALS: BP 138/89
[2018-10-11] MEDS: Vitamin B-12 500mcg tab ORAL SCH (08:43)
[2018-10-11] MEDS: Dabigatran 150mg cap ORAL SCH ×2 (08:43→17:47)
[2018-10-11] MEDS: Allopurinol 100mg Tab ORAL SCH ×2 (08:44→17:47)
[2018-10-11] MEDS: Ascorbic Acid 500mg tab ORAL SCH (08:44)
[2018-10-11] MEDS: Digoxin 0.125mg tab ORAL SCH (08:44)
[2018-10-11] MEDS: Solu-MEDROL 40mg Inj IVP SCH (08:45)
[2018-10-11] MEDS: Memantine 10mg tab ORAL SCH ×3 (08:45→22:35)
--- NOTE | 2018-10-11 09:09 | Cardiology Report ---
APPROVED REPORT EXAM: Two-dimensional and M-mode echocardiogram with Doppler and color Doppler. INDICATION Congestive Heart Failure M-Mode DIMENSIONS IVSd0.6 (0.7-1.1cm)Left Atrium (MM)4.5 (1.6-4.0cm) LVDd5.7 (3.5-5.6cm)Aortic Root3.5 (2.0-3.7cm) PWd0.9 (0.7-1.1cm)Aortic Cusp Exc.2.1 (1.5-2.0cm) LVDs4.1 (2.5-4.0cm) PWs1.1 cm Other Information Technically limited study due to poor acoustical windows. Normal left ventricular chamber size, systolic function and wall motion to extent visualized. Left ventricular ejection fraction estimated to be 55-60 %. Mild left ventricular hypertrophy by 2-D. Anterior Echo-free space, may be due to pericardial fat or effusion. Severe left atrial enlargement. Moderate right atrial enlargement. Right ventricular chamber size is within normal limits. Focal aortic valve sclerosis with adequate cusp excursion. Thickened mitral valve leaflets with normal excursion. Mitral annulus and aortic root calcification. Pulmonic valve not well visualized. Normal tricuspid valve structure. IVC dilated at 3.2 cm with slight physiologic collapse suggestive of increased RA pressure. A color flow and spectral Doppler study was performed and revealed: Moderate mitral regurgitation. Can not determine left ventricular diastolic function based on mitral diastolic velocities due to atrial fibrillation. Moderate tricuspid regurgitation. Tricuspid systolic velocities suggests peak right ventricular systolic pressure of 76 mmHg, consistent with severe pulmonary hypertension. Pulmonic regurgitation present.
--- NOTE | 2018-10-11 09:41 | NUR ---
RESPIRATORY NOTE: pt has since been off bipap. on 3L NC, decreased to 2L NC. no redness or skin breakdown around facial area. will cont to monitor.
[2018-10-11] MEDS: Advair 250/50 Inhaler - 14 dose INH SCH ×2 (09:42→21:10)
[2018-10-11 12:00] VITALS: BP 145/68
[2018-10-11 16:00] VITALS: BP 148/91
--- NOTE | 2018-10-11 16:03 | Pulmonology Progress Note ---
Assessment/Plan Assessment/Plan Pulmonary Progress Note HPI Patient is an 83-year-old female who presented with worsening leg edema worsening shortness of breath. The patient has no known history of COPD and congestive heart failure as well as paroxysmal atrial fibrillation. The patient has been receiving IV Lasix at home without significant improvement the patient notes worsening shortness of breath dyspnea on exertion orthopnea. The patient is using oxygen at home. Patient was noted to have evidence of pulmonary edema by elevated natruretic peptide of over 4000. The patient x-ray as well suggested pulmonary edema. The patient was given Lasix in the emergency room also was felt to have COPD exacerbation. The patient notes worsening debility worsening shortness of breath worsening immobility. The patient care discussed and reviewed with a daughter over the past several days the patient has also had some blistering of the lower extremities. Patient without any recent fevers or chills or sputum production Past medical history notable for: Hypertension asthma congestive heart failure paroxysmal atrial fibrillation failure to thrive sleep apnea history cellulitis chronic constipation atrial fibrillation with rapid ventricular response history of cellulitis history of gout history of dementia Medications reviewed and reconciled Allergies reviewed and reconciled Review of systems All 10 points reviewed and are otherwise negative. The patient does use a walker for walking. She uses oxygen chronically. She has been less active and more edematous She has had some sundowning in the past Objective Physical examination Well-developed female in no acute distress Vital signs noted HDP negative except all extremities are grossly intact oropharynx is moist Neck is supple carotids are 2+ Lungs with reduced breath sounds bilaterally occasional rhonchi wheezes Cardiac exam normal S1-S2 with overall irregularly irregular rhythm but rate controlled No murmurs rubs gallops Abdomen is soft nontender nondistended Extremities with significant complete pitting edema with chronic changes and blistering of the lower extremities Neurologically grossly nonfocal slightly confused Labs Test 10/07/18 21:56 10/07/18 23:05 10/07/18 23:23 Urine Color Pale yellow Urine Appearance Clear Urine pH 7 (4.5-8.0) Urine Specific [place] 1.010 (1.005-1.035) Urine Protein 1+ (NEGATIVE) Urine Glucose (UA) Negative (NEGATIVE) Urine Ketones Negative (NEGATIVE) Urine Blood Negative (NEGATIVE) Urine Nitrite Negative (NEGATIVE) Urine Bilirubin Negative (NEGATIVE) Urine Urobilinogen Normal MG/DL (0.0-1.0) Urine Leukocyte Esterase 1+ (NEGATIVE) Urine RBC 0-2 /HPF (0 - 2) Urine WBC 0-2 /HPF (0 - 2) Urine Squamous Epithelial Cells Occasional /LPF Urine Bacteria None /HPF (NONE) White Blood Count 6.8 K/UL (4.8-10.8) Red Blood Count 3.10 M/UL (4.20-5.40) Hemoglobin 9.4 G/DL (12.0-16.0) Hematocrit 30.6 % (37.0-47.0) Mean Corpuscular Volume 99 FL (80-99) Mean Corpuscular Hemoglobin 30.3 PG (27.0-31.0) Mean Corpuscular Hemoglobin Concent 30.7 G/DL (32.0-36.0) Red Cell Distribution Width 15.0 % (11.6-14.8) Platelet Count 122 K/UL (150-450) Mean Platelet Volume 7.0 FL (6.5-10.1) Neutrophils (%) (Auto) 62.9 % (45.0-75.0) Lymphocytes (%) (Auto) 25.5 % (20.0-45.0) Monocytes (%) (Auto) 6.9 % (1.0-10.0) Eosinophils (%) (Auto) 3.0 % (0.0-3.0) Basophils (%) (Auto) 1.6 % (0.0-2.0) Troponin I 0.018 ng/mL (0.000-0.056) Prothrombin Time 13.8 SEC (9.30-11.50) Prothromb Time International Ratio 1.3 (0.9-1.1) Activated Partial Thromboplast Time 37 SEC (23-33) Sodium Level 142 MMOL/L (136-145) Potassium Level 4.4 MMOL/L (3.5-5.1) Chloride Level 104 MMOL/L (98-107) Carbon Dioxide Level 34 MMOL/L (21-32) Anion Gap 5 mmol/L (5-15) Blood Urea Nitrogen 18 mg/dL (7-18) Creatinine 0.8 MG/DL (0.55-1.30) Estimat Glomerular Filtration Rate mL/min (>60) Glucose Level 128 MG/DL (74-106) Calcium Level 9.2 MG/DL (8.5-10.1) Total Bilirubin 0.2 MG/DL (0.2-1.0) Aspartate Amino Transf (AST/SGOT) 26 U/L (15-37) Alanine Aminotransferase (ALT/SGPT) 29 U/L (12-78) Alkaline Phosphatase 82 U/L (46-116) Total Creatine Kinase 159 U/L (26-308) Creatine Kinase MB 1.9 NG/ML (0.0-3.6) Creatine Kinase MB Relative Index 1.1 Pro-B-Type Natriuretic Peptide 4041 pg/mL (0-125) Total Protein 7.1 G/DL (6.4-8.2) Albumin 3.1 G/DL (3.4-5.0) Globulin 4.0 g/dL Albumin/Globulin Ratio 0.8 (1.0-2.7) Impression CHF with acute exacerbation COPD with acute exacerbation Anemia Thrombocytopenia Atrial fibrillation Hyperglycemia Dementia Toxic metabolic encephalopathy Mild protein calorie malnutrition sleep apnea Plan IV Lasix IV Solu-Medrol Albuterol nebulized therapy Oxygen therapy BiPAP management at night for sleep apnea Resume home medication Monitor leg edema Cardiology evaluation Stabilizing discharge when patient improves Subjective ROS Limited/Unobtainable: No Allergies: Coded Allergies: PENICILLINS (Verified Allergy, Mild, 07/09/18) Cashew (Verified Allergy, Unknown, 07/09/18) Dust (Verified Allergy, Unknown, 07/09/18) FISH CONTAINING PRODUCTS (Verified Allergy, Unknown, 07/09/18) seafood TOMATO (Verified Allergy, Unknown, 07/09/18) Objective Last 24 Hour Vital Signs Date Time Temp Pulse Resp B/P (MAP) Pulse Ox O2 Delivery O2 Flow Rate FiO2 10/11/18 15:38 89 20 99 Nasal Cannula 2.0 28 10/11/18 15:32 82 20 97 Nasal Cannula 2.0 28 10/11/18 12:00 71 10/11/18 12:00 2.0 10/11/18 12:00 97.9 65 16 145/68 (93) 99 10/11/18 11:15 79 20 99 Nasal Cannula 2.0 28 10/11/18 11:09 75 20 97 Nasal Cannula 2.0 28 10/11/18 09:39 75 20 96 Nasal Cannula 2.0 28 10/11/18 09:39 74 20 96 Nasal Cannula 2.0 28 10/11/18 08:45 85 139/89 10/11/18 08:44 85 10/11/18 08:15 98 Nasal Cannula 3.0 32 10/11/18 08:15 Nasal Cannula 3.0 32 10/11/18 08:12 74 20 99 Nasal Cannula 3.0 32 10/11/18 08:05 71 20 98 Nasal Cannula 3.0 32 10/11/18 08:00 3.0 10/11/18 08:00 Nasal Cannula 2.0 10/11/18 08:00 Nasal Cannula 2.0 10/11/18 08:00 79 10/11/18 08:00 98.2 85 16 138/89 (105) 100 10/11/18 04:00 90 10/11/18 04:00 3.0 10/11/18 03:29 Nasal Cannula 2.0 28 10/11/18 03:28 81 18 99 Bi-pap 30 10/11/18 00:23 69 23 97 10/11/18 00:15 87 18 100 Bi-pap 30 10/11/18 00:00 94 10/11/18 00:00 81 28 99 Facial 30 10/11/18 00:00 98.1 52 17 147/78 (101) 95 10/10/18 23:58 81 18 99 Bi-pap 30 10/10/18 22:32 84 21 94 Facial 30 10/10/18 22:23 84 18 94 Nasal Cannula 2.0 28 10/10/18 22:20 84 18 94 Nasal Cannula 2.0 28 10/10/18 20:40 76 18 97 Nasal Cannula 2.0 28 10/10/18 20:00 98.4 91 17 137/75 (95) 97 10/10/18 20:00 94 10/10/18 20:00 3.0 10/10/18 17:08 94 132/74 (93) Intake and Output 10/10/18 10/11/18 19:00 07:00 Intake Total 150 ml Output Total 650 ml Balance -500 ml Intake Oral 150 ml Output Urine Total 650 ml # Voids 3 3 Current Medications Medications (Trade) Dose Ordered Sig/Rocío Route PRN Reason Start Time Stop Time Status Last Admin Dose Admin Albuterol Sulfate (Proventil) 2.5 mg Q4H PRN HHN Shortness of Breath 10/08/18 06:00 10/13/18 05:59 Albuterol/ Ipratropium (Albuterol/ Ipratropium) 3 ml Q4HRT HHN 10/08/18 07:00 10/13/18 06:59 10/11/18 15:30 Allopurinol (Zyloprim) 100 mg BID ORAL 10/08/18 09:00 11/07/18 08:59 10/11/18 08:44 Amlodipine Besylate (Norvasc) 10 mg DAILY ORAL 10/08/18 09:00 11/07/18 08:59 10/11/18 08:45 Ascorbic Acid (Vitamin C) 1,000 mg DAILY ORAL 10/08/18 09:00 11/07/18 08:59 10/11/18 08:44 Cyanocobalamin (Vitamin B-12) 1,000 mcg DAILY ORAL 10/08/18 09:00 11/07/18 08:59 10/11/18 08:43 Dabigatran (Pradaxa) 150 mg BID ORAL 10/08/18 09:00 11/07/18 08:59 10/11/18 08:43 Digoxin (Lanoxin) 0.125 mg DAILY ORAL 10/08/18 09:00 11/07/18 08:59 10/11/18 08:44 Furosemide (Lasix) 20 mg EVERY 12 HOURS IV 10/08/18 09:00 11/07/18 08:59 10/11/18 08:43 Memantine (Namenda) 10 mg Q12HR ORAL 10/08/18 09:00 11/07/18 08:59 10/11/18 08:45 Methylprednisolone Sodium Succinate (Solu-MEDROL) 40 mg DAILY IVP 10/11/18 09:00 11/07/18 08:59 10/11/18 08:45 Mirtazapine (Remeron) 30 mg BEDTIME ORAL 10/08/18 21:00 11/07/18 20:59 10/10/18 21:17 Montelukast Sodium (Singulair) 10 mg QPM ORAL 10/08/18 16:30 11/07/18 16:29 10/10/18 17:09 Nebivolol (Bystolic) 10 mg BID ORAL 10/08/18 09:00 11/07/18 08:59 10/11/18 08:43 Oxybutynin Chloride (Ditropan) 5 mg Q8HR ORAL 10/08/18 14:00 11/07/18 13:59 10/11/18 14:36 Salmeterol Xinafoate/ Fluticasone (Advair 250/50 Diskus) 1 puffs BIDRT INH 10/08/18 10:00 11/07/18 09:59 10/11/18 09:42 Gerardo Rangel MD Oct 11, 2018 16:03
[2018-10-11] MEDS: Montelukast 10mg tablet ORAL SCH (17:47)
[2018-10-11 20:00] VITALS: BP 131/80
--- NOTE | 2018-10-11 20:08 | NUR ---
HAND-OFF: Report given to Taqueria TONEY. Pt is sitting up at bedside, watching TV in stable condition. Endorsed plan of care.
--- NOTE | 2018-10-11 20:10 | NUR ---
Received patient from DAWNA Ramos. Patient in bed awake with no signs of acute distress. Respiration even and non labored on 2L NC. IV line patent and intact. VS stable. Bed in lowest position. All needs attended and met. Call light within reach. Will continue plan of care.
--- NOTE | 2018-10-11 21:30 | NUR ---
NURSE NOTES: Patient refused all scheduled medications and BiPAP. Patients states "Im not taking anything at this time, I'm already sleeping and you woke me up. I'm going home". Explained to patient the risks and benefits of medications x3. Patient is AOx2 with episode of confusion. Will continue to monitor
[2018-10-12] VITALS: BP 133/75
--- NOTE | 2018-10-12 02:00 | NUR ---
NURSE NOTES: Patient refused to have Bipap on. RT attempted to have the Bipap on x2 to patient and explained risks and benefits, Patient still refused and complaining of being awaken.
[2018-10-12] MEDS: Albuterol/Ipratropium 3ml neb HHN SCH ×3 (03:30→11:14)
[2018-10-12 04:00] VITALS: BP 122/71
[2018-10-12] MEDS: Oxybutynin 5mg tab ORAL SCH (06:48)
--- NOTE | 2018-10-12 07:50 | NUR ---
HAND-OFF: Report given to DAWNA Delgado.
--- NOTE | 2018-10-12 07:51 | NUR ---
NURSE NOTES: received patient report from rohit rn. patient is on bed awake. not in acute distress. able to verbalize needs. bed is low and locked fo safety. will continue ot monitor.
[2018-10-12 08:00] VITALS: BP 143/89
[2018-10-12] MEDS: Ascorbic Acid 500mg tab ORAL SCH (08:36)
[2018-10-12] MEDS: Dabigatran 150mg cap ORAL SCH (08:36)
[2018-10-12] MEDS: Memantine 10mg tab ORAL SCH (08:36)
[2018-10-12] MEDS: Digoxin 0.125mg tab ORAL SCH (08:36)
[2018-10-12] MEDS: Vitamin B-12 500mcg tab ORAL SCH (08:36)
[2018-10-12] MEDS: Allopurinol 100mg Tab ORAL SCH (08:36)
[2018-10-12] MEDS: Solu-MEDROL 40mg Inj IVP SCH (08:37)
[2018-10-12] MEDS: Advair 250/50 Inhaler - 14 dose INH SCH (09:54)
[2018-10-12 12:00] VITALS: BP 119/82
--- NOTE | 2018-10-12 12:06 | General Progress Note ---
Assessment/Plan Problem List: (1) Dyspnea ICD Codes: R06.00 - Dyspnea, unspecified SNOMED: 010212374 (2) Respiratory distress ICD Codes: R06.00 - Dyspnea, unspecified SNOMED: 830702109 (3) Atrial fibrillation with RVR ICD Codes: I48.91 - Unspecified atrial fibrillation SNOMED: 482170847803851 (4) Toxic metabolic encephalopathy ICD Codes: G92 - Toxic encephalopathy SNOMED: 913315104 (5) Supplemental oxygen dependent ICD Codes: Z99.81 - Dependence on supplemental oxygen SNOMED: 285774662981 (6) Anemia ICD Codes: D64.9 - Anemia, unspecified SNOMED: 494381134 Qualifiers: Qualified Codes: D64.9 - Anemia, unspecified (7) Acute exacerbation of CHF (congestive heart failure) ICD Codes: I50.9 - Heart failure, unspecified SNOMED: 16942999 Qualifiers: Qualified Codes: I50.9 - Heart failure, unspecified (8) COPD with exacerbation ICD Codes: J44.1 - Chronic obstructive pulmonary disease with (acute) exacerbation SNOMED: 861155401 Status: stable, progressing Assessment/Plan bipap resp rx o2 steroids- weaning ?dc planning Subjective ROS Limited/Unobtainable: No Constitutional: Reports: malaise, weakness HEENT: Reports: no symptoms Cardiovascular: Reports: no symptoms Respiratory: Reports: cough Gastrointestinal/Abdominal: Reports: no symptoms Genitourinary: Reports: no symptoms Neurologic/Psychiatric: Reports: no symptoms Endocrine: Reports: no symptoms Hematologic/Lymphatic: Reports: no symptoms Allergies: Coded Allergies: PENICILLINS (Verified Allergy, Mild, 07/09/18) Cashew (Verified Allergy, Unknown, 07/09/18) Dust (Verified Allergy, Unknown, 07/09/18) FISH CONTAINING PRODUCTS (Verified Allergy, Unknown, 07/09/18) seafood TOMATO (Verified Allergy, Unknown, 07/09/18) All Systems: reviewed and negative except above Subjective no complaints. feels better. back to baseline. no nausea or vomiting, eating breakfast Objective Last 24 Hour Vital Signs Date Time Temp Pulse Resp B/P (MAP) Pulse Ox O2 Delivery O2 Flow Rate FiO2 10/12/18 11:20 74 22 99 Nasal Cannula 2.0 28 10/12/18 11:15 69 20 98 Nasal Cannula 2.0 28 10/12/18 09:55 78 20 96 Nasal Cannula 2.0 28 10/12/18 09:54 78 20 96 Nasal Cannula 2.0 28 10/12/18 09:00 Nasal Cannula 2.0 10/12/18 08:36 80 10/12/18 08:36 80 143/89 10/12/18 08:17 69 20 99 Nasal Cannula 2.0 28 10/12/18 08:12 67 20 98 Nasal Cannula 2.0 28 10/12/18 08:12 98 Nasal Cannula 2.0 28 10/12/18 08:12 Nasal Cannula 2.0 28 10/12/18 08:00 97.4 83 18 143/89 (107) 100 10/12/18 08:00 2.0 30 10/12/18 08:00 72 10/12/18 04:00 97.4 67 18 122/71 (88) 79 10/12/18 04:00 2.0 10/12/18 04:00 74 10/12/18 03:30 Nasal Cannula 2.0 28 10/12/18 03:30 Nasal Cannula 2.0 28 10/12/18 00:00 97.4 85 18 133/75 (94) 96 10/12/18 00:00 82 10/12/18 00:00 2.0 10/11/18 23:19 Nasal Cannula 2.0 28 10/11/18 23:19 Nasal Cannula 2.0 28 10/11/18 21:11 76 20 96 Nasal Cannula 2.0 28 10/11/18 21:08 76 20 96 Nasal Cannula 2.0 28 10/11/18 21:00 Nasal Cannula 2.0 10/11/18 20:03 71 20 99 Nasal Cannula 2.0 28 10/11/18 20:00 82 10/11/18 20:00 97.4 85 18 131/80 (97) 98 10/11/18 20:00 2.0 10/11/18 19:53 69 20 97 Nasal Cannula 2.0 28 10/11/18 19:53 97 Nasal Cannula 2.0 28 10/11/18 19:53 Nasal Cannula 2.0 28 10/11/18 16:00 98.0 85 16 148/91 (110) 99 10/11/18 16:00 85 10/11/18 16:00 2.0 10/11/18 15:38 89 20 99 Nasal Cannula 2.0 28 10/11/18 15:32 82 20 97 Nasal Cannula 2.0 28 Intake and Output 10/11/18 10/12/18 18:59 06:59 Intake Total 360 ml 120 ml Balance 360 ml 120 ml Intake Oral 360 ml 120 ml # Voids 3 Height (Feet): 5 Height (Inches): 8.00 Weight (Pounds): 242 Objective General Appearance: WD/WN, alert Neck: supple Cardiovascular: normal rate, regular rhythm Respiratory/Chest: chest wall non-tender, lungs clear, normal breath sounds Abdomen: normal bowel sounds, non tender, soft, no organomegaly Neurologic: fund director II-XII grossly normal, alert, oriented x 3, responsive Olivier Blanco MD Oct 12, 2018 12:06
--- NOTE | 2018-10-12 12:22 | Pulmonology Progress Note ---
Assessment/Plan Assessment/Plan Impression CHF with acute exacerbation COPD with acute exacerbation Anemia Thrombocytopenia Atrial fibrillation Hyperglycemia Dementia Toxic metabolic encephalopathy Mild protein calorie malnutrition sleep apnea Plan po Lasix dc solumedrol Albuterol nebulized therapy Oxygen therapy BiPAP management at night for sleep apnea maintain home medication discharge home with HH overall much improved Subjective Allergies: Coded Allergies: PENICILLINS (Verified Allergy, Mild, 07/09/18) Cashew (Verified Allergy, Unknown, 07/09/18) Dust (Verified Allergy, Unknown, 07/09/18) FISH CONTAINING PRODUCTS (Verified Allergy, Unknown, 07/09/18) seafood TOMATO (Verified Allergy, Unknown, 07/09/18) Subjective improved minimal edema care noted on oxygen d/w family Objective Last 24 Hour Vital Signs Date Time Temp Pulse Resp B/P (MAP) Pulse Ox O2 Delivery O2 Flow Rate FiO2 10/12/18 11:20 74 22 99 Nasal Cannula 2.0 28 10/12/18 11:15 69 20 98 Nasal Cannula 2.0 28 10/12/18 09:55 78 20 96 Nasal Cannula 2.0 28 10/12/18 09:54 78 20 96 Nasal Cannula 2.0 28 10/12/18 09:00 Nasal Cannula 2.0 10/12/18 08:36 80 10/12/18 08:36 80 143/89 10/12/18 08:17 69 20 99 Nasal Cannula 2.0 28 10/12/18 08:12 67 20 98 Nasal Cannula 2.0 28 10/12/18 08:12 98 Nasal Cannula 2.0 28 10/12/18 08:12 Nasal Cannula 2.0 28 10/12/18 08:00 97.4 83 18 143/89 (107) 100 10/12/18 08:00 2.0 30 10/12/18 08:00 72 10/12/18 04:00 97.4 67 18 122/71 (88) 79 10/12/18 04:00 2.0 10/12/18 04:00 74 10/12/18 03:30 Nasal Cannula 2.0 28 10/12/18 03:30 Nasal Cannula 2.0 28 10/12/18 00:00 97.4 85 18 133/75 (94) 96 10/12/18 00:00 82 10/12/18 00:00 2.0 10/11/18 23:19 Nasal Cannula 2.0 28 10/11/18 23:19 Nasal Cannula 2.0 28 10/11/18 21:11 76 20 96 Nasal Cannula 2.0 28 10/11/18 21:08 76 20 96 Nasal Cannula 2.0 28 10/11/18 21:00 Nasal Cannula 2.0 10/11/18 20:03 71 20 99 Nasal Cannula 2.0 28 10/11/18 20:00 82 10/11/18 20:00 97.4 85 18 131/80 (97) 98 10/11/18 20:00 2.0 10/11/18 19:53 69 20 97 Nasal Cannula 2.0 28 10/11/18 19:53 97 Nasal Cannula 2.0 28 10/11/18 19:53 Nasal Cannula 2.0 28 10/11/18 16:00 98.0 85 16 148/91 (110) 99 10/11/18 16:00 85 10/11/18 16:00 2.0 10/11/18 15:38 89 20 99 Nasal Cannula 2.0 28 10/11/18 15:32 82 20 97 Nasal Cannula 2.0 28 Intake and Output 10/11/18 10/12/18 19:00 07:00 Intake Total 360 ml 120 ml Balance 360 ml 120 ml Intake Oral 360 ml 120 ml # Voids 3 Objective WDWN NAD reduced breath sounds bilaterally without rhonchi or wheeze S1S2 iRRR without MRG NABS nontender no HSM no CC chronic edema with skin changes nonfocal Current Medications Medications (Trade) Dose Ordered Sig/Rocío Route PRN Reason Start Time Stop Time Status Last Admin Dose Admin Albuterol Sulfate (Proventil) 2.5 mg Q4H PRN HHN Shortness of Breath 10/08/18 06:00 10/13/18 05:59 Albuterol/ Ipratropium (Albuterol/ Ipratropium) 3 ml Q4HRT HHN 10/08/18 07:00 10/13/18 06:59 10/12/18 11:14 Allopurinol (Zyloprim) 100 mg BID ORAL 10/08/18 09:00 11/07/18 08:59 10/12/18 08:36 Amlodipine Besylate (Norvasc) 10 mg DAILY ORAL 10/08/18 09:00 11/07/18 08:59 10/12/18 08:36 Ascorbic Acid (Vitamin C) 1,000 mg DAILY ORAL 10/08/18 09:00 11/07/18 08:59 10/12/18 08:36 Cyanocobalamin (Vitamin B-12) 1,000 mcg DAILY ORAL 10/08/18 09:00 11/07/18 08:59 10/12/18 08:36 Dabigatran (Pradaxa) 150 mg BID ORAL 10/08/18 09:00 11/07/18 08:59 10/12/18 08:36 Digoxin (Lanoxin) 0.125 mg DAILY ORAL 10/08/18 09:00 11/07/18 08:59 10/12/18 08:36 Furosemide (Lasix) 20 mg EVERY 12 HOURS IV 10/08/18 09:00 11/07/18 08:59 10/12/18 08:37 Memantine (Namenda) 10 mg Q12HR ORAL 10/08/18 09:00 11/07/18 08:59 10/12/18 08:36 Methylprednisolone Sodium Succinate (Solu-MEDROL) 40 mg DAILY IVP 10/11/18 09:00 11/07/18 08:59 10/12/18 08:37 Mirtazapine (Remeron) 30 mg BEDTIME ORAL 10/08/18 21:00 11/07/18 20:59 10/10/18 21:17 Montelukast Sodium (Singulair) 10 mg QPM ORAL 10/08/18 16:30 11/07/18 16:29 10/11/18 17:47 Nebivolol (Bystolic) 10 mg BID ORAL 10/08/18 09:00 11/07/18 08:59 10/12/18 08:36 Oxybutynin Chloride (Ditropan) 5 mg Q8HR ORAL 10/08/18 14:00 11/07/18 13:59 10/12/18 06:48 Salmeterol Xinafoate/ Fluticasone (Advair 250/50 Diskus) 1 puffs BIDRT INH 10/08/18 10:00 11/07/18 09:59 10/12/18 09:54 Stevan Pace MD Oct 12, 2018 12:22
--- NOTE | 2018-10-12 13:04 | NUR ---
NURSE NOTES: patient was discharged to home per dr smiley order. to continue homehealth services with [facility]. patient tel number and address were verified. VSS. youth nutritional monitor removed. IV line removed and bleeding was stopped. 2 rings listed on the patients belongings list and patient still wearing both of them. to see dr anthony within a week after discharge.family member left with 2 family members.
--- NOTE | 2018-10-14 19:03 | Discharge Summary ---
Discharge Summary Discharge Summary _ DATE OF ADMISSION: 10/08/2018 DATE OF DISCHARGE: 10/12/2018 DISCHARGED BY: Dr. Blanco REASON FOR ADMISSION: 83 years old female with past medical history of hypertension, asthma, congestive heart failure, atrial fibrillation, sleep apnea, gout, dementia, presented with complaints of several days of progressively worsening shortness of breath. Patient was well until several days prior to admission. Patient noted increased shortness of breath, dyspnea on exertion, and orthopnea. According to patient, she was compliant with her oral diuretics and low-salt diet. Upon evaluation in emergency room vital signs were stable. No leukocytosis, hemoglobin 9.4 hematocrit 30.6, platelet count 122. Stable renal parameters and electrolytes, elevated CO2- 34. Urinalysis revealed no evidence of UTI. Chest x-ray revealed evidence of congestive heart failure. Troponin was negative. EKG revealed atrial fibrillation with controlled ventricular rate, no acute ischemic changes. Pro BNP 4041. In the emergency department patient received a dose of Lasix, provided with bronchodilator treatment, and was admitted to telemetry floor for further management. 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 Supplemental oxygen provided as needed to keep pulse oximetry above 92%. Pulmonary toilet provided. Patient started on the IV steroids with tapering down and empiric antibiotics. Singular and Advair continued. BiPAP provided at night and as needed. Patient had oxygen at home. Echocardiogram revealed ejection fraction 55-60% with mild left ventricular hypertrophy. No evidence of wall motion abnormality. Severe left atrial enlargement and moderate right atrial enlargement noted. Moderate mitral and tricuspid regurgitation. Right ventricular systolic pressure of 76, consistent with a severe pulmonary hypertension. Patient started on intravenous diuretic/Lasix with close monitoring of volumes and cardiorenal parameters. Pro BNP was trending down, prior to discharge 2070. Antiembolic prophylaxis with Pradaxa provided for chronic atrial fibrillation. Heart rate was controlled. Patient was on low dose beta-millicent and tolerated it without bronchospasm. Blood pressure was managed with calcium channel millicent and beta-millicent. Home medications were continued. GI prophylaxis provided. Hemoglobin and hematocrit were closely monitored and remained at baseline. Prior to discharge hemoglobin 9.6 hematocrit 31.6. Platelet count was closely monitored and improved, prior to discharge 140. Patient clinically stabilized and was ready for discharge home with home health services. FINAL DIAGNOSES: Acute on chronic diastolic congestive heart failure, improved COPD with exacerbation Pulmonary hypertension Sleep apnea Toxic metabolic encephalopathy Cerebrovascular disease with dementia Chronic atrial fibrillation with controlled rate Acute on chronic venous insufficiency Possible lower extremity cellulitis Mild protein calorie malnutrition Anemia ,multifactorial Thrombocytopenia DISCHARGE MEDICATIONS: See Medication Reconciliation list. DISCHARGE INSTRUCTIONS: Patient was discharged home, continue home health services with [facility]. Follow up with primary care provider in one week. I have been assigned to dictate discharge summary for this account. I was not involved in the patient's management. Paulina Frias NP Oct 14, 2018 19:02
== END 2018-10-12 13:00 | disposition home health service (06) | DRG 291 ==
LOC: EMR 21:27 → 2W 10-08 01:25 → EDBEDREQ 10-08 02:30 → 2E 10-09 16:13
DX: I11.0 Hypertensive heart disease with heart failure (principal); G92 Toxic encephalopathy; J44.1 Chronic obstructive pulmonary disease with (acute) exacerbation; E44.1 Mild protein-calorie malnutrition; D68.32 Hemorrhagic disorder due to extrinsic circulating anticoagulants; J44.0 Chronic obstructive pulmonary disease with (acute) lower respiratory infection; L03.116 Cellulitis of left lower limb; I50.33 Acute on chronic diastolic (congestive) heart failure; F03.90 Unspecified dementia, unspecified severity, without behavioral disturbance, psychotic disturbance, mood disturbance, and anxiety; I87.2 Venous insufficiency (chronic) (peripheral); E78.5 Hyperlipidemia, unspecified; G47.30 Sleep apnea, unspecified; Z68.36 Body mass index [BMI] 36.0-36.9, adult; D64.9 Anemia, unspecified; D69.6 Thrombocytopenia, unspecified; R73.9 Hyperglycemia, unspecified; I27.20 Pulmonary hypertension, unspecified; I48.2 Chronic atrial fibrillation; M19.90 Unspecified osteoarthritis, unspecified site; J20.9 Acute bronchitis, unspecified; Z88.0 Allergy status to penicillin; Z99.81 Dependence on supplemental oxygen; T45.515A Adverse effect of anticoagulants, initial encounter; Y92.9 Unspecified place or not applicable
CPT/HCPCS: 36415; 36600; 71045; 80048; 80053; 81003; 82550; 82553; 82803; 83735; 83880; 84443; 84484; 85025; 85610; 85730; 93005; 93306; 94640; 94660; 94760; 96365; 96375; 99285; J7620

== ENCOUNTER 2018-11-29 00:07 | Inpatient (IN) | payer MEDICARE, OTHER ==
[~2018-11-29] VITALS: Ht 175.3 cm; Wt 95.3 kg
[2018-11-29] VITALS (8 sets, daily range): BP systolic 128–172; BP diastolic 60–94
--- NOTE | 2018-11-29 00:22 | NUR ---
ED Nurse Note: Patient presents wtih c/o edema and pain in bilateral lower extremities.
--- NOTE | 2018-11-29 01:30 | NUR ---
ED Nurse Note: Patient tolerated IV lasix well, patient voiding on bed le[place] and absorbant pads.
--- NOTE | 2018-11-29 02:36 | NUR ---
ED Nurse Note: Patient resting comfortably with daughter at bedside. Patient frequently urinating with assistance on bedpan and absorbant pads.
--- NOTE | 2018-11-29 03:38 | NUR ---
ED Nurse Note: Patient has no complaints of pain or discomfort, is resting comfortably.
--- NOTE | 2018-11-29 04:40 | NUR ---
ED Nurse Note: Patient request CPAP machine because she sleeps with it at home. PAtient tolerating settings well.
--- NOTE | 2018-11-29 05:12 | Emergency Room Report ---
History of Present Illness General Source: Patient Present Illness HPI This is an 83-year-old female with a history of CHF and hypertension. She is oxygen dependent. She presents with chief complaint of increasing swelling and edema. She also has a complaint of left elbow swelling. No trauma. No fever chills. Worse with exertion. Better with rest. Increasing shortness of breath. No nausea no vomiting. No chest pain. Similar symptom in the past. Denies any other complaint. Allergies: Coded Allergies: PENICILLINS (Verified Allergy, Mild, 07/09/18) Cashew (Verified Allergy, Unknown, 07/09/18) Dust (Verified Allergy, Unknown, 07/09/18) FISH CONTAINING PRODUCTS (Verified Allergy, Unknown, 07/09/18) seafood TOMATO (Verified Allergy, Unknown, 07/09/18) Patient History Past Medical History: see triage record, old chart reviewed, HTN, CHF Past Surgical History: other Pertinent Family History: none Social History: Denies: smoking Now: No Immunizations: other Reviewed Nursing Documentation: PMH: Agreed; PSxH: Agreed Nursing Documentation-PMH Hx Cardiac Problems: Yes Hx Hypertension: Yes Hx Pacemaker: No Hx Asthma: Yes Hx COPD: Yes Hx Diabetes: No Hx Cancer: No Hx Gastrointestinal Problems: No Hx Dialysis: No Hx Neurological Problems: No Hx Cerebrovascular Accident: No Hx Transient Ischemic Attacks: Yes Hx Seizures: No Review of Systems Eye: Denies: eye pain, blurred vision ENT: Denies: ear pain, nose congestion, throat swelling Respiratory: Reports: shortness of breath; Denies: cough Cardiovascular: Denies: chest pain, palpitations Gastrointestinal: Denies: abdominal pain, diarrhea, nausea, vomiting Musculoskeletal: Denies: back pain, joint pain Skin: Denies: rash Neurological: Denies: headache, numbness Endocrine: Denies: increased thirst, increased urine Hematologic/Lymphatic: Denies: easy bruising All Other Systems: negative except mentioned in HPI Physical Exam vitals with hypertension Sp02 EP Interpretation: reviewed, normal General Appearance: well appearing, alert, mild distress, Chronically Ill Head: normocephalic, atraumatic Eyes: bilateral eye PERRL, bilateral eye EOMI ENT: hearing grossly normal, normal pharynx Neck: full range of motion, supple, no meningismus Respiratory: chest non-tender, rales Cardiovascular #1: regular rate, rhythm, no murmur Gastrointestinal: normal bowel sounds, non tender, no mass, no organomegaly, no bruit, non-distended Musculoskeletal: back normal, other - left elbow with olecranon bursitis. no pain. no redness. FROM. legs with 2+ edema Neurologic: alert, oriented x3 Psychiatric: mood/affect normal Skin: warm/dry Medical Decision Making Diagnostic Impression: Primary Impression: CHF (congestive heart failure) Qualified Codes: I50.9 - Heart failure, unspecified Additional Impressions: Hypertension Qualified Codes: I10 - Essential (primary) hypertension Olecranon bursitis of left elbow Chronic a-fib ER Course Patient presents with acute exacerbation of CHF. She diuresed well with Lasix. She has olecranon bursitis. No evidence of infection. This is probably secondary to friction and pressure from her wheelchair. No evidence of ACS, PE , dissection to name a few. I contacted Dr. Pace for admission. Lab Results Impression labs with elevated BNP EKG Diagnostic Results Rate: normal Rhythm: other - A. fib ST Segments: other - nsst changes Rhythm Strip Diag. Results EP Interpretation: yes Rate: 95 Rhythm: no PVC's, no ectopy, other - afib Chest X-Ray Diagnostic Results Chest X-Ray Diagnostic Results : Chest X-Ray Ordered: Yes Indication: Shortness of Breath EP Interpretation: Yes Interpretation: no consolidation, no effusion, no pneumothorax, other - CM with vasc congestion Impression: Other - chf Electronically Signed by: Gian Pryor MD Status: improved Disposition: ADMITTED INPATIENT Condition: Serious Referrals: Stevan Pace MD (PCP) Gian Pryor MD Nov 29, 2018 05:12
[2018-11-29 05:32] LABS: ANION GAP 2 mmol/L (5-15); BLOOD UREA NITROGEN 18 mg/dL (7-18); CALCIUM 10.2 MG/DL (8.5-10.1); CARBON DIOXIDE 37 MMOL/L (21-32); CHLORIDE 102 MMOL/L (98-107); CREATININE 0.8 MG/DL (0.55-1.30); POTASSIUM 4.9 MMOL/L (3.5-5.1); SODIUM 141 MMOL/L (136-145)
[2018-11-29 05:43] LABS: WHITE BLOOD COUNT 6.5 K/UL (4.8-10.8)
[2018-11-29 05:44] LABS: HEMATOCRIT 36.4 % (37.0-47.0); HEMOGLOBIN 10.9 G/DL (12.0-16.0); MEAN CORPUSCULAR VOLUME 96 FL (80-99); PLATELET COUNT 149 K/UL (150-450); RED BLOOD COUNT 3.79 M/UL (4.20-5.40); RED CELL DISTRIBUTION WIDTH 14.1 % (11.6-14.8)
[2018-11-29 05:45] LABS: BASOPHILS % (AUTO) 1.2 % (0.0-2.0); EOSINOPHILS % (AUTO) 2.9 % (0.0-3.0); LYMPHOCYTES % (AUTO) 29.3 % (20.0-45.0); MONOCYTES % (AUTO) 5.8 % (1.0-10.0); NEUTROPHILS % (AUTO) 60.9 % (45.0-75.0)
[2018-11-29 05:47] LABS: APPEARANCE,URINE CLEAR; COLOR,URINE PALE YELLOW
[2018-11-29 05:48] LABS: BILIRUBIN, URINE NEGATIVE (NEGATIVE); GLUCOSE, URINE (UA) NEGATIVE (NEGATIVE); KETONES,URINE NEGATIVE (NEGATIVE); LEUKOCYTE ESTERASE ,URINE 1+ (NEGATIVE); NITRITE,URINE NEGATIVE (NEGATIVE); PH,URINE 6.5 (4.5-8.0); PROTEIN,URINE 1+ (NEGATIVE); UROBILINOGEN,URINE NORMAL MG/DL (0.0-1.0)
--- NOTE | 2018-11-29 06:09 | NUR ---
ED Nurse Note: Paient still tolerating CPAP machine well, no s/s of acute distress. Patient is frequently voiding on bedpan.
--- NOTE | 2018-11-29 07:30 | NUR ---
ED Nurse Note: received pt from DAWNA Lr. Pt is from home, will be admitted for CHF and COPD under Dr. Pace. Pt is now off from BiPAP, VSS. No s/s of distress. Will call for report.
--- NOTE | 2018-11-29 07:42 | NUR ---
ED Nurse Note: Telephone report given to DAWNA Rothman. Pt is off from BiPAP, RA O2 sat of 100%. No s/s of distress.
--- NOTE | 2018-11-29 08:05 | NUR ---
TRANSFER TO FLOOR: Patient transferred to #[id number] as ordered via gurney with clinique counter manager. Report given to DAWNA Rothman. Belongings given to pt. No s/s of distress. A/Ox3.
--- NOTE | 2018-11-29 08:15 | NUR ---
NURSE NOTES: Received report from ER. Pt is alert and oriented X4. She currently feels to weak to ambulate. patient denies any pain. Signed belongings list in chart. Bed is in lowest position, side rails up X2, and call light is within reach. Will continue to monitor.
--- NOTE | 2018-11-29 08:52 | NUR ---
RADIOLOGY DEPT., CHEST X-RAY TAKEN IN ER ON ADMIT.[email or web address]
[2018-11-29] MEDS: Montelukast 10mg tablet ORAL SCH (10:59)
[2018-11-29] MEDS: Ascorbic Acid 500mg tab ORAL SCH (11:00)
[2018-11-29] MEDS: Dabigatran 150mg cap ORAL SCH ×2 (11:01→17:51)
[2018-11-29] MEDS: Allopurinol 100mg Tab ORAL SCH ×2 (11:02→17:52)
[2018-11-29] MEDS: Solu-MEDROL 125mg Inj IVP SCH ×3 (11:03→21:29)
[2018-11-29] MEDS: Albuterol/Ipratropium 3ml neb HHN SCH ×5 (11:21→23:13)
--- NOTE | 2018-11-29 13:05 | Diagnostic Imaging Report ---
Indication: Shortness of breath Technique: One view of the chest Comparison: 10/07/2018 Findings: Stable cardiomegaly. There is again demonstrated pulmonary arterial prominence. Left mid and lower lung scarring are again demonstrated. Lungs are equivocally somewhat hyperinflated. No definite infiltrates, effusions, or congestion. Degenerative changes of both shoulders are again noted. Impression: Cardiomegaly Evidence of pulmonary hyperinflation No definite acute process Suspect pulmonary arterial hypertension
--- NOTE | 2018-11-29 14:54 | History & Physical ---
History and Physical History & Physicial History and Physical HPI Patient is an 83-year-old female with a history of Congestive Heart Failure, COPD and hypertension. Previous TIA. She is oxygen dependent at home. She presents with chief complaint of SOB, increasing swelling and edema. She also has a complaint of left elbow swelling. No trauma. No fever chills. Worse with exertion. Better with rest. Increasing shortness of breath. No nausea no vomiting. No chest pain. Similar symptom in the past. Denies any other complaint. Allergies: PENICILLINS Cashew Dust FISH CONTAINING PRODUCTS TOMATO Past Medical History: COPD/Asthma, HTN, CHF, TIA ROS: Negative aside from above Physical Exam VSS Noted Sp02 EP Interpretation: reviewed, normal General Appearance: well appearing, alert, mild distress, Chronically Ill Head: normocephalic, atraumatic Eyes: bilateral eye PERRL, bilateral eye EOMI ENT: hearing grossly normal, normal pharynx Neck: full range of motion, supple, no meningismus Respiratory: chest non-tender, rales Cardiovascular: irregular rhythm, no murmur Gastrointestinal: normal bowel sounds, non tender, no mass, no organomegaly, no bruit, non-distended Musculoskeletal: back normal, other - left elbow with olecranon bursitis. no pain. no redness. FROM. legs with 2+ edema Neurologic: alert, oriented x3 Psychiatric: mood/affect normal Skin: warm/dry Impression: CHF Hypertension Olecranon bursitis of left elbow Plan Duresis PRN Antihypertensives SECURITY TESTER Meds O2 PRN PPX. EKG: Rate: normal Rhythm: other - A. fib ST Segments: other - nsst changes Chest X-Ray: no consolidation, no effusion, no pneumothorax, other - CM with vasc congestion Gerardo Rangel MD Nov 29, 2018 14:54
--- NOTE | 2018-11-29 16:45 | History and Physical Report ---
DATE OF ADMISSION: 11/29/2018 CHIEF COMPLAINT: COPD, CHF exacerbation. HISTORY OF PRESENT ILLNESS: The patient is a pleasant 83-year-old female well known to me. She has a history of congestive heart failure, COPD, asthma, hypertension who presented from home with complaints of worsening shortness of breath, chest tightness. According to the patient, she had run out of some of her asthma medication. She also notes worsening lower extremity edema. She denies any fevers or chills. No cough. She denies any chest pain. On evaluation in the emergency room, she had a chest x-ray that showed mild pulmonary vascular congestion. She was given some Lasix and is now admitted for further inpatient care. PAST MEDICAL HISTORY: As above. PAST SURGICAL HISTORY: None. CURRENT MEDICATIONS: Reconciled and reviewed. ALLERGIES: None. FAMILY HISTORY: None. SOCIAL HISTORY: There is no known history of tobacco, ethanol, or drugs. REVIEW OF SYSTEMS: GENERAL: No fevers or chills. HEENT: No headaches or visual changes. CARDIOPULMONARY: No chest pain. Positive shortness of breath. Positive wheezing. GASTROINTESTINAL: No nausea or vomiting. GENITOURINARY: No urgency or frequency. MUSCULOSKELETAL: No joint pain or swelling. NEUROLOGIC: No history of seizures. PHYSICAL EXAMINATION: VITAL SIGNS: Temperature 97.3, pulse 97, respirations 22, blood pressure 148/79. GENERAL: The patient is a well-developed, no apparent distress. HEART: Regular rate and rhythm. LUNGS: Significant diminished breath sounds at the bases with few wheezes. ABDOMEN: Soft, nontender, nondistended. EXTREMITIES: Without clubbing or cyanosis. There is 1 to 2+ edema noted. LABORATORY DATA: Labs showed a sodium 141, potassium 4.9, BUN of 18, creatinine 0.8. White count 6, hemoglobin 10. Natriuretic peptide level is 1300. ASSESSMENT: This is a pleasant female with complaints of shortness of breath secondary to CHF and COPD exacerbation. 1. CHF exacerbation. 2. COPD exacerbation. 3. Respiratory failure. 4. Hypertension. 5. History of AFib. 6. History of gout. PLAN: 1. IV steroids. 2. Respiratory treatments. 3. IV diuretic therapy. 4. Supplemental oxygen. 5. Pulmonary consultation. 6. Stroke prophylaxis with Pradaxa. Olivier Blanco M.D. DR: SEBASTIÁN JOB#: [id number] CC:
--- NOTE | 2018-11-29 18:16 | NUR ---
CASE MANAGEMENT: INITIAL REVIEW 83 YO F PRESENTED TO OUR ED FROM HOME CC: EDEMA PMHx: HTN. CHF. SI:CHF EXACERBATION. T 98.5 HR 87 RR 22 B/P 145/80 SATS 99% ON RA CO2 37 GLU 108 CA 10.2 BNP 1366 IS: SOLU MEDROL IV Q8H ALLOPURINOL PO QHS PRADAXA PO BID BYSTOLIC PO BID NORVASC PO QD SINGULAIR PO QD LASIX IV QD PATIENT ADMITTED TO TELE 11/29 @ 07 DCP: PATIENT TO BE DISCHARGED TO HOME ONCE MEDICALLY CLEARED. PLAN OF CARE: 1. IV steroids. 2. Respiratory treatments. 3. IV diuretic therapy. 4. Supplemental oxygen. 5. Pulmonary consultation. 6. Stroke prophylaxis with Pradaxa. Addendum: 11/29/18 at 2025 by Jenny Pineda CM INTERQUAL MET
--- NOTE | 2018-11-29 19:43 | NUR ---
HAND-OFF: Report given to DAWNA Sneed. Plan of care endorsed.
--- NOTE | 2018-11-29 19:53 | NUR ---
NURSE NOTES: Received report from DAWNA Rothman and DAWNA Quinonez. Patient is awake lying semi-mancini's; resting comfortably. No signs of acute distress noted; denies pain at this time. AOx4; able to make needs known. Checked IV site; patent and flushed. No erythema, bleeding, or infiltration noted. Bed at lowest position, brakes on, siderails up x3. Call light within reach. Will continue to monitor.
[2018-11-30] VITALS (7 sets, daily range): BP systolic 116–131; BP diastolic 56–105
--- NOTE | 2018-11-30 01:29 | NUR ---
HAND-OFF: Report given to DAWNA Ruiz. Patient is asleep lying semi-mancini's; resting comfortably. On 2L nasal cannula. In stable condition.
--- NOTE | 2018-11-30 01:56 | NUR ---
NURSE NOTES: Report received from DAWNA Sneed. Pt is is sleeping, showing no signs of distress. No SOB noted. Bed is at lowest position, brakes engaged, siderails x2, bed alarm on, and call light within reach. Pt is in stable condition.
[2018-11-30] MEDS: Albuterol/Ipratropium 3ml neb HHN SCH ×6 (04:00→23:51)
[2018-11-30] MEDS: Solu-MEDROL 125mg Inj IVP SCH ×3 (05:46→21:19)
--- NOTE | 2018-11-30 07:26 | NUR ---
HAND-OFF: Report given to DAWNA Rothman. Pt is in stable condition; plan of care endorsed.
--- NOTE | 2018-11-30 07:34 | NUR ---
NURSE NOTES: Received report from Sara TONEY. Pt A/O x4 awake in bed about to have breakfast. On noteman no sign of distress present. Bed locked and lowest position. Will continue plan of care.
--- NOTE | 2018-11-30 08:08 | Pulmonology Progress Note ---
Assessment/Plan Assessment/Plan 1. CHF exacerbation. 2. COPD exacerbation. 3. Respiratory failure. 4. Hypertension. 5. History of AFib. 6. History of gout. 7. sleep apnea 8. hypoxemia 9. hypercapnia PLAN care noted diurese respiratory care BIPAP supportive care suction maintain meds oxygen therapy prognosis guarded Subjective ROS Limited/Unobtainable: Yes Allergies: Coded Allergies: PENICILLINS (Verified Allergy, Mild, 07/09/18) Cashew (Verified Allergy, Unknown, 07/09/18) Dust (Verified Allergy, Unknown, 07/09/18) FISH CONTAINING PRODUCTS (Verified Allergy, Unknown, 07/09/18) seafood TOMATO (Verified Allergy, Unknown, 07/09/18) Objective Last 24 Hour Vital Signs Date Time Temp Pulse Resp B/P (MAP) Pulse Ox O2 Delivery O2 Flow Rate FiO2 11/30/18 07:47 81 18 98 Nasal Cannula 2.0 28 11/30/18 04:11 75 18 99 Nasal Cannula 3.0 32 11/30/18 04:00 76 11/30/18 04:00 86 18 95 Nasal Cannula 2.0 28 11/30/18 04:00 97.7 78 17 124/74 (91) 96 11/30/18 00:00 97.5 83 18 131/56 (81) 92 11/30/18 00:00 72 11/29/18 23:23 69 16 98 Nasal Cannula 3.0 32 11/29/18 23:13 76 18 98 Nasal Cannula 2.0 28 11/29/18 21:00 Nasal Cannula 2.0 11/29/18 20:00 76 11/29/18 19:33 66 16 98 Nasal Cannula 3.0 32 11/29/18 19:23 72 18 95 Nasal Cannula 2.0 28 11/29/18 15:53 76 11/29/18 12:10 75 11/29/18 11:47 96.5 87 18 128/60 (82) 95 11/29/18 11:44 Room Air 2.0 Room Air 11/29/18 11:33 95 16 99 Nasal Cannula 3.0 32 11/29/18 11:22 92 16 99 Nasal Cannula 4.0 36 11/29/18 11:22 92 16 Nasal Cannula 4.0 36 11/29/18 11:00 97 148/79 3/22/19 08:18 97.3 97 22 148/79 (102) 95 Intake and Output 11/29/18 11/30/18 19:00 07:00 Intake Total 240 ml Output Total 1250 ml Balance -1010 ml Intake Oral 240 ml Output Urine Total 1250 ml # Voids 2 # Bowel Movements 1 Objective WDWN NAD reduced breath sounds bilaterally without rhonchi or wheeze [id number] without MRG NABS nontender no HSM no CCE noted edema erythema nonfocal Current Medications Medications (Trade) Dose Ordered Sig/Rocío Route PRN Reason Start Time Stop Time Status Last Admin Dose Admin Albuterol/ Ipratropium (Albuterol/ Ipratropium) 3 ml Q4HRT HHN 11/29/18 11:00 12/04/18 10:59 11/30/18 07:47 Allopurinol (Zyloprim) 100 mg BID ORAL 11/29/18 09:00 12/29/18 08:59 11/29/18 17:52 Amlodipine Besylate (Norvasc) 10 mg DAILY ORAL 11/29/18 09:00 12/29/18 08:59 11/29/18 11:00 Ascorbic Acid (Vitamin C) 1,000 mg DAILY ORAL 11/29/18 09:00 12/29/18 08:59 11/29/18 11:00 Dabigatran (Pradaxa) 150 mg BID ORAL 11/29/18 09:00 12/29/18 08:59 11/29/18 17:51 Furosemide (Lasix) 40 mg DAILY IV 11/29/18 09:00 12/29/18 08:59 11/29/18 11:02 Methylprednisolone Sodium Succinate (Solu-MEDROL) 60 mg EVERY 8 HOURS IVP 11/29/18 09:00 12/29/18 08:59 11/30/18 05:46 Mirtazapine (Remeron) 30 mg BEDTIME ORAL 11/29/18 21:00 12/29/18 20:59 11/29/18 21:29 Montelukast Sodium (Singulair) 10 mg DAILY ORAL 11/29/18 09:00 12/29/18 08:59 11/29/18 10:59 Nebivolol (Bystolic) 10 mg BID ORAL 11/29/18 09:00 12/29/18 08:59 11/29/18 17:51 Stevan Pace MD Nov 30, 2018 08:08
--- NOTE | 2018-11-30 08:30 | General Progress Note ---
Assessment/Plan Problem List: (1) Dyspnea ICD Codes: R06.00 - Dyspnea, unspecified SNOMED: 639439454 (2) Respiratory distress ICD Codes: R06.00 - Dyspnea, unspecified SNOMED: 116749769 (3) Hypertension ICD Codes: I10 - Essential (primary) hypertension SNOMED: 44550462 Qualifiers: Qualified Codes: I10 - Essential (primary) hypertension (4) Chronic a-fib ICD Codes: I48.2 - Chronic atrial fibrillation SNOMED: 607822466 (5) COPD (chronic obstructive pulmonary disease) ICD Codes: J44.9 - Chronic obstructive pulmonary disease, unspecified SNOMED: 84847083 (6) CHF (congestive heart failure) ICD Codes: I50.9 - Heart failure, unspecified SNOMED: 84280413 Qualifiers: Qualified Codes: I50.9 - Heart failure, unspecified Status: stable, progressing Assessment/Plan resp rx iv steroids o2 stroke prophylaxis cautious diuresis Subjective ROS Limited/Unobtainable: No Constitutional: Reports: malaise, weakness HEENT: Reports: no symptoms Cardiovascular: Reports: no symptoms Respiratory: Reports: cough, shortness of breath Gastrointestinal/Abdominal: Reports: no symptoms Genitourinary: Reports: no symptoms Neurologic/Psychiatric: Reports: no symptoms Endocrine: Reports: no symptoms Hematologic/Lymphatic: Reports: no symptoms Allergies: Coded Allergies: PENICILLINS (Verified Allergy, Mild, 07/09/18) Cashew (Verified Allergy, Unknown, 07/09/18) Dust (Verified Allergy, Unknown, 07/09/18) FISH CONTAINING PRODUCTS (Verified Allergy, Unknown, 07/09/18) seafood TOMATO (Verified Allergy, Unknown, 07/09/18) All Systems: reviewed and negative except above Subjective getting resp rx. less sob. denies chest pain . Objective Last 24 Hour Vital Signs Date Time Temp Pulse Resp B/P (MAP) Pulse Ox O2 Delivery O2 Flow Rate FiO2 11/30/18 07:47 81 18 98 Nasal Cannula 2.0 28 11/30/18 04:11 75 18 99 Nasal Cannula 3.0 32 11/30/18 04:00 76 11/30/18 04:00 86 18 95 Nasal Cannula 2.0 28 11/30/18 04:00 97.7 78 17 124/74 (91) 96 11/30/18 00:00 97.5 83 18 131/56 (81) 92 11/30/18 00:00 72 11/29/18 23:23 69 16 98 Nasal Cannula 3.0 32 11/29/18 23:13 76 18 98 Nasal Cannula 2.0 28 11/29/18 21:00 Nasal Cannula 2.0 11/29/18 20:00 76 11/29/18 19:33 66 16 98 Nasal Cannula 3.0 32 11/29/18 19:23 72 18 95 Nasal Cannula 2.0 28 11/29/18 15:53 76 11/29/18 12:10 75 11/29/18 11:47 96.5 87 18 128/60 (82) 95 11/29/18 11:44 Room Air 2.0 Room Air 11/29/18 11:33 95 16 99 Nasal Cannula 3.0 32 11/29/18 11:22 92 16 99 Nasal Cannula 4.0 36 11/29/18 11:22 92 16 Nasal Cannula 4.0 36 11/29/18 11:00 97 148/79 Intake and Output 11/29/18 11/30/18 19:00 07:00 Intake Total 240 ml Output Total 1250 ml Balance -1010 ml Intake Oral 240 ml Output Urine Total 1250 ml # Voids 2 # Bowel Movements 1 Height (Feet): 5 Height (Inches): 9.00 Weight (Pounds): 210 General Appearance: WD/WN, alert Neck: supple, normal inspection Cardiovascular: normal rate, regular rhythm Respiratory/Chest: chest wall non-tender, no respiratory distress, no accessory muscle use, expiratory wheezing Abdomen: normal bowel sounds, non tender, soft, no organomegaly 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
--- NOTE | 2018-11-30 08:59 | NUR ---
NURSE NOTES: Notified Dr. Blanco of patients pCO2. No new orders at this time. Will continue to monitor.
[2018-11-30] MEDS: Montelukast 10mg tablet ORAL SCH (09:02)
[2018-11-30] MEDS: Allopurinol 100mg Tab ORAL SCH ×2 (09:02→17:35)
[2018-11-30] MEDS: Dabigatran 150mg cap ORAL SCH ×2 (09:02→17:34)
[2018-11-30] MEDS: Ascorbic Acid 500mg tab ORAL SCH (09:02)
--- NOTE | 2018-11-30 18:59 | Diagnostic Imaging Report ---
EXAM: XR Chest, 1 View CLINICAL HISTORY: SOB TECHNIQUE: Frontal view of the chest. COMPARISON: No relevant prior studies available. FINDINGS: Lungs: Prominence of the pulmonary vasculature. Pleural space: Bibasilar opacities likely representing small pleural effusion and atelectasis. An infectious process is not excluded. No pneumothorax. Heart: Heart is enlarged. Mediastinum: Unremarkable. Bones/joints: Degenerative changes of the osseous structures. IMPRESSION: Bibasilar opacities likely representing small pleural effusion and atelectasis. An infectious process is not excluded.
--- NOTE | 2018-11-30 19:21 | NUR ---
HAND-OFF: Report given to Sara ewing can endorsed.
--- NOTE | 2018-11-30 19:31 | NUR ---
NURSE NOTES: Report received from DAWNA Rothman. Pt is lying comfortably in semi-fowlers with no signs of distress. Pt is A+Ox4 and denies pain/SOB. Respirations are even and unlabored on 2 L NC. IV site is patent, intact, and saline locked. Bed is at lowest position, brakes engaged, siderails x3, bed alarm on, and call light within reach. Pt is in stable condition at this time; will continue to monitor.
--- NOTE | 2018-11-30 20:22 | Cardiology Report ---
APPROVED REPORT EKG Measurement Heart [id number] Atrial fibrillation Nonspecific T wave abnormality Abnormal ECG
[2018-12-01] VITALS: BP 121/75
--- NOTE | 2018-12-01 03:15 | Consultation ---
DATE OF CONSULTATION: 11/29/2018 CARDIOLOGY CONSULTATION CONSULTING PHYSICIAN: Gerardo Calix M.D. REQUESTING PHYSICIAN: Olivier Blanco M.D. REASON FOR CONSULTATION: Congestive heart failure exacerbation in the setting of atrial fibrillation. HISTORY OF PRESENT ILLNESS: This is an 83-year-old female with a longstanding history of hypertensive heart disease, coronary atherosclerosis and diastolic congestive heart failure, as well as chronic atrial fibrillation. She presented to the hospital complaining of shortness of breath and chest tightness. She has recently ran out of some of her asthma medications and she also notes worsening swelling of her legs. She has not had any sputum production, fevers, or chills. She has been compliant with her diet. PAST MEDICAL HISTORY: Chronic obstructive pulmonary disease, hypertensive heart disease, coronary atherosclerosis, congestive heart failure, diastolic dysfunction, degenerative valve disease, atrial fibrillation, hyperuricemia with history of gout, osteoarthritis, degenerative disk disease, and pulmonary hypertension. MEDICATIONS: Reviewed and reconciled. ALLERGIES: Penicillin. FAMILY HISTORY: Noncontributory. SOCIAL HISTORY: Prior smoker. No alcohol or substance abuse. REVIEW OF SYSTEMS: A 10-point review of systems performed. All systems negative other than noted above. PHYSICAL EXAMINATION: VITAL SIGNS: Afebrile, blood pressure 148/79, pulse 97, and respirations 22. HEENT: Normocephalic and atraumatic. Conjunctivae pink. Arcus senilis. Oropharynx clear. Mucous membranes moist. NECK: Supple. Jugular venous pressure elevated. LUNGS: With diminished breath sounds. Few wheezes and rales. CARDIAC: Irregularly irregular. Normal S1, S2. A 1/6 systolic murmur at lower left sternal border. ABDOMEN: Soft. EXTREMITIES: A 1+ to 2+ dependent edema. LABORATORY DATA: Natriuretic peptide 1300. Potassium 4.9, BUN 18, and creatinine 0.8. EKG, atrial fibrillation with nonspecific T-wave changes. Troponin is 0.016. IMPRESSION: 1. Acute on chronic diastolic congestive heart failure. 2. Atrial fibrillation, rate controlled. 3. Chronic obstructive pulmonary disease with acute exacerbation. 4. Paroxysmal bronchospasm. PLAN: 1. Diuresis. 2. Titrate anti-failure and antihypertensives. 3. Continue dabigatran for cardioembolic prophylaxis. 4. Inhaled bronchodilators with caution. 5. Reassess systemic beta-millicent therapy if bronchospasm persists. Gerardo Shirley Calix DR: ERNIE JOB#: [id number] CC:
--- NOTE | 2018-12-01 03:45 | Progress Note ---
DATE: 11/30/2018 CARDIOLOGY PROGRESS NOTE SUBJECTIVE: The patient is slightly less short of breath. Still congested. Still has wheezing. Still has leg swelling. OBJECTIVE: VITAL SIGNS: Blood pressure 124/74, pulse 78, and respirations 17. Monitored rhythm atrial fibrillation. LUNGS: Diminished breath sounds. Few expiratory wheezes. HEART: Irregularly irregular rhythm. Normal S1 and S2. A 1/6 systolic apical murmur. ABDOMEN: Soft. EXTREMITIES: 1+ bilateral lower extremity edema. LABORATORY DATA: Labs noted. IMPRESSION: 1. Acute on chronic diastolic congestive heart failure. 2. Atrial fibrillation, rate controlled. 3. Pradaxa associated coagulopathy for cardioembolic prophylaxis. 4. Chronic obstructive pulmonary disease exacerbation. 5. Paroxysmal bronchospasm. PLAN: 1. Steroids with taper. 2. Inhaled bronchodilators. 3. Cautious use of systemic beta-blockers. 4. Full anticoagulation with Pradaxa. 5. Diuresis with intravenous loop diuretic until euvolemic and maintenance dosing to follow orally. Gerardo Calix M.D. DR: MARYJANE JOB#: [id number] CC:
[2018-12-01 04:00] VITALS: BP 150/82
[2018-12-01] MEDS: Albuterol/Ipratropium 3ml neb HHN SCH ×6 (04:01→23:33)
[2018-12-01] MEDS: Solu-MEDROL 125mg Inj IVP SCH ×3 (05:34→21:16)
--- NOTE | 2018-12-01 07:50 | NUR ---
NURSE NOTES: Report received from DAWNA Ruiz.Pt awake,alert oriented sitting up on bed, eating breakfast,noted no resp distress,denies any c/o pain or discomfort,verbalized feeling much better,SR on the monitor,IV site to LFA intact,skin warm and dry,SR up x2 HOB elevated,call [place] within reach,bed lock in lowest position,will continue with plansof care.
--- NOTE | 2018-12-01 07:52 | NUR ---
HAND-OFF: Report given to DAWNA Brothers. Pt is in stable condition; plan of care endorsed.
[2018-12-01 08:00] VITALS: BP 126/57
[2018-12-01 08:43] LABS: ALANINE AMINOTRANSFERASE 15 U/L (12-78); ALBUMIN/GLOBULIN RATIO 0.7 (1.0-2.7); ALKALINE PHOSPHATASE 56 U/L (46-116); ANION GAP 5 mmol/L (5-15); ASPARTATE AMINO TRANSFERASE 18 U/L (15-37); BILIRUBIN,TOTAL 0.3 MG/DL (0.2-1.0); BLOOD UREA NITROGEN 36 mg/dL (7-18); CALCIUM 9.5 MG/DL (8.5-10.1); CARBON DIOXIDE 36 MMOL/L (21-32); CHLORIDE 99 MMOL/L (98-107); POTASSIUM 4.4 MMOL/L (3.5-5.1); SODIUM 140 MMOL/L (136-145)
[2018-12-01] MEDS: Montelukast 10mg tablet ORAL SCH (08:51)
[2018-12-01] MEDS: Ascorbic Acid 500mg tab ORAL SCH (08:52)
[2018-12-01] MEDS: Dabigatran 150mg cap ORAL SCH ×2 (08:52→17:24)
[2018-12-01] MEDS: Allopurinol 100mg Tab ORAL SCH ×2 (08:53→17:25)
--- NOTE | 2018-12-01 09:30 | NUR ---
NURSE NOTES: Family members and visitors at bedside,pt smiling and happy ,no distress presented.
[2018-12-01 12:00] VITALS: BP 147/69
--- NOTE | 2018-12-01 13:26 | NUR ---
CASE MANAGEMENT: REVIEW 12/01/2018 SI:CHF EXACERBATION. T: 98 HR 70 RR 18 B/P 147/69 SATS 97% ON 2L/NC CO2 36 BUN 36 GLU 149 BNP 1391 IS:SOLU MEDROL IV Q8H ALLOPURINOL PO BID PRADAXA PO BID BYSTOLIC PO BID NORVASC PO QD SINGULAIR PO QD LASIX IV QD DUO NEB HHN Q4H TELE
[2018-12-01 16:00] VITALS: BP 136/85
--- NOTE | 2018-12-01 17:00 | NUR ---
NURSE NOTES: Seen by Dr bowen,orders written.
--- NOTE | 2018-12-01 18:41 | General Progress Note ---
Assessment/Plan Problem List: (1) Dyspnea ICD Codes: R06.00 - Dyspnea, unspecified SNOMED: 261551911 (2) Respiratory distress ICD Codes: R06.00 - Dyspnea, unspecified SNOMED: 501655145 (3) Hypertension ICD Codes: I10 - Essential (primary) hypertension SNOMED: 61718188 Qualifiers: Qualified Codes: I10 - Essential (primary) hypertension (4) Chronic a-fib ICD Codes: I48.2 - Chronic atrial fibrillation SNOMED: 778834757 (5) COPD (chronic obstructive pulmonary disease) ICD Codes: J44.9 - Chronic obstructive pulmonary disease, unspecified SNOMED: 37606358 (6) CHF (congestive heart failure) ICD Codes: I50.9 - Heart failure, unspecified SNOMED: 53063416 Qualifiers: Qualified Codes: I50.9 - Heart failure, unspecified Status: stable, progressing Assessment/Plan resp rx iv steroids o2 stroke prophylaxis cautious diuresis monitor cxr improving Subjective ROS Limited/Unobtainable: No Constitutional: Reports: malaise, weakness HEENT: Reports: no symptoms Cardiovascular: Reports: no symptoms Respiratory: Reports: cough, shortness of breath Gastrointestinal/Abdominal: Reports: no symptoms Genitourinary: Reports: no symptoms Neurologic/Psychiatric: Reports: no symptoms Endocrine: Reports: no symptoms Hematologic/Lymphatic: Reports: no symptoms Allergies: Coded Allergies: PENICILLINS (Verified Allergy, Mild, 07/09/18) Cashew (Verified Allergy, Unknown, 07/09/18) Dust (Verified Allergy, Unknown, 07/09/18) FISH CONTAINING PRODUCTS (Verified Allergy, Unknown, 07/09/18) seafood TOMATO (Verified Allergy, Unknown, 07/09/18) All Systems: reviewed and negative except above Subjective getting resp rx. less sob. starting to feel better. denies chest pain . Objective Last 24 Hour Vital Signs Date Time Temp Pulse Resp B/P (MAP) Pulse Ox O2 Delivery O2 Flow Rate FiO2 12/01/18 16:00 101 12/01/18 16:00 97.9 100 19 136/85 (102) 95 12/01/18 15:22 80 16 98 Nasal Cannula 2.0 28 12/01/18 14:14 77 18 94 Nasal Cannula 2.0 28 12/01/18 12:00 87 12/01/18 12:00 98.0 79 18 147/69 (95) 97 12/01/18 11:56 84 16 98 Nasal Cannula 2.0 28 12/01/18 11:50 81 18 96 Nasal Cannula 2.0 28 12/01/18 09:00 Nasal Cannula 2.0 Nasal Cannula 2.0 12/01/18 08:53 78 126/57 12/01/18 08:23 78 16 98 Nasal Cannula 2.0 28 12/01/18 08:18 79 18 96 Nasal Cannula 2.0 28 12/01/18 08:00 95 12/01/18 08:00 97.3 83 19 126/57 (80) 94 12/01/18 05:35 82 18 95 12/01/18 04:11 85 18 98 Bi-pap 30 12/01/18 04:03 82 26 98 Facial 30 12/01/18 04:01 82 18 98 Bi-pap 30 12/01/18 04:00 98 12/01/18 04:00 97.5 94 22 150/82 (104) 97 12/01/18 02:52 83 24 98 Facial 30 12/01/18 00:01 82 18 98 Facial 30 12/01/18 00:01 82 18 98 Bi-pap 30 12/01/18 00:00 98.2 95 18 121/75 (90) 95 12/01/18 00:00 89 11/30/18 23:51 77 18 94 Nasal Cannula 2.0 28 11/30/18 21:00 Nasal Cannula 2.0 Nasal Cannula 2.0 11/30/18 20:00 98.0 92 19 119/60 (79) 93 11/30/18 19:35 70 16 98 Nasal Cannula 2.0 28 11/30/18 19:19 85 18 92 Nasal Cannula 2.0 28 Intake and Output 11/30/18 12/01/18 19:00 07:00 Intake Total 720 ml Balance 720 ml Intake Oral 720 ml # Voids 2 Laboratory Tests 12/01/18 07:15: Sodium Level 140, Potassium Level 4.4, Chloride Level 99, Carbon Dioxide Level 36H, Anion Gap 5, Blood Urea Nitrogen 36H, Creatinine 1.0, Estimat Glomerular Filtration Rate , Glucose Level 149H, Calcium Level 9.5, Magnesium Level 1.9, Total Bilirubin 0.3, Aspartate Amino Transf (AST/SGOT) 18, Alanine Aminotransferase (ALT/SGPT) 15, Alkaline Phosphatase 56, Pro-B-Type Natriuretic Peptide 1391H, Total Protein 7.6, Albumin 3.0L, Globulin 4.6, Albumin/Globulin Ratio 0.7L Height (Feet): 5 Height (Inches): 9.00 Weight (Pounds): 210 Objective General Appearance: WD/WN, alert Neck: supple, normal inspection Cardiovascular: normal rate, regular rhythm Respiratory/Chest: chest wall non-tender, no respiratory distress, no accessory muscle use, expiratory wheezing Abdomen: normal bowel sounds, non tender, soft, no organomegaly 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
--- NOTE | 2018-12-01 19:09 | Pulmonology Progress Note ---
Assessment/Plan Assessment/Plan 1. CHF exacerbation. 2. COPD exacerbation. 3. Respiratory failure. 4. Hypertension. 5. History of AFib. 6. History of gout. 7. sleep apnea 8. hypoxemia 9. hypercapnia PLAN care noted diurese respiratory care chronic oxygen avoid sedation BIPAP supportive care suction maintain meds oxygen therapy prognosis guarded assess for am dic impression, plan, and exam edited and reviewed in detail care discussed with RN Subjective Allergies: Coded Allergies: PENICILLINS (Verified Allergy, Mild, 07/09/18) Cashew (Verified Allergy, Unknown, 07/09/18) Dust (Verified Allergy, Unknown, 07/09/18) FISH CONTAINING PRODUCTS (Verified Allergy, Unknown, 07/09/18) seafood TOMATO (Verified Allergy, Unknown, 07/09/18) Subjective care noted overall comfortable Objective Last 24 Hour Vital Signs Date Time Temp Pulse Resp B/P (MAP) Pulse Ox O2 Delivery O2 Flow Rate FiO2 12/01/18 16:00 101 12/01/18 16:00 97.9 100 19 136/85 (102) 95 12/01/18 15:22 80 16 98 Nasal Cannula 2.0 28 12/01/18 14:14 77 18 94 Nasal Cannula 2.0 28 12/01/18 12:00 87 12/01/18 12:00 98.0 79 18 147/69 (95) 97 12/01/18 11:56 84 16 98 Nasal Cannula 2.0 28 12/01/18 11:50 81 18 96 Nasal Cannula 2.0 28 12/01/18 09:00 Nasal Cannula 2.0 Nasal Cannula 2.0 12/01/18 08:53 78 126/57 12/01/18 08:23 78 16 98 Nasal Cannula 2.0 28 12/01/18 08:18 79 18 96 Nasal Cannula 2.0 28 12/01/18 08:00 95 12/01/18 08:00 97.3 83 19 126/57 (80) 94 12/01/18 05:35 82 18 95 12/01/18 04:11 85 18 98 Bi-pap 30 12/01/18 04:03 82 26 98 Facial 30 12/01/18 04:01 82 18 98 Bi-pap 30 12/01/18 04:00 98 12/01/18 04:00 97.5 94 22 150/82 (104) 97 12/01/18 02:52 83 24 98 Facial 30 12/01/18 00:01 82 18 98 Facial 30 12/01/18 00:01 82 18 98 Bi-pap 30 12/01/18 00:00 98.2 95 18 121/75 (90) 95 12/01/18 00:00 89 11/30/18 23:51 77 18 94 Nasal Cannula 2.0 28 11/30/18 21:00 Nasal Cannula 2.0 Nasal Cannula 2.0 11/30/18 20:00 98.0 92 19 119/60 (79) 93 11/30/18 19:35 70 16 98 Nasal Cannula 2.0 28 11/30/18 19:19 85 18 92 Nasal Cannula 2.0 28 Intake and Output 11/30/18 12/01/18 19:00 07:00 Intake Total 720 ml Balance 720 ml Intake Oral 720 ml # Voids 2 Objective WDWN NAD reduced breath sounds bilaterally without rhonchi or wheeze [id number] without MRG NABS nontender no HSM no CCE noted edema overall same erythema nonfocal alert Laboratory Tests 12/01/18 07:15: Sodium Level 140, Potassium Level 4.4, Chloride Level 99, Carbon Dioxide Level 36H, Anion Gap 5, Blood Urea Nitrogen 36H, Creatinine 1.0, Estimat Glomerular Filtration Rate , Glucose Level 149H, Calcium Level 9.5, Magnesium Level 1.9, Total Bilirubin 0.3, Aspartate Amino Transf (AST/SGOT) 18, Alanine Aminotransferase (ALT/SGPT) 15, Alkaline Phosphatase 56, Pro-B-Type Natriuretic Peptide 1391H, Total Protein 7.6, Albumin 3.0L, Globulin 4.6, Albumin/Globulin Ratio 0.7L Current Medications Medications (Trade) Dose Ordered Sig/Rocío Route PRN Reason Start Time Stop Time Status Last Admin Dose Admin Albuterol/ Ipratropium (Albuterol/ Ipratropium) 3 ml Q4HRT HHN 11/29/18 11:00 12/04/18 10:59 12/01/18 15:14 Allopurinol (Zyloprim) 100 mg BID ORAL 11/29/18 09:00 12/29/18 08:59 12/01/18 17:25 Amlodipine Besylate (Norvasc) 10 mg DAILY ORAL 11/29/18 09:00 12/29/18 08:59 12/01/18 08:53 Ascorbic Acid (Vitamin C) 1,000 mg DAILY ORAL 11/29/18 09:00 12/29/18 08:59 12/01/18 08:52 Dabigatran (Pradaxa) 150 mg BID ORAL 11/29/18 09:00 12/29/18 08:59 12/01/18 17:24 Furosemide (Lasix) 40 mg DAILY IV 11/29/18 09:00 12/29/18 08:59 12/01/18 08:53 Methylprednisolone Sodium Succinate (Solu-MEDROL) 60 mg EVERY 8 HOURS IVP 11/29/18 09:00 12/29/18 08:59 12/01/18 13:37 Mirtazapine (Remeron) 30 mg BEDTIME ORAL 11/29/18 21:00 12/29/18 20:59 11/30/18 21:18 Montelukast Sodium (Singulair) 10 mg DAILY ORAL 11/29/18 09:00 12/29/18 08:59 12/01/18 08:51 Nebivolol (Bystolic) 10 mg BID ORAL 11/29/18 09:00 12/29/18 08:59 12/01/18 17:24 Stevan Pace MD Dec 01, 2018 19:09
--- NOTE | 2018-12-01 19:27 | NUR ---
HAND-OFF: Report given to Kyree Suarez RN.noticed a change in pt's mentation,appears confused and upset..
--- NOTE | 2018-12-01 19:30 | NUR ---
NURSE NOTES: Report received from DAWNA Dasilva.Pt awake,alert oriented sitting up on bed,noted no resp distress,denies any c/o pain or discomfort,SR on the monitor,IV site to LFA intact,skin warm and dry,SR up x2 HOB elevated,call [place] within reach,bed lock in lowest position,will continue with plan of care.
[2018-12-01 20:00] VITALS: BP 144/68
[2018-12-02] VITALS: BP 130/78
--- NOTE | 2018-12-02 01:30 | NUR ---
NURSE NOTES: Patient refused IV restart and "stated its ok my doctor is coming to see me in the morning"
[2018-12-02] MEDS: Albuterol/Ipratropium 3ml neb HHN SCH ×2 (03:00→08:14)
[2018-12-02 04:00] VITALS: BP 123/69
[2018-12-02] MEDS: Solu-MEDROL 125mg Inj IVP SCH (06:00)
--- NOTE | 2018-12-02 07:08 | NUR ---
HAND-OFF: Report given to Cory TONEY.
[2018-12-02 07:54] VITALS: BP 150/70
--- NOTE | 2018-12-02 08:04 | NUR ---
NURSE NOTES: pt awake alert, no distress. no sob. call light within reach. no c/o pain , will monitor.
[2018-12-02 08:17] VITALS: BP 150/70
[2018-12-02] MEDS: Montelukast 10mg tablet ORAL SCH (08:17)
[2018-12-02] MEDS: Ascorbic Acid 500mg tab ORAL SCH (08:18)
[2018-12-02] MEDS: Dabigatran 150mg cap ORAL SCH (08:18)
[2018-12-02] MEDS: Allopurinol 100mg Tab ORAL SCH (08:18)
--- NOTE | 2018-12-02 08:34 | Pulmonology Progress Note ---
Assessment/Plan Assessment/Plan 1. CHF exacerbation. 2. COPD exacerbation. 3. Respiratory failure. 4. Hypertension. 5. History of AFib. 6. History of gout. 7. sleep apnea 8. hypoxemia 9. hypercapnia PLAN care noted diurese- will need bid dosing respiratory care chronic oxygen avoid sedation BIPAP qhs supportive care suction maintain meds oxygen therapy prognosis guarded stable for dc impression, plan, and exam edited and reviewed in detail care discussed with RN Subjective Allergies: Coded Allergies: PENICILLINS (Verified Allergy, Mild, 07/09/18) Cashew (Verified Allergy, Unknown, 07/09/18) Dust (Verified Allergy, Unknown, 07/09/18) FISH CONTAINING PRODUCTS (Verified Allergy, Unknown, 07/09/18) seafood TOMATO (Verified Allergy, Unknown, 07/09/18) Subjective care noted overall comfortable edema trace Objective Last 24 Hour Vital Signs Date Time Temp Pulse Resp B/P (MAP) Pulse Ox O2 Delivery O2 Flow Rate FiO2 12/02/18 08:23 94 22 99 Nasal Cannula 2.0 28 12/02/18 08:17 97 150/70 12/02/18 08:16 97 22 99 Nasal Cannula 2.0 28 12/02/18 07:56 Nasal Cannula 2.0 Nasal Cannula 2.0 12/02/18 07:54 97.8 73 16 150/70 (96) 96 12/02/18 04:00 97.8 73 16 123/69 (87) 96 12/02/18 04:00 77 12/02/18 03:01 Nasal Cannula 2.0 28 12/02/18 03:00 Nasal Cannula 2.0 28 12/02/18 00:00 78 12/02/18 00:00 97.8 86 18 130/78 (95) 99 12/01/18 23:43 86 18 98 Nasal Cannula 2.0 28 12/01/18 23:33 82 18 98 Nasal Cannula 2.0 28 12/01/18 21:30 80 19 98 Facial 30 12/01/18 21:00 Nasal Cannula 2.0 Nasal Cannula 2.0 12/01/18 20:00 98.7 90 18 144/68 (93) 97 12/01/18 20:00 92 12/01/18 19:21 Nasal Cannula 2.0 28 12/01/18 19:20 Nasal Cannula 2.0 28 12/01/18 16:00 101 12/01/18 16:00 97.9 100 19 136/85 (102) 95 12/01/18 15:22 80 16 98 Nasal Cannula 2.0 28 12/01/18 14:14 77 18 94 Nasal Cannula 2.0 28 12/01/18 12:00 87 12/01/18 12:00 98.0 79 18 147/69 (95) 97 12/01/18 11:56 84 16 98 Nasal Cannula 2.0 28 12/01/18 11:50 81 18 96 Nasal Cannula 2.0 28 12/01/18 09:00 Nasal Cannula 2.0 Nasal Cannula 2.0 12/01/18 08:53 78 126/57 Intake and Output 12/01/18 12/02/18 19:00 07:00 Intake Total 700 ml Balance 700 ml Intake Oral 700 ml # Voids 2 Objective WDWN NAD reduced breath sounds bilaterally without rhonchi or wheeze [id number] without MRG NABS nontender no HSM no CCE noted edema overall same erythema nonfocal alert Current Medications Medications (Trade) Dose Ordered Sig/Rocío Route PRN Reason Start Time Stop Time Status Last Admin Dose Admin Albuterol/ Ipratropium (Albuterol/ Ipratropium) 3 ml Q4HRT HHN 11/29/18 11:00 12/04/18 10:59 12/02/18 08:14 Allopurinol (Zyloprim) 100 mg BID ORAL 11/29/18 09:00 12/29/18 08:59 12/02/18 08:18 Amlodipine Besylate (Norvasc) 10 mg DAILY ORAL 11/29/18 09:00 12/29/18 08:59 12/02/18 08:17 Ascorbic Acid (Vitamin C) 1,000 mg DAILY ORAL 11/29/18 09:00 12/29/18 08:59 12/02/18 08:18 Dabigatran (Pradaxa) 150 mg BID ORAL 11/29/18 09:00 12/29/18 08:59 12/02/18 08:18 Furosemide (Lasix) 40 mg DAILY IV 11/29/18 09:00 12/29/18 08:59 12/02/18 08:17 Methylprednisolone Sodium Succinate (Solu-MEDROL) 60 mg EVERY 8 HOURS IVP 11/29/18 09:00 12/29/18 08:59 12/01/18 21:16 Mirtazapine (Remeron) 30 mg BEDTIME ORAL 11/29/18 21:00 12/29/18 20:59 12/01/18 21:16 Montelukast Sodium (Singulair) 10 mg DAILY ORAL 11/29/18 09:00 12/29/18 08:59 12/02/18 08:17 Nebivolol (Bystolic) 10 mg BID ORAL 11/29/18 09:00 12/29/18 08:59 12/02/18 08:17 Stevan Pace MD Dec 02, 2018 08:34
[2018-12-02] MEDS ORDERED: FUROSEMIDE40 MG ORAL (08:41)
--- NOTE | 2018-12-02 08:45 | General Progress Note ---
Assessment/Plan Problem List: (1) Dyspnea ICD Codes: R06.00 - Dyspnea, unspecified SNOMED: 998898625 (2) Respiratory distress ICD Codes: R06.00 - Dyspnea, unspecified SNOMED: 408145396 (3) Hypertension ICD Codes: I10 - Essential (primary) hypertension SNOMED: 10030839 Qualifiers: Qualified Codes: I10 - Essential (primary) hypertension (4) Chronic a-fib ICD Codes: I48.2 - Chronic atrial fibrillation SNOMED: 088696527 (5) COPD (chronic obstructive pulmonary disease) ICD Codes: J44.9 - Chronic obstructive pulmonary disease, unspecified SNOMED: 58227224 (6) CHF (congestive heart failure) ICD Codes: I50.9 - Heart failure, unspecified SNOMED: 63232014 Qualifiers: Qualified Codes: I50.9 - Heart failure, unspecified Status: stable, progressing Assessment/Plan resp rx steroids o2 stroke prophylaxis improving dc per pulm Subjective ROS Limited/Unobtainable: No Constitutional: Reports: malaise, weakness Allergies: Coded Allergies: PENICILLINS (Verified Allergy, Mild, 07/09/18) Cashew (Verified Allergy, Unknown, 07/09/18) Dust (Verified Allergy, Unknown, 07/09/18) FISH CONTAINING PRODUCTS (Verified Allergy, Unknown, 07/09/18) seafood TOMATO (Verified Allergy, Unknown, 07/09/18) Subjective getting resp rx. less sob. starting to feel better. denies chest pain. wants to go home . Objective Last 24 Hour Vital Signs Date Time Temp Pulse Resp B/P (MAP) Pulse Ox O2 Delivery O2 Flow Rate FiO2 12/02/18 08:23 94 22 99 Nasal Cannula 2.0 28 12/02/18 08:17 97 150/70 12/02/18 08:16 97 22 99 Nasal Cannula 2.0 28 12/02/18 07:56 Nasal Cannula 2.0 Nasal Cannula 2.0 12/02/18 07:54 97.8 73 16 150/70 (96) 96 12/02/18 04:00 97.8 73 16 123/69 (87) 96 12/02/18 04:00 77 12/02/18 03:01 Nasal Cannula 2.0 28 12/02/18 03:00 Nasal Cannula 2.0 28 12/02/18 00:00 78 12/02/18 00:00 97.8 86 18 130/78 (95) 99 12/01/18 23:43 86 18 98 Nasal Cannula 2.0 28 12/01/18 23:33 82 18 98 Nasal Cannula 2.0 28 12/01/18 21:30 80 19 98 Facial 30 12/01/18 21:00 Nasal Cannula 2.0 Nasal Cannula 2.0 12/01/18 20:00 98.7 90 18 144/68 (93) 97 12/01/18 20:00 92 12/01/18 19:21 Nasal Cannula 2.0 28 12/01/18 19:20 Nasal Cannula 2.0 28 12/01/18 16:00 101 12/01/18 16:00 97.9 100 19 136/85 (102) 95 12/01/18 15:22 80 16 98 Nasal Cannula 2.0 28 12/01/18 14:14 77 18 94 Nasal Cannula 2.0 28 12/01/18 12:00 87 12/01/18 12:00 98.0 79 18 147/69 (95) 97 12/01/18 11:56 84 16 98 Nasal Cannula 2.0 28 12/01/18 11:50 81 18 96 Nasal Cannula 2.0 28 12/01/18 09:00 Nasal Cannula 2.0 Nasal Cannula 2.0 12/01/18 08:53 78 126/57 Intake and Output 12/01/18 12/02/18 19:00 07:00 Intake Total 700 ml Balance 700 ml Intake Oral 700 ml # Voids 2 Height (Feet): 5 Height (Inches): 9.00 Weight (Pounds): 210 Objective General Appearance: WD/WN, alert Neck: supple, normal inspection Cardiovascular: normal rate, regular rhythm Respiratory/Chest: chest wall non-tender, no respiratory distress, no accessory muscle use, expiratory wheezing Abdomen: normal bowel sounds, non tender, soft, no organomegaly 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
--- NOTE | 2018-12-02 10:50 | NUR ---
NURSE NOTES: pt left in stable condition, no distress. arm band and iv removed, no bleeding. pt picked up by daughter Janell pt made aware [facility] is [facility]. hh info given in the dc folder
--- NOTE | 2018-12-02 12:42 | NUR ---
DISCHARGE PLANNED PATIENT DISCHARGED HOME TODAY REFERRED TO [facility] T: [phone] F: [phone]
--- NOTE | 2018-12-03 13:23 | Discharge Summary ---
Discharge Summary Discharge Summary _ DATE OF ADMISSION: 11/29/2018 DATE OF DISCHARGE: 12/02/2018 DISCHARGED BY: Dr. Pace REASON FOR ADMISSION: 83 years old female with past medical history of congestive heart failure, COPD , asthma, hypertension, presented from home with complaint of worsening shortness of breath and chest tightness. According to patient she ran out of her usual asthma medications. Patient also noted worsening of the lower extremity edema. She denied fever and chills. No cough. She denied chest pain. Vital signs were stable except somewhat elevated blood pressure. Laboratory workup revealed no leukocytosis, hemoglobin 10.9, hematocrit 36.4. Pro BNP 1366. Troponin negative. Stable renal parameters and electrolytes. Urinalysis revealed no evidence of UTI. Chest x-ray revealed cardiomegaly. Evidence of pulmonary hyperinflation. Suspected pulmonary arterial hypertension. EKG revealed atrial fibrillation with controlled ventricular response. Patient received Lasix in the emergency department and was admitted to telemetry floor for further management. CONSULTANTS: servicenow administrator pulmonary Dr. Pace [facility]RSE: Patient admitted to telemetry floor. Pulmonology and cardiology consults were requested. Patient started on IV steroids. Steroids gradually tapered as permitted. Supplemental oxygen provided as needed to keep pulse oximetry above 92%. ABG on 2 L of nasal via nasal cannula revealed hypercapnia with PCO2 of 65 and pH 7.36. Pulmonary toilet with bronchodilator provided.. Singulair continued. Patient started on IV diuresis with close monitoring of volumes and cardiorenal parameters until euvolemic, and then switched to maintenance dose orally upon discharge. Antiembolic prophylaxis with Pradaxa was resumed. Heart rate was controlled with beta-millicent. Cautious use of beta-millicetn was reinforced due to history of COPD. Blood pressure was managed with the calcium channel millicent and beta-millicent along with Lasix. Blood pressure remained stable. Cautious use of beta-millicent due to history of COPD. Allopurinol continued. Patient clinically stabilized and was ready for discharge home with home health services. FINAL DIAGNOSES: Acute on chronic diastolic congestive heart failure CHF exacerbation COPD exacerbation Respiratory failure Hypertension Chronic atrial fibrillation Gout Obstructive sleep apnea Hypercapnia Hypoxemia DISCHARGE MEDICATIONS: See Medication Reconciliation list. DISCHARGE INSTRUCTIONS: Patient was discharged home with home health services. Follow up with primary care provider in one week. I have been assigned to dictate discharge summary for this account. I was not involved in the patient's management. Paulina Frias NP Dec 03, 2018 13:23
--- NOTE | 2018-12-03 13:51 | Progress Note ---
DATE: 12/02/2018 CARDIOLOGY PROGRESS NOTE SUBJECTIVE: The patient is feeling better. No shortness of breath at rest, minimal on activity. No chest pain. Leg swelling has almost resolved. OBJECTIVE: VITAL SIGNS: Blood pressure 150/70, pulse 97, respirations 22, and afebrile. Monitor atrial fibrillation. LUNGS: Diminished breath sounds. No wheezing. CARDIAC: Irregularly irregular rhythm. Normal S1, S2. ABDOMEN: Soft. EXTREMITIES: Trace lower extremity edema. IMPRESSION: 1. Atrial fibrillation, slightly increased ventricular rate. 2. Hypertensive heart disease, improving. Blood pressure control. 3. Acute on chronic diastolic congestive heart failure, now mostly compensated. 4. COPD with acute bronchospasm, improving. 5. Venous insufficiency with leg edema, recovering. PLAN: 1. Maintenance diuretics and oral dosing. 2. Titrate beta-millicent for rate control and anti-failure benefits. 3. Cardioembolic prophylaxis in place. 4. Salt restriction. 5. Medication compliance. 6. Nebulizer therapy discussed. eGrardo Calix M.D. DR: HARDIK JOB#: [id number] CC:
--- NOTE | 2018-12-03 13:51 | Progress Note ---
DATE: 12/01/2018 CARDIOLOGY PROGRESS NOTE SUBJECTIVE: Less shortness of breath. Improving with respiratory treatments. Leg swelling persists, but is better. No chest pain noted. OBJECTIVE: VITAL SIGNS: Blood pressure 144/68, pulse 90, respiratory rate 18, and afebrile. Monitored rhythm, atrial fibrillation. LUNGS: Coarse breath sounds. Few wheezes. HEART: Irregularly irregular rhythm. Normal S1, S2. A 1/6 systolic murmur at apex. ABDOMEN: Soft. EXTREMITIES: 1+ dependent lower extremity edema. LABORATORY DATA: Sodium 140, potassium 4.4, bicarb 36, BUN 36, creatinine 1, glucose 149. Pro-natriuretic peptide 1391. Albumin 3. IMPRESSION: 1. Acute on chronic diastolic congestive heart failure. 2. COPD exacerbation. 3. Mild protein-calorie malnutrition. 4. Paroxysmal bronchospasm. 5. Prerenal azotemia due to steroids and diuresis. 6. Atrial fibrillation, rate controlled. PLAN: 1. Maintain full anticoagulation. 2. Continue diuresis. 3. Transition from IV to oral therapy over the next one to two days. 4. Steroid taper, bronchodilators as needed. Gerardo Calix M.D. DR: PERRY JOB#: [id number] CC:
== END 2018-12-02 10:50 | disposition home health service (06) | DRG 291 ==
LOC: EMR 00:07 → EDBEDREQ 06:45 → 2E 07:43
DX: I11.0 Hypertensive heart disease with heart failure (principal); J96.92 Respiratory failure, unspecified with hypercapnia; J96.91 Respiratory failure, unspecified with hypoxia; J44.1 Chronic obstructive pulmonary disease with (acute) exacerbation; E44.1 Mild protein-calorie malnutrition; I50.33 Acute on chronic diastolic (congestive) heart failure; Z86.73 Personal history of transient ischemic attack (TIA), and cerebral infarction without residual deficits; Z88.0 Allergy status to penicillin; Z91.018 Allergy to other foods; M70.22 Olecranon bursitis, left elbow; M10.9 Gout, unspecified; I48.2 Chronic atrial fibrillation; G47.33 Obstructive sleep apnea (adult) (pediatric); I25.10 Atherosclerotic heart disease of native coronary artery without angina pectoris; M19.90 Unspecified osteoarthritis, unspecified site; J98.01 Acute bronchospasm; Z79.01 Long term (current) use of anticoagulants
CPT/HCPCS: 36415; 36600; 71045; 80048; 80053; 81003; 82803; 83735; 83880; 84484; 85025; 93005; 94640; 94660; 94664; 99285; J7620

== ENCOUNTER 2019-10-30 14:32 | Inpatient (IN) | payer MEDICARE, OTHER ==
[~2019-10-30] VITALS: Ht 165.1 cm; Wt 113.4 kg
[~2019-10-30 14:32] MED LIST changes: +FUROSEMIDE40 MG ORAL
--- NOTE | 2019-10-30 16:00 | NUR ---
NURSE NOTES: Patient arrived as direct admission by Dr. Pace's order. Patient's in stable condition, wheeled in by wheelchair with assistance of administration tech and patient's daughter. Patient came from home, patient ambulates unsteady gait, AO x 4, denies pain , complains SOB, breathing regular and unlabored, denies chest pain. Bed low and locked, call light within reach, side rails x 3, bed alarm is armed, diagnostic cardiac sonographer is on. Patient's on oxygen, nasal cannula at 2L. Belongings went over with patient, family would like to bring all the belongings home. IV inserted on the L wrist 24g, saline locked, patent and asymptomatic. MD gave admission order by telephone, orders acknowledged and carried out. Admission questions interviewed. Skin intact, edematous on both arms and legs, cellulitis present on both legs, warm to touch. VS: BP 131/68, HR 87, O2 100%, RR 18, Temp 97.9. 12 lead EKG performed, SR noted. Will continue to monitor.
[2019-10-30 16:30] VITALS: BP 131/68
[2019-10-30] MEDS ORDERED: Albuterol ud Inhalation HHN PRN (17:30)
[2019-10-30 17:34] LABS: BASOPHILS % (AUTO) 0.8 % (0.0-2.0); EOSINOPHILS % (AUTO) 0.9 % (0.0-3.0); HEMATOCRIT 33.8 % (37.0-47.0); HEMOGLOBIN 10.3 G/DL (12.0-16.0); LYMPHOCYTES % (AUTO) 30.4 % (20.0-45.0); MEAN CORPUSCULAR VOLUME 99 FL (80-99); PLATELET COUNT 140 K/UL (150-450); RED BLOOD COUNT 3.43 M/UL (4.20-5.40); RED CELL DISTRIBUTION WIDTH 13.6 % (11.6-14.8); WHITE BLOOD COUNT 6.1 K/UL (4.8-10.8)
[2019-10-30 17:46] LABS: ANION GAP 3 mmol/L (5-15); BLOOD UREA NITROGEN 17 mg/dL (7-18); CALCIUM 9.6 MG/DL (8.5-10.1); CARBON DIOXIDE 39 MMOL/L (21-32); CHLORIDE 104 MMOL/L (98-107); CREATININE 0.8 MG/DL (0.55-1.30); POTASSIUM 3.9 MMOL/L (3.5-5.1); SODIUM 146 MMOL/L (136-145)
[2019-10-30] MEDS ORDERED: Dabigatran 150mg cap ORAL SCH (18:00)
[2019-10-30] MEDS ORDERED: Furosemide 40mg tab ORAL SCH (18:00)
[2019-10-30] MEDS: Allopurinol 100mg Tab ORAL SCH (18:38)
--- NOTE | 2019-10-30 19:46 | NUR ---
HAND-OFF: Report given to DAWNA Hernandez. Refugio'ts stable, plan of care endorsed.
--- NOTE | 2019-10-30 19:50 | NUR ---
NURSE NOTES: rECEIVED PT FROM DAWNA Soler. Pt awake, alert, and talkative. Bed in lowest position. Call light within reach. Will continue to monitor.
[2019-10-30 20:00] VITALS: BP 127/63
[2019-10-30] MEDS ORDERED: Vancomycin 1.5gm/NS Premix IVPB ONE (20:00)
[2019-10-30] MEDS: Eliquis 5mg tablet ORAL SCH (21:50)
[2019-10-31] VITALS: BP 148/78
[2019-10-31 04:00] VITALS: BP 149/71
--- NOTE | 2019-10-31 07:07 | NUR ---
HAND-OFF: Report given to DAWNA Soler. Pt stable.
--- NOTE | 2019-10-31 07:10 | NUR ---
NURSE NOTES: Nurse report given by DAWNA Hernandez. Patient's in stable condition, sleeping in bed with bipap, no s/s of distress or SOB, breathing regular and nonlabored. Bed low and locked, call light within reach, side rails x 2, bed alarm is on, bedside commode is at bedside. IV is saline locked, patent and asymptomatic. Will continue to monitor.
[2019-10-31 08:00] VITALS: BP 156/85
[2019-10-31] MEDS: Montelukast 10mg tablet ORAL SCH (08:37)
[2019-10-31] MEDS: Eliquis 5mg tablet ORAL SCH ×2 (08:38→17:45)
[2019-10-31] MEDS: Ascorbic Acid 500mg tab ORAL SCH (08:38)
[2019-10-31] MEDS: Allopurinol 100mg Tab ORAL SCH ×2 (08:38→17:45)
--- NOTE | 2019-10-31 08:45 | History and Physical Report ---
DATE OF ADMISSION: 10/30/2019 CHIEF COMPLAINT: Cellulitis, CHF exacerbation, COPD exacerbation, hypoxemia. HISTORY OF PRESENT ILLNESS: The patient is a pleasant 84-year-old female, known to me from prior admissions here at [facility]. She has a history of congestive heart failure, COPD, chronic hypoxemia, venous insufficiency, and hypertension. She presents with complaints of worsening lower extremity edema, pain, and worsening shortness of breath. According to the patient, she has been "sick" for several weeks. She has had worsening lower extremity edema, pain, subjective fevers and chills. According to the patient, she has been compliant with her oral diuretic regimen and her blood pressure medications. She denies any noncompliance with her diet. She was admitted by her motorized squad captain with concerns about worsening congestive heart failure as well as cellulitis of her legs. PAST MEDICAL HISTORY: As above. History of AFib, gout, osteoarthritis. PAST SURGICAL HISTORY: Includes cholecystectomy, hysterectomy, nephrectomy. CURRENT MEDICATIONS: Reconciled and reviewed. ALLERGIES: Include nuts, fish, penicillin, tomato. FAMILY HISTORY: Noncontributory. SOCIAL HISTORY: Negative for tobacco, ethanol, or drugs. REVIEW OF SYSTEMS: GENERAL: Positive fevers and chills, but no night sweats. HEENT: No headaches or visual changes. CARDIOPULMONARY: No chest pain. Positive shortness of breath as well as worsening lower extremity edema. GASTROINTESTINAL: No nausea or vomiting. No diarrhea. GENITOURINARY: No urgency or frequency. MUSCULOSKELETAL: Positive for lower extremity pain. NEUROLOGIC: No history of seizures. PHYSICAL EXAMINATION: VITAL SIGNS: Temperature 97.9, pulse 51, respirations 18, and blood pressure 149/71. GENERAL: The patient is well-developed, no apparent distress. She is currently on BiPAP. She is alert, able to follow commands. NECK: Supple. HEART: Regular rate and rhythm. LUNGS: Significantly diminished breath sounds bilaterally. ABDOMEN: Soft, nontender, nondistended. EXTREMITIES: Significant for 2 to 3+ pitting edema. There is some hyperpigmentation and erythema noted. LABORATORY DATA: Labs are pending. ASSESSMENT: This is a pleasant female with multiple medical problems including history of congestive heart failure, COPD, hypertension, AFib, admitted with complaints of worsening lower extremity edema and shortness of breath secondary to CHF exacerbation. She also may have some cellulitis of the lower extremities. PLAN: 1. IV antibiotic therapy. 2. IV diuretic therapy. 3. Monitor electrolytes. 4. Follow up chest x-ray. 5. Elevate legs. 6. Dietary consultation for educational low-salt diet. 7. Continue anticoagulation. 8. Monitor for bleeding. 9. Pulmonary consultation has been obtained. Olivier Blanco M.D. DR: EMERSON JOB#: [id number] CC:
[2019-10-31 12:00] VITALS: BP 120/66
--- NOTE | 2019-10-31 12:17 | NUR ---
CASE MANAGEMENT:INITIAL REVIEW 84 YR OLD FEMALE DIRECT ADMIT FROM HOME CC;CELLULITIS. CHF EXACERBATION. COPD EXACERBATION. HYPOXEMIA SI;CELLULITIS. CHF EXACERBATION. COPD EXACERBATION. HYPOXEMIA 98.0 87 28 148/78 96% 2L NC FIO2 30% NA 146 CO2 39 BNP 2432 IS;PROVENTIL HHN Q6 HRS ALLOPURINOL PO BID BYSTOLIC PO BID LASIX IV BID ADMITTED TO TELE TELE STATUS DCP;FROM HOME
--- NOTE | 2019-10-31 13:54 | NUR ---
RADIOLOGY DEPT., CHEST X-RAY COMPLETED.-P.DYE
--- NOTE | 2019-10-31 14:41 | NUR ---
*-* NO INSURANCE INFORMATION IN THE BAR UNABLE TO SEND CLINICALS *-*
[2019-10-31 16:00] VITALS: BP 131/85
--- NOTE | 2019-10-31 16:03 | Diagnostic Imaging Report ---
Indication: Cough Technique: One view of the chest Comparison: 11/30/2018 Findings: Linear bands at the lung bases likely represent areas of scarring, similar to the previous study. The heart is borderline enlarged. The aorta is tortuous and calcified. There is mild interstitial congestion, appearing similar in extent to the previous exam. Impression: Cardiomegaly Borderline interstitial congestion
--- NOTE | 2019-10-31 16:27 | Diagnostic Imaging Report ---
Indication: Bilateral leg pain and edema Technique: Grayscale and duplex images of the bilateral lower extremity arteries Comparison: none Findings: On the right, grayscale and duplex images demonstrate biphasic or triphasic waveforms at all levels including distally with sharp systolic peaks and no evidence of focal flow velocity elevation. Timing of the waveforms suggests slightly irregular heart rate. The subcutaneous fat of the foot and ankle is edematous. On the left, grayscale and duplex images demonstrate biphasic or triphasic waveforms at all levels, including distally. Grayscale images demonstrate suggestion of some atherosclerotic plaque narrowing the fundus there is origin, and there is slight flow velocity elevation at that location. 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
--- NOTE | 2019-10-31 17:03 | Pulmonology Progress Note ---
Assessment/Plan Assessment/Plan COPD CHF hypoxemia chronic respiratory failure leg edema possible cellulitis debility fluid overload PLAN respiratory care oxygen Vanco iv monitor labs arterial US negative monitor HH impression, plan, and exam edited and reviewed in detail care discussed with RN Subjective Allergies: Coded Allergies: PENICILLINS (Verified Allergy, Mild, 07/09/18) Cashew (Verified Allergy, Unknown, 07/09/18) Dust (Verified Allergy, Unknown, 07/09/18) FISH CONTAINING PRODUCTS (Verified Allergy, Unknown, 07/09/18) seafood TOMATO (Verified Allergy, Unknown, 07/09/18) Subjective care noted on oxygen used BIPAP last night Objective Last 24 Hour Vital Signs Date Time Temp Pulse Resp B/P (MAP) Pulse Ox O2 Delivery O2 Flow Rate FiO2 10/31/19 12:00 96.6 86 18 120/66 (84) 97 10/31/19 09:00 Room Air 10/31/19 08:38 65 156/85 10/31/19 08:00 56 10/31/19 08:00 98.7 65 20 156/85 (108) 100 10/31/19 05:10 62 15 100 30 10/31/19 04:00 97.9 66 18 149/71 (97) 98 10/31/19 04:00 51 10/31/19 03:45 58 26 100 30 10/31/19 00:00 98.0 83 18 148/78 (101) 96 10/31/19 00:00 62 10/30/19 22:34 60 28 100 30 10/30/19 22:34 60 28 100 Nasal Cannula 2.0 28 10/30/19 21:00 Room Air 10/30/19 20:00 97.8 69 18 127/63 (84) 96 10/30/19 20:00 66 10/30/19 17:05 Nasal Cannula 2.0 Intake and Output 10/30/19 10/31/19 19:00 07:00 Intake Total 140 ml Balance 140 ml Intake Oral 140 ml # Voids 5 Objective WDWN NAD reduced breath sounds with some wheezes [id number] without MRG NABS nontender no HSM no CC edema and some erythema nonfocal Laboratory Tests 10/30/19 17:20: White Blood Count 6.1, Red Blood Count 3.43L, Hemoglobin 10.3L, Hematocrit 33.8L , Mean Corpuscular Volume 99, Mean Corpuscular Hemoglobin 30.0, Mean Corpuscular Hemoglobin Concent 30.5L, Red Cell Distribution Width 13.6, Platelet Count 140L, Mean Platelet Volume 6.5, Neutrophils (%) (Auto) 61.0, Lymphocytes (%) (Auto) 30.4, Monocytes (%) (Auto) 7.0, Eosinophils (%) (Auto) 0.9, Basophils (%) (Auto) 0.8, Sodium Level 146H, Potassium Level 3.9, Chloride Level 104, Carbon Dioxide Level 39H, Anion Gap 3L, Blood Urea Nitrogen 17, Creatinine 0.8, Estimat Glomerular Filtration Rate > 60, Glucose Level 116H, Calcium Level 9.6, Pro-B-Type Natriuretic Peptide 2432H Current Medications Medications (Trade) Dose Ordered Sig/Rocío Route PRN Reason Start Time Stop Time Status Last Admin Dose Admin Acetaminophen (Tylenol) 650 mg Q4H PRN ORAL Mild Pain/Temp > 100.5 10/30/19 17:30 11/29/19 17:29 Al Hydroxide/Mg Hydroxide (Mylanta) 30 ml Q4HR PRN ORAL Abdominal cramps 10/30/19 17:30 11/29/19 17:29 Albuterol Sulfate (Proventil) 2.5 mg Q6H PRN HHN Shortness of Breath 10/30/19 17:30 11/04/19 17:29 Allopurinol (Zyloprim) 100 mg BID ORAL 10/30/19 18:00 11/29/19 17:59 10/31/19 08:38 Amlodipine Besylate (Norvasc) 10 mg DAILY ORAL 10/31/19 09:00 11/30/19 08:59 10/31/19 08:38 Apixaban (Eliquis) 5 mg BID ORAL 10/30/19 20:00 11/29/19 19:59 10/31/19 08:38 Ascorbic Acid (Vitamin C) 1,000 mg DAILY ORAL 10/31/19 09:00 11/30/19 08:59 10/31/19 08:38 Furosemide (Lasix) 40 mg TWICE A DAY IV 10/31/19 09:00 11/30/19 08:59 10/31/19 08:37 Mirtazapine (Remeron) 30 mg BEDTIME ORAL 10/30/19 21:00 11/29/19 20:59 10/30/19 21:42 Montelukast Sodium (Singulair) 10 mg DAILY ORAL 10/31/19 09:00 11/30/19 08:59 10/31/19 08:37 Nebivolol (Bystolic) 10 mg BID ORAL 10/30/19 20:00 11/29/19 19:59 10/31/19 08:37 Pantoprazole (Protonix) 40 mg DAILY ORAL 10/31/19 09:00 11/30/19 08:59 10/31/19 08:38 Vancomycin HCl (Vanco rx to dose) 1 ea DAILY PRN MISC Per rx protocol 10/30/19 18:00 11/29/19 17:59 Vancomycin/Sodium Chloride 275 ml @ 183.333 mls/hr Q24H IVPB 10/31/19 20:00 11/05/19 19:59 Stevan Pace MD Oct 31, 2019 17:03
--- NOTE | 2019-10-31 18:40 | NUR ---
NURSE NOTES: Patient's IV starting to hurt and leaking and she requested to take the IV out. Patient's a very hard stick and primary nurse tried two times,another nurse tried also but unsuccessful; tried to call ICU nurses but no one can able to come at this time. Patient requested to take a break before another insertion. Will pass message onto receiving nurse.
--- NOTE | 2019-10-31 19:40 | NUR ---
HAND-OFF: Report given to DAWNA Hernandez. Refugio'ts stable, plan of care endorsed.
--- NOTE | 2019-10-31 19:50 | NUR ---
NURSE NOTES: rECEIVED PT FROM DAWNA Soler. Pt awake, alert, and talkative. Bed in lowest position. Call light within reach. Will continue to monitor.
[2019-10-31 20:00] VITALS: BP 137/81
[2019-10-31] MEDS: Vancomycin 1.25gm/NS Premix IVPB SCH (20:49)
[2019-10-31] MEDS: Albuterol/Ipratropium 3ml neb HHN SCH (23:38)
[2019-11-01] VITALS: BP 114/89
--- NOTE | 2019-11-01 01:45 | Progress Note ---
DATE: 10/31/2019 CARDIOLOGY PROGRESS NOTE SUBJECTIVE: The patient is still congested and short of breath although slightly improved. Monitored rhythm, atrial fibrillation. OBJECTIVE: VITAL SIGNS: Blood pressure 114/89, pulse 57, respiratory rate 18, and afebrile. LUNGS: Diminished breath sounds. Scattered rales. CARDIAC: Regular rhythm and rate. Normal S1 and S2. A 1/6 systolic murmur at the lower left sternal border. ABDOMEN: Soft. EXTREMITIES: 1 to 2+ dependent edema. LABORATORY DATA: Chest x-ray revealed cardiomegaly and interstitial congestion. Venous duplex negative for DVT. IMPRESSION: 1. Acute on chronic diastolic congestive heart failure. 2. Chronic venous insufficiency with edema. 3. Paroxysmal atrial fibrillation, on chronic anticoagulation. 4. Chronic obstructive pulmonary disease exacerbation. 5. History of pulmonary hypertension. 6. Dehydration and mild hyponatremia. PLAN: 1. Free water replacement by oral route. 2. Respiratory hygiene. 3. Bronchodilators. 4. Cautious diuresis. 5. Continue apixaban. 6. Titrate anti-failure and antihypertensive regimen. Gerardo Calix M.D. DR: CARLOS JOB#: [id number] CC:
--- NOTE | 2019-11-01 02:15 | Consultation ---
DATE OF CONSULTATION: 10/30/2019 CARDIOLOGY CONSULTATION CONSULTING PHYSICIAN: Gerardo Calix M.D. REQUESTING PHYSICIANS: 1. Olivier Blanco M.D. 2. Stevan Pace M.D. REASON FOR CONSULTATION: Acute on chronic congestive heart failure. HISTORY OF PRESENT ILLNESS: This is an 84-year-old female known to me from prior care, has a longstanding history of diastolic heart failure, hypoxia, and COPD. She presented to the emergency room with worsening swelling of her legs and shortness of breath. She has had several weeks of progression to this degree. She has had some cough and sputum production for the past few days with subjective fevers and chills. She notes compliance with diuretic therapy and states has been out of the hospital for quite a while. PAST MEDICAL HISTORY: COPD, paroxysmal atrial fibrillation, osteoarthritis, hyperuricemia, history of gout, congestive heart failure due to diastolic dysfunction, chronic venous insufficiency, pulmonary hypertension, hypertensive heart disease, prior hysterectomy, prior cholecystectomy, and prior nephrectomy. ALLERGIES: Include penicillin. SOCIAL HISTORY: Negative for smoking. No alcohol or substance abuse. MEDICATIONS: Reviewed and reconciled. REVIEW OF SYSTEMS: A 10-point review of systems performed. All systems negative other than noted above. PHYSICAL EXAMINATION: VITAL SIGNS: Blood pressure 131/68, pulse 87, respiratory rate 18, and afebrile. NECK: Jugular venous pressure elevated. LUNGS: Diminished breath sounds and rales. CARDIAC: Regular rhythm and rate. Normal S1 and S2 with a 1/6 systolic murmur at apex. ABDOMEN: Soft. EXTREMITIES: With 2+ dependent edema and erythema. LABORATORY DATA: Chest x-ray pending. LABORATORY DATA: White count 6.1, hemoglobin 10.3, and platelets 140. Sodium 146, potassium 3.9, bicarb 39, BUN 17, and creatinine 0.8. Pro-natriuretic peptide 2432. Glucose 116. Oxygen saturation is 96%. IMPRESSION: 1. Acute on chronic diastolic congestive heart failure. 2. COPD exacerbation. 3. Chronic hypoxia. 4. Chronic venous insufficiency with possible cellulitis. 5. History of pulmonary hypertension. 6. Paroxysmal atrial fibrillation. PLAN: 1. Diuresis. 2. Titrate anti-failure and antihypertensive regimen. 3. Free water replacement by oral route. 4. Antimicrobials. 5. Respiratory hygiene. 6. Bronchodilators. 7. Nasal oxygen. 8. Cardioembolic prophylaxis apixaban. Gerardo Calix M.D. DR: CARLOS JOB#: [id number] CC:
[2019-11-01] MEDS: Albuterol/Ipratropium 3ml neb HHN SCH ×6 (03:00→23:28)
[2019-11-01 04:00] VITALS: BP 130/82
--- NOTE | 2019-11-01 07:10 | NUR ---
NURSE NOTES: Handoff received from DAWNA Hernandez. Patient received awake and alert and able to make needs known, no acute signs of distress noted, received patient whilst laboratory were drawing her labs. no complaints of pain at this time. patient is on 2 liters nasal cannula and has BIPAP machine at bedside. Bed in the low and locked position with call light within reach, will continue to monitor patient.
--- NOTE | 2019-11-01 07:54 | NUR ---
HAND-OFF: Report given to DAWNA Pavon. PT STABLE.
[2019-11-01 08:00] VITALS: BP 124/63
[2019-11-01] MEDS: Montelukast 10mg tablet ORAL SCH (09:51)
[2019-11-01] MEDS: Allopurinol 100mg Tab ORAL SCH ×2 (09:52→17:55)
[2019-11-01] MEDS: Ascorbic Acid 500mg tab ORAL SCH (09:52)
[2019-11-01] MEDS: Eliquis 5mg tablet ORAL SCH ×2 (09:52→17:56)
[2019-11-01 10:15] LABS: ALANINE AMINOTRANSFERASE 23 U/L (12-78); ALBUMIN 3.2 G/DL (3.4-5.0); ALBUMIN/GLOBULIN RATIO 0.7 (1.0-2.7); ALKALINE PHOSPHATASE 69 U/L (46-116); ANION GAP 5 mmol/L (5-15); ASPARTATE AMINO TRANSFERASE 24 U/L (15-37); BILIRUBIN,TOTAL 0.3 MG/DL (0.2-1.0); BLOOD UREA NITROGEN 26 mg/dL (7-18); CALCIUM 9.5 MG/DL (8.5-10.1); CARBON DIOXIDE 37 MMOL/L (21-32); CHLORIDE 105 MMOL/L (98-107); CREATININE 0.9 MG/DL (0.55-1.30); POTASSIUM 3.9 MMOL/L (3.5-5.1); SODIUM 147 MMOL/L (136-145)
--- NOTE | 2019-11-01 11:00 | NUR ---
NURSE NOTES: Lasix administered late as patient had no IV access. New IV inserted and medication administered.
--- NOTE | 2019-11-01 11:02 | Pulmonology Progress Note ---
Assessment/Plan Assessment/Plan Pulmonary Progress Note Assessment/Plan COPD CHF hypoxemia chronic respiratory failure leg edema possible cellulitis debility fluid overload PLAN respiratory care oxygen Vanco iv monitor labs arterial US negative monitor HH impression, plan, and exam edited and reviewed in detail care discussed with RN Subjective Allergies: Coded Allergies: PENICILLINS (Verified Allergy, Mild, 07/09/18) Cashew (Verified Allergy, Unknown, 07/09/18) Dust (Verified Allergy, Unknown, 07/09/18) FISH CONTAINING PRODUCTS (Verified Allergy, Unknown, 07/09/18) seafood TOMATO (Verified Allergy, Unknown, 07/09/18) Subjective care noted on oxygen PRN BIPAP Objective Vital Signs Noted Objective WDWN NAD reduced breath sounds with some wheezes [id number] without MRG NABS nontender no HSM no CC edema and some erythema nonfocal Laboratory Tests Noted Medications Medications (Trade) Dose Ordered Sig/Rocío Route PRN Reason Start Time Stop Time Status Last Admin Dose Admin Acetaminophen (Tylenol) 650 mg Q4H PRN ORAL Mild Pain/Temp > 100.5 10/30/19 17:30 11/29/19 17:29 Al Hydroxide/Mg Hydroxide (Mylanta) 30 ml Q4HR PRN ORAL Abdominal cramps 10/30/19 17:30 11/29/19 17:29 Albuterol Sulfate (Proventil) 2.5 mg Q6H PRN HHN Shortness of Breath 10/30/19 17:30 11/04/19 17:29 Allopurinol (Zyloprim) 100 mg BID ORAL 10/30/19 18:00 11/29/19 17:59 10/31/19 08:38 Amlodipine Besylate (Norvasc) 10 mg DAILY ORAL 10/31/19 09:00 11/30/19 08:59 10/31/19 08:38 Apixaban (Eliquis) 5 mg BID ORAL 10/30/19 20:00 11/29/19 19:59 10/31/19 08:38 Ascorbic Acid (Vitamin C) 1,000 mg DAILY ORAL 10/31/19 09:00 11/30/19 08:59 10/31/19 08:38 Furosemide (Lasix) 40 mg TWICE A DAY IV 10/31/19 09:00 11/30/19 08:59 10/31/19 08:37 Mirtazapine (Remeron) 30 mg BEDTIME ORAL 10/30/19 21:00 11/29/19 20:59 10/30/19 21:42 Montelukast Sodium (Singulair) 10 mg DAILY ORAL 10/31/19 09:00 11/30/19 08:59 10/31/19 08:37 Nebivolol (Bystolic) 10 mg BID ORAL 10/30/19 20:00 11/29/19 19:59 10/31/19 08:37 Pantoprazole (Protonix) 40 mg DAILY ORAL 10/31/19 09:00 11/30/19 08:59 10/31/19 08:38 Vancomycin HCl (Vanco rx to dose) 1 ea DAILY PRN MISC Per rx protocol 10/30/19 18:00 11/29/19 17:59 Vancomycin/Sodium Chloride 275 ml @ 183.333 mls/hr Q24H IVPB 10/31/19 20:00 11/05/19 19:59 Subjective ROS Limited/Unobtainable: No Allergies: Coded Allergies: PENICILLINS (Verified Allergy, Mild, 07/09/18) Cashew (Verified Allergy, Unknown, 07/09/18) Dust (Verified Allergy, Unknown, 07/09/18) FISH CONTAINING PRODUCTS (Verified Allergy, Unknown, 07/09/18) seafood TOMATO (Verified Allergy, Unknown, 07/09/18) Objective Last 24 Hour Vital Signs Date Time Temp Pulse Resp B/P (MAP) Pulse Ox O2 Delivery O2 Flow Rate FiO2 11/01/19 09:51 71 124/63 11/01/19 09:00 Room Air 11/01/19 08:00 73 11/01/19 08:00 97.6 71 20 124/63 (83) 96 11/01/19 07:24 73 21 99 Nasal Cannula 2.0 28 71 24 92 11/01/19 05:37 56 25 96 30 11/01/19 04:00 98.1 61 18 130/82 (98) 95 11/01/19 04:00 56 11/01/19 03:12 63 17 99 30 11/01/19 00:53 59 17 98 30 11/01/19 00:00 98.0 57 18 114/89 (97) 94 11/01/19 00:00 72 10/31/19 23:56 66 27 99 30 10/31/19 23:39 75 20 100 Nasal Cannula 4.0 36 72 20 97 10/31/19 21:00 Room Air 10/31/19 20:00 97.0 66 19 137/81 (99) 100 10/31/19 20:00 64 10/31/19 16:00 64 10/31/19 16:00 98.6 69 20 131/85 (100) 96 10/31/19 12:00 54 10/31/19 12:00 96.6 86 18 120/66 (84) 97 Intake and Output 10/31/19 11/01/19 19:00 07:00 # Voids 2 Laboratory Tests 11/01/19 07:45: Sodium Level 147H, Potassium Level 3.9, Chloride Level 105, Carbon Dioxide Level 37H, Anion Gap 5, Blood Urea Nitrogen 26H, Creatinine 0.9, Estimat Glomerular Filtration Rate > 60, Glucose Level 91, Calcium Level 9.5, Magnesium Level 1.9, Total Bilirubin 0.3, Aspartate Amino Transf (AST/SGOT) 24, Alanine Aminotransferase (ALT/SGPT) 23, Alkaline Phosphatase 69, Total Protein 7.6, Albumin 3.2L, Globulin 4.4, Albumin/Globulin Ratio 0.7L Current Medications Medications (Trade) Dose Ordered Sig/Rocío Route PRN Reason Start Time Stop Time Status Last Admin Dose Admin Acetaminophen (Tylenol) 650 mg Q4H PRN ORAL Mild Pain/Temp > 100.5 10/30/19 17:30 11/29/19 17:29 Al Hydroxide/Mg Hydroxide (Mylanta) 30 ml Q4HR PRN ORAL Abdominal cramps 10/30/19 17:30 11/29/19 17:29 Albuterol/ Ipratropium (Albuterol/ Ipratropium) 3 ml Q4HRT HHN 10/31/19 23:00 11/05/19 22:59 11/01/19 07:20 Allopurinol (Zyloprim) 100 mg BID ORAL 10/30/19 18:00 11/29/19 17:59 11/01/19 09:52 Amlodipine Besylate (Norvasc) 10 mg DAILY ORAL 10/31/19 09:00 11/30/19 08:59 11/01/19 09:51 Apixaban (Eliquis) 5 mg BID ORAL 10/30/19 20:00 11/29/19 19:59 11/01/19 09:52 Ascorbic Acid (Vitamin C) 1,000 mg DAILY ORAL 10/31/19 09:00 11/30/19 08:59 11/01/19 09:52 Furosemide (Lasix) 40 mg TWICE A DAY IV 10/31/19 09:00 11/30/19 08:59 10/31/19 17:44 Mirtazapine (Remeron) 30 mg BEDTIME ORAL 10/30/19 21:00 11/29/19 20:59 10/31/19 20:49 Montelukast Sodium (Singulair) 10 mg DAILY ORAL 10/31/19 09:00 11/30/19 08:59 11/01/19 09:51 Nebivolol (Bystolic) 10 mg BID ORAL 10/30/19 20:00 11/29/19 19:59 11/01/19 09:52 Pantoprazole (Protonix) 40 mg DAILY ORAL 10/31/19 09:00 11/30/19 08:59 11/01/19 09:52 Vancomycin HCl (Vanco rx to dose) 1 ea DAILY PRN MISC Per rx protocol 10/30/19 18:00 11/29/19 17:59 Vancomycin/Sodium Chloride 275 ml @ 183.333 mls/hr Q24H IVPB 10/31/19 20:00 11/05/19 19:59 10/31/19 20:49 Gerardo Rangel MD Nov 01, 2019 11:02
--- NOTE | 2019-11-01 11:07 | General Progress Note ---
Assessment/Plan Problem List: (1) Cellulitis ICD Codes: L03.90 - Cellulitis, unspecified SNOMED: 738492290 (2) Anemia ICD Codes: D64.9 - Anemia, unspecified SNOMED: 859241560 (3) COPD (chronic obstructive pulmonary disease) ICD Codes: J44.9 - Chronic obstructive pulmonary disease, unspecified SNOMED: 06087140 (4) CHF (congestive heart failure) ICD Codes: I50.9 - Heart failure, unspecified SNOMED: 80963561 (5) Dyspnea ICD Codes: R06.00 - Dyspnea, unspecified SNOMED: 937935806 Status: stable Assessment/Plan: iv abx iv lasix elevated legs follow up cultures monitor labs Subjective ROS Limited/Unobtainable: No Constitutional: Reports: weakness HEENT: Reports: no symptoms Cardiovascular: Reports: edema Respiratory: Reports: shortness of breath Gastrointestinal/Abdominal: Reports: no symptoms Genitourinary: Reports: no symptoms Neurologic/Psychiatric: Reports: no symptoms Endocrine: Reports: no symptoms Hematologic/Lymphatic: Reports: no symptoms Allergies: Coded Allergies: PENICILLINS (Verified Allergy, Mild, 07/09/18) Cashew (Verified Allergy, Unknown, 07/09/18) Dust (Verified Allergy, Unknown, 07/09/18) FISH CONTAINING PRODUCTS (Verified Allergy, Unknown, 07/09/18) seafood TOMATO (Verified Allergy, Unknown, 07/09/18) All Systems: reviewed and negative except above Subjective less sob. decreased leg pain and edema Objective Last 24 Hour Vital Signs Date Time Temp Pulse Resp B/P (MAP) Pulse Ox O2 Delivery O2 Flow Rate FiO2 11/01/19 09:51 71 124/63 11/01/19 09:00 Room Air 11/01/19 08:00 73 11/01/19 08:00 97.6 71 20 124/63 (83) 96 11/01/19 07:24 73 21 99 Nasal Cannula 2.0 28 71 24 92 11/01/19 05:37 56 25 96 30 11/01/19 04:00 98.1 61 18 130/82 (98) 95 11/01/19 04:00 56 11/01/19 03:12 63 17 99 30 11/01/19 00:53 59 17 98 30 11/01/19 00:00 98.0 57 18 114/89 (97) 94 11/01/19 00:00 72 10/31/19 23:56 66 27 99 30 10/31/19 23:39 75 20 100 Nasal Cannula 4.0 36 72 20 97 10/31/19 21:00 Room Air 10/31/19 20:00 97.0 66 19 137/81 (99) 100 10/31/19 20:00 64 10/31/19 16:00 64 10/31/19 16:00 98.6 69 20 131/85 (100) 96 10/31/19 12:00 54 10/31/19 12:00 96.6 86 18 120/66 (84) 97 Intake and Output 10/31/19 11/01/19 19:00 07:00 # Voids 2 Laboratory Tests 11/01/19 07:45: Sodium Level 147H, Potassium Level 3.9, Chloride Level 105, Carbon Dioxide Level 37H, Anion Gap 5, Blood Urea Nitrogen 26H, Creatinine 0.9, Estimat Glomerular Filtration Rate > 60, Glucose Level 91, Calcium Level 9.5, Magnesium Level 1.9, Total Bilirubin 0.3, Aspartate Amino Transf (AST/SGOT) 24, Alanine Aminotransferase (ALT/SGPT) 23, Alkaline Phosphatase 69, Total Protein 7.6, Albumin 3.2L, Globulin 4.4, Albumin/Globulin Ratio 0.7L Height (Feet): 5 Height (Inches): 5.00 Weight (Pounds): 250 General Appearance: WD/WN, alert Neck: supple Cardiovascular: normal rate Respiratory/Chest: chest wall non-tender, lungs clear, normal breath sounds Abdomen: normal bowel sounds, non tender, soft, no organomegaly Edema: no edema noted Arm (L), no edema noted Arm (R), no edema noted Leg (L), no edema noted Leg (R), no edema noted Pedal (L), no edema noted Pedal (R), no edema noted Generalized Olivier Blanco MD Nov 01, 2019 11:07
[2019-11-01 12:00] VITALS: BP 116/57
[2019-11-01 16:00] VITALS: BP 120/69
--- NOTE | 2019-11-01 19:05 | NUR ---
HAND-OFF: Report given to DAWNA hogan.
--- NOTE | 2019-11-01 19:50 | NUR ---
NURSE NOTES: Received pt from DAWNA Prabhakar. Pt awake, alert, and talkative. Bed in lowest position. Call light within reach. Will continue to monitor.
[2019-11-01 20:00] VITALS: BP 158/92
[2019-11-01] MEDS: Vancomycin 1.25gm/NS Premix IVPB SCH (20:08)
--- NOTE | 2019-11-01 22:08 | NUR ---
RESPIRATORY NOTE: Pt placed on BiPAP for nightly use. Pt now on BiPAP 16/, backup rate 14, 30%. Pt on a Facial mask, skin intact, no redness/breakdowns noted. Foam tape applied on pt's nosebridge/cheeks/chin to prevent mask irritations. Pt is alert/awake, follows commands. B/S judson. diminished, nonproductive cough. BiPAp plugged into red outlet, alarms on & audible. Pt in no apparent distress at this time. Will continue plan of care.
[2019-11-02] VITALS: BP 150/98
--- NOTE | 2019-11-02 03:15 | Progress Note ---
DATE: 11/01/2019 CARDIOLOGY PROGRESS NOTE SUBJECTIVE: The patient is less short of breath and has less pain in her legs with swelling decreased. Monitored rhythm, atrial fibrillation. OBJECTIVE: VITAL SIGNS: Blood pressure 124/63, pulse 71, and respirations 20. LUNGS: With few rales and diminished breath sounds. CARDIAC: Irregularly irregular rhythm. Normal S1, S2. A 1/6 systolic murmur at the lower left sternal border. ABDOMEN: Soft, nontender. EXTREMITIES: A 1+ dependent edema. LABORATORY DATA: Sodium 147, potassium 3.9, bicarb 37, BUN 26, and creatinine 0.9. Albumin 3.2. IMPRESSION: 1. Chronic obstructive pulmonary disease exacerbation. 2. Venous insufficiency with edema. 3. Acute on chronic diastolic congestive heart failure. 4. Atrial fibrillation, rate controlled. 5. Hypertensive heart disease. PLAN: 1. Continue cardioembolic prophylaxis with Eliquis. 2. Decrease diuresis. 3. Free water repletion. 4. Titrate antihypertensives. 5. Continue cardiac monitoring. Gerardo Calix M.D. DR: ERNIE JOB#: [id number] CC:
[2019-11-02] MEDS: Albuterol/Ipratropium 3ml neb HHN SCH ×6 (03:21→23:50)
[2019-11-02 04:00] VITALS: BP 121/65
--- NOTE | 2019-11-02 07:33 | NUR ---
NURSE NOTES: Received report from Mary TONEY. Pt in bed awake and orientedx4 and able to make needs known. IV site in RFA 22G SL patent and asymptomatic. Bed in lowest position and locked. Call light within easy reach. Will continue to plan of care.
--- NOTE | 2019-11-02 07:33 | NUR ---
HAND-OFF: Report given to DAWNA Lemos. Pt stable.
[2019-11-02 08:00] VITALS: BP 126/71
[2019-11-02] MEDS: Montelukast 10mg tablet ORAL SCH (08:46)
[2019-11-02] MEDS: Eliquis 5mg tablet ORAL SCH ×2 (08:47→17:29)
[2019-11-02] MEDS: Ascorbic Acid 500mg tab ORAL SCH (08:47)
[2019-11-02] MEDS: Allopurinol 100mg Tab ORAL SCH ×2 (08:47→17:29)
[2019-11-02 09:16] LABS: ANION GAP 6 mmol/L (5-15); BLOOD UREA NITROGEN 20 mg/dL (7-18); CALCIUM 8.8 MG/DL (8.5-10.1); CARBON DIOXIDE 36 MMOL/L (21-32); CHLORIDE 104 MMOL/L (98-107); CREATININE 0.9 MG/DL (0.55-1.30); POTASSIUM 3.4 MMOL/L (3.5-5.1); SODIUM 146 MMOL/L (136-145)
[2019-11-02 12:00] VITALS: BP 125/60
[2019-11-02] MEDS ORDERED: Sodium Chloride for KCL Premix x 2hrs IV SCH (12:00)
--- NOTE | 2019-11-02 12:15 | General Progress Note ---
Assessment/Plan Problem List: (1) Cellulitis ICD Codes: L03.90 - Cellulitis, unspecified SNOMED: 102766610 (2) Anemia ICD Codes: D64.9 - Anemia, unspecified SNOMED: 727898319 (3) COPD (chronic obstructive pulmonary disease) ICD Codes: J44.9 - Chronic obstructive pulmonary disease, unspecified SNOMED: 84099920 (4) CHF (congestive heart failure) ICD Codes: I50.9 - Heart failure, unspecified SNOMED: 40159394 (5) Dyspnea ICD Codes: R06.00 - Dyspnea, unspecified SNOMED: 642478508 Status: stable Assessment/Plan: iv abx for LE cellulitis- improving iv lasix per cards elevated legs follow up cultures monitor labs monitor labs replace lytes resp rx bipap at night Subjective ROS Limited/Unobtainable: No Constitutional: Reports: malaise, weakness HEENT: Reports: no symptoms Cardiovascular: Reports: no symptoms Respiratory: Reports: cough, shortness of breath Gastrointestinal/Abdominal: Reports: no symptoms Genitourinary: Reports: no symptoms Neurologic/Psychiatric: Reports: no symptoms Endocrine: Reports: no symptoms Hematologic/Lymphatic: Reports: no symptoms Allergies: Coded Allergies: PENICILLINS (Verified Allergy, Mild, 07/09/18) Cashew (Verified Allergy, Unknown, 07/09/18) Dust (Verified Allergy, Unknown, 07/09/18) FISH CONTAINING PRODUCTS (Verified Allergy, Unknown, 07/09/18) seafood TOMATO (Verified Allergy, Unknown, 07/09/18) All Systems: reviewed and negative except above Subjective no complaints less sob. no chest pain decreased LE edema and erythema. Objective Last 24 Hour Vital Signs Date Time Temp Pulse Resp B/P (MAP) Pulse Ox O2 Delivery O2 Flow Rate FiO2 11/02/19 12:00 97.7 70 18 125/60 (81) 97 11/02/19 10:47 72 20 100 Nasal Cannula 2.0 28 74 20 98 11/02/19 09:00 Room Air 11/02/19 08:46 65 126/71 11/02/19 08:00 65 20 99 Nasal Cannula 2.0 28 64 20 96 11/02/19 08:00 96 Nasal Cannula 2.0 28 11/02/19 08:00 97.6 65 19 126/71 (89) 100 11/02/19 08:00 72 11/02/19 05:15 60 14 97 30 11/02/19 04:00 64 11/02/19 04:00 97.9 60 23 121/65 (83) 96 11/02/19 03:31 62 14 99 Bi-Pap 30 11/02/19 03:21 62 14 98 Bi-Pap 30 11/02/19 03:21 62 14 98 30 11/02/19 01:12 64 14 96 30 11/02/19 00:00 67 11/02/19 00:00 98.4 92 22 150/98 (115) 96 11/01/19 23:38 64 14 99 Bi-Pap 30 11/01/19 23:28 63 15 98 30 11/01/19 23:28 63 15 98 Bi-Pap 30 11/01/19 22:05 63 24 96 30 11/01/19 21:00 Room Air 11/01/19 20:00 98.1 82 21 158/92 (114) 96 11/01/19 19:26 66 20 99 Nasal Cannula 2.0 28 11/01/19 19:16 65 20 96 Nasal Cannula 2.0 28 11/01/19 19:16 96 Nasal Cannula 2.0 28 11/01/19 16:00 68 11/01/19 16:00 98.6 83 20 120/69 (86) 100 11/01/19 14:57 68 21 100 Nasal Cannula 2.0 28 69 20 97 Intake and Output 11/01/19 11/02/19 19:00 07:00 Intake Total 120 ml Balance 120 ml Intake Oral 120 ml # Voids 2 Laboratory Tests 11/01/19 19:00: Vancomycin Level Trough 10.6 11/02/19 06:18: Sodium Level 146H, Potassium Level 3.4L, Chloride Level 104, Carbon Dioxide Level 36H, Anion Gap 6, Blood Urea Nitrogen 20H, Creatinine 0.9, Estimat Glomerular Filtration Rate > 60, Glucose Level 96, Uric Acid 4.4, Calcium Level 8.8, Pro-B-Type Natriuretic Peptide 2200H Height (Feet): 5 Height (Inches): 5.00 Weight (Pounds): 250 Objective General Appearance: WD/WN, alert Neck: supple Cardiovascular: normal rate Respiratory/Chest: chest wall non-tender, lungs clear, normal breath sounds Abdomen: normal bowel sounds, non tender, soft, no organomegaly Edema: no edema noted Arm (L), no edema noted Arm (R), no edema noted Leg (L), no edema noted Leg (R), no edema noted Pedal (L), no edema noted Pedal (R), no edema noted Generalized Olivier Blanco MD Nov 02, 2019 12:15
[2019-11-02] MEDS ORDERED: Tubing IV Secondary IV ONE (14:12)
[2019-11-02] MEDS ORDERED: D5W 550ml IV ONE (14:12)
--- NOTE | 2019-11-02 14:50 | Pulmonology Progress Note ---
Assessment/Plan Assessment/Plan Pulmonary Progress Note Assessment/Plan COPD CHF hypoxemia chronic respiratory failure leg edema possible cellulitis debility fluid overload PLAN respiratory care oxygen Vanco iv monitor labs arterial US negative monitor HH impression, plan, and exam edited and reviewed in detail care discussed with RN Subjective Allergies: Coded Allergies: PENICILLINS (Verified Allergy, Mild, 07/09/18) Cashew (Verified Allergy, Unknown, 07/09/18) Dust (Verified Allergy, Unknown, 07/09/18) FISH CONTAINING PRODUCTS (Verified Allergy, Unknown, 07/09/18) seafood TOMATO (Verified Allergy, Unknown, 07/09/18) Subjective care noted on oxygen less SOB PRN BIPAP Objective Vital Signs Noted Objective WDWN NAD reduced breath sounds [id number] without MRG NABS nontender no HSM no CC minimal edema improving erythema nonfocal Laboratory Tests Noted Medications Subjective ROS Limited/Unobtainable: No Allergies: Coded Allergies: PENICILLINS (Verified Allergy, Mild, 07/09/18) Cashew (Verified Allergy, Unknown, 07/09/18) Dust (Verified Allergy, Unknown, 07/09/18) FISH CONTAINING PRODUCTS (Verified Allergy, Unknown, 07/09/18) seafood TOMATO (Verified Allergy, Unknown, 07/09/18) Objective Last 24 Hour Vital Signs Date Time Temp Pulse Resp B/P (MAP) Pulse Ox O2 Delivery O2 Flow Rate FiO2 11/02/19 14:33 71 18 100 Nasal Cannula 2.0 28 68 18 97 11/02/19 12:00 97.7 70 18 125/60 (81) 97 11/02/19 12:00 67 11/02/19 10:47 72 20 100 Nasal Cannula 2.0 28 74 20 98 11/02/19 09:00 Room Air 11/02/19 08:46 65 126/71 11/02/19 08:00 65 20 99 Nasal Cannula 2.0 28 64 20 96 11/02/19 08:00 96 Nasal Cannula 2.0 28 11/02/19 08:00 97.6 65 19 126/71 (89) 100 11/02/19 08:00 72 11/02/19 05:15 60 14 97 30 11/02/19 04:00 64 11/02/19 04:00 97.9 60 23 121/65 (83) 96 11/02/19 03:31 62 14 99 Bi-Pap 30 11/02/19 03:21 62 14 98 Bi-Pap 30 11/02/19 03:21 62 14 98 30 11/02/19 01:12 64 14 96 30 11/02/19 00:00 67 11/02/19 00:00 98.4 92 22 150/98 (115) 96 11/01/19 23:38 64 14 99 Bi-Pap 30 11/01/19 23:28 63 15 98 30 11/01/19 23:28 63 15 98 Bi-Pap 30 11/01/19 22:05 63 24 96 30 11/01/19 21:00 Room Air 11/01/19 20:00 98.1 82 21 158/92 (114) 96 11/01/19 19:26 66 20 99 Nasal Cannula 2.0 28 11/01/19 19:16 65 20 96 Nasal Cannula 2.0 28 11/01/19 19:16 96 Nasal Cannula 2.0 28 11/01/19 16:00 68 11/01/19 16:00 98.6 83 20 120/69 (86) 100 11/01/19 14:57 68 21 100 Nasal Cannula 2.0 28 69 20 97 Intake and Output 11/01/19 11/02/19 19:00 07:00 Intake Total 120 ml Balance 120 ml Intake Oral 120 ml # Voids 2 Laboratory Tests 11/01/19 19:00: Vancomycin Level Trough 10.6 11/02/19 06:18: Sodium Level 146H, Potassium Level 3.4L, Chloride Level 104, Carbon Dioxide Level 36H, Anion Gap 6, Blood Urea Nitrogen 20H, Creatinine 0.9, Estimat Glomerular Filtration Rate > 60, Glucose Level 96, Uric Acid 4.4, Calcium Level 8.8, Pro-B-Type Natriuretic Peptide 2200H Current Medications Medications (Trade) Dose Ordered Sig/Rocío Route PRN Reason Start Time Stop Time Status Last Admin Dose Admin Acetaminophen (Tylenol) 650 mg Q4H PRN ORAL Mild Pain/Temp > 100.5 10/30/19 17:30 11/29/19 17:29 Al Hydroxide/Mg Hydroxide (Mylanta) 30 ml Q4HR PRN ORAL Abdominal cramps 10/30/19 17:30 11/29/19 17:29 Albuterol/ Ipratropium (Albuterol/ Ipratropium) 3 ml Q4HRT HHN 10/31/19 23:00 11/05/19 22:59 11/02/19 14:23 Allopurinol (Zyloprim) 100 mg BID ORAL 10/30/19 18:00 11/29/19 17:59 11/02/19 08:47 Amlodipine Besylate (Norvasc) 10 mg DAILY ORAL 10/31/19 09:00 11/30/19 08:59 11/02/19 08:46 Apixaban (Eliquis) 5 mg BID ORAL 10/30/19 20:00 11/29/19 19:59 11/02/19 08:47 Ascorbic Acid (Vitamin C) 1,000 mg DAILY ORAL 10/31/19 09:00 11/30/19 08:59 11/02/19 08:47 Dextrose 200 ml @ 100 mls/hr ONCE ONCE IV 11/02/19 13:00 11/02/19 14:59 11/02/19 12:17 Furosemide (Lasix) 40 mg DAILY IV 11/02/19 09:00 12/02/19 08:59 11/02/19 08:46 Mirtazapine (Remeron) 30 mg BEDTIME ORAL 10/30/19 21:00 11/29/19 20:59 11/01/19 20:08 Montelukast Sodium (Singulair) 10 mg DAILY ORAL 10/31/19 09:00 11/30/19 08:59 11/02/19 08:46 Nebivolol (Bystolic) 10 mg BID ORAL 10/30/19 20:00 11/29/19 19:59 11/02/19 08:47 Pantoprazole (Protonix) 40 mg DAILY ORAL 10/31/19 09:00 11/30/19 08:59 11/02/19 08:47 Potassium Chloride 100 ml @ 100 mls/hr Q1HR IVPB 11/02/19 13:00 11/02/19 14:59 11/02/19 14:16 Vancomycin HCl (Vanco rx to dose) 1 ea DAILY PRN MISC Per rx protocol 10/30/19 18:00 11/29/19 17:59 Vancomycin/Sodium Chloride 275 ml @ 183.333 mls/hr Q24H IVPB 10/31/19 20:00 11/05/19 19:59 11/01/19 20:08 Gerardo Rangel MD Nov 02, 2019 14:50
[2019-11-02 16:00] VITALS: BP 127/65
--- NOTE | 2019-11-02 19:19 | NUR ---
HAND-OFF: Report given to Tran TONEY. Pt remains stable.
--- NOTE | 2019-11-02 19:27 | NUR ---
NURSE NOTES: RECEIVED PATIENT RESTING IN BED, NO COMPLAINTS OF CHEST PAIN AT THIS TIME. FALL PRECAUTIONS IN PLACE: CALL LIGHT AND BEDSIDE TABLE WITHIN REACH, BED IN LOW POSITION. PLAN OF CARE REVIEWED.
[2019-11-02 20:00] VITALS: BP 119/62
[2019-11-02] MEDS: Vancomycin 1.25gm/NS Premix IVPB SCH (21:29)
--- NOTE | 2019-11-02 22:02 | NUR ---
RESPIRATORY NOTE: Pt placed on BiPAP for nightly use. Pt now on BiPAP 16/, backup rate 14, 30%. Pt on a Facial mask, skin intact, no redness/breakdowns noted. Foam tape applied on pt's nosebridge/cheeks/chin to prevent mask irritations. Pt is alert/awake, follows commands. B/S judson. diminished, nonproductive cough. BiPAp plugged into red outlet, alarms on & audible. Pt resting comfortably, in no apparent distress at this time. Will continue plan of care.
[2019-11-03] VITALS: BP 133/71
--- NOTE | 2019-11-03 01:45 | Progress Note ---
DATE: 11/02/2019 CARDIOLOGY PROGRESS NOTE SUBJECTIVE: The patient remains on IV antimicrobials. Edema is decreasing. Shortness of breath is better. Still requiring BiPAP at night. No chest pain. Monitored rhythm, atrial fibrillation, rate controlled. PHYSICAL EXAMINATION: VITAL SIGNS: Blood pressure 119/62, heart rate 75, and respiratory rate 20. No fever. Oxygen saturation 98% on 2 liters. LUNGS: Diminished breath sounds. No rales or wheezes. CARDIAC: Irregularly irregular rhythm. Normal S1 and S2 with a 1/6 systolic murmur at apex. ABDOMEN: Soft. EXTREMITIES: With 1+ dependent edema. Erythema has diminished. LABORATORY DATA: Sodium 146, potassium 3.4, BUN 20, creatinine 0.9, and bicarbonate 36. IMPRESSION: 1. Cellulitis. 2. Venous insufficiency. 3. Acute on chronic diastolic congestive heart failure. 4. Chronic atrial fibrillation, rate controlled. 5. COPD exacerbation. 6. Dehydration, hypernatremia, and contraction alkalosis. PLAN: 1. Free water replacement. 2. Full anticoagulation with apixaban for cardioembolic prophylaxis. 3. Transition to maintenance dose diuretic. 4. Antimicrobials and leg elevation. Gerardo Calix M.D. DR: JOEY JOB#: [id number] CC:
[2019-11-03] MEDS ORDERED: D5W 500ml 550 ML IV SCH (03:00)
[2019-11-03] MEDS: Albuterol/Ipratropium 3ml neb HHN SCH ×6 (03:37→22:45)
[2019-11-03 04:00] VITALS: BP 125/66
--- NOTE | 2019-11-03 07:13 | NUR ---
HAND-OFF: Report given to Deepti REYNA RN. PATIENT RESTING IN BED, NO SIGNS OF DISTRESS NOTED.
--- NOTE | 2019-11-03 07:21 | NUR ---
NURSE NOTES: Received report from Tran TONEY. Pt in bed awake an orientedx4. On O2 2LPM via N/C. Call light within easy reach. Bed in lowest position and locked. IV site right hand 20G SL patent and asymptomatic. VRE not ordered upon admission. Made Tran TONEY, previous nurse aware to follow up. External female catheter in place. Will continue to plan of care.
--- NOTE | 2019-11-03 07:23 | General Progress Note ---
Assessment/Plan Problem List: (1) Cellulitis ICD Codes: L03.90 - Cellulitis, unspecified SNOMED: 063680071 (2) Anemia ICD Codes: D64.9 - Anemia, unspecified SNOMED: 402519549 (3) COPD (chronic obstructive pulmonary disease) ICD Codes: J44.9 - Chronic obstructive pulmonary disease, unspecified SNOMED: 11464222 (4) CHF (congestive heart failure) ICD Codes: I50.9 - Heart failure, unspecified SNOMED: 87560288 (5) Dyspnea ICD Codes: R06.00 - Dyspnea, unspecified SNOMED: 452741469 Status: stable Assessment/Plan: iv abx for LE cellulitis- improving. can switch to po on dc iv lasix per cards elevated legs encourage water monitor labs replace lytes resp rx bipap at night dc per cards Subjective ROS Limited/Unobtainable: No Constitutional: Reports: malaise, weakness HEENT: Reports: no symptoms Cardiovascular: Reports: no symptoms Respiratory: Reports: cough Gastrointestinal/Abdominal: Reports: no symptoms Genitourinary: Reports: no symptoms Neurologic/Psychiatric: Reports: pre-existing deficit Endocrine: Reports: no symptoms Hematologic/Lymphatic: Reports: no symptoms Allergies: Coded Allergies: PENICILLINS (Verified Allergy, Mild, 07/09/18) Cashew (Verified Allergy, Unknown, 07/09/18) Dust (Verified Allergy, Unknown, 07/09/18) FISH CONTAINING PRODUCTS (Verified Allergy, Unknown, 07/09/18) seafood TOMATO (Verified Allergy, Unknown, 07/09/18) All Systems: reviewed and negative except above Subjective off bipap currently. overall feels better. less sob. no chest pain decreased LE edema and erythema. on iv vanco Objective Last 24 Hour Vital Signs Date Time Temp Pulse Resp B/P (MAP) Pulse Ox O2 Delivery O2 Flow Rate FiO2 11/03/19 04:00 98.0 67 24 125/66 (85) 98 11/03/19 04:00 77 11/03/19 03:47 76 20 99 Nasal Cannula 2.0 28 11/03/19 03:37 79 20 93 Nasal Cannula 2.0 28 11/03/19 01:39 72 27 95 30 11/03/19 00:00 98.2 72 20 133/71 (91) 98 11/03/19 00:00 60 19 99 Bi-Pap 30 11/03/19 00:00 69 11/02/19 23:50 60 21 95 Bi-Pap 30 11/02/19 23:50 60 21 95 30 11/02/19 21:59 69 22 97 30 11/02/19 21:00 Bi-pap 11/02/19 20:00 72 11/02/19 20:00 98.1 75 20 119/62 (81) 98 11/02/19 19:55 79 20 98 Nasal Cannula 2.0 28 11/02/19 19:45 95 Nasal Cannula 2.0 28 11/02/19 19:45 75 20 95 Nasal Cannula 2.0 28 11/02/19 16:00 67 11/02/19 16:00 97.9 64 19 127/65 (85) 97 11/02/19 14:33 71 18 100 Nasal Cannula 2.0 28 68 18 97 11/02/19 12:00 97.7 70 18 125/60 (81) 97 11/02/19 12:00 67 11/02/19 10:47 72 20 100 Nasal Cannula 2.0 28 74 20 98 11/02/19 09:00 Room Air 11/02/19 08:46 65 126/71 11/02/19 08:00 65 20 99 Nasal Cannula 2.0 28 64 20 96 11/02/19 08:00 96 Nasal Cannula 2.0 28 11/02/19 08:00 97.6 65 19 126/71 (89) 100 11/02/19 08:00 72 Intake and Output 11/02/19 11/03/19 19:00 07:00 Intake Total 1000 ml 395.000 ml Output Total 1200 ml 1150 ml Balance -200 ml -755.000 ml Intake Oral 400 ml 120 ml IV Total 600 ml 275.000 ml Output Urine Total 1200 ml 1150 ml Height (Feet): 5 Height (Inches): 5.00 Weight (Pounds): 250 Objective General Appearance: WD/WN, alert Neck: supple Cardiovascular: normal rate Respiratory/Chest: chest wall non-tender, lungs clear, normal breath sounds Abdomen: normal bowel sounds, non tender, soft, no organomegaly Edema: no edema noted Arm (L), no edema noted Arm (R), no edema noted Leg (L), no edema noted Leg (R), no edema noted Pedal (L), no edema noted Pedal (R), no edema noted Generalized Olivier Blanco MD Nov 03, 2019 07:23
[2019-11-03 08:00] VITALS: BP 159/75
--- NOTE | 2019-11-03 08:14 | Pulmonology Progress Note ---
Assessment/Plan Assessment/Plan COPD CHF hypoxemia chronic respiratory failure leg edema possible cellulitis debility fluid overload PLAN respiratory care oxygen po antibiotics monitor labs arterial US negative monitor HH po lasix dc planning today impression, plan, and exam edited and reviewed in detail care discussed with RN Subjective Allergies: Coded Allergies: PENICILLINS (Verified Allergy, Mild, 07/09/18) Cashew (Verified Allergy, Unknown, 07/09/18) Dust (Verified Allergy, Unknown, 07/09/18) FISH CONTAINING PRODUCTS (Verified Allergy, Unknown, 07/09/18) seafood TOMATO (Verified Allergy, Unknown, 07/09/18) Subjective care noted on oxygen on BIPAP Objective Last 24 Hour Vital Signs Date Time Temp Pulse Resp B/P (MAP) Pulse Ox O2 Delivery O2 Flow Rate FiO2 11/03/19 08:00 97.1 72 20 159/75 (103) 98 11/03/19 04:00 98.0 67 24 125/66 (85) 98 11/03/19 04:00 77 11/03/19 03:47 76 20 99 Nasal Cannula 2.0 28 11/03/19 03:37 79 20 93 Nasal Cannula 2.0 28 11/03/19 01:39 72 27 95 30 11/03/19 00:00 98.2 72 20 133/71 (91) 98 11/03/19 00:00 60 19 99 Bi-Pap 30 11/03/19 00:00 69 11/02/19 23:50 60 21 95 Bi-Pap 30 11/02/19 23:50 60 21 95 30 11/02/19 21:59 69 22 97 30 11/02/19 21:00 Bi-pap 11/02/19 20:00 72 11/02/19 20:00 98.1 75 20 119/62 (81) 98 11/02/19 19:55 79 20 98 Nasal Cannula 2.0 28 11/02/19 19:45 95 Nasal Cannula 2.0 28 11/02/19 19:45 75 20 95 Nasal Cannula 2.0 28 11/02/19 16:00 67 11/02/19 16:00 97.9 64 19 127/65 (85) 97 11/02/19 14:33 71 18 100 Nasal Cannula 2.0 28 68 18 97 11/02/19 12:00 97.7 70 18 125/60 (81) 97 11/02/19 12:00 67 11/02/19 10:47 72 20 100 Nasal Cannula 2.0 28 74 20 98 11/02/19 09:00 Room Air 11/02/19 08:46 65 126/71 Intake and Output 11/02/19 11/03/19 19:00 07:00 Intake Total 1000 ml 395.000 ml Output Total 1200 ml 1150 ml Balance -200 ml -755.000 ml Intake Oral 400 ml 120 ml IV Total 600 ml 275.000 ml Output Urine Total 1200 ml 1150 ml Objective WDWN NAD reduced breath sounds with some wheezes [id number] without MRG NABS nontender no HSM no CC edema and some erythema improved nonfocal Current Medications Medications (Trade) Dose Ordered Sig/Rocío Route PRN Reason Start Time Stop Time Status Last Admin Dose Admin Acetaminophen (Tylenol) 650 mg Q4H PRN ORAL Mild Pain/Temp > 100.5 10/30/19 17:30 11/29/19 17:29 Al Hydroxide/Mg Hydroxide (Mylanta) 30 ml Q4HR PRN ORAL Abdominal cramps 10/30/19 17:30 11/29/19 17:29 Albuterol/ Ipratropium (Albuterol/ Ipratropium) 3 ml Q4HRT HHN 10/31/19 23:00 11/05/19 22:59 11/03/19 03:37 Allopurinol (Zyloprim) 100 mg BID ORAL 10/30/19 18:00 11/29/19 17:59 11/02/19 17:29 Amlodipine Besylate (Norvasc) 10 mg DAILY ORAL 10/31/19 09:00 11/30/19 08:59 11/02/19 08:46 Apixaban (Eliquis) 5 mg BID ORAL 10/30/19 20:00 11/29/19 19:59 11/02/19 17:29 Ascorbic Acid (Vitamin C) 1,000 mg DAILY ORAL 10/31/19 09:00 11/30/19 08:59 11/02/19 08:47 Furosemide (Lasix) 40 mg DAILY IV 11/02/19 09:00 12/02/19 08:59 11/02/19 08:46 Mirtazapine (Remeron) 30 mg BEDTIME ORAL 10/30/19 21:00 11/29/19 20:59 11/02/19 21:24 Montelukast Sodium (Singulair) 10 mg DAILY ORAL 10/31/19 09:00 11/30/19 08:59 11/02/19 08:46 Nebivolol (Bystolic) 10 mg BID ORAL 10/30/19 20:00 11/29/19 19:59 11/02/19 17:29 Pantoprazole (Protonix) 40 mg DAILY ORAL 10/31/19 09:00 11/30/19 08:59 11/02/19 08:47 Vancomycin HCl (Vanco rx to dose) 1 ea DAILY PRN MISC Per rx protocol 10/30/19 18:00 11/29/19 17:59 Vancomycin/Sodium Chloride 275 ml @ 183.333 mls/hr Q24H IVPB 10/31/19 20:00 11/05/19 19:59 11/02/19 21:29 Stevan Pace MD Nov 03, 2019 08:14
[2019-11-03] MEDS: Montelukast 10mg tablet ORAL SCH (09:15)
[2019-11-03] MEDS: Ascorbic Acid 500mg tab ORAL SCH (09:15)
[2019-11-03] MEDS: Allopurinol 100mg Tab ORAL SCH ×2 (09:15→17:36)
[2019-11-03] MEDS: Eliquis 5mg tablet ORAL SCH ×2 (09:16→17:36)
[2019-11-03 11:57] VITALS: BP 155/66
--- NOTE | 2019-11-03 12:55 | NUR ---
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 97.1 HR 72 RR 20 B/P 159/75 NA 146 BNP 2200 BUN 20 IS: LASIX IV VANCO IV SINGULAIR TELE STATUS
[2019-11-03 16:00] VITALS: BP 139/64
--- NOTE | 2019-11-03 19:02 | NUR ---
HAND-OFF: Report given to William TONEY. Pt remains stable.
--- NOTE | 2019-11-03 19:03 | NUR ---
NURSE NOTES: Received pt from DAWNA Lemos. pt is awake and resting in bed in no acute distress, with HOB elevated, on nasal cannula 2L. Iv site intact. Bed locked in lowest position, bed alarm on, call light within reach. Will continue with plan of care. Fall precaution implemented. Will continue with plan of care.
[2019-11-03 20:00] VITALS: BP 129/65
[2019-11-03] MEDS: Vancomycin 1.25gm/NS Premix IVPB SCH (20:14)
--- NOTE | 2019-11-03 22:30 | Progress Note ---
DATE: 11/03/2019 CARDIOLOGY PROGRESS NOTE SUBJECTIVE: The patient has less congestion. Less shortness of breath. No chest pain. Leg swelling improved. OBJECTIVE: VITAL SIGNS: Blood pressure 139/64 to 155/66, heart rate 72, respiratory rate 18, afebrile. Monitor atrial fibrillation. LUNGS: Diminished breath sounds. CARDIAC: Irregularly irregular rhythm. Normal S1, S2. ABDOMEN: Soft. EXTREMITIES: 1+ lower extremity edema and decreased erythema. IMPRESSION: 1. Hypernatremia. 2. Dehydration. 3. Hypokalemia. 4. Acute on chronic diastolic congestive heart failure. 5. Pulmonary hypertension. 6. COPD. 7. Chronic atrial fibrillation. 8. Cellulitis. 9. Venous insufficiency. PLAN: 1. Recheck labs. 2. Replace potassium. 3. Check magnesium. 4. Free water replacement. 5. Maintenance diuretic. 6. Antimicrobials. 7. Cardioembolic prophylaxis with apixaban. 8. Skin care. 9. We will follow. Gerardo Calix M.D. DR: TARA JOB#: [id number] CC:
--- NOTE | 2019-11-03 22:45 | NUR ---
RESPIRATORY NOTE: PT REFUSED BIPAP NOC, PT REMAINS ON 2L NASAL CANNULA. SPO2>92%, NO SOB AND NO RESP DISTRESS NOTED. BIPAP ON STANDBY AT BEDSIDE. NURSE ALEJANDRO AWARE. WILL CONTINUE MONITORING PT CLOSELY.
[2019-11-04] MEDS: Albuterol/Ipratropium 3ml neb HHN SCH ×3 (02:50→11:51)
[2019-11-04 04:00] VITALS: BP 126/56
--- NOTE | 2019-11-04 06:02 | General Progress Note ---
Assessment/Plan Problem List: (1) Cellulitis ICD Codes: L03.90 - Cellulitis, unspecified SNOMED: 588976952 (2) Anemia ICD Codes: D64.9 - Anemia, unspecified SNOMED: 406701181 (3) COPD (chronic obstructive pulmonary disease) ICD Codes: J44.9 - Chronic obstructive pulmonary disease, unspecified SNOMED: 34898413 (4) CHF (congestive heart failure) ICD Codes: I50.9 - Heart failure, unspecified SNOMED: 03048765 (5) Dyspnea ICD Codes: R06.00 - Dyspnea, unspecified SNOMED: 157207607 Status: stable Assessment/Plan: iv abx for LE cellulitis- improving. can switch to po on dc iv lasix per cards elevated legs encourage water monitor labs replace lytes resp rx bipap at night dc planning Subjective ROS Limited/Unobtainable: No Constitutional: Reports: malaise, weakness HEENT: Reports: no symptoms Cardiovascular: Reports: no symptoms Respiratory: Reports: cough, shortness of breath Gastrointestinal/Abdominal: Reports: no symptoms Genitourinary: Reports: no symptoms Neurologic/Psychiatric: Reports: no symptoms Endocrine: Reports: no symptoms Hematologic/Lymphatic: Reports: no symptoms Allergies: Coded Allergies: PENICILLINS (Verified Allergy, Mild, 07/09/18) Cashew (Verified Allergy, Unknown, 07/09/18) Dust (Verified Allergy, Unknown, 07/09/18) FISH CONTAINING PRODUCTS (Verified Allergy, Unknown, 07/09/18) seafood TOMATO (Verified Allergy, Unknown, 07/09/18) All Systems: reviewed and negative except above Subjective off bipap currently. overall improved. less sob. no chest pain decreased LE edema and erythema. only some SANDERS. feels close to baseline now Objective Last 24 Hour Vital Signs Date Time Temp Pulse Resp B/P (MAP) Pulse Ox O2 Delivery O2 Flow Rate FiO2 11/04/19 04:00 77 11/04/19 04:00 97.5 67 18 126/56 (79) 94 11/04/19 02:50 77 18 99 Nasal Cannula 2.0 28 78 18 95 11/04/19 00:00 90 11/04/19 00:00 90 11/03/19 22:45 75 18 100 Nasal Cannula 2.0 28 73 18 97 11/03/19 21:00 Bi-pap 11/03/19 20:00 98.7 67 18 129/65 (86) 97 11/03/19 20:00 67 11/03/19 19:35 97 Nasal Cannula 2.0 28 11/03/19 19:35 71 18 100 Nasal Cannula 2.0 28 69 18 97 11/03/19 16:37 73 18 100 Nasal Cannula 2.0 28 71 18 97 11/03/19 16:00 70 11/03/19 16:00 97.9 69 20 139/64 (89) 96 11/03/19 13:09 76 18 100 Nasal Cannula 2.0 28 78 18 98 11/03/19 12:00 69 11/03/19 11:57 98.0 72 20 155/66 (95) 97 11/03/19 09:16 74 159/75 11/03/19 09:00 Bi-pap 11/03/19 08:28 98 Nasal Cannula 2.0 28 11/03/19 08:28 74 18 100 Nasal Cannula 2.0 28 77 18 98 11/03/19 08:00 70 11/03/19 08:00 97.1 72 20 159/75 (103) 98 Intake and Output 11/03/19 11/04/19 19:00 07:00 Intake Total 600 ml Output Total 1200 ml Balance -600 ml Intake Oral 600 ml Output Urine Total 1200 ml # Bowel Movements 2 Height (Feet): 5 Height (Inches): 5.00 Weight (Pounds): 250 Objective General Appearance: WD/WN, alert Neck: supple Cardiovascular: normal rate Respiratory/Chest: chest wall non-tender, lungs clear, normal breath sounds Abdomen: normal bowel sounds, non tender, soft, no organomegaly Edema: no edema noted Arm (L), no edema noted Arm (R), no edema noted Leg (L), no edema noted Leg (R), no edema noted Pedal (L), no edema noted Pedal (R), no edema noted Generalized Olivier Blanco MD Nov 04, 2019 06:02
--- NOTE | 2019-11-04 06:41 | NUR ---
NURSE NOTES: Pt self d/c IV catheter. Attempted to insert Iv in two different instances and patient refused both times. Pt stated, "Not right now! Later!"
--- NOTE | 2019-11-04 06:53 | NUR ---
NURSE NOTES: Received report from William TONEY. Pt in bed awake and oriented and states "I am going home today. I am not going to get any labs or IV." Explained the patient that RN will discuss with MD for discharge plan. Bed in lowest position and locked. On bed alarm. Side rails x2 up for safety. Will continue to plan of care.
[2019-11-04 08:00] VITALS: BP 123/65
--- NOTE | 2019-11-04 08:24 | NUR ---
NURSE NOTES: Made Dr. Blanco aware of IV pulled out by the patient and refusal of a new IV insertion. IV lasix 40mg changed to PO Lasix by
[2019-11-04] MEDS ORDERED: NS 275ml ONE (08:50)
[2019-11-04] MEDS ORDERED: Tubing IV Secondary IV ONE (08:50)
[2019-11-04] MEDS: Eliquis 5mg tablet ORAL SCH (08:53)
[2019-11-04] MEDS: Allopurinol 100mg Tab ORAL SCH (08:53)
[2019-11-04] MEDS: Ascorbic Acid 500mg tab ORAL SCH (08:53)
[2019-11-04] MEDS: Montelukast 10mg tablet ORAL SCH (08:53)
[2019-11-04 08:54] VITALS: BP 126/65
[2019-11-04] MEDS ORDERED: Furosemide 40mg tab ORAL SCH (09:00)
--- NOTE | 2019-11-04 09:00 | Pulmonology Progress Note ---
Assessment/Plan Assessment/Plan COPD CHF hypoxemia chronic respiratory failure leg edema possible cellulitis debility fluid overload PLAN respiratory care oxygen po antibiotics likely not needed po lasix dc planning today with HH impression, plan, and exam edited and reviewed in detail care discussed with RN Subjective Allergies: Coded Allergies: PENICILLINS (Verified Allergy, Mild, 07/09/18) Cashew (Verified Allergy, Unknown, 07/09/18) Dust (Verified Allergy, Unknown, 07/09/18) FISH CONTAINING PRODUCTS (Verified Allergy, Unknown, 07/09/18) seafood TOMATO (Verified Allergy, Unknown, 07/09/18) Subjective care noted on oxygen on BIPAP legs much improved Objective Last 24 Hour Vital Signs Date Time Temp Pulse Resp B/P (MAP) Pulse Ox O2 Delivery O2 Flow Rate FiO2 11/04/19 08:54 76 126/65 11/04/19 04:00 77 11/04/19 04:00 97.5 67 18 126/56 (79) 94 11/04/19 02:50 77 18 99 Nasal Cannula 2.0 28 78 18 95 11/04/19 00:00 90 11/04/19 00:00 90 11/03/19 22:45 75 18 100 Nasal Cannula 2.0 28 73 18 97 11/03/19 21:00 Bi-pap 11/03/19 20:00 98.7 67 18 129/65 (86) 97 11/03/19 20:00 67 11/03/19 19:35 97 Nasal Cannula 2.0 28 11/03/19 19:35 71 18 100 Nasal Cannula 2.0 28 69 18 97 11/03/19 16:37 73 18 100 Nasal Cannula 2.0 28 71 18 97 11/03/19 16:00 70 11/03/19 16:00 97.9 69 20 139/64 (89) 96 11/03/19 13:09 76 18 100 Nasal Cannula 2.0 28 78 18 98 11/03/19 12:00 69 11/03/19 11:57 98.0 72 20 155/66 (95) 97 11/03/19 09:16 74 159/75 11/03/19 09:00 Bi-pap Intake and Output 11/03/19 11/04/19 19:00 07:00 Intake Total 600 ml Output Total 1200 ml 1100 ml Balance -600 ml -1100 ml Intake Oral 600 ml Output Urine Total 1200 ml 1100 ml # Bowel Movements 2 1 Objective WDWN NAD reduced breath sounds with some wheezes [id number] without MRG NABS nontender no HSM no CC edema and redness resolved now with chronic changes nonfocal Current Medications Medications (Trade) Dose Ordered Sig/Rocío Route PRN Reason Start Time Stop Time Status Last Admin Dose Admin Acetaminophen (Tylenol) 650 mg Q4H PRN ORAL Mild Pain/Temp > 100.5 10/30/19 17:30 11/29/19 17:29 Al Hydroxide/Mg Hydroxide (Mylanta) 30 ml Q4HR PRN ORAL Abdominal cramps 10/30/19 17:30 11/29/19 17:29 Albuterol/ Ipratropium (Albuterol/ Ipratropium) 3 ml Q4HRT HHN 10/31/19 23:00 11/05/19 22:59 11/04/19 07:43 Allopurinol (Zyloprim) 100 mg BID ORAL 10/30/19 18:00 11/29/19 17:59 11/04/19 08:53 Amlodipine Besylate (Norvasc) 10 mg DAILY ORAL 10/31/19 09:00 11/30/19 08:59 11/04/19 08:54 Apixaban (Eliquis) 5 mg BID ORAL 10/30/19 20:00 11/29/19 19:59 11/04/19 08:53 Ascorbic Acid (Vitamin C) 1,000 mg DAILY ORAL 10/31/19 09:00 11/30/19 08:59 11/04/19 08:53 Furosemide (Lasix) 40 mg DAILY ORAL 11/04/19 09:00 12/04/19 08:59 11/04/19 08:54 Mirtazapine (Remeron) 30 mg BEDTIME ORAL 10/30/19 21:00 11/29/19 20:59 11/03/19 21:56 Montelukast Sodium (Singulair) 10 mg DAILY ORAL 10/31/19 09:00 11/30/19 08:59 11/04/19 08:53 Nebivolol (Bystolic) 10 mg BID ORAL 10/30/19 20:00 11/29/19 19:59 11/04/19 08:53 Pantoprazole (Protonix) 40 mg DAILY ORAL 10/31/19 09:00 11/30/19 08:59 11/04/19 08:53 Vancomycin HCl (Vanco rx to dose) 1 ea DAILY PRN MISC Per rx protocol 10/30/19 18:00 11/29/19 17:59 Vancomycin/Sodium Chloride 275 ml @ 183.333 mls/hr Q24H IVPB 10/31/19 20:00 11/05/19 19:59 11/03/19 20:14 Stevan Pace MD Nov 04, 2019 09:00
--- NOTE | 2019-11-04 09:05 | NUR ---
*-* DISCHARGE PLANNING *-* PATIENT HAS BEEN REFERRED TO: JUNIT[facility] 1999 [email or web address] Fax
[2019-11-04] MEDS ORDERED: Lomotil 2.5mg tab ORAL PRN (10:15)
--- NOTE | 2019-11-04 12:15 | NUR ---
Discharge: Patient is being discharged from medical care. Awake, alert and oriented x3. After care instructions, including referral to community resources were given. Patient verbalized understanding of After care instructions; at this time patient does not request medications, equipment or placement. Home health information given to the patient. Pt picked up by her grand daughter via wheelchair and assisted to the private car by rn. Patient signed patient consent in the medical record for patient destination upon discharge. Pt will be discharged to home. All medical devices such as IV, electronic device monitor and ID band were removed.
--- NOTE | 2019-11-04 22:31 | Progress Note ---
DATE: 11/04/2019 CARDIOLOGY PROGRESS NOTE SUBJECTIVE: Edema and erythema of the extremity has resolved. No chest pain or shortness of breath noted. OBJECTIVE: VITAL SIGNS: Blood pressure 126/56, heart rate 67, respirations 18, afebrile, oxygen saturation 94% to 99% on 2 liters. LUNGS: Bilateral breath sounds. Diminished at bases. No wheezes. CARDIAC: Irregularly irregular rhythm. Normal S1, S2. A 1/6 systolic apical murmur. ABDOMEN: Soft, nontender. EXTREMITIES: 1+ edema mostly nonpitting. No erythema. IMPRESSION: 1. Cellulitis, resolved. 2. Venous insufficiency, at baseline. 3. Acute on chronic diastolic congestive heart failure, clinically compensated. 4. COPD with no active bronchospasm. 5. Chronic atrial fibrillation, rate controlled. PLAN: 1. Maintenance diuretic dosing discussed. 2. Baseline cardiovascular regimen in place. 3. Cardioembolic prophylaxis with apixaban long-term. 4. Outpatient Cardiology followup offered. Gerardo Calix M.D. DR: TARA JOB#: [id number] CC:
--- NOTE | 2019-11-06 08:30 | Discharge Summary ---
Discharge Summary Discharge Summary _ DATE OF ADMISSION: 10/30/2019 DATE OF DISCHARGE: 11/04/2019 DISCHARGED BY: Dr. Pace REASON FOR ADMISSION: [] 84 years old femalewith past medical history of atrial fibrillation, osteoarthritis, gout, congestive heart failure, COPD, chronic hypoxemia, venous insufficiency, hypertension, presented to the office with complaints of worsening lower extremity edema pain and shortness of breath. Per patient she was sick for several weeks. She reported worsening lower extremity edema subjective fever and chills. Patient reported being compliant with her oral diabetic regimen and blood pressure medication. She denied any noncompliance with her diet. Patient was admitted by her digital imaging technician with a concern of worsening congestive heart failure leg cellulitis. CONSULTANTS: integrated circuit ic layout designer internal medicine Dr. Blanco [facility]: Patient admitted to telemetry floor. Hydroelectric Production Manager and digital imaging technician followed. Supplemental oxygen provided and titrated to keep oximetry above 92%. Bronchodilator treatment via HHN provided. Patient started on empiric vancomycin. Singulair continued. Patient at nighttime required BiPAP and during the day pulse oximetry was stable on oxygen via nasal cannula. Arterial duplex bilateral lower extremity revealed no evidence of significant lower extremity arterial insufficiency. 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 Chest x-ray demonstrated cardiomegaly with borderline interstitial congestion. Diuresis provided with close monitoring of volumes and cardiorenal parameters. Renal parameters and electrolytes were closely monitored. Electrolytes corrected as needed. Patient was continue on anticoagulation with Eliquis. GI prophylaxis provided. Blood pressure was managed with beta-millicent, calcium channel millicent and diuretics. Supportive care provided. Patient later was transitioned to maintenance diuretic dose. Patient was advised to be compliant with the maintenance dose of diuretic as well as the baseline cardiovascular regimen. Continue cardioembolic prophylaxis with Eliquis for long-term. Patient to follow-up with digital imaging technician and integrated circuit ic layout designer as outpatient. Patient clinically stabilized and was ready for discharge home with home health services. FINAL DIAGNOSES: Acute on chronic diastolic CHF Chronic respiratory failure COPD/no active bronchospasm Cellulitis Hypoxemia Chronic atrial fibrillation, rate controlled Venous insufficiency DISCHARGE MEDICATIONS: See medication reconciliation list. DISCHARGE INSTRUCTIONS: Patient was discharged home with home health services. Follow up with primary care provider in one week. I have been assigned to dictate discharge summary for this account. I was not involved in the patient's management. Paulina Frias NP Nov 06, 2019 08:30
== END 2019-11-04 12:14 | disposition home health service (06) | DRG 190 ==
LOC: 2E 15:38
DX: J44.1 Chronic obstructive pulmonary disease with (acute) exacerbation (principal); I50.33 Acute on chronic diastolic (congestive) heart failure; J96.11 Chronic respiratory failure with hypoxia; E87.1 Hypo-osmolality and hyponatremia; L03.90 Cellulitis, unspecified; I87.2 Venous insufficiency (chronic) (peripheral); I11.0 Hypertensive heart disease with heart failure; I48.0 Paroxysmal atrial fibrillation; Z90.49 Acquired absence of other specified parts of digestive tract; Z88.0 Allergy status to penicillin; I27.20 Pulmonary hypertension, unspecified; Z79.01 Long term (current) use of anticoagulants; E86.0 Dehydration; E87.70 Fluid overload, unspecified
CPT/HCPCS: 36415; 71045; 80048; 80053; 80202; 83735; 83880; 84550; 85025; 93005; 93925; 94640; 94660; 94664; J7620

== ENCOUNTER 2019-12-08 15:23 | Emergency (ER) | payer MEDICARE, OTHER ==
[~2019-12-08] VITALS: Ht 172.7 cm; Wt 97.5 kg
[2019-12-08 15:26] VITALS: BP 130/61
--- NOTE | 2019-12-08 15:57 | Diagnostic Imaging Report ---
Indication: Dyspnea Comparison: 10/31/2019 A single view chest radiograph was obtained. Findings: The hilar vessels are prominent as well as the case previously. The heart is enlarged. There is pulmonary vascular cephalization and ill definition with the interstitial densities. Findings are consistent with congestive heart failure. Mild atelectasis versus scarring noted at both lung bases. Bones are osteopenic. Aorta is mildly calcified. IMPRESSION: Congestive heart failure
--- NOTE | 2019-12-08 16:12 | Emergency Room Report ---
History of Present Illness General Chief Complaint: Fever Source: Patient, Family Member Present Illness HPI Patient presents with family with reports of documented fever and shortness of breath Patient has multiple comorbidities including CHF and COPD Patient was found to have a temperature of 100.5 this afternoon contact was made With their director china and patient sent to the emergency room Here patient reports some minimal increase in her shortness of breath Denies any chest pain denies any vomiting or diarrhea Denies any rash Patient did not subjectively feel that she had a fever however a temperature of 100.6 was also documented here Denies any recent travel denies any contact that she is aware of with covid-19 patient's Allergies: Coded Allergies: PENICILLINS (Verified Allergy, Mild, 07/09/18) Cashew (Verified Allergy, Unknown, 07/09/18) Dust (Verified Allergy, Unknown, 07/09/18) FISH CONTAINING PRODUCTS (Verified Allergy, Unknown, 07/09/18) seafood TOMATO (Verified Allergy, Unknown, 07/09/18) COVID-19 Screening Contact w/high risk pt: No Recent Travel to affected area: No Experienced COVID-19 symptoms?: Yes COVID-19 symptoms experienced: Fever (T>100.4F or >38C), Shortness of Breath, Flu-Like Symptoms Patient History Past Medical History: see triage record Reviewed Nursing Documentation: PMH: Agreed; PSxH: Agreed Nursing Documentation-PMH Hx Cardiac Problems: Yes - CHF Hx Hypertension: Yes Hx Pacemaker: No Hx Asthma: Yes Hx COPD: Yes Hx Diabetes: No Hx Cancer: No Hx Gastrointestinal Problems: No Hx Dialysis: No Hx Neurological Problems: No Hx Cerebrovascular Accident: No Hx Transient Ischemic Attacks: Yes Hx Seizures: No Hx Weakness: Yes - both lower extremities Review of Systems All Other Systems: negative except mentioned in HPI Physical Exam Vital Signs Date Time Temp Pulse Resp B/P (MAP) Pulse Ox O2 Delivery O2 Flow Rate FiO2 12/08/19 15:12 100.6 81 22 130/61 (84) 91 Nasal Cannula 3.0 Sp02 EP Interpretation: reviewed, normal General Appearance: no apparent distress Head: normocephalic, atraumatic Eyes: bilateral eye PERRL, bilateral eye EOMI ENT: hearing grossly normal, EOM grossly intact Neck: supple Respiratory: no respiratory distress, no retraction, no accessory muscle use Cardiovascular #1: regular rate, rhythm Gastrointestinal: non tender, soft Musculoskeletal: other - Patient uses a wheelchair equal painter drum in both upper extremities Neurologic: alert, oriented x3 Skin: other - Mild dependent edema both extremities 2 out of 4 pitting edema. Evidence of venous stasis as well mild erythema Lymphatic: no adenopathy Medical Decision Making Diagnostic Impression: Primary Impression: Fever Additional Impressions: CHF (congestive heart failure) possible COVID-19 ER Course Multiple differentials and consideration Including but not limited to cardiac, cardiopulmonary infectious process, Given the patient's comorbidities and the Low-grade fever Consideration for covid-19 has to be made Patient is saturating at her baseline levels at 92% on 2 to 3 L which is normal for her Patient does not show any signs of retractions or respiratory distress speaking clearly and clinically reports feeling well Case was discussed at length with daughter I also discussed the case with the patient's director china Patient does not appear septic or toxic Does not appear clinically in distress at this time Decision is made to attempt outpatient evaluation and resolution Daughter will keep close eye on the patient's temperature and respiratory efforts and will have a low threshold for returning to the emergency room with any worsening symptoms In the meanwhile chest x-ray does not show any change from previous 20 focal findings Patient also increased on her diuretic for the next several days and attempt to improve the respiration And again will have low threshold for returning to the emergency room for further hospital work-up Chest X-Ray Diagnostic Results Chest X-Ray Diagnostic Results : Chest X-Ray Ordered: Yes # of Views/Limited/Complete: 1 View Indication: Shortness of Breath EP Interpretation: Yes Interpretation: no consolidation, no effusion, other - Mild congestion Impression: Other - Mild pulmonary congestion Electronically Signed by: Mary Reed DO Last Vital Signs Date Time Temp Pulse Resp B/P (MAP) Pulse Ox O2 Delivery O2 Flow Rate FiO2 12/08/19 15:26 81 22 Nasal Cannula 3.0 12/08/19 15:26 100.6 130/61 91 Status: improved Disposition: HOME, SELF-CARE Condition: Stable Referrals: Stevan Pace MD (PCP) Patient Instructions: Heart Failure, [id number] Additional Instructions: Patient is provided with the discharge instructions notified to follow up with primary doctor in the next 2-3 days otherwise return to the er with any worsening symptoms. Your signs and symptoms do have some similarity to the coronavirus. At this time testing was not recommended by Department of Health. It is recommended that you have self isolation for the next 14 days. Use healthy precautions and appropriate hygiene. Return to the emergency room for worsening respirations and shortness of breath. Please note that this report is being documented using fluid Operations technology. This can lead to erroneous entry secondary to incorrect interpretation by the dictating instrument. Mary Reed DO Dec 08, 2019 16:12
[2019-12-08] MEDS ORDERED: Furosemide 40mg tab ORAL ONE (16:15)
[2019-12-08 16:25] VITALS: BP 130/61
== END 2019-12-08 16:30 | disposition home or self-care (01) ==
LOC: EDBD 15:23 → EMR 15:55
DX: R50.9 Fever, unspecified (principal); I11.0 Hypertensive heart disease with heart failure; I50.9 Heart failure, unspecified; Z88.0 Allergy status to penicillin; Z91.018 Allergy to other foods; Z91.013 Allergy to seafood; J44.9 Chronic obstructive pulmonary disease, unspecified; R06.02 Shortness of breath; R60.0 Localized edema; I87.8 Other specified disorders of veins
CPT/HCPCS: 71045; 86710; 99283

== ENCOUNTER 2020-06-10 20:23 | Inpatient (IN) | payer MEDICARE, OTHER ==
[~2020-06-10] VITALS: Ht 175.3 cm; Wt 94.7 kg
[2020-06-10 20:40] VITALS: BP 123/76
--- NOTE | 2020-06-10 20:40 | NUR ---
ED Nurse Note: Patient brought into ED from home by daughter for shortness of breath and low oxygen saturation. Patient is continuously on oxygen at home via NC and per patient's daughter, her oxygen saturation was reading in the 70's on portable monitor. Patient placed in room and connected to school bus monitor. Her oxygen saturation is 100% on 2L oxygen via NC. Patient states she was feeling slightly short of breath earlier with exertion, but has no complaint right now and states she feels fine. Patient is speaking with RN and ERMD in full sentences without difficulty. She denies any pain, fever, chills, or chest pain. Will continue to monitor patient for change in condition. She is aaox4. NAD noted at this time.
[2020-06-10] MEDS ORDERED: Solu-MEDROL 125mg Inj IVP ONE (21:00)
--- NOTE | 2020-06-10 21:04 | Emergency Room Report ---
History of Present Illness General Chief Complaint: Dyspnea/Respdistress Source: Patient, Family Member Present Illness HPI 85-year-old female with a history of asthma here with low oxygen reading. Patient says that she is on oxygen at home 24 hours/day. She does not know her normal baseline oxygen level. Patient was brought in by her daughter because her pulse oxygen reading was low today. Patient does not know how low it was. Patient denies lightheadedness, fevers, chills, chest pain, palpitations, shortness of breath, back pain, abdominal pain, nausea, vomiting, diarrhea, dysuria. Allergies: Coded Allergies: PENICILLINS (Verified Allergy, Mild, 07/09/18) Cashew (Verified Allergy, Unknown, 07/09/18) Dust (Verified Allergy, Unknown, 07/09/18) FISH CONTAINING PRODUCTS (Verified Allergy, Unknown, 07/09/18) seafood TOMATO (Verified Allergy, Unknown, 07/09/18) COVID-19 Screening Contact w/high risk pt: No Recent Travel to affected area: No Experienced COVID-19 symptoms?: Yes COVID-19 symptoms experienced: Fever (T>100.4F or >38C), Shortness of Breath, Flu-Like Symptoms COVID-19 Testing performed COMMUNITY DEVELOPMENT PLANNER: No Patient History Last Menstrual Period: unk Now: No Nursing Documentation-PMH Hx Cardiac Problems: Yes - CHF Hx Hypertension: Yes Hx Pacemaker: No Hx Asthma: Yes Hx COPD: Yes Hx Diabetes: No Hx Cancer: No Hx Gastrointestinal Problems: No Hx Dialysis: No Hx Neurological Problems: No Hx Cerebrovascular Accident: No Hx Transient Ischemic Attacks: Yes Hx Seizures: No Hx Weakness: Yes - both lower extremities Review of Systems All Other Systems: negative except mentioned in HPI Physical Exam Vital Signs Date Time Temp Pulse Resp B/P (MAP) Pulse Ox O2 Delivery O2 Flow Rate FiO2 06/10/20 20:23 98.2 80 21 164/88 (113) 74 Nasal Cannula 4.0 Sp02 EP Interpretation: reviewed, normal General Appearance: no apparent distress, alert, non-toxic Head: normocephalic, atraumatic Eyes: bilateral eye normal inspection, bilateral eye PERRL ENT: hearing grossly normal, normal pharynx, no angioedema, normal voice Neck: full range of motion, supple/symm/no masses Respiratory: chest non-tender, lungs clear, speaking full sentences, other - Very mild expiratory wheezes in all lung louie. No evidence of respiratory distress. No use of accessory muscles. Speaking in full sentences without difficulty Cardiovascular #1: regular rate, rhythm, no edema Cardiovascular #2: 2+ carotid (R), 2+ carotid (L), 2+ radial (R), 2+ radial (L), 2+ dorsalis pedis (R), 2+ dorsalis pedis (L) Gastrointestinal: normal bowel sounds, non tender, soft, non-distended, no guarding, no rebound Rectal: deferred Genitourinary: normal inspection, no CVA tenderness Musculoskeletal: back normal, normal range of motion, calf tenderness, gait/station normal, non-tender Neurologic: alert, motor strength/tone normal, oriented x3, sensory intact, responsive, speech normal Psychiatric: judgement/insight normal, memory normal, mood/affect normal, no suicidal/homicidal ideation Reflexes: 3+ bicep (R), 3+ bicep (L), 3+ tricep (R), 3+ tricep (L), 3+ knee (R), 3+ knee (L) Lymphatic: no adenopathy Medical Decision Making ER Course EKG: NSR, no ischemia, intervals WNL. No ectopy Rhythm strip: patient monitored for arrhythmias - no malignant dysrhythmias, runs of PVCs, nor pauses noted Chest x-ray: Normal chest x-ray 85-year-old female on chronic oxygen here with low oxygen saturation reading from her home pulse ox monitor. Patient was hemodynamically stable and neurovascular intact and no respiratory distress whatsoever in the emergency department on 2 L nasal cannula which is her baseline. She had very slight expiratory wheezes on examination. Chest x-ray unremarkable, will CBC and CMP normal. EKG normal. The patient will receive a DuoNeb treatment and reevaluation. She was given IV steroids in the emergency department. Will likely be discharged home on course of steroids. Signed out to oncoming physician. Last Vital Signs Date Time Temp Pulse Resp B/P (MAP) Pulse Ox O2 Delivery O2 Flow Rate FiO2 06/10/20 20:23 98.2 80 21 164/88 (113 74 Nasal Cannula 4.0 Aidan Mike M.D. Jun 10, 2020 21:04
[2020-06-10] MEDS: Albuterol/Ipratropium 3ml neb HHN SCH ×7 (21:45→22:43)
[2020-06-10 21:51] LABS: BASOPHILS % (AUTO) 1.2 % (0.0-2.0); HEMATOCRIT 37.9 % (37.0-47.0); HEMOGLOBIN 11.2 G/DL (12.0-16.0); LYMPHOCYTES % (AUTO) 33.3 % (20.0-45.0); MEAN CORPUSCULAR VOLUME 101 FL (80-99); MONOCYTES % (AUTO) 5.7 % (1.0-10.0); NEUTROPHILS % (AUTO) 57.7 % (45.0-75.0); PLATELET COUNT 137 K/UL (150-450); RED BLOOD COUNT 3.76 M/UL (4.20-5.40); RED CELL DISTRIBUTION WIDTH 14.1 % (11.6-14.8)
[2020-06-10 21:59] LABS: CALCIUM 9.5 MG/DL (8.5-10.1); CREATININE 1.4 MG/DL (0.55-1.30); POTASSIUM 4.1 MMOL/L (3.5-5.1)
[2020-06-10 22:00] VITALS: BP 135/80
--- NOTE | 2020-06-10 22:00 | NUR ---
ED Nurse Note: Patient is resting in bed at this time. She is not short of breath. Oxygen saturation is 97% on 2L oxygen via NC. She is speaking in full sentences and has no complaints. Patient provided with blanket for comfort. Safety measures met; will cont. to monitor.
[2020-06-10 22:03] LABS: ALBUMIN 3.4 G/DL (3.4-5.0); ALBUMIN/GLOBULIN RATIO 0.7 (1.0-2.7); BILIRUBIN,TOTAL 0.2 MG/DL (0.2-1.0)
[2020-06-10 22:30] VITALS: BP 138/61
--- NOTE | 2020-06-10 23:00 | NUR ---
ED Nurse Note: Patient originally did not want to be admitted to hospital. Spoke with patient and patient's daughter. Patient agreed with hospital admission.
[2020-06-10] MEDS ORDERED: Enalaprilat 2.5mg/2ml Inj IV ONE (23:45)
[2020-06-11] MEDS ORDERED: Nitroglycerin 2% oint pkt TOPIC ONE (00:15)
--- NOTE | 2020-06-11 00:15 | Consultation ---
DATE OF CONSULTATION: 06/10/2020 PULMONARY CONSULTATION CONSULTING PHYSICIAN: Stevan Pace MD. REASON FOR CONSULTATION: Chronic respiratory failure, shortness of breath. HISTORY OF PRESENT ILLNESS: This is an 85-year-old female with longstanding history of asthma, CHF, chronic respiratory failure, chronic use of Trelegy. The patient's daughter noted that she had been more hypoxic today, also with increasing cough. The patient also with some change in mental status. The patient has had no lightheadedness. No fevers or chills or chest pain. The patient has had lower extremity edema and was recently instructed to double up on Lasix. The patient was seen in the emergency room at present. Full workup is pending. The patient has multiple medical problems, multiple medical issues. She is fairly debilitated at this time. She is well cared for by her daughter. PAST MEDICAL HISTORY: Notable for COPD, atrial fibrillation, chronic respiratory failure, chronic hypoxemia, sleep apnea, congestive heart failure, history of anemia, history of cellulitis, history of lower extremity edema, history of uricemia, history of hypertension, history of allergic rhinitis, history of dementia, history of urinary incontinence. MEDICATIONS: Reviewed. ALLERGIES: Reviewed. SOCIAL HISTORY: She is currently nonsmoker, nondrinker. The patient lives with her daughter. On oxygen. REVIEW OF SYSTEMS: All 10 points reviewed and otherwise negative with the exception of the above. FAMILY HISTORY: Noncontributory. PHYSICAL EXAMINATION: GENERAL: The patient is an ill-appearing female, slightly confused. VITAL SIGNS: Blood pressure 123/76, pulse 80, respirations 21, sats 100% on 2 liters, temperature 98.2. HEENT: Negative. NECK: Supple. There is mild jugular venous distention. LUNGS: Moderate breath sounds reduced at both bases. CARDIAC: Irregularly irregular. Rate controlled. Soft systolic murmur heard. ABDOMEN: Soft, obese. EXTREMITIES: No edema. NEUROLOGIC: Grossly nonfocal. Slightly confused, weak overall. LABORATORY DATA: Reviewed. White count 6, hemoglobin 9.2. Chemistries are pending. Imaging is pending. IMPRESSION: Toxic metabolic encephalopathy, chronic respiratory failure, COPD, shortness of breath, CHF, hypertension, hyperuricemia, chronic hypercapnia, chronic hypoxemia. RECOMMENDATIONS: Supportive care. Monitor clinically. IV steroids. . IV diuresis. Maintain home medications. Monitor imaging. Followup laboratories and lytes. Optimize and discharge back to home. Continue with nocturnal BiPAP and daytime if needed. Stevan Pace M.D. DR: KRIS JOB#: [id number] CC:
[2020-06-11] MEDS ORDERED: XIFAXAN550 MG ORAL (00:25)
[2020-06-11] MEDS ORDERED: OPSUMIT10 MG PO (00:25)
[2020-06-11] MEDS ORDERED: QUETIAPINE FUMA50 MG ORAL (00:25)
[2020-06-11] MEDS ORDERED: DONEPEZIL HCL5 M2 ORAL (00:25)
--- NOTE | 2020-06-11 00:45 | NUR ---
ED Nurse Note: Report given to DAWNA Koroma.
--- NOTE | 2020-06-11 00:50 | NUR ---
ED Nurse Note: Patient own medications taken from patient and locked in ER medication box.
--- NOTE | 2020-06-11 01:00 | NUR ---
ED Nurse Note: Patient is stable for admission to tele unit at this time per ERMD orders. Patient is awake and alert and breathing is normal. Patient remains on 2L oxygen via NC with stable oxygen saturation. IV is patent/intact. Patient taken to unit via gurney while connected to cafeteria monitor by jane and RN. Patient transferred to tele bed without complication. Continuity of care transferred to DAWNA Koroma. Patient took all belongings to unit with her.
--- NOTE | 2020-06-11 01:10 | NUR ---
NURSE NOTES: Received report from DAWNA Peraza. Patient transferred from [facility] to [facility] via [facility]. Patient is awake, alert and oriented x 4. Place scanning coordinator, shows Atrial fibrillation @84 HR. On oxygen via nasal cannula @ 2Lpm, with no chest pain nor shortness of breath reported. IV site is on left hand g-20 saline lock. Safety measures are in place, bed in lowest and locked position, side rails up x 2. Call light button and bedside table within reach, instructed to call for any assistance needed. Will call LD for admission orders.
[2020-06-11 01:15] VITALS: BP 135/68
[2020-06-11 04:00] VITALS: BP 131/72
--- NOTE | 2020-06-11 07:09 | NUR ---
NURSE HAND-OFF REPORT: Important Events on Shift: Patient is a new admit, has been resting well the whole shift Patient Status: Patient is awake on bed, in stable condition, plan of care endorsed. Diet: Cardiac diet Pending Orders: none Pending Results/Labs:CBC, BMP, PHOS, MAG & TROPONIN Pending MD notification:none Latest Vital Signs: Temperature 97.3 , Pulse 77 , B/P 131 /72 , Respiratory Rate 20 , O2 SAT 96 , Nasal Cannula, O2 Flow Rate 2.0 . Vital Sign Comment: stable EKG Rhythm: Atrial Fibrillation Rhythm change?: N MD Notified?: - MD Response: Latest Welch Fall Score: 30 Fall Risk: Medium Risk Safety Measures: Call light Within Reach, Bed Alarm Zone 1, Side Rails Side Rails x2, Bed position Low and Locked. Fall Precautions: Yellow Socks Yellow Gown Door Sign Patient Fall Education Report given to DAWNA Watkins.
--- NOTE | 2020-06-11 07:30 | Emergency Room Report ---
Physical Exam Vital Signs Date Time Temp Pulse Resp B/P (MAP) Pulse Ox O2 Delivery O2 Flow Rate FiO2 06/10/20 20:23 98.2 80 21 164/88 (113) 74 Nasal Cannula 4.0 06/10/20 22:31 32 Sp02 EP Interpretation: reviewed, normal Medical Decision Making Diagnostic Impression: Primary Impression: CHF (congestive heart failure) Additional Impressions: Atrial fibrillation with RVR COPD (chronic obstructive pulmonary disease) Supplemental oxygen dependent ER Course I, Dr Monica Alanis, have assumed care of the patient. Initial workup, history, and physical performed by previous provider has been reviewed by myself and I have performed my own physical exam of the patient at 2200 I spoke with patients daughter, Chasidy who is concerned that her mother is retaining fluid. Patient has history of CHF with frequent exacerbations, COPD (home o2 dependent 2L), anemia. Initially upon arrival, patient is requiring 4L NC and tachypnic. CXR shows vascular congestion. EKG showed Afib (patient has hx of). Otherwise no STEMI or signs of ischemia. COVID swab was negative. Patient received a duoneb but was still dyspneic. BNP came back elevated, consistent with CHF exacerbation. ED intervention included lasix, nitro, and vasotec. I spoke with Dr. Pace, and reviewed the patients presentation, workup, results, and treatment. They will admit the patient for further care and evaluation, and assume care of the patient at this time. Chest X-Ray Diagnostic Results Chest X-Ray Diagnostic Results : PA Scribe Text Chest X-Ray: Views: [ 1 ] view(s) Indication: SOB Findings: CM, vascular congestion. Mediastinum normal. No infiltrate. Impression: CHF The X-ray(s) were independently viewed and interpreted contemporaneously Electronically signed by Monica moreno DO Reevaluation Time: 23:45 Last Vital Signs Date Time Temp Pulse Resp B/P (MAP) Pulse Ox O2 Delivery O2 Flow Rate FiO2 06/11/20 04:00 97.3 77 20 131/72 (91) 96 06/11/20 02:17 Nasal Cannula 2.0 06/11/20 01:00 32 Status: improved Disposition: ADMITTED INPATIENT Admit Decision Time: 00:00 Condition: Stable Referrals: Stevan Pace MD (PCP) Monica Alanis D.O. 2, 2020 07:30
[2020-06-11 07:34] LABS: BASOPHILS % (AUTO) 0.8 % (0.0-2.0); EOSINOPHILS % (AUTO) 0.1 % (0.0-3.0); HEMATOCRIT 36.3 % (37.0-47.0); HEMOGLOBIN 11.3 G/DL (12.0-16.0); MEAN CORPUSCULAR VOLUME 95 FL (80-99); MONOCYTES % (AUTO) 0.9 % (1.0-10.0); NEUTROPHILS % (AUTO) 74.2 % (45.0-75.0); PLATELET COUNT 156 K/UL (150-450); RED BLOOD COUNT 3.83 M/UL (4.20-5.40); RED CELL DISTRIBUTION WIDTH 13.5 % (11.6-14.8); WHITE BLOOD COUNT 7.3 K/UL (4.8-10.8)
[2020-06-11 07:44] LABS: ALBUMIN 3.3 G/DL (3.4-5.0); ALBUMIN/GLOBULIN RATIO 0.6 (1.0-2.7); BILIRUBIN,TOTAL 0.2 MG/DL (0.2-1.0); CALCIUM 9.3 MG/DL (8.5-10.1); CREATININE 1.2 MG/DL (0.55-1.30); PHOSPHORUS 3.2 MG/DL (2.5-4.9)
[2020-06-11 08:00] VITALS: BP 160/78
--- NOTE | 2020-06-11 08:38 | Pulmonology Progress Note ---
Subjective Allergies: Coded Allergies: PENICILLINS (Verified Allergy, Mild, 07/09/18) Cashew (Verified Allergy, Unknown, 07/09/18) Dust (Verified Allergy, Unknown, 07/09/18) FISH CONTAINING PRODUCTS (Verified Allergy, Unknown, 07/09/18) seafood TOMATO (Verified Allergy, Unknown, 07/09/18) Subjective events noted orders written some confusion noted Objective Last 24 Hour Vital Signs Date Time Temp Pulse Resp B/P (MAP) Pulse Ox O2 Delivery O2 Flow Rate FiO2 06/11/20 04:00 97.3 77 20 131/72 (91) 96 06/11/20 04:00 81 06/11/20 02:17 Nasal Cannula 2.0 06/11/20 01:47 84 06/11/20 01:15 97.3 72 20 135/68 (90) 96 06/11/20 01:00 98.2 84 16 140/76 98 Nasal Cannula 2.0 32 06/11/20 00:10 133/92 06/11/20 00:09 133/92 06/10/20 22:40 75 23 100 Nasal Cannula 3.0 81 22 100 06/10/20 22:31 81 22 100 Nasal Cannula 3.0 32 77 20 98 06/10/20 22:30 98.2 82 20 138/61 98 Nasal Cannula 2.0 06/10/20 22:00 98.2 71 20 135/80 97 Nasal Cannula 2.0 06/10/20 20:40 98.2 80 21 123/76 100 Nasal Cannula 2.0 06/10/20 20:40 80 21 Nasal Cannula 2.0 06/10/20 20:23 98.2 80 21 164/88 (113) 74 Nasal Cannula 4.0 Intake and Output 06/10/20 06/11/20 19:00 07:00 Intake Total 900 ml Output Total 1100 ml Balance -200 ml Intake Oral 900 ml Output Other 1100 ml # Voids 1 Objective GENERAL: The patient is an ill-appearing female, somewhat confused. HEENT: Negative. NECK: Supple. There is mild jugular venous distention. LUNGS: Moderate breath sounds reduced at both bases. no wheeze or rhonchi CARDIAC: Irregularly irregular. Rate controlled. Soft systolic murmur heard. ABDOMEN: Soft, obese. EXTREMITIES: Noted edema. no CC NEUROLOGIC: Grossly nonfocal. Slightly confused, weak overall. Microbiology Date/Time Source Procedure Growth Status 06/10/20 20:55 Nasopharynx SARS-CoV-2 RdRp Gene Assay - Final Complete Laboratory Tests 06/10/20 20:52: White Blood Count 6.0, Red Blood Count 3.76L, Hemoglobin 11.2L, Hematocrit 37.9, Mean Corpuscular Volume 101H, Mean Corpuscular Hemoglobin 29.7, Mean Corpuscular Hemoglobin Concent 29.4L, Red Cell Distribution Width 14.1, Platelet Count 137L, Mean Platelet Volume 7.6, Neutrophils (%) (Auto) 57.7, Lymphocytes (%) (Auto) 33.3, Monocytes (%) (Auto) 5.7, Eosinophils (%) (Auto) 2.0, Basophils (%) (Auto) 1.2, Sodium Level 143, Potassium Level 4.1, Chloride Level 100, Carbon Dioxide Level 39H, Anion Gap 4L, Blood Urea Nitrogen 26H, Creatinine 1.4H, Estimat Glomerular Filtration Rate 43.4, Glucose Level 120H, Calcium Level 9.5, Total B ilirubin 0.2, Aspartate Amino Transf (AST/SGOT) 23, Alanine Aminotransferase (ALT/SGPT) 20, Alkaline Phosphatase 97, Troponin I 0.003, Pro-B-Type Natriuretic Peptide 2396H, Total Protein 8.2, Albumin 3.4, Globulin 4.8, Albumin/Globulin Ratio 0.7L 06/11/20 06:27: White Blood Count 7.3, Red Blood Count 3.83L, Hemoglobin 11.3L, Hematocrit 36.3L , Mean Corpuscular Volume 95, Mean Corpuscular Hemoglobin 29.5, Mean Corpuscular Hemoglobin Concent 31.1L, Red Cell Distribution Width 13.5, Platelet Count 156, Mean Platelet Volume 7.5, Neutrophils (%) (Auto) 74.2, Lymphocytes (%) (Auto) 24.0, Monocytes (%) (Auto) 0.9L, Eosinophils (%) (Auto) 0.1, Basophils (%) (Auto) 0.8, Sodium Level 145, Potassium Level 4.0, Chloride Level 102, Carbon Dioxide Level 39H, Anion Gap 4L, Blood Urea Nitrogen 26H, Creatinine 1.2, Estim at Glomerular Filtration Rate 51.8, Glucose Level 166H, Calcium Level 9.3, Total Bilirubin 0.2, Aspartate Amino Transf (AST/SGOT) 17, Alanine Aminotransferase (ALT/SGPT) 16, Alkaline Phosphatase 91, Troponin I 0.015, Total Protein 8.4H, Albumin 3.3L, Globulin 5.1, Albumin/Globulin Ratio 0.6L, Phosphorus Level 3.2, Magnesium Level 1.9 Current Medications Medications (Trade) Dose Ordered Sig/Rocío Route PRN Reason Start Time Stop Time Status Last Admin Dose Admin Acetaminophen (Tylenol) 650 mg Q4H PRN ORAL Mild Pain (Pain Scale 1-3) 06/11/20 07:45 07/11/20 07:44 Al Hydroxide/Mg Hydroxide (Mylanta) 30 ml Q4H PRN ORAL Abdominal cramps 06/11/20 07:45 07/11/20 07:44 Albuterol/ Ipratropium (Albuterol/ Ipratropium) 3 ml Q15M HHN 06/10/20 21:00 06/15/20 20:59 06/10/20 22:39 Furosemide (Lasix) 80 mg DAILY IV 06/11/20 09:00 07/11/20 08:59 Heparin Sodium (Porcine) (Heparin 5000 units/ml) 5,000 units EVERY 12 HOURS SUBQ 06/11/20 09:00 07/26/20 08:59 Pantoprazole (Protonix) 40 mg DAILY ORAL 06/11/20 09:00 07/11/20 08:59 Assessment/Plan Assessment/Plan IMPRESSION: Toxic metabolic encephalopathy, chronic respiratory failure, COPD, shortness of breath, CHF, hypertension, hyperuricemia, chronic hypercapnia, chronic hypoxemia. PLAN ABG repeat labs IV lasix maintain respiratory care BIPAP QHS and PRN maintain anticoagulation follow up exam monitor LOC dc once stable impression, plan, and exam edited and reviewed in detail care discussed with Stevan Zaidi MD Jun 11, 2020 08:38
[2020-06-11] MEDS ORDERED: Heparin 5000 units/ml inj SUBQ SCH (09:00)
[2020-06-11] MEDS: Montelukast 10mg tablet ORAL SCH (09:07)
[2020-06-11] MEDS: Allopurinol 100mg Tab ORAL SCH ×2 (09:07→17:29)
[2020-06-11] MEDS: Donepezil 5mg Tab ORAL SCH (09:07)
[2020-06-11] MEDS: Ascorbic Acid 500mg tab ORAL SCH (09:07)
[2020-06-11] MEDS: Dabigatran 150mg cap ORAL SCH ×2 (10:00→17:29)
--- NOTE | 2020-06-11 11:24 | NUR ---
Pt refused ABG. Roland RN notified
--- NOTE | 2020-06-11 11:32 | NUR ---
NURSE NOTES: Skin/Wound assessment:Sacral stage 11 pressure ulcer 0.3x0.3x0.2 pink granulation tissue scant amount serosanguineous drainage Triad and Optifoam applied periwound skin darkend but intact. Patient alert and able to turn self. Educated on keeping pressure off as much as possible.Patient stated understanding.
[2020-06-11 12:00] VITALS: BP 165/87
--- NOTE | 2020-06-11 12:42 | NUR ---
CASE MANAGEMENT: INITIAL REVIEW 85 YO F PRESENTED TO ED FROM HOME CC: DYSPNEA. SATS 70% ON RA PMHx; HTN. ASTHMA. COPD. SI;CHF EXACERBATION T 98.2 HR 80 RR 21 B/P 164/88 SATS 74% ON 4L/NC LABS: CO2 39 BUN 26 CR 1.4 GLU 120 BNP 2396 IS: DUONEB HHN X1 SOLU MEDROL IV X1 LASIX IV X1 VASOTEC IV X1 PATIENT ADMITTED TO TELE 06/10/2020 @ 2340 DCP: HOME W/ OXYGEN PLAN OF CARE: IV lasix maintain respiratory care BIPAP QHS and PRN ABGs WOUND CARE
[2020-06-11] MEDS: Albuterol/Ipratropium 3ml neb HHN PRN ×2 (14:15→23:12)
[2020-06-11 16:00] VITALS: BP 130/67
--- NOTE | 2020-06-11 18:25 | Diagnostic Imaging Report ---
Indication: Shortness of breath Technique: One view of the chest Comparison: 12/08/2019 Findings: Right hilar prominence appears similar to prior and multiple earlier studies, presumably due to prominent pulmonary vessels. There is mild pulmonary interstitial congestion. The heart is mildly enlarged. The pleural spaces are clear. Impression: Cardiomegaly with mild interstitial congestion
--- NOTE | 2020-06-11 19:15 | NUR ---
NURSE NOTES: Report given by DAWNA Watkins. No pain or SOB. Bed at lowest position locked with side rails up. Call light and bedside table within reach. Will continue with plan of care.
[2020-06-11 20:00] VITALS: BP 130/54
[2020-06-12] VITALS: BP 128/61
--- NOTE | 2020-06-12 00:32 | Cardiology Progress Note ---
Subjective DATE OF SERVICE: Jun 11, 2020 Monitor: Atrial fibrillation with episodes slow ventricular rates Withdrawn Still with congestion and SOB. Still episodically on bipap support Objective Last 24 Hour Vital Signs Date Time Temp Pulse Resp B/P (MAP) Pulse Ox O2 Delivery O2 Flow Rate FiO2 06/11/20 23:32 71 24 97 50 06/11/20 23:12 94 18 100 Nasal Cannula 2.0 28 91 18 98 06/11/20 21:00 Nasal Cannula 2.0 06/11/20 20:00 98.1 70 22 130/54 (79) 91 06/11/20 16:00 98.1 80 18 130/67 (88) 97 06/11/20 16:00 83 06/11/20 14:25 66 20 96 Nasal Cannula 2.0 28 06/11/20 14:25 77 20 100 Nasal Cannula 2.0 28 66 20 96 06/11/20 12:00 97.9 82 20 165/87 (113) 96 06/11/20 12:00 76 06/11/20 09:00 Nasal Cannula 2.0 06/11/20 08:00 88 06/11/20 08:00 98.1 79 18 160/78 (105) 97 06/11/20 04:00 97.3 77 20 131/72 (91) 96 06/11/20 04:00 81 06/11/20 02:17 Nasal Cannula 2.0 06/11/20 01:47 84 06/11/20 01:15 97.3 72 20 135/68 (90) 96 06/11/20 01:00 98.2 84 16 140/76 98 Nasal Cannula 2.0 32 ROS: No interval change from my evaluation of 06/10/20 HEENT: normal ENT inspection RHYTHM: Afib LUNGS: diminished breath sounds, coarse breath sounds CARDIAC: irregularly irregular, bradycardia ABDOMEN: normal bowel sounds, non tender, soft EXTREMITIES: normal range of motion, non-tender, trace edema Laboratory Tests Test 06/11/20 06:27 White Blood Count 7.3 K/UL (4.8-10.8) Red Blood Count 3.83 M/UL (4.20-5.40) L Hemoglobin 11.3 G/DL (12.0-16.0) L Hematocrit 36.3 % (37.0-47.0) L Mean Corpuscular Volume 95 FL (80-99) Mean Corpuscular Hemoglobin 29.5 PG (27.0-31.0) Mean Corpuscular Hemoglobin Concent 31.1 G/DL (32.0-36.0) L Red Cell Distribution Width 13.5 % (11.6-14.8) Platelet Count 156 K/UL (150-450) Mean Platelet Volume 7.5 FL (6.5-10.1) Neutrophils (%) (Auto) 74.2 % (45.0-75.0) Lymphocytes (%) (Auto) 24.0 % (20.0-45.0) Monocytes (%) (Auto) 0.9 % (1.0-10.0) L Eosinophils (%) (Auto) 0.1 % (0.0-3.0) Basophils (%) (Auto) 0.8 % (0.0-2.0) Sodium Level 145 MMOL/L (136-145) Potassium Level 4.0 MMOL/L (3.5-5.1) Chloride Level 102 MMOL/L (98-107) Carbon Dioxide Level 39 MMOL/L (21-32) H Anion Gap 4 mmol/L (5-15) L Blood Urea Nitrogen 26 mg/dL (7-18) H Creatinine 1.2 MG/DL (0.55-1.30) Estimat Glomerular Filtration Rate 51.8 mL/min (>60) Glucose Level 166 MG/DL (74-106) H Calcium Level 9.3 MG/DL (8.5-10.1) Phosphorus Level 3.2 MG/DL (2.5-4.9) Magnesium Level 1.9 MG/DL (1.8-2.4) Total Bilirubin 0.2 MG/DL (0.2-1.0) Aspartate Amino Transf (AST/SGOT) 17 U/L (15-37) Alanine Aminotransferase (ALT/SGPT) 16 U/L (12-78) Alkaline Phosphatase 91 U/L (46-116) Troponin I 0.015 ng/mL (0.000-0.056) Total Protein 8.4 G/DL (6.4-8.2) H Albumin 3.3 G/DL (3.4-5.0) L Globulin 5.1 g/dL Albumin/Globulin Ratio 0.6 (1.0-2.7) L Microbiology Date/Time Source Procedure Growth Status 06/10/20 20:55 Nasopharynx SARS-CoV-2 RdRp Gene Assay - Final Complete Assessment/Plan Assessment/Plan Atrial fibrillation, chronic - with episodes of slow ventricular rates; this may suggest hypercapnia CHF, acute and chronic diastolic-systolic COPD with acute exacerbation Metabolic encephalopathy Cerebrovascular disease with dementia Chronic respiratory acidosis 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
--- NOTE | 2020-06-12 02:00 | Consultation ---
DATE OF CONSULTATION: 06/10/2020 CARDIOLOGY CONSULTATION CONSULTING PHYSICIAN: Gerardo Calix M.D. REQUESTING PHYSICIAN: Olivier Blanco M.D. and Stevan Pace M.D. REASON: Shortness of breath in the setting of atrial fibrillation. HISTORY OF PRESENT ILLNESS: This is an 85-year-old female. She has a known history of COPD, chronic respiratory acidosis, and atrial fibrillation. She has been increasingly congested with cough and hypoxia. She has been confused and altered. She has been compliant with medical therapy including her inhaler. She has also had increasing lower extremity edema, which has not improved significantly even though she was instructed as an outpatient to double up on her diuretic therapy. The patient was admitted to the hospital for further care. PAST MEDICAL HISTORY: Chronic atrial fibrillation, COPD, chronic respiratory acidosis, chronic hypoxia on home O2, sleep apnea, chronic congestive heart failure with diastolic dysfunction, anemia of chronic disease, chronic kidney disease, chronic venous insufficiency, hyperuricemia, hypertension with hypertensive heart disease, cerebrovascular disease with dementia, stress incontinence, allergic rhinitis, osteoarthritis, osteoporosis, degenerative disk disease. ALLERGIES: Include penicillin and seafood. MEDICATIONS: Reviewed and reconciled. FAMILY HISTORY: Noncontributory. SOCIAL HISTORY: Prior smoker. No alcohol or substance abuse. REVIEW OF SYSTEMS: No known history of COVID-19 . No fevers or chills. She has had cough. There is no history of abnormal blood clotting. She has atrial fibrillation and has been on cardioembolic prophylaxis with Pradaxa. She does have cerebrovascular disease with dementia. There is no history of diabetes or thyroid impairment. She is on allopurinol for hyperuricemia. She does have chronic kidney disease of mild severity. She is on chronic home O2. She has occasional incontinence. There has not been any noted change in bowel habits, but her appetite has been poor. She has notably been withdrawn. PHYSICAL EXAMINATION: VITAL SIGNS: Blood pressure 123/76, pulse 80, respirations 21, and afebrile. Monitored rhythm, atrial fibrillation. HEENT: Temporal wasting. Arcus senilis. Oropharynx clear. NECK: Supple. Jugular venous pressure elevated. Some accessory muscle use. LUNGS: Diminished breath sounds. No wheezing. CARDIAC: Irregularly irregular. Normal S1, S2. A 1/6 systolic murmur at apex. ABDOMEN: Soft, nontender. Moderately obese. EXTREMITIES: Trace dependent edema. NEUROLOGIC: Nonfocal, but mildly confused. LABORATORY DATA: White count 6, hemoglobin 11.2. Sodium 143, potassium 4.1, bicarb 39, BUN 26, creatinine 1.4, glucose 120. Natriuretic peptide 2396. Troponin 0.003. IMPRESSION: 1. COPD exacerbation. 2. Acute on chronic respiratory acidosis. 3. Acute on chronic diastolic congestive heart failure. 4. Atrial fibrillation, presently rate controlled. 5. Coagulopathy due to chronic Pradaxa therapy. 6. Acute on chronic kidney injury. 7. Acute myocardial ischemia. 8. Possible steroid-induced hyperglycemia. PLAN: 1. Cardiac monitoring. 2. Steroids and bronchodilators. 3. BiPAP. 4. Monitor acid-base parameters. 5. Diuresis. 6. Continue Pradaxa. 7. We will follow. Gerardo Calix M.D. DR: ALEX JOB#: [id number] CC:
[2020-06-12 04:00] VITALS: BP 107/61
[2020-06-12 05:13] LABS: BASOPHILS % (AUTO) 2.2 % (0.0-2.0); EOSINOPHILS % (AUTO) 0.5 % (0.0-3.0); HEMATOCRIT 34.4 % (37.0-47.0); HEMOGLOBIN 10.4 G/DL (12.0-16.0); LYMPHOCYTES % (AUTO) 36.8 % (20.0-45.0); MEAN CORPUSCULAR VOLUME 96 FL (80-99); MONOCYTES % (AUTO) 7.4 % (1.0-10.0); NEUTROPHILS % (AUTO) 53.1 % (45.0-75.0); PLATELET COUNT 142 K/UL (150-450); RED CELL DISTRIBUTION WIDTH 13.7 % (11.6-14.8); WHITE BLOOD COUNT 6.6 K/UL (4.8-10.8)
[2020-06-12 05:55] LABS: ANION GAP 1 mmol/L (5-15); BLOOD UREA NITROGEN 26 mg/dL (7-18); CARBON DIOXIDE 40 MMOL/L (21-32); CHLORIDE 103 MMOL/L (98-107); POTASSIUM 3.5 MMOL/L (3.5-5.1); SODIUM 144 MMOL/L (136-145)
[2020-06-12 08:00] VITALS: BP 117/63
--- NOTE | 2020-06-12 08:09 | NUR ---
NURSE HAND-OFF REPORT: Important Events on Shift:[] Patient Status: [] Diet: [] Pending Orders: [] Pending Results/Labs:[] Pending MD notification:[] Latest Vital Signs: Temperature 98.8 , Pulse 65 , B/P 107 /61 , Respiratory Rate 22 , O2 SAT 97 , Nasal Cannula, O2 Flow Rate 2.0 . Vital Sign Comment: [] EKG Rhythm: Atrial Fibrillation Rhythm change?: N MD Notified?: - MD Response: Latest Welch Fall Score: 30 Fall Risk: Medium Risk Safety Measures: Call light Within Reach, Bed Alarm Zone 1, Side Rails Side Rails x2, Bed position Low and Locked. Fall Precautions: Yellow Socks Yellow Gown Door Sign Patient Fall Education Report given to [DAWNA Anne].
--- NOTE | 2020-06-12 08:10 | NUR ---
NURSE NOTES: Received report from DAWNA Kearney. Pt awake, A/Ox4, denies any pain, able to make needs known. Pt breathing even and unlabored in 2L NC, no s/sx of acute distress. IV site on L hand patent and asymptomatic. Bed on lowest position, call light within reach. Will continue plan of care.
[2020-06-12] MEDS: Albuterol/Ipratropium 3ml neb HHN PRN (08:23)
--- NOTE | 2020-06-12 08:30 | Diagnostic Imaging Report ---
EXAM: XR Chest, 1 View CLINICAL HISTORY: COUGH TECHNIQUE: Frontal view of the chest. COMPARISON: 06/10/20 FINDINGS: Lungs: There is improving mild perihilar and lower lobe edema. No consolidating infiltrates are identified. Pleural space: Unremarkable. No pneumothorax. Heart: There is unchanged cardiomegaly. Mediastinum: Unremarkable. Bones/joints: Unremarkable. IMPRESSION: There is improving mild perihilar and lower lobe edema. No consolidating infiltrates are identified.
[2020-06-12] MEDS: Donepezil 5mg Tab ORAL SCH (08:47)
[2020-06-12] MEDS: Montelukast 10mg tablet ORAL SCH (08:47)
[2020-06-12] MEDS: Ascorbic Acid 500mg tab ORAL SCH (08:48)
[2020-06-12] MEDS: Dabigatran 150mg cap ORAL SCH ×2 (08:48→17:11)
[2020-06-12] MEDS: Allopurinol 100mg Tab ORAL SCH ×2 (08:48→17:11)
--- NOTE | 2020-06-12 09:53 | Pulmonology Progress Note ---
Subjective ROS Limited/Unobtainable: No Allergies: Coded Allergies: PENICILLINS (Verified Allergy, Mild, 07/09/18) Cashew (Verified Allergy, Unknown, 07/09/18) Dust (Verified Allergy, Unknown, 07/09/18) FISH CONTAINING PRODUCTS (Verified Allergy, Unknown, 07/09/18) seafood TOMATO (Verified Allergy, Unknown, 07/09/18) Objective Last 24 Hour Vital Signs Date Time Temp Pulse Resp B/P (MAP) Pulse Ox O2 Delivery O2 Flow Rate FiO2 06/12/20 08:24 92 18 98 Nasal Cannula 2.0 28 88 18 96 06/12/20 08:00 99.1 77 18 117/63 (81) 96 06/12/20 06:34 72 19 97 50 06/12/20 04:00 98.8 72 22 107/61 (76) 97 06/12/20 04:00 65 06/12/20 03:10 72 19 97 50 06/12/20 00:00 72 06/12/20 00:00 98.8 80 19 128/61 (83) 97 06/11/20 23:32 71 24 97 50 06/11/20 23:12 94 18 100 Nasal Cannula 2.0 28 91 18 98 06/11/20 21:00 Nasal Cannula 2.0 06/11/20 20:00 68 06/11/20 20:00 98.1 70 22 130/54 (79) 91 06/11/20 16:00 98.1 80 18 130/67 (88) 97 06/11/20 16:00 83 06/11/20 14:25 66 20 96 Nasal Cannula 2.0 28 06/11/20 14:25 77 20 100 Nasal Cannula 2.0 28 66 20 96 06/11/20 12:00 97.9 82 20 165/87 (113) 96 06/11/20 12:00 76 Intake and Output 06/11/20 06/12/20 19:00 07:00 Intake Total 360 ml 500 ml Output Total 1300 ml 1100 ml Balance -940 ml -600 ml Intake Oral 360 ml 500 ml Output Urine Total 1300 ml Other 1100 ml # Bowel Movements 1 1 Microbiology Date/Time Source Procedure Growth Status 06/10/20 20:55 Nasopharynx SARS-CoV-2 RdRp Gene Assay - Final Complete Laboratory Tests 06/12/20 04:10: White Blood Count 6.6, Red Blood Count 3.60L, Hemoglobin 10.4L, Hematocrit 34.4L , Mean Corpuscular Volume 96, Mean Corpuscular Hemoglobin 28.9, Mean Corpuscular Hemoglobin Concent 30.3L, Red Cell Distribution Width 13.7, Platelet Count 142L, Mean Platelet Volume 7.3, Neutrophils (%) (Auto) 53.1, Lymphocytes (%) (Auto) 36.8, Monocytes (%) (Auto) 7.4, Eosinophils (%) (Auto) 0.5, Basophils (%) (Auto) 2.2H, Sodium Level 144, Potassium Level 3.5, Chloride Level 103, Carbon Dioxide Level 40H, Anion Gap 1L, Blood Urea Nitrogen 26H, Creatinine 1.0, Estimat Glomerular Filtration Rate > 60, Glucose Level 103, Calcium Level 9.0, Pro-B-Type Natriuretic Peptide 5022H Current Medications Medications (Trade) Dose Ordered Sig/Rocío Route PRN Reason Start Time Stop Time Status Last Admin Dose Admin Acetaminophen (Tylenol) 650 mg Q4H PRN ORAL Mild Pain (Pain Scale 1-3) 06/11/20 07:45 07/11/20 07:44 Al Hydroxide/Mg Hydroxide (Mylanta) 30 ml Q4H PRN ORAL Abdominal cramps 06/11/20 07:45 07/11/20 07:44 Albuterol/ Ipratropium (Albuterol/ Ipratropium) 3 ml Q4H PRN HHN Shortness of Breath 06/11/20 13:27 06/16/20 13:26 06/12/20 08:23 Allopurinol (Zyloprim) 100 mg BID ORAL 06/11/20 09:00 07/11/20 08:59 06/12/20 08:48 Ascorbic Acid (Vitamin C) 1,000 mg DAILY ORAL 06/11/20 09:00 07/11/20 08:59 06/12/20 08:48 Dabigatran (Pradaxa) 150 mg BID ORAL 06/11/20 10:00 09/09/20 09:59 06/12/20 08:48 Donepezil HCl (Aricept) 5 mg DAILY ORAL 06/11/20 09:00 07/11/20 08:59 06/12/20 08:47 Furosemide (Lasix) 80 mg DAILY IV 06/11/20 09:00 07/11/20 08:59 06/12/20 08:48 Montelukast Sodium (Singulair) 10 mg DAILY ORAL 06/11/20 09:00 09/09/20 08:59 06/12/20 08:47 Pantoprazole (Protonix) 40 mg DAILY ORAL 06/11/20 09:00 07/11/20 08:59 06/12/20 08:47 Quetiapine Fumarate (SEROqueL) 25 mg DAILY ORAL 06/11/20 09:00 07/26/20 08:59 06/12/20 08:47 Rifaximin (Xifaxan) 550 mg TWICE A DAY ORAL 06/11/20 09:00 06/18/20 08:59 06/12/20 08:47 Assessment/Plan Assessment/Plan Pulmonary Progress Note Subjective Allergies: Coded Allergies: PENICILLINS (Verified Allergy, Mild, 07/09/18) Cashew (Verified Allergy, Unknown, 07/09/18) Dust (Verified Allergy, Unknown, 07/09/18) FISH CONTAINING PRODUCTS (Verified Allergy, Unknown, 07/09/18) seafood TOMATO (Verified Allergy, Unknown, 07/09/18) Subjective events noted orders written some confusion noted Objective ]Vital Signs noted Objective GENERAL: The patient is an ill-appearing female, somewhat confused. HEENT: Negative. NECK: Supple. There is mild jugular venous distention. LUNGS: Moderate breath sounds reduced at both bases. no wheeze or rhonchi CARDIAC: Irregularly irregular. Rate controlled. Soft systolic murmur heard. ABDOMEN: Soft, obese. EXTREMITIES: Noted edema. no CC NEUROLOGIC: Grossly nonfocal. Slightly confused, weak overall. Laboratory Tests noted Assessment/Plan IMPRESSION: Toxic metabolic encephalopathy, chronic respiratory failure, COPD, shortness of breath, CHF, hypertension, hyperuricemia, chronic hypercapnia, chronic hypoxemia. PLAN ABG repeat labs IV lasix maintain respiratory care BIPAP QHS and PRN maintain anticoagulation follow up exam monitor LOC dc once stable impression, plan, and exam edited and reviewed in detail care discussed with Gerardo Guerrero MD Jun 12, 2020 09:53
[2020-06-12 12:00] VITALS: BP 100/57
[2020-06-12 16:00] VITALS: BP 108/57
--- NOTE | 2020-06-12 18:48 | NUR ---
NURSE HAND-OFF REPORT: Important Events on Shift: Wound care performed, WCP uploaded. Patient Status: stable Diet: cardiac Pending Orders: Pending Results/Labs: Pending MD notification: Latest Vital Signs: Temperature 98.1 , Pulse 75 , B/P 108 /57 , Respiratory Rate 18 , O2 SAT 96 , Nasal Cannula, O2 Flow Rate 2.0 . Vital Sign Comment: EKG Rhythm: Atrial Fibrillation Rhythm change?: N MD Notified?: - MD Response: Latest Welch Fall Score: 30 Fall Risk: Medium Risk Safety Measures: Call light Within Reach, Bed Alarm Zone 1, Side Rails Side Rails x2, Bed position Low and Locked. Fall Precautions: Yellow Socks Yellow Gown Door Sign Patient Fall Education Addendum: 06/12/20 at 1920 by Dayana Juarez RN Report given to DAWNA Kearney.
--- NOTE | 2020-06-12 19:10 | NUR ---
NURSE NOTES: Report given by Dayana TONEY. No SOB or acute distress. Patient is alert and oriented x4 with periods of forgetfulness. Bed at lowest position locked with side rails up. Call light and bedside table within reach. 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 Patient currently in sinus rhythm. Will continue with plan of care.
[2020-06-12 20:00] VITALS: BP 115/53
--- NOTE | 2020-06-12 23:12 | Cardiology Progress Note ---
Subjective DATE OF SERVICE: Jun 12, 2020 Monitor: Atrial fibrillation with episodes slow ventricular rates noted last nite. I/O's neg 1740cc since admit. Still with congestion and SOB. Still episodically on bipap support Objective Last 24 Hour Vital Signs Date Time Temp Pulse Resp B/P (MAP) Pulse Ox O2 Delivery O2 Flow Rate FiO2 06/12/20 16:00 98.1 75 18 108/57 (74) 96 06/12/20 15:43 74 06/12/20 12:00 98.1 89 19 100/57 (71) 99 06/12/20 11:47 83 18 98 06/12/20 11:34 71 06/12/20 09:00 Nasal Cannula 2.0 06/12/20 08:24 92 18 98 Nasal Cannula 2.0 28 88 18 96 06/12/20 08:00 99.1 77 18 117/63 (81) 96 06/12/20 07:59 78 06/12/20 06:34 72 19 97 50 06/12/20 04:00 98.8 72 22 107/61 (76) 97 06/12/20 04:00 65 06/12/20 03:10 72 19 97 50 06/12/20 00:00 72 06/12/20 00:00 98.8 80 19 128/61 (83) 97 06/11/20 23:32 71 24 97 50 06/11/20 23:12 94 18 100 Nasal Cannula 2.0 28 91 18 98 ROS: No interval change from my evaluation of 06/10/20 HEENT: normal ENT inspection RHYTHM: Afib LUNGS: diminished breath sounds, coarse breath sounds CARDIAC: irregularly irregular, bradycardia ABDOMEN: normal bowel sounds, non tender, soft EXTREMITIES: normal range of motion, non-tender, trace edema Laboratory Tests Test 06/12/20 04:10 White Blood Count 6.6 K/UL (4.8-10.8) Red Blood Count 3.60 M/UL (4.20-5.40) L Hemoglobin 10.4 G/DL (12.0-16.0) L Hematocrit 34.4 % (37.0-47.0) L Mean Corpuscular Volume 96 FL (80-99) Mean Corpuscular Hemoglobin 28.9 PG (27.0-31.0) Mean Corpuscular Hemoglobin Concent 30.3 G/DL (32.0-36.0) L Red Cell Distribution Width 13.7 % (11.6-14.8) Platelet Count 142 K/UL (150-450) L Mean Platelet Volume 7.3 FL (6.5-10.1) Neutrophils (%) (Auto) 53.1 % (45.0-75.0) Lymphocytes (%) (Auto) 36.8 % (20.0-45.0) Monocytes (%) (Auto) 7.4 % (1.0-10.0) Eosinophils (%) (Auto) 0.5 % (0.0-3.0) Basophils (%) (Auto) 2.2 % (0.0-2.0) H Sodium Level 144 MMOL/L (136-145) Potassium Level 3.5 MMOL/L (3.5-5.1) Chloride Level 103 MMOL/L (98-107) Carbon Dioxide Level 40 MMOL/L (21-32) H Anion Gap 1 mmol/L (5-15) L Blood Urea Nitrogen 26 mg/dL (7-18) H Creatinine 1.0 MG/DL (0.55-1.30) Estimat Glomerular Filtration Rate > 60 mL/min (>60) Glucose Level 103 MG/DL (74-106) Calcium Level 9.0 MG/DL (8.5-10.1) Pro-B-Type Natriuretic Peptide 5022 pg/mL (0-125) H Microbiology Date/Time Source Procedure Growth Status 06/10/20 20:55 Nasopharynx SARS-CoV-2 RdRp Gene Assay - Final Complete Assessment/Plan Assessment/Plan Atrial fibrillation, chronic - with episodes of slow ventricular rates; this may suggest hypercapnia CHF, acute and chronic diastolic-systolic COPD with acute exacerbation Metabolic encephalopathy Cerebrovascular disease with dementia 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
[2020-06-13] VITALS: BP 102/66
[2020-06-13 04:00] VITALS: BP 131/70
--- NOTE | 2020-06-13 07:25 | NUR ---
NURSE HAND-OFF REPORT: Important Events on Shift:[None stable] Patient Status: [Stable alert and oriented x4] Diet: [Cardiac, Soft easy chew] Pending Orders: [] Pending Results/Labs:[] Pending MD notification:[] Latest Vital Signs: Temperature 98.0 , Pulse 74 , B/P 131 /70 , Respiratory Rate 15 , O2 SAT 100 , Nasal Cannula, O2 Flow Rate 2.0 . Vital Sign Comment: [] EKG Rhythm: Atrial Fibrillation Rhythm change?: N MD Notified?: - MD Response: Latest Welch Fall Score: 30 Fall Risk: Medium Risk Safety Measures: Call light Within Reach, Bed Alarm Zone 1, Side Rails Side Rails x2, Bed position Low and Locked. Fall Precautions: Yellow Socks Yellow Gown Door Sign Patient Fall Education Report given to [DAWNA Anne].
--- NOTE | 2020-06-13 07:53 | NUR ---
NURSE NOTES: Received report from DAWNA Kearney. Pt awake, A/O x4, denies any pain, no s/sx of acute distress, breathing even and unlabored in 2L NC. IV site on L hand patent and asymptomatic. Bed on lowest position, call light within reach. Will continue plan of care.
[2020-06-13 08:00] VITALS: BP 126/74
[2020-06-13] MEDS: Montelukast 10mg tablet ORAL SCH (08:42)
[2020-06-13] MEDS: Donepezil 5mg Tab ORAL SCH (08:42)
[2020-06-13] MEDS: Dabigatran 150mg cap ORAL SCH ×2 (08:42→17:17)
[2020-06-13] MEDS: Ascorbic Acid 500mg tab ORAL SCH (08:42)
[2020-06-13] MEDS: Allopurinol 100mg Tab ORAL SCH ×2 (08:43→17:17)
[2020-06-13 08:53] LABS: ALANINE AMINOTRANSFERASE 15 U/L (12-78); ALBUMIN 3.1 G/DL (3.4-5.0); ALBUMIN/GLOBULIN RATIO 0.8 (1.0-2.7); ALKALINE PHOSPHATASE 62 U/L (46-116); ASPARTATE AMINO TRANSFERASE 14 U/L (15-37); BILIRUBIN,TOTAL 0.2 MG/DL (0.2-1.0); BLOOD UREA NITROGEN 26 mg/dL (7-18); CALCIUM 8.9 MG/DL (8.5-10.1); CHLORIDE 107 MMOL/L (98-107); CREATININE 0.9 MG/DL (0.55-1.30); POTASSIUM 4.3 MMOL/L (3.5-5.1)
[2020-06-13 09:04] LABS: ANION GAP -4 mmol/L (5-15); SODIUM 147 MMOL/L (136-145)
[2020-06-13 09:05] LABS: CARBON DIOXIDE 44 MMOL/L (21-32)
--- NOTE | 2020-06-13 11:37 | NUR ---
NURSE NOTES: Dr Pace made aware that CO2 today is 44 (from 40 yesterday), and sodium is 147. Per MD, contact Dr Rangel. Dr Rangel made aware, awaiting for response.
[2020-06-13 12:00] VITALS: BP 114/49
[2020-06-13] MEDS ORDERED: DIGOXIN125 MCG ORAL (12:17)
[2020-06-13] MEDS ORDERED: TUMERIC (12:17)
[2020-06-13] MEDS ORDERED: ZINC30 M1 ORAL (12:17)
[2020-06-13] MEDS ORDERED: GARLIPURE600 MG PO (12:17)
[2020-06-13] MEDS ORDERED: VITAMIN E100 UNI2 ORAL (12:17)
[2020-06-13] MEDS ORDERED: FISH OIL CAP1000 MG ORAL (12:17)
[2020-06-13] MEDS ORDERED: ELDERBERRY (12:17)
[2020-06-13 16:00] VITALS: BP 121/63
--- NOTE | 2020-06-13 16:26 | Pulmonology Progress Note ---
Subjective ROS Limited/Unobtainable: No Allergies: Coded Allergies: PENICILLINS (Verified Allergy, Mild, 07/09/18) Cashew (Verified Allergy, Unknown, 07/09/18) Dust (Verified Allergy, Unknown, 07/09/18) FISH CONTAINING PRODUCTS (Verified Allergy, Unknown, 07/09/18) seafood TOMATO (Verified Allergy, Unknown, 07/09/18) Objective Last 24 Hour Vital Signs Date Time Temp Pulse Resp B/P (MAP) Pulse Ox O2 Delivery O2 Flow Rate FiO2 06/13/20 12:00 98.1 77 18 114/49 (70) 99 06/13/20 11:41 83 06/13/20 09:00 Nasal Cannula 2.0 06/13/20 08:00 96.1 74 18 126/74 (91) 99 06/13/20 07:45 81 06/13/20 04:00 98.0 75 15 131/70 (90) 100 06/13/20 04:00 74 06/13/20 00:00 97.9 71 15 102/66 (78) 100 06/13/20 00:00 74 06/12/20 23:10 97 06/12/20 21:00 Nasal Cannula 2.0 06/12/20 20:00 64 06/12/20 20:00 98.1 86 18 115/53 (73) 96 Intake and Output 06/12/20 06/13/20 19:00 07:00 Intake Total 960 ml Output Total 700 ml 1000 ml Balance 260 ml -1000 ml Intake Oral 960 ml Output Urine Total 700 ml 1000 ml # Bowel Movements 1 Microbiology Date/Time Source Procedure Growth Status 06/10/20 20:55 Nasopharynx SARS-CoV-2 RdRp Gene Assay - Final Complete Laboratory Tests 06/13/20 07:01: Sodium Level 147H, Potassium Level 4.3, Chloride Level 107, Carbon Dioxide Level 44*H, Anion Gap -4L, Blood Urea Nitrogen 26H, Creatinine 0.9, Estimat Glomerular Filtration Rate > 60, Glucose Level 97, Calcium Level 8.9, Magnesium Level 2.0, Total Bilirubin 0.2, Aspartate Amino Transf (AST/SGOT) 14L, Alanine Aminotransferase (ALT/SGPT) 15, Alkaline Phosphatase 62, Pro-B-Type Natriuretic Peptide 1661H, Total Protein 7.1, Albumin 3.1L, Globulin 4.0, Albumin/Globulin Ratio 0.8L Current Medications Medications (Trade) Dose Ordered Sig/Rocío Route PRN Reason Start Time Stop Time Status Last Admin Dose Admin Acetaminophen (Tylenol) 650 mg Q4H PRN ORAL Mild Pain (Pain Scale 1-3) 06/11/20 07:45 07/11/20 07:44 Al Hydroxide/Mg Hydroxide (Mylanta) 30 ml Q4H PRN ORAL Abdominal cramps 06/11/20 07:45 07/11/20 07:44 Albuterol/ Ipratropium (Albuterol/ Ipratropium) 3 ml Q4H PRN HHN Shortness of Breath 06/11/20 13:27 06/16/20 13:26 06/12/20 08:23 Allopurinol (Zyloprim) 100 mg BID ORAL 06/11/20 09:00 07/11/20 08:59 06/13/20 08:43 Ascorbic Acid (Vitamin C) 1,000 mg DAILY ORAL 06/11/20 09:00 07/11/20 08:59 06/13/20 08:42 Dabigatran (Pradaxa) 150 mg BID ORAL 06/11/20 10:00 09/09/20 09:59 06/13/20 08:42 Donepezil HCl (Aricept) 5 mg DAILY ORAL 06/11/20 09:00 07/11/20 08:59 06/13/20 08:42 Furosemide (Lasix) 80 mg DAILY IV 06/11/20 09:00 07/11/20 08:59 06/13/20 08:43 Montelukast Sodium (Singulair) 10 mg DAILY ORAL 06/11/20 09:00 09/09/20 08:59 06/13/20 08:42 Pantoprazole (Protonix) 40 mg DAILY ORAL 06/11/20 09:00 07/11/20 08:59 06/13/20 08:42 Potassium Chloride (K-Dur) 20 meq DAILY ORAL 06/13/20 09:00 09/11/20 08:59 06/13/20 08:42 Quetiapine Fumarate (SEROqueL) 25 mg DAILY ORAL 06/11/20 09:00 07/26/20 08:59 06/13/20 08:42 Rifaximin (Xifaxan) 550 mg TWICE A DAY ORAL 06/11/20 09:00 06/18/20 08:59 06/13/20 08:43 Assessment/Plan Assessment/Plan Pulmonary Progress Note Subjective Allergies: Coded Allergies: PENICILLINS (Verified Allergy, Mild, 07/09/18) Cashew (Verified Allergy, Unknown, 07/09/18) Dust (Verified Allergy, Unknown, 07/09/18) FISH CONTAINING PRODUCTS (Verified Allergy, Unknown, 07/09/18) seafood TOMATO (Verified Allergy, Unknown, 07/09/18) Subjective events noted, remains in afib overnight orders written some confusion noted Objective ]Vital Signs noted Objective GENERAL: The patient is an ill-appearing female, somewhat confused. HEENT: Negative. NECK: Supple. There is mild jugular venous distention. LUNGS: Moderate breath sounds reduced at both bases. no wheeze or rhonchi CARDIAC: Irregularly irregular. Rate controlled. Soft systolic murmur heard. ABDOMEN: Soft, obese. EXTREMITIES: Noted edema. no CC NEUROLOGIC: Grossly nonfocal. Slightly confused, weak overall. Laboratory Tests noted Assessment/Plan IMPRESSION: Toxic metabolic encephalopathy Chronic respiratory failure, chronic hypercapnia, chronic hypoxemia. COPD Shortness of breath CHF Afib Hypertension Hyperuricemia, PLAN ABG PRN repeat labs IV lasix - Cardiology following maintain respiratory care BIPAP QHS and PRN maintain anticoagulation follow up exam monitor LOC dc once stable impression, plan, and exam edited and reviewed in detail care discussed with Gerardo Guerrero MD Jun 13, 2020 16:26
--- NOTE | 2020-06-13 19:30 | NUR ---
NURSE NOTES: Patient received from DAWNA Anne. Patient is awake, alert and oriented x 4. Patient is talkative and resting in bed. Patient is on nasal cannula on room air. Patient has a Purewick, patent and draining well. Patient has an IV on his left hand 22 gauge, saline lock. Bed is in the lowest position, call light within reach. Will continue to monitor.
--- NOTE | 2020-06-13 19:43 | NUR ---
NURSE HAND-OFF REPORT: Important Events on Shift: Patient Status: Diet: Pending Orders: Pending Results/Labs: Pending MD notification: Latest Vital Signs: Temperature 97.7 , Pulse 70 , B/P 121 /63 , Respiratory Rate 18 , O2 SAT 99 , Nasal Cannula, O2 Flow Rate 2.0 . Vital Sign Comment: EKG Rhythm: Atrial Fibrillation Rhythm change?: N MD Notified?: - MD Response: Latest Welch Fall Score: 20 Fall Risk: Low Risk Safety Measures: Call light Within Reach, Bed Alarm Zone 1, Side Rails Side Rails x2, Bed position Low and Locked. Fall Precautions: Yellow Socks Yellow Gown Door Sign Patient Fall Education Report given to DAWNA Stinson
[2020-06-13 20:00] VITALS: BP 151/76
[2020-06-14] VITALS: BP 143/65
--- NOTE | 2020-06-14 01:25 | Cardiology Progress Note ---
Subjective DATE OF SERVICE: Jun 13, 2020 Monitor: Atrial fibrillation with episodes slow ventricular rates have resolved. Less congestion and SOB. Still episodically on bipap support Labs notable for increasing sodium levels and bicarb. Objective Last 24 Hour Vital Signs Date Time Temp Pulse Resp B/P (MAP) Pulse Ox O2 Delivery O2 Flow Rate FiO2 06/14/20 00:00 97.9 77 15 143/65 (91) 100 06/14/20 00:00 83 06/13/20 23:55 72 32 99 50 06/13/20 21:00 Nasal Cannula 2.0 06/13/20 20:00 87 06/13/20 20:00 98.1 84 20 151/76 (101) 100 06/13/20 16:00 97.7 70 18 121/63 (82) 99 06/13/20 15:35 77 06/13/20 12:00 98.1 77 18 114/49 (70) 99 06/13/20 11:41 83 06/13/20 09:00 Nasal Cannula 2.0 06/13/20 08:00 96.1 74 18 126/74 (91) 99 06/13/20 07:45 81 06/13/20 04:00 98.0 75 15 131/70 (90) 100 06/13/20 04:00 74 ROS: No interval change from my evaluation of 06/10/20 HEENT: normal ENT inspection RHYTHM: Afib LUNGS: diminished breath sounds, coarse breath sounds CARDIAC: irregularly irregular, bradycardia ABDOMEN: normal bowel sounds, non tender, soft EXTREMITIES: normal range of motion, non-tender, trace edema Laboratory Tests Test 06/13/20 07:01 Sodium Level 147 MMOL/L (136-145) H Potassium Level 4.3 MMOL/L (3.5-5.1) Chloride Level 107 MMOL/L (98-107) Carbon Dioxide Level 44 MMOL/L (21-32) *H Anion Gap -4 mmol/L (5-15) L Blood Urea Nitrogen 26 mg/dL (7-18) H Creatinine 0.9 MG/DL (0.55-1.30) Estimat Glomerular Filtration Rate > 60 mL/min (>60) Glucose Level 97 MG/DL (74-106) Calcium Level 8.9 MG/DL (8.5-10.1) Magnesium Level 2.0 MG/DL (1.8-2.4) Total Bilirubin 0.2 MG/DL (0.2-1.0) Aspartate Amino Transf (AST/SGOT) 14 U/L (15-37) L Alanine Aminotransferase (ALT/SGPT) 15 U/L (12-78) Alkaline Phosphatase 62 U/L (46-116) Pro-B-Type Natriuretic Peptide 1661 pg/mL (0-125) H Total Protein 7.1 G/DL (6.4-8.2) Albumin 3.1 G/DL (3.4-5.0) L Globulin 4.0 g/dL Albumin/Globulin Ratio 0.8 (1.0-2.7) L Assessment/Plan Assessment/Plan Atrial fibrillation, chronic - with episodes of slow ventricular rates; this may suggest hypercapnia CHF, acute and chronic diastolic-systolic COPD with acute exacerbation Metabolic encephalopathy Cerebrovascular disease with dementia Chronic respiratory acidosis Contraction alkalosis 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 No current indication for pacemaker Bipap support Monitor acid-base and electrolyte abnormalities Continue full anti-coagulation Gerardo Calix MD Jun 14, 2020 01:25
[2020-06-14 04:00] VITALS: BP 131/68
--- NOTE | 2020-06-14 04:00 | NUR ---
NURSE NOTES: Optifoam wound dressing in sacral area has been changed and replaced.
--- NOTE | 2020-06-14 07:23 | NUR ---
NURSE HAND-OFF REPORT: Important Events on Shift:[] Patient Status: [Stable] Diet: [Cardiac easy chew diet] Pending Orders: [] Pending Results/Labs:[] Pending MD notification:[] Latest Vital Signs: Temperature 98.0 , Pulse 83 , B/P 131 /68 , Respiratory Rate 18 , O2 SAT 98 , Nasal Cannula, O2 Flow Rate 2.0 . Vital Sign Comment: [] EKG Rhythm: Atrial Fibrillation Rhythm change?: N MD Notified?: - MD Response: Latest Welch Fall Score: 20 Fall Risk: Low Risk Safety Measures: Call light Within Reach, Bed Alarm Zone 1, Side Rails Side Rails x2, Bed position Low and Locked. Fall Precautions: Yellow Socks Yellow Gown Door Sign Patient Fall Education Report given to [DAWNA Hawk].
--- NOTE | 2020-06-14 07:28 | NUR ---
NURSE NOTES: Pt received from DAWNA Stinson. Pt in bed, talkative, no complaint of pain or distress. Bed low and locked. Call light within reach.
[2020-06-14 08:00] VITALS: BP 134/72
--- NOTE | 2020-06-14 08:02 | Pulmonology Progress Note ---
Subjective ROS Limited/Unobtainable: No Allergies: Coded Allergies: PENICILLINS (Verified Allergy, Mild, 07/09/18) Cashew (Verified Allergy, Unknown, 07/09/18) Dust (Verified Allergy, Unknown, 07/09/18) FISH CONTAINING PRODUCTS (Verified Allergy, Unknown, 07/09/18) seafood TOMATO (Verified Allergy, Unknown, 07/09/18) Subjective events noted over the weekend cxr better Objective Last 24 Hour Vital Signs Date Time Temp Pulse Resp B/P (MAP) Pulse Ox O2 Delivery O2 Flow Rate FiO2 06/14/20 04:00 98.0 61 18 131/68 (89) 98 06/14/20 04:00 83 06/14/20 00:00 97.9 77 15 143/65 (91) 100 06/14/20 00:00 83 06/13/20 23:55 72 32 99 50 06/13/20 21:00 Nasal Cannula 2.0 06/13/20 20:00 87 06/13/20 20:00 98.1 84 20 151/76 (101) 100 06/13/20 16:00 97.7 70 18 121/63 (82) 99 06/13/20 15:35 77 06/13/20 12:00 98.1 77 18 114/49 (70) 99 06/13/20 11:41 83 06/13/20 09:00 Nasal Cannula 2.0 Intake and Output 06/13/20 06/14/20 19:00 07:00 Intake Total 730 ml 150 ml Output Total 1250 ml 450 ml Balance -520 ml -300 ml Intake Oral 730 ml 150 ml Output Urine Total 1250 ml 450 ml Objective GENERAL: The patient is an ill-appearing female, somewhat confused. HEENT: Negative. NECK: Supple. There is mild jugular venous distention. LUNGS: Moderate breath sounds reduced at both bases. no wheeze or rhonchi CARDIAC: Irregularly irregular. Rate controlled. Soft systolic murmur heard. ABDOMEN: Soft, obese. EXTREMITIES: Noted edema. no CC NEUROLOGIC: Grossly nonfocal. Slightly confused, weak overall. Current Medications Medications (Trade) Dose Ordered Sig/Rocío Route PRN Reason Start Time Stop Time Status Last Admin Dose Admin Acetaminophen (Tylenol) 650 mg Q4H PRN ORAL Mild Pain (Pain Scale 1-3) 06/11/20 07:45 07/11/20 07:44 Al Hydroxide/Mg Hydroxide (Mylanta) 30 ml Q4H PRN ORAL Abdominal cramps 06/11/20 07:45 07/11/20 07:44 Albuterol/ Ipratropium (Albuterol/ Ipratropium) 3 ml Q4H PRN HHN Shortness of Breath 06/11/20 13:27 06/16/20 13:26 06/12/20 08:23 Allopurinol (Zyloprim) 100 mg BID ORAL 06/11/20 09:00 07/11/20 08:59 06/13/20 17:17 Ascorbic Acid (Vitamin C) 1,000 mg DAILY ORAL 06/11/20 09:00 07/11/20 08:59 06/13/20 08:42 Dabigatran (Pradaxa) 150 mg BID ORAL 06/11/20 10:00 09/09/20 09:59 06/13/20 17:17 Donepezil HCl (Aricept) 5 mg DAILY ORAL 06/11/20 09:00 07/11/20 08:59 06/13/20 08:42 Furosemide (Lasix) 40 mg DAILY IV 06/15/20 09:00 07/15/20 08:59 Montelukast Sodium (Singulair) 10 mg DAILY ORAL 06/11/20 09:00 09/09/20 08:59 06/13/20 08:42 Pantoprazole (Protonix) 40 mg DAILY ORAL 06/11/20 09:00 07/11/20 08:59 06/13/20 08:42 Potassium Chloride (K-Dur) 20 meq DAILY ORAL 06/13/20 09:00 09/11/20 08:59 06/13/20 08:42 Quetiapine Fumarate (SEROqueL) 25 mg DAILY ORAL 06/11/20 09:00 07/26/20 08:59 06/13/20 08:42 Rifaximin (Xifaxan) 550 mg TWICE A DAY ORAL 06/11/20 09:00 06/18/20 08:59 06/13/20 17:16 Assessment/Plan Assessment/Plan IMPRESSION: Toxic metabolic encephalopathy, chronic respiratory failure, COPD, shortness of breath, CHF, hypertension, hyperuricemia, chronic hypercapnia, chronic hypoxemia. PLAN ABG never done repeat labs reviewed IV lasix maintain respiratory care BIPAP QHS and PRN maintain anticoagulation follow up exam monitor LOC dc planning impression, plan, and exam edited and reviewed in detail care discussed with Stevan Zaidi MD Jun 14, 2020 08:02
--- NOTE | 2020-06-14 09:58 | NUR ---
NURSE NOTES: Pt noted as having COPD, satting at 100 on 2 liters NC. Suggested taking 02 off since 100 is likely too high for COPD pt. PT refused.
[2020-06-14] MEDS: Montelukast 10mg tablet ORAL SCH (10:03)
[2020-06-14] MEDS: Dabigatran 150mg cap ORAL SCH (10:03)
[2020-06-14] MEDS: Donepezil 5mg Tab ORAL SCH (10:04)
[2020-06-14] MEDS: Ascorbic Acid 500mg tab ORAL SCH (10:06)
[2020-06-14] MEDS: Allopurinol 100mg Tab ORAL SCH (10:06)
--- NOTE | 2020-06-14 13:30 | NUR ---
NURSE NOTES: Per Dr. Pace, pt d/orestes home with home health. Pt picked up by daughter. ID band and IV removed. Tele box removed. Meds picked up and given from pharmacy. Pt instructions and belongings signed by daughter Janell. Pt taken down by wheelchair with [employer] and daughter Janell. education given regarding CHF. Pt has oxygen compressor so she went down on 2 liters NC. Pictures of wounds taken and uploaded.
--- NOTE | 2020-06-14 22:37 | Cardiology Progress Note ---
Subjective DATE OF SERVICE: Jun 14, 2020 Monitor: Atrial fibrillation with no recurrent episodes slow ventricular rates. Less congestion and SOB. Still episodically on bipap support Labs notable for increasing sodium levels and bicarb yesterday; diuretics held today. Objective Last 24 Hour Vital Signs Date Time Temp Pulse Resp B/P (MAP) Pulse Ox O2 Delivery O2 Flow Rate FiO2 06/14/20 09:00 Nasal Cannula 2.0 06/14/20 08:00 75 06/14/20 08:00 97.9 67 20 134/72 (92) 100 06/14/20 04:00 98.0 61 18 131/68 (89) 98 06/14/20 04:00 83 06/14/20 00:00 97.9 77 15 143/65 (91) 100 06/14/20 00:00 83 06/13/20 23:55 72 32 99 50 ROS: No interval change from my evaluation of 06/10/20 HEENT: normal ENT inspection RHYTHM: Afib LUNGS: diminished breath sounds, coarse breath sounds CARDIAC: irregularly irregular, bradycardia ABDOMEN: normal bowel sounds, non tender, soft EXTREMITIES: normal range of motion, non-tender, trace edema Assessment/Plan Assessment/Plan Atrial fibrillation, chronic - with controlled ventricular rates; this may suggest hypercapnia CHF, acute and chronic diastolic-systolic COPD with acute exacerbation Metabolic encephalopathy Cerebrovascular disease with dementia Chronic respiratory acidosis Contraction alkalosis Dehydration/hypernatremia Resume maintenance oral dose of diuretic tomorrow. No current indication for pacemaker Now off bipap; continue inhaled bronchodilators. Monitor acid-base and electrolyte abnormalities as outpatient Continue full anti-coagulation Gerardo Calix MD Jun 14, 2020 22:37
--- NOTE | 2020-06-15 09:47 | Discharge Summary ---
Discharge Summary Discharge Summary _ DATE OF ADMISSION: 06/10/2020 DATE OF DISCHARGE: 06/14/2020 DISCHARGED BY: Dr. Pace REASON FOR ADMISSION: 85 years old female with past medical history of congestive heart failure, COPD/asthma, hypertension, atrial fibrillation, chronic respiratory failure with chronic use of Trilogy, was brought to emergency department by her daughter since her pulse oximetry reading was low earlier that morning. Patient denied lightheadedness. No fever or chills. No chest pain, palpitations or shortness of breath. No abdominal pain, nausea vomiting or diarrhea. No dysuria. Upon evaluation pulse oximetry was 74% on 4 L of oxygen via nasal cannula. Troponin was negative , pro BNP 2396. EKG revealed atrial fibrillation. Rapid COVID-19 was negative. BUN 26, creatinine 1.4. CO2 39 No leukocytosis , hemoglobin 11.2, hematocrit 37.9. Chest x-ray demonstrated cardiomegaly with some interstitial congestion. In emergency department patient received IV Solu-Medrol, IV Lasix, bronchodilator treatment as well as IV Vasotec for blood pressure control , nitroglycerin paste and admitted for further management. CONSULTANTS: bootmaker hand [facility] COU[facility]SE: Patient admitted to telemetry floor. Patient started on IV diuresis with close monitoring of volumes and cardiorenal parameters. Home medication continued. Patient was on nocturnal BiPAP at bedtime and daytime as needed. Supplemental oxygen titrated to keep pulse oximetry above 92%. Nebulizing treatment with bronchodilator provided as needed. Echocardiogram demonstrated preserved ejection fraction of 65%. Moderate tricuspid regurgitation and mild mitral regurgitation. Right ventricular systolic pressure of 62 consistent with a severe pulmonary hypertension. Patient had chronic atrial fibrillation with episodes of slow ventricular rates, however no current indication for pacemaker at this time, as per bootmaker hand. Full anticoagulation with Pradaxa continued. GI prophylaxis provided Cardiorenal parameters and electrolytes were closely monitored. Creatinine from 1.4 down to 0.9 . Follow-up chest x-ray revealed improving perihilar and lower lobe edema. No consolidating infiltrate. Pro BNP trended down. Patient clinically stabilized and was ready for discharge home with home health services. FINAL DIAGNOSES: Toxic metabolic encephalopathy Chronic respiratory failure COPD with exacerbation CHF acute on chronic diastolic Atrial fibrillation ,chronic Hypertension Chronic hypercapnia/ Chronic respiratory acidosis Cerebrovascular disease with dementia DISCHARGE MEDICATIONS: See Medication Reconciliation list. DISCHARGE INSTRUCTIONS: Patient was discharged home with home health services. Follow up with primary care provider in one week. I have been assigned to dictate discharge summary for this account. I was not involved in the patient's management. Paulina Frias NP Jun 15, 2020 09:47
--- NOTE | 2020-06-15 16:05 | Cardiology Report ---
APPROVED REPORT EXAM: Two-dimensional and M-mode echocardiogram with Doppler and color Doppler. INDICATION Congestive Heart Failure M-Mode DIMENSIONS IVSd1.0 (0.7-1.1cm)Left Atrium (MM)5.5 (1.6-4.0cm) LVDd5.1 (3.5-5.6cm)Aortic Root3.3 (2.0-3.7cm) PWd1.0 (0.7-1.1cm)Aortic Cusp Exc.1.7 (1.5-2.0cm) IVSs1.7 cmEPSS0.3 (>1.0cm) LVDs3.1 (2.5-4.0cm) PWs1.2 cm <Conclusion> Normal left ventricular chamber size, systolic function and wall motion. Left ventricular ejection fraction estimated to be 65-70 %. No left ventricular hypertrophy. Anterior Echo-free space, may be due to pericardial fat or effusion. Moderate bi-atrial enlargement. Right ventricle is mildly enlarged. Focal aortic valve sclerosis with adequate cusp excursion. Thickened mitral valve leaflets with normal excursion. Mitral annulus and aortic root calcification. Pulmonic valve not well visualized. Normal tricuspid valve structure. IVC dilated at 3.2 cm and without physiologic collapse suggestive of increased RA pressure. A color flow and spectral Doppler study was performed and revealed: No aortic regurgitation. Mild mitral regurgitation. Cannot determine left ventricular diastolic function by mitral diastolic velocities due to arrhythmia. Moderate tricuspid regurgitation. Tricuspid systolic velocities suggests peak right ventricular systolic pressure of 62 mmHg, consistent with severe pulmonary hypertension. Moderate pulmonic regurgitation present.
--- NOTE | 2020-06-15 17:14 | Cardiology Report ---
APPROVED REPORT EKG Measurement Heart [id number] <Conclusion> Atrial fibrillation Nonspecific ST and T wave abnormality Abnormal ECG
== END 2020-06-14 13:30 | disposition home health service (06) | DRG 291 ==
LOC: EMR 21:03 → 2E 23:40 → EDBEDREQ 06-11 00:22
DX: I13.0 Hypertensive heart and chronic kidney disease with heart failure and stage 1 through stage 4 chronic kidney disease, or unspecified chronic kidney disease (principal); G92 Toxic encephalopathy; I50.33 Acute on chronic diastolic (congestive) heart failure; J44.1 Chronic obstructive pulmonary disease with (acute) exacerbation; N17.9 Acute kidney failure, unspecified; I24.9 Acute ischemic heart disease, unspecified; I48.20 Chronic atrial fibrillation, unspecified; J96.12 Chronic respiratory failure with hypercapnia; E87.2 Acidosis; N18.9 Chronic kidney disease, unspecified; Z88.0 Allergy status to penicillin; I34.0 Nonrheumatic mitral (valve) insufficiency; I36.1 Nonrheumatic tricuspid (valve) insufficiency; F01.50 Vascular dementia, unspecified severity, without behavioral disturbance, psychotic disturbance, mood disturbance, and anxiety; Z87.891 Personal history of nicotine dependence; Z79.01 Long term (current) use of anticoagulants
CPT/HCPCS: 36415; 71045; 80048; 80053; 83735; 83880; 84100; 84484; 85025; 93005; 93306; 94640; 94664; 96374; 96375; 99285; J7620; J8499; U0002

== ENCOUNTER 2020-11-02 23:17 | Inpatient (IN) | payer MEDICARE, OTHER ==
[~2020-11-02] VITALS: Ht 175.3 cm; Wt 112.5 kg
[~2020-11-02 23:17] MED LIST changes: +DIGOXIN125 MCG ORAL; +DONEPEZIL HCL5 M2 ORAL; +ELDERBERRY; +FISH OIL CAP1000 MG ORAL; +GARLIPURE600 MG PO; +OPSUMIT10 MG PO; +QUETIAPINE FUMA50 MG ORAL; +TUMERIC; +VITAMIN E100 UNI2 ORAL; +XIFAXAN550 MG ORAL; +ZINC30 M1 ORAL
[2020-11-02] MEDS ORDERED: SEROQUEL100 MG ORAL (23:38)
[2020-11-02] MEDS ORDERED: DONEPEZIL HCL5 MG ORAL (23:38)
--- NOTE | 2020-11-02 23:47 | Emergency Room Report ---
History of Present Illness General Chief Complaint: Edema Source: Patient Present Illness HPI Disclaimer: Please note that this report is being documented using DRAGON technology. This can lead to erroneous entry secondary to incorrect interpretation by the dictating instrument. HPI: 85-year-old female with a history of CHF, hypertension, A. fib, COPD/asthma chronically on 3 L oxygen presents for evaluation of bilateral leg edema. Worsening over the past few days. She typically takes 80 mg Lasix daily and was given an extra IV dose of Lasix by home nurse IV. Noted persistent and worsening swelling. She has been compliant with her Pradaxa. Denies chest pa in. Reports recent negative Covid test last week. No exposure to sick contacts. Denies fever or chills. Denies chest pain or palpitations. No recent travel. Denies injury. PMH: CHF, hypertension, COPD/asthma, atrial fibrillation PSH: Nephrectomy Allergies: Multiple food allergies, penicillins Social Hx: Reviewed Allergies: Coded Allergies: PENICILLINS (Verified Allergy, Mild, 07/09/18) Cashew (Verified Allergy, Unknown, 07/09/18) Dust (Verified Allergy, Unknown, 07/09/18) FISH CONTAINING PRODUCTS (Verified Allergy, Unknown, 07/09/18) seafood TOMATO (Verified Allergy, Unknown, 07/09/18) COVID-19 Screening Contact w/high risk pt: No Recent Travel to affected area: No Experienced COVID-19 symptoms?: No COVID-19 symptoms experienced: Fever (T>100.4F or >38C), Shortness of Breath, Flu-Like Symptoms 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 COVID-19 Screening: Negative COVID-19 COVID-19 Testing Source: [facility] Patient History Last Menstrual Period: n/a Nursing Documentation-PMH Past Medical History: No History, Except For Hx Cardiac Problems: Yes - CHF, arhtritis, cellulitis Hx Hypertension: Yes Hx Pacemaker: No Hx Asthma: Yes Hx COPD: Yes Hx Diabetes: No Hx Cancer: No Hx Gastrointestinal Problems: No Hx Dialysis: No Hx Neurological Problems: No Hx Cerebrovascular Accident: No Hx Transient Ischemic Attacks: Yes Hx Seizures: No Hx Weakness: Yes - both lower extremities Physical Exam Vital Signs Date Time Temp Pulse Resp B/P (MAP) Pulse Ox O2 Delivery O2 Flow Rate FiO2 11/02/20 23:25 98.6 77 18 150/71 (97) 93 Room Air General: Awake and alert, no acute distress HEENT: NC/AT. EOMI. Cardiovascular: RRR. S1 and S2 normal. No murmur appreciated Resp: 3 L nasal cannula with home compressor. Normal work of breathing. No cough, wheezing or crackles appreciated Abdomen: Abdomen is soft, nondistended. Nontender Skin: Intact. No abrasions, laceration or rash over the exposed skin MSK: Normal tone and bulk. Moving all extremities. 3+ lower extremity nonpitting edema from ankles to thighs. Legs are symmetrical. Neuro: Awake and alert. Mentating appropriately. Medical Decision Making Diagnostic Impression: Primary Impression: COPD (chronic obstructive pulmonary disease) Additional Impression: Leg edema ER Course 85-year-old female history of CHF presents for bilateral worsening edema over the past few days. BN peptide elevated. Clinically, the patient looks like fluid overload versus a DVT or cellulitis as swelling is bilateral, calves are nontender, no signs of infection. Labs otherwise within normal limits. Will admit for additional diuresis to her PMD, Dr. Pace. Laboratory Tests Test 11/03/20 00:29 White Blood Count 5.1 K/UL (4.8-10.8) Red Blood Count 3.32 M/UL (4.20-5.40) L Hemoglobin 9.6 G/DL (12.0-16.0) L Hematocrit 33.6 % (37.0-47.0) L Mean Corpuscular Volume 101 FL (80-99) H Mean Corpuscular Hemoglobin 29.1 PG (27.0-31.0) Mean Corpuscular Hemoglobin Concent 28.7 G/DL (32.0-36.0) L Red Cell Distribution Width 14.0 % (11.6-14.8) Platelet Count 110 K/UL (150-450) L Mean Platelet Volume 8.4 FL (6.5-10.1) Neutrophils (%) (Auto) 61.4 % (45.0-75.0) Lymphocytes (%) (Auto) 27.5 % (20.0-45.0) Monocytes (%) (Auto) 8.4 % (1.0-10.0) Eosinophils (%) (Auto) 2.0 % (0.0-3.0) Basophils (%) (Auto) 0.8 % (0.0-2.0) Sodium Level 141 MMOL/L (136-145) Potassium Level 4.1 MMOL/L (3.5-5.1) Chloride Level 102 MMOL/L (98-107) Carbon Dioxide Level 40 MMOL/L (21-32) H Anion Gap -1 mmol/L (5-15) L Blood Urea Nitrogen 18 mg/dL (7-18) Creatinine 1.0 MG/DL (0.55-1.30) Estimated Glomerular Filtration Rate > 60 mL/min (>60) Glucose Level 114 MG/DL (74-106) H Calcium Level 8.9 MG/DL (8.5-10.1) Total Bilirubin 0.4 MG/DL (0.2-1.0) Aspartate Amino Transferase (AST) 28 U/L (15-37) Alanine Aminotransferase (ALT) 21 U/L (12-78) Alkaline Phosphatase 100 U/L (46-116) Troponin I 0.012 ng/mL (0.000-0.056) Pro-B-Type Natriuretic Peptide 4020 pg/mL (0-125) H Total Protein 7.7 G/DL (6.4-8.2) Albumin 3.3 G/DL (3.4-5.0) L Globulin 4.4 g/dL Albumin/Globulin Ratio 0.8 (1.0-2.7) L EKG Diagnostic Results Troponin ordered: Yes When was troponin ordered?: Nov 03, 2020 EKG Time: 00:15 Rate: normal Rhythm: other - Irregularly irregular rhythm consistent with atrial fibrillation ST Segments: no acute changes Other Impression Irregularly irregular rhythm consistent with atrial fibrillation. Normal axis. Otherwise normal intervals. Rhythm Strip Diag. Results Rhythm Strip Time: 00:15 EP Interpretation: yes Rate: 60s Rhythm: NSR, no PVC's, no ectopy Chest X-Ray Diagnostic Results Chest X-Ray Diagnostic Results : Chest X-Ray Ordered: Yes Indication: Other - Edema EP Interpretation: Yes Interpretation: no consolidation, no effusion, no pneumothorax, other - Enlarged cardiac silhouette Impression: Other - Cardiomegaly Electronically Signed by: Electronically signed by Dr. Gamaliel Hathaway MD Last Vital Signs Date Time Temp Pulse Resp B/P (MAP) Pulse Ox O2 Delivery O2 Flow Rate FiO2 11/02/20 23:25 98.6 77 18 150/71 (97) 93 Room Air Disposition: ADMITTED INPATIENT Condition: Stable Gamaliel Hathaway MD Nov 02, 2020 23:47
[2020-11-03] VITALS (8 sets, daily range): BP systolic 114–150; BP diastolic 50–71
--- NOTE | 2020-11-03 00:27 | NUR ---
ED Nurse Note: pt came in complaints of bilateral edema to the lower extremities, hx of CHF and COPD
--- NOTE | 2020-11-03 00:28 | NUR ---
ED Nurse Note attempted venipuncture 2x
[2020-11-03 00:47] LABS: BASOPHILS % (AUTO) 0.8 % (0.0-2.0); HEMATOCRIT 33.6 % (37.0-47.0); HEMOGLOBIN 9.6 G/DL (12.0-16.0); LYMPHOCYTES % (AUTO) 27.5 % (20.0-45.0); MEAN CORPUSCULAR VOLUME 101 FL (80-99); MONOCYTES % (AUTO) 8.4 % (1.0-10.0); NEUTROPHILS % (AUTO) 61.4 % (45.0-75.0); PLATELET COUNT 110 K/UL (150-450); RED BLOOD COUNT 3.32 M/UL (4.20-5.40); WHITE BLOOD COUNT 5.1 K/UL (4.8-10.8)
--- NOTE | 2020-11-03 00:50 | NUR ---
ED Nurse Note: Blood specimens sent to lab
[2020-11-03 00:58] LABS: ANION GAP -1 mmol/L (5-15); BLOOD UREA NITROGEN 18 mg/dL (7-18); CALCIUM 8.9 MG/DL (8.5-10.1); CARBON DIOXIDE 40 MMOL/L (21-32); CHLORIDE 102 MMOL/L (98-107); POTASSIUM 4.1 MMOL/L (3.5-5.1); SODIUM 141 MMOL/L (136-145)
[2020-11-03 01:13] LABS: ALANINE AMINOTRANSFERASE 21 U/L (12-78); ALBUMIN 3.3 G/DL (3.4-5.0); ALBUMIN/GLOBULIN RATIO 0.8 (1.0-2.7); ALKALINE PHOSPHATASE 100 U/L (46-116); ASPARTATE AMINO TRANSFERASE 28 U/L (15-37); BILIRUBIN,TOTAL 0.4 MG/DL (0.2-1.0)
--- NOTE | 2020-11-03 07:15 | NUR ---
pt in bed sitting up with no c/o pain or discomfort. pt is waiting on a bed
--- NOTE | 2020-11-03 08:48 | NUR ---
pt stated that she needs her "at home" meds. informed pt that her dr will have to put them in the computer. informed DAWNA Arshad charge nurse who stated she would contact pt's .
--- NOTE | 2020-11-03 09:15 | NUR ---
ED Nurse Note: housekeeping notified to provide inpatient bed for pt as she is boarding in the ed
--- NOTE | 2020-11-03 09:19 | NUR ---
pt has a danis-wick, voided 2000mls in cannister. assessed danis-wick and pt continues to be dry bilateral lower extremities edematous approx +3 but not taunt
--- NOTE | 2020-11-03 09:45 | Diagnostic Imaging Report ---
Indication: Reason For Exam: SOB Technique: XRAY Chest 1v Comparison:06/12/2020 Findings: The heart remains enlarged. Enlargement of the main pulmonary artery and central vessels is also again noted. The aorta is calcified. Prominence of pulmonary vascularity is present. Linear densities are noted in the left lower lung. No pleural fluid. No alveolar infiltrates. Impression: Cardiomegaly with evidence of congestive heart failure. Enlarged central pulmonary vessels. Though this may be due to congestive heart failure, possibility of pulmonary hypertension to BE considered. Scarring or atelectasis in the left lower lung.
--- NOTE | 2020-11-03 10:35 | NUR ---
moved pt into a hospital bed for more comfort. pt tolerated scooting over. danis-wick attached back to suction
--- NOTE | 2020-11-03 10:39 | NUR ---
pt stated that she had her daughter take her belongings home. the only thing she has here is her socks and she is wearing them
--- NOTE | 2020-11-03 11:32 | History & Physical ---
History and Physical History & Physicial 85 year old female presents with worsening fluid overload patient has been at home with IV lasix and has not improved care noted BNP very elevated ++sob on oxygen care noted and discussed ER notes reviewed PMH Toxic metabolic encephalopathy Chronic respiratory failure COPD with exacerbation CHF acute on chronic diastolic Atrial fibrillation ,chronic Hypertension Chronic hypercapnia/ Chronic respiratory acidosis Cerebrovascular disease with dementia obesity hypoventilation syndrome MEDS/ALLERGIES: reviewed and reconciled SOCIAL HISTORY: nonsmoker nondrinker PHYSICAL WDWN NAD reduced breath sounds bilaterally without rhonchi or wheeze [id number] without MRG NABS nontender no HSM no CC severe leg edema nonfocal Laboratory Tests 11/03/20 00:29: White Blood Count 5.1, Red Blood Count 3.32L, Hemoglobin 9.6L, Hematocrit 33.6L, Mean Corpuscular Volume 101H, Mean Corpuscular Hemoglobin 29.1, Mean Corpuscular Hemoglobin Concent 28.7L, Red Cell Distribution Width 14.0, Platelet Count 110L, Mean Platelet Volume 8.4, Neutrophils (%) (Auto) 61.4, Lymphocytes (%) (Auto) 27.5, Monocytes (%) (Auto) 8.4, Eosinophils (%) (Auto) 2.0, Basophils (%) (Auto) 0.8, Sodium Level 141, Potassium Level 4.1, Chloride Level 102, Carbon Dioxide Level 40H, Anion Gap -1L, Blood Urea Nitrogen 18, Creatinine 1.0, Estimat Glomerular Filtration Rate > 60, Glucose Level 114H, Calcium Level 8.9, Total Bilirubin 0.4, Aspartate Amino Transf (AST/SGOT) 28, Alanine Aminotransferase (ALT/SGPT) 21, Alkaline Phosphatase 100, Troponin I 0.012, Pro-B-Type Natriuretic Peptide 4020H, Total Protein 7.7, Albumin 3.3L, Globulin 4.4, Albumin/Globulin Ratio 0.8L IMPRESSION leg edema fluid overload CHF thrombocytopenia elevated BNP anemia COPD PLAN diurese via IV meds as is cardiology to see monitor acid base care note and reviewed impression, plan, and exam edited and reviewed in detail care discussed with Stevan Zaidi MD Nov 03, 2020 11:32
--- NOTE | 2020-11-03 13:04 | NUR ---
gave pt her lunch
--- NOTE | 2020-11-03 15:25 | NUR ---
pt stated that she doesn't want to be here, she feels like she is taking up space. she don't need anything and hasn't been given anything. she states she wants to go home and lay in bed. informed ERMD pt wants to go home. ERMD will be speaking with her. Informed admitting dr was finally able to be contacted for orders.
--- NOTE | 2020-11-03 15:33 | NUR ---
LIMA spoke with pt about staying in the hospital to get more fluid off. pt appears to be frustrated. admitting MD on the phone stated that he would put orders in, in a little while.
[2020-11-03] MEDS ORDERED: Nitroglycerin 2% oint pkt TOPIC ONE (15:45)
--- NOTE | 2020-11-03 16:23 | NUR ---
pt cleaned and changed at this time. new [place] appliedm to pt at this time.
--- NOTE | 2020-11-03 18:40 | NUR ---
pt updated on room status, per field supervisor, pt can go upstairs at 1930
--- NOTE | 2020-11-03 18:45 | NUR ---
spoke with pt's daughter. she stated that the pt sleeps with a cpap at night. If she doesn't she starts to hallucinate. daughter stated that we should have all that information in the computer bc she has been admitted before.
--- NOTE | 2020-11-03 20:19 | NUR ---
TRANSFER TO FLOOR: Patient transferred to [facility] as ordered, per Dr. Hathaway. Report given to DAWNA Ni. Belongings sent to floor with pt; belongings inventory documented and signed. Family informed of transfer.
--- NOTE | 2020-11-03 21:30 | NUR ---
NURSE NOTES: Received pt via bed from [facility] Pt is AOX4. On O2 3LPM via nasal canula. Denies any pain at this time. Denies SOB. IV saline lock L FA and R FA patent and intact. NAD noted. Will continue to monitor.
--- NOTE | 2020-11-03 22:26 | NUR ---
NURSE NOTES: Patient refused BIPAP QHS. O2 sat on 3LPM 100%. Pt denies SOB. NAD noted. Will continue to monitor.
[2020-11-04] VITALS: BP 120/65
[2020-11-04] MEDS: Albuterol/Ipratropium 3ml neb HHN SCH ×4 (01:04→20:00)
[2020-11-04 04:00] VITALS: BP 128/71
--- NOTE | 2020-11-04 07:24 | Pulmonology Progress Note ---
Subjective Allergies: Coded Allergies: PENICILLINS (Verified Allergy, Mild, 07/09/18) Cashew (Verified Allergy, Unknown, 07/09/18) Dust (Verified Allergy, Unknown, 07/09/18) FISH CONTAINING PRODUCTS (Verified Allergy, Unknown, 07/09/18) seafood TOMATO (Verified Allergy, Unknown, 07/09/18) Subjective care noted orders in place still with significant edema Objective Last 24 Hour Vital Signs Date Time Temp Pulse Resp B/P (MAP) Pulse Ox O2 Delivery O2 Flow Rate FiO2 11/04/20 04:00 97.8 67 18 128/71 (90) 100 11/04/20 01:04 78 16 100 Nasal Cannula 3.0 32 75 16 100 11/04/20 00:00 97.9 67 20 120/65 (83) 100 11/03/20 22:16 Nasal Cannula 3.0 11/03/20 21:04 75 18 97 Nasal Cannula 3.0 32 11/03/20 19:45 97.0 74 18 123/59 100 Nasal Cannula 3.0 11/03/20 18:20 97.0 79 18 128/59 97 Nasal Cannula 2.0 11/03/20 15:29 64 20 114/55 100 Nasal Cannula 3.0 11/03/20 13:35 62 18 120/50 100 Room Air 11/03/20 07:48 62 18 123/54 100 Intake and Output 11/03/20 11/04/20 19:00 07:00 Intake Total 120 ml Output Total 3000 ml 200 ml Balance -3000 ml -80 ml Intake Oral 120 ml Output Urine Total 3000 ml 200 ml # Voids 4 Objective WDWN NAD reduced breath sounds bilaterally without rhonchi or wheeze S1S2 iRRR without MRG NABS nontender no HSM no CC significant leg edema nonfocal Current Medications Medications (Trade) Dose Ordered Sig/Rocío Route PRN Reason Start Time Stop Time Status Last Admin Dose Admin Acetaminophen (Tylenol) 650 mg Q4H PRN ORAL Mild Pain (Pain Scale 1-3) 11/03/20 18:30 12/03/20 18:29 Albuterol/ Ipratropium (Albuterol/ Ipratropium) 3 ml Q6HRT HHN 11/04/20 01:00 11/09/20 00:59 11/04/20 01:04 Allopurinol (Zyloprim) 100 mg BID ORAL 11/04/20 09:00 12/04/20 08:59 Ascorbic Acid (Vitamin C) 1,000 mg DAILY ORAL 11/04/20 09:00 12/04/20 08:59 Dabigatran (Pradaxa) 150 mg Q12HR ORAL 11/04/20 09:00 02/02/21 08:59 Dextrose (Dextrose 50%) 25 ml Q30M PRN IV Hypoglycemia 11/03/20 18:30 02/01/21 18:29 Dextrose (Dextrose 50%) 50 ml Q30M PRN IV Hypoglycemia 11/03/20 18:30 02/01/21 18:29 Digoxin (Lanoxin) 0.125 mg DAILY ORAL 11/04/20 09:00 02/02/21 08:59 Donepezil HCl (Aricept) 5 mg DAILY ORAL 11/04/20 09:00 12/04/20 08:59 Famotidine (Pepcid) 20 mg BID ORAL 11/04/20 09:00 02/02/21 08:59 Fish Oil (Fish Oil) 1,000 mg DAILY ORAL 11/04/20 09:00 12/04/20 08:59 Furosemide (Lasix) 80 mg DAILY IV 11/04/20 09:00 12/04/20 08:59 Quetiapine Fumarate (SEROqueL) 100 mg DAILY ORAL 11/04/20 09:00 12/19/20 08:59 Rifaximin (Xifaxan) 550 mg TWICE A DAY ORAL 11/04/20 09:00 11/11/20 08:59 Assessment/Plan Assessment/Plan IMPRESSION leg edema fluid overload CHF thrombocytopenia elevated BNP anemia COPD PLAN diurese via IV meds as is cardiology monitor acid base care note and reviewed BIPAP QHS oxygen therapy impression, plan, and exam edited and reviewed in detail care discussed with Stevan Zaidi MD Nov 04, 2020 07:24
--- NOTE | 2020-11-04 07:40 | NUR ---
NURSE HAND-OFF: Important Events on Shift: None Patient Status: Stable Diet: Low Na+ Pending Orders: ABG, CBC, BNP. BMP, Digoxin Pending Results/Labs: ABG. BNP, BMP, CBC, Digoxin Pending MD notification:None Latest Vital Signs: Temperature 97.8 , Pulse 67 , B/P 128 /71 , Respiratory Rate 18 , O2 SAT 100 , Nasal Cannula, O2 Flow Rate 3.0 . Vital Sign Comment: Stable Latest Welch Fall Score: 20 Fall Risk: Low Risk Safety Measures: Call light , Bed Alarm Zone 2, Side Rails Side Rails x2, Bed position Low and Locked. Fall Precautions: Yellow Socks Report given to Cory
[2020-11-04 08:00] VITALS: BP 152/71
--- NOTE | 2020-11-04 08:29 | General Progress Note ---
Subjective ROS Limited/Unobtainable: No Constitutional: Reports: weakness HEENT: Reports: no symptoms Cardiovascular: Reports: edema Respiratory: Reports: cough, shortness of breath Gastrointestinal/Abdominal: Reports: no symptoms Genitourinary: Reports: no symptoms Neurologic/Psychiatric: Reports: no symptoms Endocrine: Reports: no symptoms Hematologic/Lymphatic: Reports: no symptoms Allergies: Coded Allergies: PENICILLINS (Verified Allergy, Mild, 07/09/18) Cashew (Verified Allergy, Unknown, 07/09/18) Dust (Verified Allergy, Unknown, 07/09/18) FISH CONTAINING PRODUCTS (Verified Allergy, Unknown, 07/09/18) seafood TOMATO (Verified Allergy, Unknown, 07/09/18) All Systems: reviewed and negative except above Subjective Events noted. Admitted with worsening shortness of breath and edema. Failed to respond to outpatient therapy. This morning feels slightly improved. Decrease shortness of breath. Still with lower extremity edema. No chest pain Objective Last 24 Hour Vital Signs Date Time Temp Pulse Resp B/P (MAP) Pulse Ox O2 Delivery O2 Flow Rate FiO2 11/04/20 04:00 97.8 67 18 128/71 (90) 100 11/04/20 01:04 78 16 100 Nasal Cannula 3.0 32 75 16 100 11/04/20 00:00 97.9 67 20 120/65 (83) 100 11/03/20 22:16 Nasal Cannula 3.0 11/03/20 21:04 75 18 97 Nasal Cannula 3.0 32 11/03/20 19:45 97.0 74 18 123/59 100 Nasal Cannula 3.0 11/03/20 18:20 97.0 79 18 128/59 97 Nasal Cannula 2.0 11/03/20 15:29 64 20 114/55 100 Nasal Cannula 3.0 11/03/20 13:35 62 18 120/50 100 Room Air Intake and Output 11/03/20 11/04/20 19:00 07:00 Intake Total 120 ml Output Total 3000 ml 200 ml Balance -3000 ml -80 ml Intake Oral 120 ml Output Urine Total 3000 ml 200 ml # Voids 4 Height (Feet): 5 Height (Inches): 9.00 Weight (Pounds): 248 General Appearance: WD/WN, alert EENT: PERRL/EOMI, normal ENT inspection Neck: non-tender, normal alignment Cardiovascular: normal peripheral pulses, normal rate, regular rhythm Respiratory/Chest: chest wall non-tender, lungs clear, normal breath sounds, no respiratory distress Abdomen: normal bowel sounds, non tender, soft, no organomegaly Edema: 2+ Pedal (L), 2+ Pedal (R) Edema: mild edema Neurologic: senior peoplesoft developer II-XII grossly normal, alert, oriented x 3, responsive Assessment/Plan Problem List: (1) Obesity hypoventilation syndrome ICD Codes: E66.2 - Morbid (severe) obesity with alveolar hypoventilation SNOMED: 31270012, 336914187 (2) HTN (hypertension) ICD Codes: I10 - Essential (primary) hypertension SNOMED: 08803054 (3) Anemia ICD Codes: D64.9 - Anemia, unspecified SNOMED: 840207448 (4) Dyspnea ICD Codes: R06.00 - Dyspnea, unspecified SNOMED: 661520165 (5) CHF (congestive heart failure) ICD Codes: I50.9 - Heart failure, unspecified SNOMED: 10733237 (6) Atrial fibrillation with RVR ICD Codes: I48.91 - Unspecified atrial fibrillation SNOMED: 980485819321427 (7) COPD (chronic obstructive pulmonary disease) ICD Codes: J44.9 - Chronic obstructive pulmonary disease, unspecified SNOMED: 94898359 (8) Leg edema ICD Codes: R60.0 - Localized edema SNOMED: 713036998 Status: stable Assessment/Plan: Continue IV diuretic therapy Monitor renal function and electrolytes Stroke prophylaxis defer to cardiology Stress ulcer prophylaxis Elevate legs CPAP/BiPAP at night as needed for LULÚ Olivier Blanco MD Nov 04, 2020 08:29
[2020-11-04] MEDS ORDERED: Donepezil 5mg Tab ORAL SCH (09:00)
[2020-11-04] MEDS ORDERED: Furosemide 40mg tab ORAL SCH (09:00)
[2020-11-04] MEDS: Allopurinol 100mg Tab ORAL SCH ×2 (09:02→17:53)
[2020-11-04] MEDS: Ascorbic Acid 500mg tab ORAL SCH (09:02)
[2020-11-04] MEDS: Dabigatran 150mg cap ORAL SCH ×2 (09:02→21:21)
[2020-11-04] MEDS: Digoxin 0.125mg tab ORAL SCH (09:03)
[2020-11-04] MEDS: Donepezil 5mg Tab ORAL SCH (09:03)
--- NOTE | 2020-11-04 09:27 | NUR ---
RADIOLOGY DEPT., CHEST X-RAY DONE.-P.DYE
[2020-11-04 10:19] LABS: BASOPHILS % (AUTO) 0.8 % (0.0-2.0); EOSINOPHILS % (AUTO) 1.8 % (0.0-3.0); HEMATOCRIT 35.3 % (37.0-47.0); HEMOGLOBIN 9.9 G/DL (12.0-16.0); MEAN CORPUSCULAR VOLUME 105 FL (80-99); MONOCYTES % (AUTO) 8.7 % (1.0-10.0); NEUTROPHILS % (AUTO) 53.7 % (45.0-75.0); PLATELET COUNT 102 K/UL (150-450); RED BLOOD COUNT 3.36 M/UL (4.20-5.40); RED CELL DISTRIBUTION WIDTH 14.6 % (11.6-14.8); WHITE BLOOD COUNT 3.6 K/UL (4.8-10.8)
[2020-11-04 11:01] LABS: ANION GAP 1 mmol/L (5-15); BLOOD UREA NITROGEN 16 mg/dL (7-18); CALCIUM 9.4 MG/DL (8.5-10.1); CHLORIDE 102 MMOL/L (98-107); CREATININE 0.8 MG/DL (0.55-1.30); POTASSIUM 3.8 MMOL/L (3.5-5.1); SODIUM 146 MMOL/L (136-145)
--- NOTE | 2020-11-04 11:03 | NUR ---
RESPIRATORY NOTE: Attempted to obtain ABG from pt. Pt refused to have blood gas sample drawn at this time. RN notified. Pt not in any respiratory distress. Pt Spo2 96-100% on 3L NC. Will try again at a later time.
[2020-11-04 11:09] LABS: CARBON DIOXIDE 41 MMOL/L (21-32)
--- NOTE | 2020-11-04 11:31 | NUR ---
Call received from lab advising that patient's CO2= 41. Call placed to Dr. Pace's office and advised of results to Luna. No new orders received.
[2020-11-04 12:00] VITALS: BP 101/53
--- NOTE | 2020-11-04 13:54 | Diagnostic Imaging Report ---
Procedure: XRAY Chest 1v Reason for study: Reason For Exam: SOB Comparison films: 11/03/2020. FINDINGS: A single one view chest is obtained. There is slight increase of vascular interstitial prominence likely increase of congestion and edema. Massive cardiomegaly again noted. CP angles are sharp. The bony thorax appear unremarkable. IMPRESSION: Slight increase in congestion and edema.
--- NOTE | 2020-11-04 15:09 | NUR ---
Call placed to Dr. Pace regarding patients ABGs. no new orders received. will endorse to financial aid counselor nurse the importance of educating patient to wear bi pap at bedtime. also spoke with respiratory therapist Landy to advise night therapist to put patient on bipap at bedtime.
[2020-11-04 16:00] VITALS: BP 112/52
--- NOTE | 2020-11-04 19:41 | Cardiology Progress Note ---
Subjective DATE OF SERVICE: Nov 04, 2020 Still has congestion and SOB. She has leg swelling. She notes less being able to walk than usual due to swelling and SOB. Objective Last 24 Hour Vital Signs Date Time Temp Pulse Resp B/P (MAP) Pulse Ox O2 Delivery O2 Flow Rate FiO2 11/04/20 16:00 97.4 77 20 112/52 (72) 99 11/04/20 14:04 81 16 100 Nasal Cannula 3.0 32 76 16 96 11/04/20 12:00 97.7 69 21 101/53 (69) 96 11/04/20 09:03 78 11/04/20 09:00 Nasal Cannula 3.0 11/04/20 08:00 97.7 78 19 152/71 (98) 96 11/04/20 07:59 77 16 100 Nasal Cannula 3.0 32 72 16 98 11/04/20 04:00 97.8 67 18 128/71 (90) 100 11/04/20 01:04 78 16 100 Nasal Cannula 3.0 32 75 16 100 11/04/20 00:00 97.9 67 20 120/65 (83) 100 11/03/20 22:16 Nasal Cannula 3.0 11/03/20 21:04 75 18 97 Nasal Cannula 3.0 32 11/03/20 19:45 97.0 74 18 123/59 100 Nasal Cannula 3.0 ROS: unchanged from my evaluation of 11/03/20 HEENT: normal ENT inspection RHYTHM: PVCs, Afib LUNGS: diminished breath sounds, rales bilaterally CARDIAC: normal rate, irregularly irregular, systolic murmur - 1/6 systolic at apex ABDOMEN: normal bowel sounds, non tender, soft, no organomegaly EXTREMITIES: +2 edema Laboratory Tests Test 11/04/20 09:25 11/04/20 14:09 White Blood Count 3.6 K/UL (4.8-10.8) L Red Blood Count 3.36 M/UL (4.20-5.40) L Hemoglobin 9.9 G/DL (12.0-16.0) L Hematocrit 35.3 % (37.0-47.0) L Mean Corpuscular Volume 105 FL (80-99) H Mean Corpuscular Hemoglobin 29.5 PG (27.0-31.0) Mean Corpuscular Hemoglobin Concent 28.0 G/DL (32.0-36.0) L Red Cell Distribution Width 14.6 % (11.6-14.8) Platelet Count 102 K/UL (150-450) L Mean Platelet Volume 8.8 FL (6.5-10.1) Neutrophils (%) (Auto) 53.7 % (45.0-75.0) Lymphocytes (%) (Auto) 35.0 % (20.0-45.0) Monocytes (%) (Auto) 8.7 % (1.0-10.0) Eosinophils (%) (Auto) 1.8 % (0.0-3.0) Basophils (%) (Auto) 0.8 % (0.0-2.0) Sodium Level 146 MMOL/L (136-145) H Potassium Level 3.8 MMOL/L (3.5-5.1) Chloride Level 102 MMOL/L (98-107) Carbon Dioxide Level 41 MMOL/L (21-32) *H Anion Gap 1 mmol/L (5-15) L Blood Urea Nitrogen 16 mg/dL (7-18) Creatinine 0.8 MG/DL (0.55-1.30) Estimat Glomerular Filtration Rate > 60 mL/min (>60) Glucose Level 115 MG/DL (74-106) H Calcium Level 9.4 MG/DL (8.5-10.1) Pro-B-Type Natriuretic Peptide 3848 pg/mL (0-125) H Digoxin Level 0.4 NG/ML (0.9-2.0) L Arterial Blood pH 7.337 (7.350-7.450) Arterial Blood Partial Pressure CO2 87.6 mmHg (35.0-45.0) *H Arterial Blood Partial Pressure O2 83.3 mmHg (75.0-100.0) Arterial Blood HCO3 45.9 mmol/L (22.0-26.0) *H Arterial Blood Oxygen Saturation 95.7 % (95-100) Arterial Blood Base Excess 17.0 (-2-2) *H Roger Test Positive Assessment/Plan Assessment/Plan Acute on chronic diastolic CHF Chronic atrial fibrillation, rate controlled Pradaxa for cardioembolic prophylaxis Glucose intolerance Chr respiratory acidosis COPD Multi-infarct dementia Dehydration/hypernatremia Orders updated: Titrating diuretics; acetazolamide added. Monitoring lytes and acid-base parameters. Trend BNP Gerardo Calix MD Nov 04, 2020 19:41
[2020-11-04 20:00] VITALS: BP 108/72
--- NOTE | 2020-11-04 20:00 | NUR ---
NURSE NOTES: RECEIVED PATIENT LYING IN BED, EYES CLOSED, AWAKENED TO NAME, DENIES PAIN. NO SIGNS AND SYMPTOMS OF ACUTE CARDIO RESPIRATORY DISTRESS/SHORTNESS OF BREATH,DENIES CHEST PAIN. IV INTACT TO LEFT FOREARM/GAUGE 20/RIGHT FOREARM, BOTH SALINE LOCK, NO REDNESS/SWELLING NOTED TO SITES. NO REPORT OF GI DISCOMFORT, DENIES N/V. ASSISTED PATIENT WITH REPOSITIONING,TOLERATED WELL. SIDE RAILS UP X3/BED IN LOWEST POSITION FOR SAFETY, FREQUENT ROUNDING FOR SAFETY/NEEDS. BED ALARM ACTIVATED FOR PATIENT SAFETY.
[2020-11-05] VITALS: BP 141/77
--- NOTE | 2020-11-05 01:00 | NUR ---
NURSE NOTES: PATIENT ON BIPAP 24/04, FI02 30%,TOLERATING WELL, NAD.
[2020-11-05] MEDS: Albuterol/Ipratropium 3ml neb HHN SCH ×4 (01:06→19:44)
--- NOTE | 2020-11-05 02:44 | Consultation ---
DATE OF CONSULTATION: 11/03/2020 CARDIOLOGY CONSULTATION CONSULTING PHYSICIAN: Gerardo Calix MD REASON: Atrial fibrillation and congestive heart failure. HISTORY OF PRESENT ILLNESS: This is an 85-year-old female, known to me from prior cardiovascular care. She has a history of diastolic heart failure with chronic atrial fibrillation and hypertensive heart disease. She has had progressive shortness of breath and leg swelling over the past few days and has been receiving IV diuretics without improvement. She was seen in the emergency room, noted to have an elevated natriuretic peptide assay as well and requiring oxygen. Hospitalization was initiated due to failure to respond to outpatient management. PAST MEDICAL HISTORY: 1. COPD. 2. Chronic diastolic congestive heart failure. 3. Chronic atrial fibrillation. 4. Hypertensive heart disease. 5. History of respiratory failure. 6. History of metabolic and toxic encephalopathies. 7. Chronic respiratory acidosis with hypercapnia. 8. Cerebrovascular disease with multi-infarct dementia. 9. Microvascular coronary artery disease with atherosclerosis. 10. Pulmonary hypertension. SOCIAL HISTORY: Negative for smoking, alcohol, or substance abuse. FAMILY HISTORY: Noncontributory. MEDICATIONS: Reviewed and reconciled. ALLERGIES: Include penicillins, tomato, and fish products. REVIEW OF SYSTEMS: No fevers or chills. No history of COVID-19 exposures. No history of abnormal blood clotting. She is on anticoagulant chronically for cardioembolic prophylaxis. There is no history of diabetes although glucose intolerance has been noted in the past. She has been on anti-lipid therapy. She has not had any change in bowel habits. She has no known history of thyroid disorder. PHYSICAL EXAMINATION: VITAL SIGNS: Blood pressure 123/54, heart rate 62, respirations 18, afebrile, oxygen saturation is 97 to 100% on 2 liters. HEENT: Conjunctivae pink. Oropharynx clear. NECK: Supple. Jugular venous pressure elevated. LUNGS: Coarse breath sounds and few rales. CARDIAC: Irregularly irregular rhythm. Normal S1, S2. A 1/6 systolic murmur at apex. ABDOMEN: Soft, nontender. EXTREMITIES: 1 to 2+ dependent edema. NEUROLOGIC: Nonfocal. LABORATORY AND DIAGNOSTIC DATA: Her EKG is notable for atrial fibrillation, nonspecific ST-T wave changes, prolonged QT is suspected although artifact obscures exam. White count 5, hemoglobin 9.6. Potassium 4.1, BUN 18, creatinine 1, bicarb 40, glucose 114. Pro-natriuretic peptide is over 4000. Chest x-ray with cardiomegaly and congestive heart failure. IMPRESSION: 1. Acute on chronic diastolic congestive heart failure. 2. Atrial fibrillation, rate controlled. 3. COPD. 4. Chronic respiratory acidosis with hypercapnia. 5. Compensatory metabolic alkalosis. PLAN: 1. Continue cardioembolic prophylaxis with Pradaxa. 2. Diuresis with intravenous loop diuretic. 3. Consider addition of acetazolamide to help stimulate respiratory drive and correct acid-base disorder. 4. Trend natriuretic peptide. 5. Monitor intakes and outputs. 6. Titrate anti-failure drugs based on clinical parameters. Gerardo Calix M.D. DR: TARA JOB#: [id number] CC:
[2020-11-05 04:00] VITALS: BP 130/73
--- NOTE | 2020-11-05 05:47 | NUR ---
Pt was assessed and provided respiratory care per physicians order. Lung sounds were clear and diminished at the bases. Pt wore Bipap overnight without issue placed on 15/8 BR12 FIO2.30. Pt has adequate chest rise. Sponge tape placed on skin to prevent skin breakdown.
--- NOTE | 2020-11-05 07:10 | NUR ---
nurse notes received patient resting comfortably in bed, no sign of distress, HL patent , BLE elevated on pillow, on fall precaution, plan of care was discussed, verbalized understanding encouraged patient to call for assistance when in need inez linares
--- NOTE | 2020-11-05 07:10 | NUR ---
NURSE HAND-OFF REPORT: Important Events on Shift:[UNEVENTFUL NIGHT, TOLERATED BIPAP THROUGHOUT THE NIGHT, NO SIGNS AND SYMPTOMS OF ACUTE DISTRESS] Patient Status: [FULL CODE] Diet: [LOW SODIUM DIET] Pending Orders: [N/A] Pending Results/Labs:[N/A] Pending MD notification:[] Latest Vital Signs: Temperature 98.1 , Pulse 77 , B/P 130 /73 , Respiratory Rate 18 , O2 SAT 97 , Nasal Cannula, O2 Flow Rate 3.0 . Vital Sign Comment: [STABLE, AFEBRILE] EKG Rhythm: Rhythm change?: MD Notified?: - MD Response: Latest Welch Fall Score: 35 Fall Risk: Medium Risk Safety Measures: Call light Within Reach, Bed Alarm Zone 2, Side Rails Side Rails x3, Bed position Low and Locked. Fall Precautions: Yellow Socks Report given to [DAWNA SARAVIA].
[2020-11-05 08:10] VITALS: BP 158/74
[2020-11-05] MEDS: Ascorbic Acid 500mg tab ORAL SCH (08:55)
[2020-11-05] MEDS: Allopurinol 100mg Tab ORAL SCH ×2 (08:55→17:28)
[2020-11-05] MEDS: Dabigatran 150mg cap ORAL SCH ×2 (08:55→20:33)
[2020-11-05] MEDS: Digoxin 0.125mg tab ORAL SCH (08:55)
[2020-11-05] MEDS: Donepezil 5mg Tab ORAL SCH ×2 (08:55→08:56)
--- NOTE | 2020-11-05 09:39 | Pulmonology Progress Note ---
Subjective ROS Limited/Unobtainable: No Allergies: Coded Allergies: PENICILLINS (Verified Allergy, Mild, 07/09/18) Cashew (Verified Allergy, Unknown, 07/09/18) Dust (Verified Allergy, Unknown, 07/09/18) FISH CONTAINING PRODUCTS (Verified Allergy, Unknown, 07/09/18) seafood TOMATO (Verified Allergy, Unknown, 07/09/18) All Systems: reviewed and negative except above Subjective care noted orders in place still with significant edema Objective Last 24 Hour Vital Signs Date Time Temp Pulse Resp B/P (MAP) Pulse Ox O2 Delivery O2 Flow Rate FiO2 11/05/20 08:55 75 11/05/20 08:50 Nasal Cannula 3.0 11/05/20 08:11 75 16 99 Nasal Cannula 1.0 24 83 18 98 11/05/20 08:10 98.4 77 20 158/74 (102) 95 11/05/20 05:30 77 18 97 30 11/05/20 04:00 98.1 68 20 130/73 (92) 95 11/05/20 03:23 80 18 100 30 11/05/20 01:06 68 16 100 Bi-Pap 30 70 20 99 11/05/20 00:49 68 18 99 30 11/05/20 00:00 97.0 80 20 141/77 (98) 94 11/04/20 22:40 99 20 99 30 11/04/20 21:00 Nasal Cannula 3.0 11/04/20 20:00 97.3 75 22 108/72 (84) 97 11/04/20 20:00 80 16 100 Nasal Cannula 2.0 28 77 18 99 11/04/20 16:00 97.4 77 20 112/52 (72) 99 11/04/20 14:04 81 16 100 Nasal Cannula 3.0 32 76 16 96 11/04/20 12:00 97.7 69 21 101/53 (69) 96 Intake and Output 11/04/20 11/05/20 19:00 07:00 Intake Total 480 ml 240 ml Output Total 1800 ml 400 ml Balance -1320 ml -160 ml Intake Oral 480 ml 240 ml Output Urine Total 1800 ml 400 ml # Voids 2 Objective WDWN NAD reduced breath sounds bilaterally without rhonchi or wheeze S1S2 iRRR without MRG NABS nontender no HSM no CC significant leg edema nonfocal Laboratory Tests 11/04/20 14:09: Arterial Blood pH 7.337L, Arterial Blood Partial Pressure CO2 87.6*H, Arterial Blood Partial Pressure O2 83.3, Arterial Blood HCO3 45.9*H, Arterial Blood Oxygen Saturation 95.7, Arterial Blood Base Excess 17.0*H, Roger Test Positive Current Medications Medications (Trade) Dose Ordered Sig/Rocío Route PRN Reason Start Time Stop Time Status Last Admin Dose Admin Acetaminophen (Tylenol) 650 mg Q4H PRN ORAL Mild Pain (Pain Scale 1-3) 11/03/20 18:30 12/03/20 18:29 Acetazolamide (Diamox) 250 mg TWICE A DAY ORAL 11/05/20 09:00 12/05/20 08:59 11/05/20 08:57 Albuterol/ Ipratropium (Albuterol/ Ipratropium) 3 ml Q6HRT HHN 11/04/20 01:00 11/09/20 00:59 11/05/20 08:11 Allopurinol (Zyloprim) 100 mg BID ORAL 11/04/20 09:00 12/04/20 08:59 11/05/20 08:55 Ascorbic Acid (Vitamin C) 1,000 mg DAILY ORAL 11/04/20 09:00 12/04/20 08:59 11/05/20 08:55 Dabigatran (Pradaxa) 150 mg Q12HR ORAL 11/04/20 09:00 02/02/21 08:59 11/05/20 08:55 Dextrose (Dextrose 50%) 25 ml Q30M PRN IV Hypoglycemia 11/03/20 18:30 02/01/21 18:29 Dextrose (Dextrose 50%) 50 ml Q30M PRN IV Hypoglycemia 11/03/20 18:30 02/01/21 18:29 Digoxin (Lanoxin) 0.125 mg DAILY ORAL 11/04/20 09:00 02/02/21 08:59 11/05/20 08:55 Donepezil HCl (Aricept) 5 mg DAILY ORAL 11/04/20 09:00 12/04/20 08:59 11/05/20 08:56 Famotidine (Pepcid) 20 mg BID ORAL 11/04/20 09:00 02/02/21 08:59 11/05/20 08:54 Fish Oil (Fish Oil) 1,000 mg DAILY ORAL 11/04/20 09:00 12/04/20 08:59 11/05/20 08:54 Furosemide (Lasix) 80 mg DAILY IV 11/04/20 09:00 12/04/20 08:59 11/05/20 08:57 Quetiapine Fumarate (SEROqueL) 100 mg DAILY ORAL 11/04/20 09:00 12/19/20 08:59 11/05/20 08:56 Rifaximin (Xifaxan) 550 mg TWICE A DAY ORAL 11/04/20 09:00 11/11/20 08:59 11/05/20 08:56 Assessment/Plan Assessment/Plan IMPRESSION leg edema fluid overload CHF thrombocytopenia elevated BNP anemia COPD PLAN diurese via IV meds as is cardiology monitor acid base care note and reviewed BIPAP QHS oxygen therapy dc planning if continues to improve impression, plan, and exam edited and reviewed in detail care discussed with Stevan Zaidi MD Nov 05, 2020 09:39
[2020-11-05 12:00] VITALS: BP 119/70
--- NOTE | 2020-11-05 13:58 | Cardiology Report ---
APPROVED REPORT EKG Measurement Heart [id number] <Conclusion> Atrial fibrillation ST & T wave abnormality, consider anterolateral ischemia Prolonged QT Abnormal ECG
--- NOTE | 2020-11-05 14:32 | General Progress Note ---
Subjective ROS Limited/Unobtainable: No Constitutional: Reports: malaise, weakness HEENT: Reports: no symptoms Cardiovascular: Reports: edema Respiratory: Reports: shortness of breath, SOB at rest Gastrointestinal/Abdominal: Reports: no symptoms Genitourinary: Reports: no symptoms Neurologic/Psychiatric: Reports: no symptoms Endocrine: Reports: no symptoms Hematologic/Lymphatic: Reports: no symptoms Allergies: Coded Allergies: PENICILLINS (Verified Allergy, Mild, 07/09/18) Cashew (Verified Allergy, Unknown, 07/09/18) Dust (Verified Allergy, Unknown, 07/09/18) FISH CONTAINING PRODUCTS (Verified Allergy, Unknown, 07/09/18) seafood TOMATO (Verified Allergy, Unknown, 07/09/18) All Systems: reviewed and negative except above Subjective No overnight events. Does not feel any better. Still complains of shortness of breath and lower extremity edema. Denies fevers or chills. No cough. On IV diuretics. cxr worse Objective Last 24 Hour Vital Signs Date Time Temp Pulse Resp B/P (MAP) Pulse Ox O2 Delivery O2 Flow Rate FiO2 11/05/20 12:00 97.2 93 20 119/70 (86) 98 11/05/20 08:55 75 11/05/20 08:50 Nasal Cannula 3.0 11/05/20 08:11 75 16 99 Nasal Cannula 1.0 24 83 18 98 11/05/20 08:10 98.4 77 20 158/74 (102) 95 11/05/20 05:30 77 18 97 30 11/05/20 04:00 98.1 68 20 130/73 (92) 95 11/05/20 03:23 80 18 100 30 11/05/20 01:06 68 16 100 Bi-Pap 30 70 20 99 11/05/20 00:49 68 18 99 30 11/05/20 00:00 97.0 80 20 141/77 (98) 94 11/04/20 22:40 99 20 99 30 11/04/20 21:00 Nasal Cannula 3.0 11/04/20 20:00 97.3 75 22 108/72 (84) 97 11/04/20 20:00 80 16 100 Nasal Cannula 2.0 28 77 18 99 11/04/20 16:00 97.4 77 20 112/52 (72) 99 Intake and Output 11/04/20 11/05/20 19:00 07:00 Intake Total 480 ml 240 ml Output Total 1800 ml 400 ml Balance -1320 ml -160 ml Intake Oral 480 ml 240 ml Output Urine Total 1800 ml 400 ml # Voids 2 Height (Feet): 5 Height (Inches): 9.00 Weight (Pounds): 248 General Appearance: WD/WN, alert EENT: normal ENT inspection Neck: normal alignment Cardiovascular: normal peripheral pulses, normal rate, regular rhythm Respiratory/Chest: chest wall non-tender, lungs clear, normal breath sounds Abdomen: normal bowel sounds, non tender, soft, no organomegaly Edema: 2+ Leg (L), 2+ Leg (R) Neurologic: 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 grossly normal, alert, oriented x 3 Assessment/Plan Problem List: (1) Obesity hypoventilation syndrome ICD Codes: E66.2 - Morbid (severe) obesity with alveolar hypoventilation SNOMED: 51745989, 901576553 (2) HTN (hypertension) ICD Codes: I10 - Essential (primary) hypertension SNOMED: 97993328 (3) Anemia ICD Codes: D64.9 - Anemia, unspecified SNOMED: 807092621 (4) Dyspnea ICD Codes: R06.00 - Dyspnea, unspecified SNOMED: 870878875 (5) CHF (congestive heart failure) ICD Codes: I50.9 - Heart failure, unspecified SNOMED: 49897627 (6) Atrial fibrillation with RVR ICD Codes: I48.91 - Unspecified atrial fibrillation SNOMED: 686727433342319 (7) COPD (chronic obstructive pulmonary disease) ICD Codes: J44.9 - Chronic obstructive pulmonary disease, unspecified SNOMED: 26069727 (8) Leg edema ICD Codes: R60.0 - Localized edema SNOMED: 189845560 Status: stable Assessment/Plan: increase IV diuretic therapy Monitor renal function and electrolytes monitor cxr Stroke prophylaxis defer to cardiology Stress ulcer prophylaxis Elevate legs CPAP/BiPAP at night as needed for LULÚ Olivier Blanco MD Nov 05, 2020 14:32
[2020-11-05 16:00] VITALS: BP 138/75
--- NOTE | 2020-11-05 19:28 | NUR ---
NURSE HAND-OFF: Important Events on Shift:[ON GOING] Patient Status: [STABLE] Diet: [LOW NA DIET] Pending Orders: [NONE] Pending Results/Labs:[NONE] Pending MD notification:[NONE] Latest Vital Signs: Temperature 98.0 , Pulse 86 , B/P 138 /75 , Respiratory Rate 20 , O2 SAT 98 , Nasal Cannula, O2 Flow Rate 3.0 . Vital Sign Comment: [STABLE] Latest Welch Fall Score: 35 Fall Risk: Medium Risk Safety Measures: Call light Within Reach, Bed Alarm Zone 2, Side Rails Side Rails x3, Bed position Low and Locked. Fall Precautions: Yellow Socks Report given to [MS BAJWA].
[2020-11-05 20:00] VITALS: BP 124/58
[2020-11-06] VITALS: BP 127/73
[2020-11-06] MEDS: Albuterol/Ipratropium 3ml neb HHN SCH ×4 (00:30→19:48)
[2020-11-06 04:00] VITALS: BP 118/80
--- NOTE | 2020-11-06 07:10 | NUR ---
nurse notes received patient resting comfortably eating breakfast, no sign of distress,denies pain or discomfort at this time, on fall, plan of care was discussed, verbalized understanding encouraged patient to call for assistance when in need inez linares
[2020-11-06 08:10] VITALS: BP 143/76
[2020-11-06] MEDS: Digoxin 0.125mg tab ORAL SCH (08:45)
[2020-11-06] MEDS: Ascorbic Acid 500mg tab ORAL SCH (08:45)
[2020-11-06] MEDS: Donepezil 5mg Tab ORAL SCH (08:46)
[2020-11-06] MEDS: Dabigatran 150mg cap ORAL SCH ×2 (08:46→21:14)
[2020-11-06] MEDS: Allopurinol 100mg Tab ORAL SCH ×2 (08:46→17:14)
--- NOTE | 2020-11-06 09:00 | Pulmonology Progress Note ---
Subjective ROS Limited/Unobtainable: No Allergies: Coded Allergies: PENICILLINS (Verified Allergy, Mild, 07/09/18) Cashew (Verified Allergy, Unknown, 07/09/18) Dust (Verified Allergy, Unknown, 07/09/18) FISH CONTAINING PRODUCTS (Verified Allergy, Unknown, 07/09/18) seafood TOMATO (Verified Allergy, Unknown, 07/09/18) All Systems: reviewed and negative except above Subjective care noted orders in place improved edema Objective Last 24 Hour Vital Signs Date Time Temp Pulse Resp B/P (MAP) Pulse Ox O2 Delivery O2 Flow Rate FiO2 11/06/20 08:45 79 11/06/20 08:10 97.9 79 19 143/76 (98) 98 11/06/20 07:50 82 20 100 Nasal Cannula 1.0 24 84 22 97 11/06/20 05:28 77 20 99 30 11/06/20 04:00 97.6 88 20 118/80 (93) 99 11/06/20 02:54 79 22 99 30 11/06/20 00:30 75 19 100 Bi-Pap 30 79 21 98 11/06/20 00:00 98.3 89 20 127/73 (91) 95 11/05/20 23:44 74 21 98 30 11/05/20 21:00 Nasal Cannula 3.0 11/05/20 20:00 97.6 86 20 124/58 (80) 95 11/05/20 19:46 85 18 99 Nasal Cannula 1.0 24 82 20 97 11/05/20 16:00 98.0 86 20 138/75 (96) 98 11/05/20 14:55 84 18 100 Nasal Cannula 1.0 24 86 20 96 11/05/20 12:00 97.2 93 20 119/70 (86) 98 Intake and Output 11/05/20 11/06/20 19:00 07:00 Intake Total 1300 ml Output Total 2800 ml 700 ml Balance -1500 ml -700 ml Intake Oral 1300 ml Output Urine Total 2800 ml 700 ml # Voids 3 Objective WDWN NAD reduced breath sounds bilaterally without rhonchi or wheeze S1S2 iRRR without MRG NABS nontender no HSM no CC significant leg edema nonfocal Current Medications Medications (Trade) Dose Ordered Sig/Rocío Route PRN Reason Start Time Stop Time Status Last Admin Dose Admin Acetaminophen (Tylenol) 650 mg Q4H PRN ORAL Mild Pain (Pain Scale 1-3) 11/03/20 18:30 12/03/20 18:29 Acetazolamide (Diamox) 250 mg TWICE A DAY ORAL 11/05/20 09:00 12/05/20 08:59 11/06/20 08:46 Albuterol/ Ipratropium (Albuterol/ Ipratropium) 3 ml Q6HRT HHN 11/04/20 01:00 11/09/20 00:59 11/06/20 07:50 Allopurinol (Zyloprim) 100 mg BID ORAL 11/04/20 09:00 12/04/20 08:59 11/06/20 08:46 Ascorbic Acid (Vitamin C) 1,000 mg DAILY ORAL 11/04/20 09:00 12/04/20 08:59 11/06/20 08:45 Dabigatran (Pradaxa) 150 mg Q12HR ORAL 11/04/20 09:00 02/02/21 08:59 11/06/20 08:46 Dextrose (Dextrose 50%) 25 ml Q30M PRN IV Hypoglycemia 11/03/20 18:30 02/01/21 18:29 Dextrose (Dextrose 50%) 50 ml Q30M PRN IV Hypoglycemia 11/03/20 18:30 02/01/21 18:29 Digoxin (Lanoxin) 0.125 mg DAILY ORAL 11/04/20 09:00 02/02/21 08:59 11/06/20 08:45 Donepezil HCl (Aricept) 5 mg DAILY ORAL 11/04/20 09:00 12/04/20 08:59 11/06/20 08:46 Famotidine (Pepcid) 20 mg BID ORAL 11/04/20 09:00 02/02/21 08:59 11/06/20 08:45 Fish Oil (Fish Oil) 1,000 mg DAILY ORAL 11/04/20 09:00 12/04/20 08:59 11/06/20 08:45 Furosemide (Lasix) 80 mg DAILY IV 11/04/20 09:00 12/04/20 08:59 11/06/20 08:45 Quetiapine Fumarate (SEROqueL) 100 mg DAILY ORAL 11/04/20 09:00 12/19/20 08:59 11/06/20 08:46 Rifaximin (Xifaxan) 550 mg TWICE A DAY ORAL 11/04/20 09:00 11/11/20 08:59 11/06/20 08:46 Assessment/Plan Assessment/Plan IMPRESSION leg edema fluid overload CHF thrombocytopenia elevated BNP anemia COPD PLAN diurese IV meds as is cardiology monitor acid base care note and reviewed BIPAP QHS oxygen therapy dc planning and follow up for change impression, plan, and exam edited and reviewed in detail care discussed with Stevan Zaidi MD Nov 06, 2020 09:00
[2020-11-06] MEDS ORDERED: DONEPEZIL HCL10 M2 ORAL (10:28)
[2020-11-06] MEDS ORDERED: SEROQUEL25 MG ORAL (10:28)
[2020-11-06] MEDS ORDERED: NAMENDA XR28 MG PO (10:31)
[2020-11-06] MEDS ORDERED: AZELASTINE205.5 MCG/ NS (10:31)
[2020-11-06] MEDS ORDERED: BYSTOLIC10 MG ORAL (10:31)
[2020-11-06] MEDS ORDERED: ZYPREXA5 MG ORAL (10:32)
[2020-11-06] MEDS: ALPRAZolam 0.5mg tab ORAL PRN ×2 (11:17→21:14)
[2020-11-06 12:00] VITALS: BP 113/69
--- NOTE | 2020-11-06 12:59 | NUR ---
CASE MANAGEMENT:REVIEW 11/06/20 SI: CHF. COPD. FLUID OVERLOAD 98.0 75 20 113/69 99% ON 3L/NC PCO2+60.0 PO2-71.9 HCO3+38.3 IS: DIAMOX PO BID IV LASIX QD PEPCID PO BID SEROQUEL PO QD ARICEPT PO QD DIGOXIN PO QD PRADAXA PO Q12 : MED/SURG STATUS DCP: FROM HOME
--- NOTE | 2020-11-06 14:08 | General Progress Note ---
Subjective ROS Limited/Unobtainable: No Constitutional: Reports: malaise, weakness HEENT: Reports: no symptoms Cardiovascular: Reports: no symptoms Respiratory: Reports: cough, shortness of breath Gastrointestinal/Abdominal: Reports: no symptoms Genitourinary: Reports: no symptoms Neurologic/Psychiatric: Reports: no symptoms Endocrine: Reports: no symptoms Hematologic/Lymphatic: Reports: no symptoms Allergies: Coded Allergies: PENICILLINS (Verified Allergy, Mild, 07/09/18) Cashew (Verified Allergy, Unknown, 07/09/18) Dust (Verified Allergy, Unknown, 07/09/18) FISH CONTAINING PRODUCTS (Verified Allergy, Unknown, 07/09/18) seafood TOMATO (Verified Allergy, Unknown, 07/09/18) All Systems: reviewed and negative except above Subjective No overnight events. feels better today. ?confused. no chest pain Objective Last 24 Hour Vital Signs Date Time Temp Pulse Resp B/P (MAP) Pulse Ox O2 Delivery O2 Flow Rate FiO2 11/06/20 12:00 98.0 75 20 113/69 (84) 99 11/06/20 08:45 79 11/06/20 08:40 Nasal Cannula 3.0 11/06/20 08:10 97.9 79 19 143/76 (98) 98 11/06/20 07:50 82 20 100 Nasal Cannula 1.0 24 84 22 97 11/06/20 05:28 77 20 99 30 11/06/20 04:00 97.6 88 20 118/80 (93) 99 11/06/20 02:54 79 22 99 30 11/06/20 00:30 75 19 100 Bi-Pap 30 79 21 98 11/06/20 00:00 98.3 89 20 127/73 (91) 95 11/05/20 23:44 74 21 98 30 11/05/20 21:00 Nasal Cannula 3.0 11/05/20 20:00 97.6 86 20 124/58 (80) 95 11/05/20 19:46 85 18 99 Nasal Cannula 1.0 24 82 20 97 11/05/20 16:00 98.0 86 20 138/75 (96) 98 11/05/20 14:55 84 18 100 Nasal Cannula 1.0 24 86 20 96 Intake and Output 11/05/20 11/06/20 19:00 07:00 Intake Total 1300 ml Output Total 2800 ml 700 ml Balance -1500 ml -700 ml Intake Oral 1300 ml Output Urine Total 2800 ml 700 ml # Voids 3 Laboratory Tests 11/06/20 10:19: Arterial Blood pH 7.423, Arterial Blood Partial Pressure CO2 60.0*H, Arterial Blood Partial Pressure O2 71.9L, Arterial Blood HCO3 38.3H, Arterial Blood Oxygen Saturation 94.4L, Arterial Blood Base Excess 11.9*H, Roger Test Positive Height (Feet): 5 Height (Inches): 9.00 Weight (Pounds): 248 Objective General Appearance: WD/WN, alert EENT: normal ENT inspection Neck: normal alignment Cardiovascular: normal peripheral pulses, normal rate, regular rhythm Respiratory/Chest: chest wall non-tender, lungs clear, normal breath sounds Abdomen: normal bowel sounds, non tender, soft, no organomegaly Edema: 2+ Leg (L), 2+ Leg (R) 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 normal, alert, oriented x 3 Assessment/Plan Problem List: (1) Obesity hypoventilation syndrome ICD Codes: E66.2 - Morbid (severe) obesity with alveolar hypoventilation SNOMED: 18230081, 062798908 (2) HTN (hypertension) ICD Codes: I10 - Essential (primary) hypertension SNOMED: 76768625 (3) Anemia ICD Codes: D64.9 - Anemia, unspecified SNOMED: 294050591 (4) Dyspnea ICD Codes: R06.00 - Dyspnea, unspecified SNOMED: 625510865 (5) CHF (congestive heart failure) ICD Codes: I50.9 - Heart failure, unspecified SNOMED: 27834305 (6) Atrial fibrillation with RVR ICD Codes: I48.91 - Unspecified atrial fibrillation SNOMED: 175715138596841 (7) COPD (chronic obstructive pulmonary disease) ICD Codes: J44.9 - Chronic obstructive pulmonary disease, unspecified SNOMED: 10025697 (8) Leg edema ICD Codes: R60.0 - Localized edema SNOMED: 108689667 Status: stable Assessment/Plan: IV diuretic therapy Monitor renal function and electrolytes monitor cxr Stroke prophylaxis defer to cardiology Stress ulcer prophylaxis Elevate legs CPAP/BiPAP at night as needed for LULÚ Olivier Blanco MD Nov 06, 2020 14:08
[2020-11-06 16:12] VITALS: BP 121/59
--- NOTE | 2020-11-06 18:33 | Cardiology Progress Note ---
Subjective DATE OF SERVICE: Nov 05, 2020 (late entry due to computer malfxn) Still has congestion and SOB; slightly better. No chest pain. Still has both legs swollen. Objective Last 24 Hour Vital Signs reviewed ROS: unchanged from my evaluation of 11/03/20 HEENT: normal ENT inspection RHYTHM: PVCs, Afib LUNGS: diminished breath sounds, rales bilaterally CARDIAC: normal rate, irregularly irregular, systolic murmur - 1/6 systolic at apex ABDOMEN: normal bowel sounds, non tender, soft, no organomegaly EXTREMITIES: +2 edema Laboratory Tests Test 11/06/20 10:19 Arterial Blood pH 7.423 (7.350-7.450) Arterial Blood Partial Pressure CO2 60.0 mmHg (35.0-45.0) *H Arterial Blood Partial Pressure O2 71.9 mmHg (75.0-100.0) L Arterial Blood HCO3 38.3 mmol/L (22.0-26.0) H Arterial Blood Oxygen Saturation 94.4 % (95-100) L Arterial Blood Base Excess 11.9 (-2-2) *H Roger Test Positive Assessment/Plan Assessment/Plan Acute on chronic diastolic CHF Chronic atrial fibrillation, rate controlled Pradaxa for cardioembolic prophylaxis Glucose intolerance Chr respiratory acidosis COPD Multi-infarct dementia Dehydration/hypernatremia Orders updated: Titrating diuretics; acetazolamide added yesterday. Monitoring lytes and acid-base parameters. Trend BNP Leg elevation. Continue full anti-coagulation. Gerardo Calix MD Nov 06, 2020 18:33
--- NOTE | 2020-11-06 18:36 | Cardiology Progress Note ---
Subjective DATE OF SERVICE: Nov 06, 2020 Less congestion and SOB. She has leg swelling - it is improved. No CP Objective Last 24 Hour Vital Signs Date Time Temp Pulse Resp B/P (MAP) Pulse Ox O2 Delivery O2 Flow Rate FiO2 11/06/20 16:12 97.8 75 20 121/59 (79) 99 11/06/20 12:00 98.0 75 20 113/69 (84) 99 11/06/20 08:45 79 11/06/20 08:40 Nasal Cannula 3.0 11/06/20 08:10 97.9 79 19 143/76 (98) 98 11/06/20 07:50 82 20 100 Nasal Cannula 1.0 24 84 22 97 11/06/20 05:28 77 20 99 30 11/06/20 04:00 97.6 88 20 118/80 (93) 99 11/06/20 02:54 79 22 99 30 11/06/20 00:30 75 19 100 Bi-Pap 30 79 21 98 11/06/20 00:00 98.3 89 20 127/73 (91) 95 11/05/20 23:44 74 21 98 30 11/05/20 21:00 Nasal Cannula 3.0 11/05/20 20:00 97.6 86 20 124/58 (80) 95 11/05/20 19:46 85 18 99 Nasal Cannula 1.0 24 82 20 97 ROS: unchanged from my evaluation of 11/03/20 HEENT: normal ENT inspection RHYTHM: PVCs, Afib LUNGS: diminished breath sounds, rales bilaterally CARDIAC: normal rate, irregularly irregular, systolic murmur - 1/6 systolic at apex ABDOMEN: normal bowel sounds, non tender, soft, no organomegaly EXTREMITIES: +1 edema Laboratory Tests Test 11/06/20 10:19 Arterial Blood pH 7.423 (7.350-7.450) Arterial Blood Partial Pressure CO2 60.0 mmHg (35.0-45.0) *H Arterial Blood Partial Pressure O2 71.9 mmHg (75.0-100.0) L Arterial Blood HCO3 38.3 mmol/L (22.0-26.0) H Arterial Blood Oxygen Saturation 94.4 % (95-100) L Arterial Blood Base Excess 11.9 (-2-2) *H Roger Test Positive Assessment/Plan Assessment/Plan Acute on chronic diastolic CHF Chronic atrial fibrillation, rate controlled Pradaxa for cardioembolic prophylaxis Glucose intolerance Chr respiratory acidosis COPD Multi-infarct dementia Dehydration/hypernatremia Orders updated: Titrating diuretics; acetazolamide added yesterday. Monitoring lytes and acid-base parameters. Trend BNP Leg elevation. Continue full anti-coagulation. Gerardo Calix MD Nov 06, 2020 18:36
--- NOTE | 2020-11-06 19:30 | NUR ---
NURSE NOTES: Received report & pt from Amena Kim RN. Pt in bed, asleep, easily arousable to verbal stimuli, a&ox3, on O2 via NC @ 3LPM. Purewick on. IV sites intact & S/L'd. Bed in lowest position. Call light within reach. Will continue to monitor.
[2020-11-06 20:00] VITALS: BP 131/65
[2020-11-07] VITALS: BP 133/62
[2020-11-07] MEDS: Albuterol/Ipratropium 3ml neb HHN SCH ×2 (01:00→08:08)
[2020-11-07 04:00] VITALS: BP 130/70
--- NOTE | 2020-11-07 06:35 | NUR ---
NURSE HAND-OFF: Important Events on Shift:o2 titrated from3L to 2L. Calm throughout the night; given xanax x1 Patient Status: stable Diet: low sodium diet Pending Orders: Pending Results/Labs: Pending MD notification: Latest Vital Signs: Temperature 98.1 , Pulse 79 , B/P 130 /70 , Respiratory Rate 18 , O2 SAT 98 , Nasal Cannula, O2 Flow Rate 3.0 . Vital Sign Comment: Latest Welch Fall Score: 35 Fall Risk: Medium Risk Safety Measures: Call light Within Reach, Bed Alarm Zone 2, Side Rails Side Rails x3, Bed position Low and Locked. Fall Precautions: Yellow Socks Report given to Amena Kim RN.
[2020-11-07 06:38] LABS: BASOPHILS % (AUTO) 0.9 % (0.0-2.0); EOSINOPHILS % (AUTO) 4.4 % (0.0-3.0); HEMATOCRIT 36.2 % (37.0-47.0); HEMOGLOBIN 10.2 G/DL (12.0-16.0); LYMPHOCYTES % (AUTO) 31.5 % (20.0-45.0); MEAN CORPUSCULAR VOLUME 103 FL (80-99); MONOCYTES % (AUTO) 7.4 % (1.0-10.0); NEUTROPHILS % (AUTO) 55.9 % (45.0-75.0); PLATELET COUNT 100 K/UL (150-450); RED BLOOD COUNT 3.53 M/UL (4.20-5.40); RED CELL DISTRIBUTION WIDTH 14.4 % (11.6-14.8); WHITE BLOOD COUNT 4.5 K/UL (4.8-10.8)
[2020-11-07 06:56] LABS: ALANINE AMINOTRANSFERASE 14 U/L (12-78); ALBUMIN/GLOBULIN RATIO 0.7 (1.0-2.7); ALKALINE PHOSPHATASE 53 U/L (46-116); ANION GAP 2 mmol/L (5-15); ASPARTATE AMINO TRANSFERASE 21 U/L (15-37); BILIRUBIN,TOTAL 0.5 MG/DL (0.2-1.0); BLOOD UREA NITROGEN 20 mg/dL (7-18); CALCIUM 8.9 MG/DL (8.5-10.1); CARBON DIOXIDE 38 MMOL/L (21-32); CHLORIDE 105 MMOL/L (98-107); CREATININE 0.9 MG/DL (0.55-1.30); POTASSIUM 3.7 MMOL/L (3.5-5.1); SODIUM 144 MMOL/L (136-145)
--- NOTE | 2020-11-07 07:15 | NUR ---
nurse notes received patient resting comfortably asleep, no sign of distress,denies pain or discomfort at this time, HL patent, on fall precaution, plan of care was discussed, verbalized understanding encouraged patient to call for assistance when in need inez linares
[2020-11-07 08:00] VITALS: BP 129/81
[2020-11-07] MEDS: Digoxin 0.125mg tab ORAL SCH (08:10)
[2020-11-07] MEDS: Allopurinol 100mg Tab ORAL SCH (08:11)
[2020-11-07] MEDS: Dabigatran 150mg cap ORAL SCH (08:11)
[2020-11-07] MEDS: Ascorbic Acid 500mg tab ORAL SCH (08:11)
[2020-11-07] MEDS: Donepezil 5mg Tab ORAL SCH (08:11)
--- NOTE | 2020-11-07 08:45 | Pulmonology Progress Note ---
Subjective ROS Limited/Unobtainable: No Allergies: Coded Allergies: PENICILLINS (Verified Allergy, Mild, 07/09/18) Cashew (Verified Allergy, Unknown, 07/09/18) Dust (Verified Allergy, Unknown, 07/09/18) FISH CONTAINING PRODUCTS (Verified Allergy, Unknown, 07/09/18) seafood TOMATO (Verified Allergy, Unknown, 07/09/18) All Systems: reviewed and negative except above Subjective care noted orders in place improved edema some confusion and agitation d/w daughter Objective Last 24 Hour Vital Signs Date Time Temp Pulse Resp B/P (MAP) Pulse Ox O2 Delivery O2 Flow Rate FiO2 11/07/20 08:10 79 11/07/20 08:00 98.2 79 22 129/81 (97) 98 11/07/20 04:00 98.1 79 18 130/70 (90) 98 11/07/20 00:00 97.9 87 16 133/62 (85) 99 11/06/20 21:00 Nasal Cannula 3.0 11/06/20 20:00 97.8 82 17 131/65 (87) 99 11/06/20 19:48 76 20 100 Nasal Cannula 3.0 32 74 20 97 11/06/20 16:12 97.8 75 20 121/59 (79) 99 11/06/20 12:00 98.0 75 20 113/69 (84) 99 11/06/20 08:45 79 Intake and Output 11/06/20 11/07/20 19:00 07:00 Intake Total 480 ml 360 ml Output Total 800 ml 1200 ml Balance -320 ml -840 ml Intake Oral 480 ml 360 ml Output Urine Total 800 ml 1200 ml # Voids 2 1 Objective WDWN NAD reduced breath sounds bilaterally without rhonchi or wheeze S1S2 iRRR without MRG NABS nontender no HSM no CC significant leg edema improved nonfocal Laboratory Tests 11/06/20 10:19: Arterial Blood pH 7.423, Arterial Blood Partial Pressure CO2 60.0*H, Arterial B lood Partial Pressure O2 71.9L, Arterial Blood HCO3 38.3H, Arterial Blood Oxygen Saturation 94.4L, Arterial Blood Base Excess 11.9*H, Roger Test Positive 11/07/20 05:00: White Blood Count 4.5L, Red Blood Count 3.53L, Hemoglobin 10.2L, Hematocrit 36.2L, Mean Corpuscular Volume 103H, Mean Corpuscular Hemoglobin 29.0, Mean C orpuscular Hemoglobin Concent 28.2L, Red Cell Distribution Width 14.4, Platelet Count 100L, Mean Platelet Volume 9.1, Neutrophils (%) (Auto) 55.9, Lymphocytes (%) (Auto) 31.5, Monocytes (%) (Auto) 7.4, Eosinophils (%) (Auto) 4.4H, Basophils (%) (Auto) 0.9, Sodium Level 144, Potassium Level 3.7, Chloride Level 105, Carbon Dioxide Level 38H, Anion Gap 2L, Blood Urea Nitrogen 20H, Creatinine 0.9, Estimat Glomerular Filtration Rate > 60, Glucose Level 80, Uric Acid 4.3, Calcium Level 8.9, Magnesium Level 2.4, Total Bilirubin 0.5, Aspartate Amino Transf (AST/SGOT) 21, Alanine Aminotransferase (ALT/SGPT) 14, Alkaline Phosphatase 53, Pro-B-Type Natriuretic Peptide 1435H, Total Protein 7.1, Albumin 3.0L, Globulin 4.1, Albumin/Globulin Ratio 0.7L Current Medications Medications (Trade) Dose Ordered Sig/Rocío Route PRN Reason Start Time Stop Time Status Last Admin Dose Admin Acetaminophen (Tylenol) 650 mg Q4H PRN ORAL Mild Pain (Pain Scale 1-3) 11/03/20 18:30 12/03/20 18:29 Acetazolamide (Diamox) 250 mg TWICE A DAY ORAL 11/05/20 09:00 12/05/20 08:59 11/07/20 08:10 Albuterol/ Ipratropium (Albuterol/ Ipratropium) 3 ml Q6HRT HHN 11/04/20 01:00 11/09/20 00:59 11/06/20 19:48 Allopurinol (Zyloprim) 100 mg BID ORAL 11/04/20 09:00 12/04/20 08:59 11/07/20 08:11 Alprazolam (Xanax) 0.5 mg Q8H PRN ORAL Agitation 11/06/20 11:00 11/13/20 10:59 11/06/20 21:14 Ascorbic Acid (Vitamin C) 1,000 mg DAILY ORAL 11/04/20 09:00 12/04/20 08:59 11/07/20 08:11 Dabigatran (Pradaxa) 150 mg Q12HR ORAL 11/04/20 09:00 02/02/21 08:59 11/07/20 08:11 Dextrose (Dextrose 50%) 25 ml Q30M PRN IV Hypoglycemia 11/03/20 18:30 02/01/21 18:29 Dextrose (Dextrose 50%) 50 ml Q30M PRN IV Hypoglycemia 11/03/20 18:30 02/01/21 18:29 Digoxin (Lanoxin) 0.125 mg DAILY ORAL 11/04/20 09:00 02/02/21 08:59 11/07/20 08:10 Donepezil HCl (Aricept) 5 mg DAILY ORAL 11/04/20 09:00 12/04/20 08:59 11/07/20 08:11 Famotidine (Pepcid) 20 mg BID ORAL 11/04/20 09:00 02/02/21 08:59 11/07/20 08:11 Fish Oil (Fish Oil) 1,000 mg DAILY ORAL 11/04/20 09:00 12/04/20 08:59 11/07/20 08:11 Furosemide (Lasix) 80 mg DAILY IV 11/04/20 09:00 12/04/20 08:59 11/07/20 08:13 Quetiapine Fumarate (SEROqueL) 100 mg DAILY ORAL 11/04/20 09:00 12/19/20 08:59 11/07/20 08:11 Rifaximin (Xifaxan) 550 mg TWICE A DAY ORAL 11/04/20 09:00 11/11/20 08:59 11/07/20 08:10 Assessment/Plan Assessment/Plan IMPRESSION leg edema fluid overload CHF thrombocytopenia elevated BNP anemia COPD PLAN diurese IV with improvement meds as is cardiology monitor acid base- improved care note and reviewed BIPAP QHS oxygen therapy at home dc planning 1999 for home use after dc resume po lasix impression, plan, and exam edited and reviewed in detail care discussed with Stevan Zaidi MD Nov 07, 2020 08:45
[2020-11-07 12:00] VITALS: BP 110/59
--- NOTE | 2020-11-07 12:21 | NUR ---
nurse notes Discharger in stable condition with all belongings wheeled by by [employer] to the parking area,discharged vis private car accompanied family member inez linares
--- NOTE | 2020-11-08 11:42 | Cardiology Progress Note ---
Subjective DATE OF SERVICE: Nov 07, 2020 (late entry due to computer malfxn) Less congestion and SOB. Leg swelling has nearly resolved. No CP Objective Last 24 Hour Vital Signs Date Time Temp Pulse Resp B/P (MAP) Pulse Ox O2 Delivery O2 Flow Rate FiO2 11/07/20 12:00 97.9 82 16 110/59 (76 91 ROS: unchanged from my evaluation of 11/03/20 HEENT: normal ENT inspection RHYTHM: PVCs, Afib LUNGS: diminished breath sounds, rales bilaterally CARDIAC: normal rate, irregularly irregular, systolic murmur - 1/6 systolic at apex ABDOMEN: normal bowel sounds, non tender, soft, no organomegaly EXTREMITIES: trace edema Assessment/Plan Assessment/Plan Acute on chronic diastolic CHF Chronic atrial fibrillation, rate controlled Pradaxa for cardioembolic prophylaxis Glucose intolerance Chr respiratory acidosis COPD Multi-infarct dementia Dehydration/hypernatremia Orders updated: Maintain oral diuretics as outpatient. Salt restriction. Continue full anti-coagulation. Other cardiovascular meds without change. Gerardo Calix MD Nov 08, 2020 11:41
--- NOTE | 2020-11-08 12:26 | Discharge Summary ---
Discharge Summary Discharge Summary _ Date of admission: 11/03/2020 Date of discharge: 11/07/[address] Pace History of Present Illness and Brief Hospital Course Ms. Courtney is an 85-year-old female with past medical history of CHF, hypertension, atrial fibrillation, and COPD/asthma chronically on 3 L oxygen, who presented to ED for evaluation of progressively worsening bilateral leg edema over a few days. Patient was already on Lasix at home. Patient received additional Lasix in the ER and was admitted to the hospital for further management. Her initial chest x-ray showed cardiomegaly with evidence of congestive heart failure. Enlarged central pulmonary vessels were also demonstrated. Patient was continued on diuretics, and salt restriction. Given respiratory distress, she was continued on low-flow oxygen via nasal cannula. She was also started on Pradaxa for cardioembolic prophylaxis. Throughout her hospitalization, patient continued to improve with diuretics and was medically stable for discharge. Patient was discharged home on 11/07/2020. Consultants: Cardiology Dr. Calix Discharge Condition Improved and stable Final diagnoses Acute on chronic diastolic CHF Chronic atrial fibrillation, rate controlled Chronic respiratory acidosis Leg edema Thrombocytopenia Elevated BNP Anemia COPD Asthma I have been assigned to dictate discharge summary for this account. I was not involved in the patient's management Liban Alonzo Nov 08, 2020 12:26
== END 2020-11-07 12:00 | disposition home or self-care (01) | DRG 292 ==
LOC: EMR 23:25 → 4E 11-03 00:10 → EDBEDREQ 11-03 18:14
DX: I11.0 Hypertensive heart disease with heart failure (principal); E66.2 Morbid (severe) obesity with alveolar hypoventilation; I48.20 Chronic atrial fibrillation, unspecified; E87.2 Acidosis; I50.33 Acute on chronic diastolic (congestive) heart failure; J44.9 Chronic obstructive pulmonary disease, unspecified; Z88.0 Allergy status to penicillin; D69.6 Thrombocytopenia, unspecified; D64.9 Anemia, unspecified; F01.50 Vascular dementia, unspecified severity, without behavioral disturbance, psychotic disturbance, mood disturbance, and anxiety; I25.10 Atherosclerotic heart disease of native coronary artery without angina pectoris; I27.20 Pulmonary hypertension, unspecified; R06.89 Other abnormalities of breathing
CPT/HCPCS: 36415; 71045; 80048; 80053; 80162; 82803; 83735; 83880; 84484; 84550; 85025; 93005; 94640; 94660; 96374; 99285; J7620